=== PATIENT | male | born 1935 | race Caucasian/White ===

== ENCOUNTER 2016-08-26 05:18 | Inpatient (IN) | payer MEDICARE, BC ==
[~2016-08-26] VITALS: Ht 167.6 cm; Wt 91.0 kg
[2016-08-26 05:24] VITALS: BP 160/97; PULSE 140; RESP 16; TEMP 97.5; O2SAT 93
[2016-08-26] MEDS ORDERED: NORC5TAB PO (05:55)
[2016-08-26] MEDS ORDERED: SIME80CH CHEW (05:55)
[2016-08-26] MEDS ORDERED: INSUINJ5 SQ (05:55)
[2016-08-26] MEDS ORDERED: HUMALOG SQ (05:55)
[2016-08-26] MEDS ORDERED: MIRTA15 PO (05:55)
[2016-08-26] MEDS ORDERED: TYLE325T PO (05:55)
[2016-08-26] MEDS ORDERED: METO50TA PO (05:55)
[2016-08-26] MEDS ORDERED: FAMO40TA PO (05:55)
[2016-08-26] MEDS ORDERED: ENOX100P SQ (05:55)
[2016-08-26] MEDS ORDERED: TRAZ100T4 PO (05:55)
[2016-08-26] MEDS ORDERED: LOPE2TAB3 PO (05:55)
[2016-08-26] MEDS ORDERED: ESCI10TA PO (05:55)
[2016-08-26] MEDS ORDERED: PERC5TAB12 PO (05:55)
[2016-08-26] MEDS ORDERED: DILT60TA PO (05:55)
[2016-08-26] MEDS ORDERED: MILKSUS PO (05:55)
[2016-08-26] MEDS ORDERED: N7030SS SQ (05:55)
[2016-08-26] MEDS ORDERED: FURO1TAB60 PO (05:55)
[2016-08-26] MEDS ORDERED: DULC10SU3 RECTAL (05:55)
[2016-08-26] MEDS ORDERED: DILTIAZEM HCL 25 MG/5 ML VIAL IV PUSH ONE (06:15)
--- NOTE | 2016-08-26 06:30 | PD ---
HPI Chief Complaint: Cardiac Complaint Time Seen by Provider: 05:50 Travel History International Travel<30 days: No Contact w/Intl Traveler<30days: No Traveled to known affect area: No History of Present Illness HPI 81-year-old male was sent from local detention for tachycardia and irregular pulse. Patient resides at local detention. [facility] personnel check on patient this morning was found patient has tachycardia and irregular heartbeat. Patient denies any headache. Patient denies any chest pain or shortness of breath. Patient denies abdominal pain. Patient denies any focal weakness or numbness of extremity. Patient denies any history of cardiac arrhythmia. Patient has history hypertension, diabetes, depression, anemia, encephalopathy. Patient was admitted to [facility] in [place] in June 2016 and status post cholecystectomy and transferred to [facility] in [facility]. Patient was found to have large gallstone which was removed and patient also had repair of a fistula tract. Patient then had procedure duodenotomy with complication of segmental lobar infarct. 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 Patient also had supraventricular tachycardia subsequently was put on Cardizem and then Lopressor. Patient has a surgical drain in the gallbladder fossa.. Patient was discharged to detention recently. PFSH Past Medical History Anemia: Yes Depression: Yes Diabetes: Yes Patient Takes Glucophage: No Diminished Hearing: No Hypertension: Yes Medical other: Yes (GALLSTONES) Immunizations Current: No Influenza Vaccination: No Past Surgical History Surgical History: Unable to Obtain Social History Alcohol Use: No Tobacco Use: No Substance Use: No Allergies-Medications (Allergen,Severity, Reaction): Coded Allergies: No Known Allergies (Unverified , 08/26/16) Reported Meds & Prescriptions Reported Meds & Active Scripts Active Reported Loperamide (Loperamide HCl) 2 Mg Tab 2 Mg PO DIRECTED PRN One tablet after each loose stool. Not to exceed 8 tablets per day. Escitalopram (Escitalopram Oxalate) 10 Mg Tab 10 Mg PO DAILY Trazodone (Trazodone HCl) 100 Mg Tab 100 Mg PO HS Percocet (Oxycodone-Acetaminophen) 5-325 mg Tab 1 Tab PO Q6H PRN Novolin 70/30 Inj (Insulin Human Isoph/Insulin Regular) 1,000 Units/10 Ml Inj 10 SQ HS Novolin 70-30 Relion Inj (Insulin NPH Isophane-Reg (Human) 70-30 Inj) 100 Unit/ Ml Inj 15 SQ DAILY [place] (Hydrocodone-Acetaminophen) 5-325 mg Tab 1 Tab PO Q4H PRN Mirtazapine 15 Mg Tab 15 Mg PO HS Diltiazem (Diltiazem HCl) 60 Mg Tab 60 Mg PO TID Tylenol (Acetaminophen) 325 Mg Tab 650 Mg PO Q6H PRN Humalog Inj (Insulin Human Lispro) 1,000 Unit/10 Ml Vial 1-9 Units SQ ACHS Max dose at bedtime:( )units; sugars< 70,(0)units; sugars 150-199,(1)unit; sugars 200-249,(3)units; sugars 250-299,(5)units; sugars 300-349,(7)units; sugars more than 349,(9)units. Metoprolol Tartrate 50 Mg Tab 50 Mg PO BID Lovenox Inj (Enoxaparin Sodium) 100 Mg/Ml Syr 100 Mg SQ BID Simethicone 80 Mg Chw 80 Mg CHEW QID PRN Lasix (Furosemide) 40 Mg Tab 40 Mg PO DAILY Famotidine 40 Mg Tab 40 Mg PO HS Dulcolax Supp (Bisacodyl) 10 Mg Supp 10 Mg RECTAL DAILY PRN Milk of Magnesia Liq (Magnesium Hydroxide) 400 Mg/5 Ml Susp 30 Ml PO DAILY PRN Review of Systems General / Constitutional: No: Fever Eyes: No: Visual changes HENT: No: Headaches Cardiovascular: No: Chest Pain or Discomfort Respiratory: No: Shortness of Breath Gastrointestinal: No: Abdominal Pain Genitourinary: No: Dysuria Musculoskeletal: No: Pain Skin: No Rash Neurologic: No: Weakness Psychiatric: No: Depression Endocrine: No: Polydipsia Hematologic/Lymphatic: No: Easy Bruising Physical Exam Narrative GENERAL: Well-nourished, well-developed patient. SKIN: Focused skin assessment warm/dry. HEAD: Normocephalic. EYES: No scleral icterus. No injection or drainage. NECK: Supple, trachea midline. No JVD or lymphadenopathy. CARDIOVASCULAR: Irregular irregular rate and rhythm without murmurs, gallops, or rubs. RESPIRATORY: Breath sounds equal bilaterally. No accessory muscle use. GASTROINTESTINAL: Abdomen soft, non-tender, nondistended. MUSCULOSKELETAL: No cyanosis, or edema. BACK: Nontender without obvious deformity. No CVA tenderness. Neurologic exam: Patient awake oriented to name. Patient moves all extremities well. No obvious focal neurological deficit. Data Data Last Documented VS Vital Signs Date Time Temp Pulse Resp B/P Pulse Ox O2 Delivery O2 Flow Rate FiO2 08/26/16 05:24 97.5 140 16 160/97 93 Orders Complete Blood Count With Diff (08/26/16 06:13) Comprehensive Metabolic Panel (08/26/16 06:13) Creatine Kinase (Cpk) (08/26/16 06:13) Troponin I (08/26/16 06:13) B-Type Natriuretic Peptide (08/26/16 06:13) Prothrombin Time / Inr (Pt) (08/26/16 06:13) Act Partial Throm Time (Ptt) (08/26/16 06:13) Urinalysis - C+S If Indicated (08/26/16 06:13) Magnesium (Mg) (08/26/16 06:13) Thyroid Stimulating Hormone (08/26/16 06:13) Chest, Single Ap (08/26/16 06:13) Iv Access Insert/Monitor (08/26/16 06:13) Ecg Monitoring (08/26/16 06:13) Oximetry (08/26/16 06:13) Sodium Chlor 0.9% 1000 Ml Inj (Ns 1000 M (08/26/16 06:15) Diltiazem Inj (Cardizem Inj) (08/26/16 06:15) Diltiazem Inj (Cardizem Inj) (08/26/16 06:15) Labs Laboratory Tests Test 08/26/16 06:20 White Blood Count 10.1 TH/MM3 Red Blood Count 3.65 MIL/MM3 Hemoglobin 11.5 GM/DL Hematocrit 34.5 % Mean Corpuscular Volume 94.5 FL Mean Corpuscular Hemoglobin 31.6 PG Mean Corpuscular Hemoglobin 33.4 % Concent Red Cell Distribution Width 18.9 % Platelet Count 321 TH/MM3 Mean Platelet Volume 8.8 FL Neutrophils (%) (Auto) 77.8 % Lymphocytes (%) (Auto) 12.9 % Monocytes (%) (Auto) 7.9 % Eosinophils (%) (Auto) 0.8 % Basophils (%) (Auto) 0.6 % Neutrophils # (Auto) 7.8 TH/MM3 Lymphocytes # (Auto) 1.3 TH/MM3 Monocytes # (Auto) 0.8 TH/MM3 Eosinophils # (Auto) 0.1 TH/MM3 Basophils # (Auto) 0.1 TH/MM3 CBC Comment DIFF FINAL Differential Comment Prothrombin Time 11.9 SEC Prothromb Time International 1.1 RATIO Ratio Activated Partial 27.8 SEC Thromboplast Time Sodium Level 139 MEQ/L Potassium Level 3.6 MEQ/L Chloride Level 101 MEQ/L Carbon Dioxide Level 32.2 MEQ/L Anion Gap 6 MEQ/L Blood Urea Nitrogen 21 MG/DL Creatinine 1.09 MG/DL Estimat Glomerular Filtration 65 ML/MIN Rate Random Glucose 105 MG/DL Calcium Level 8.4 MG/DL Magnesium Level 2.0 MG/DL Aspartate Amino Transf 8 U/L (AST/SGOT) Albumin 2.3 GM/DL MDM Medical Decision Making Medical Screen Exam Complete: Yes Emergency Medical Condition: Yes Interpretation(s) 6:25 AM. EKG shows atrial flutter with rapid ventricular response. Differential Diagnosis Differential diagnosis including new-onset atrial fibrillation with RVR. Narrative Course 81-year-old male was brought to the ED from local detention with new onset atrial fibrillation and RVR. Normal saline solution 70 cc an hour. Cardizem bolus and drip given. Bear Aguirre MD Aug 26, 2016 06:30
[2016-08-26] MEDS: SODIUM CHLOR 0.9% 1000 ML INJ 1,000 ML IV SCH ×2 (06:37→20:33)
[2016-08-26 06:47] LABS: APTT (PATIENT) 27.8 SEC (24.3-30.1); INTERNATIONAL NORMALIZED RATIO 1.1 RATIO; PROTHROMBIN TIME - PATIENT 11.9 SEC (9.8-11.6)
--- NOTE | 2016-08-26 06:52 | RADRPT ---
EXAM DATE/TIME: 08/26/2016 06:34 [place] COMPARISON: No previous studies available for comparison. INDICATIONS : Tachycardia. MEDICAL HISTORY : None. SURGICAL HISTORY : None. ENCOUNTER: Initial ACUITY: 1 day PAIN SCORE: 0/10 LOCATION: Bilateral chest FINDINGS: A single portable frontal view of the chest shows elevation of the right hemidiaphragm. Linear atelec tasis within the right lung base. No infiltrates. Heart is mildly enlarged. Drainage catheter overlie s the right or quadrant. CONCLUSION: Right basilar atelectasis. Mild cardiomegaly. Moshe Goyal Jr., MD on August 26, 2016 at 6:50 Board Certified Radiologist. This report was verified electronically.
[2016-08-26 06:53] LABS: AUTOMATED NEUTROPHIL # 7.8 TH/MM3 (1.8-7.7); BASOPHIL # 0.1 TH/MM3 (0-0.2); BASOPHIL % 0.6 % (0.0-2.0); EOSINOPHIL # 0.1 TH/MM3 (0-0.4); EOSINOPHIL % 0.8 % (0.0-4.0); HEMATOCRIT 34.5 % (39.0-51.0); HEMO FLAGS DIFF FINAL; LYMPH % 12.9 % (9.0-44.0); LYMPHOCYTE # 1.3 TH/MM3 (1.0-4.8); MEAN CELL VOLUME 94.5 FL (80.0-100.0); MEAN CORPUSCULAR HEMOGLOBIN 31.6 PG (27.0-34.0); MEAN CORPUSCULAR HGB CONC 33.4 % (32.0-36.0); MONO % 7.9 % (0.0-8.0); NEUT % 77.8 % (16.0-70.0); PLATELET COUNT 321 TH/MM3 (150-450); RED BLOOD COUNT 3.65 MIL/MM3 (4.50-5.90); RED CELL DISTRIBUTION WIDTH 18.9 % (11.6-17.2); WHITE BLOOD COUNT 10.1 TH/MM3 (4.0-11.0)
[2016-08-26 07:03] LABS: ANION GAP 6 MEQ/L (5-15); AST (GOT) 8 U/L (15-37); BICARBONATE 32.2 MEQ/L (21.0-32.0); BLOOD UREA NITROGEN 21 MG/DL (7-18); CHLORIDE 101 MEQ/L (98-107); GLOMERULAR FILTRATION RATE 65 ML/MIN (>89); POTASSIUM 3.6 MEQ/L (3.5-5.1); SODIUM (NA) 139 MEQ/L (136-145)
[2016-08-26 07:13] LABS: ALKALINE PHOSPHATASE 77 U/L (45-117); ALT (GPT) 16 U/L (12-78); TOTAL BILIRUBIN ADULT 0.4 MG/DL (0.2-1.0)
[2016-08-26 07:15] LABS: CREATINE KINASE 17 U/L (39-308)
[2016-08-26 07:24] LABS: BACTERIA, URINE MOD /hpf; BLOOD, URINE SMALL (NEG); COMMENT (UR) CULTURE INDICATED; CULTURE IF INDICATED CULTURE INDICATED; GLUCOSE,URINE NEG (NEG); KETONE, URINE NEG (NEG); NITRITE,URINE NEG (NEG); URINE COLOR YELLOW (YELLW/STRAW)
[2016-08-26] MEDS ORDERED: PIPERACIL-TAZO 4.5 GM PREMIX 100 ML IV STA (07:39)
[2016-08-26] MEDS: DILTIAZEM INJ 125 MG in SODIUM CHLORIDE 0.9% INJ 100 ML IV SCH (08:04)
[2016-08-26] MEDS: cefTRIAXone INJ 1,000 MG in SODIUM CHLORIDE 0.9% INJ 100 ML IV SCH (09:00)
[2016-08-26] MEDS ORDERED: DEXTROSE 50% IN WATER 50 ML VIAL(D50) IV PUSH PRN (09:00)
[2016-08-26] MEDS ORDERED: GLUCAGON 1 MG/ML VIAL OTHER PRN (09:00)
--- NOTE | 2016-08-26 09:04 | PD ---
Physical Exam Date Seen by Provider: Aug 26, 2016 Time Seen by Provider: 07:00 Narrative Patient initially was seen by Dr. Clifton, please see his note for further details. Here with A. fib with RVR, new onset, currently on Cardizem which is controlling rate. Await lab work for admission. Laboratory Tests Test 08/26/16 08/26/16 06:20 06:30 Red Blood Count 3.65 MIL/MM3 (4.50-5.90) Hemoglobin 11.5 GM/DL (13.0-17.0) Hematocrit 34.5 % (39.0-51.0) Red Cell Distribution Width 18.9 % (11.6-17.2) Neutrophils (%) (Auto) 77.8 % (16.0-70.0) Neutrophils # (Auto) 7.8 TH/MM3 (1.8-7.7) Prothrombin Time 11.9 SEC (9.8-11.6) Carbon Dioxide Level 32.2 MEQ/L (21.0-32.0) Blood Urea Nitrogen 21 MG/DL (7-18) Estimat Glomerular Filtration 65 ML/MIN (>89) Rate Calcium Level 8.4 MG/DL (8.5-10.1) Aspartate Amino Transf 8 U/L (15-37) (AST/SGOT) Total Creatine Kinase 17 U/L (39-308) B-Type Natriuretic Peptide 308 PG/ML (0-100) Albumin 2.3 GM/DL (3.4-5.0) Thyroid Stimulating Hormone 5.200 uIU/ML 3rd Gen (0.358-3.740) Urine Turbidity CLOUDY (CLEAR) Urine Protein 30 mg/dL (NEG-TRACE) Urine Occult Blood SMALL (NEG) Urine Leukocyte Esterase LARGE (NEG) Urine RBC 37 /hpf (0-3) Urine WBC Clumps MANY (NONE) Urine Bacteria MOD /hpf (NONE) Last 24 hours Impressions Chest X-Ray 08/26/16 0613 Signed Impressions: Service Date/Time: Friday, August 26, 2016 06:34 - CONCLUSION: Right basilar atelectasis. Mild cardiomegaly. Moshe Goyal Jr., MD Lab work shows significant UTI. Cultures were done and IV antibiotics initiated the ER. Family suspect that he is somewhat disoriented and his suspect that the UTI may be causing some of this disorientation. Heart rate is now controlled with Cardizem. At this point, patient will need further treatment for new onset A. fib. Case is discussed with Dr. Arreola for admission. Data Data Last Documented VS Vital Signs Date Time Temp Pulse Resp B/P Pulse Ox O2 Delivery O2 Flow Rate FiO2 08/26/16 05:24 97.5 140 16 160/97 93 Orders Complete Blood Count With Diff (08/26/16 06:13) Comprehensive Metabolic Panel (08/26/16 06:13) Creatine Kinase (Cpk) (08/26/16 06:13) Troponin I (08/26/16 06:13) B-Type Natriuretic Peptide (08/26/16 06:13) Prothrombin Time / Inr (Pt) (08/26/16 06:13) Act Partial Throm Time (Ptt) (08/26/16 06:13) Urinalysis - C+S If Indicated (08/26/16 06:13) Magnesium (Mg) (08/26/16 06:13) Thyroid Stimulating Hormone (08/26/16 06:13) Chest, Single Ap (08/26/16 06:13) Iv Access Insert/Monitor (08/26/16 06:13) Ecg Monitoring (08/26/16 06:13) Oximetry (08/26/16 06:13) Sodium Chlor 0.9% 1000 Ml Inj (Ns 1000 M (08/26/16 06:15) Diltiazem Inj (Cardizem Inj) (08/26/16 06:15) Diltiazem Inj (Cardizem Inj) (08/26/16 06:15) Urine Culture (08/26/16 06:30) Blood Culture (08/26/16 07:39) Lactic Acid Sepsis Protocol (08/26/16 07:39) Piperacil-Tazo 4.5 Gm Premix (Zosyn 4.5 (08/26/16 07:39) Electrocardiogram (08/26/16 05:26) Electrocardiogram (08/26/16 06:44) Admit Order (Ed Use Only) (08/26/16 09:02) Labs Laboratory Tests Test 08/26/16 08/26/16 06:20 06:30 White Blood Count 10.1 TH/MM3 Red Blood Count 3.65 MIL/MM3 Hemoglobin 11.5 GM/DL Hematocrit 34.5 % Mean Corpuscular Volume 94.5 FL Mean Corpuscular Hemoglobin 31.6 PG Mean Corpuscular Hemoglobin 33.4 % Concent Red Cell Distribution Width 18.9 % Platelet Count 321 TH/MM3 Mean Platelet Volume 8.8 FL Neutrophils (%) (Auto) 77.8 % Lymphocytes (%) (Auto) 12.9 % Monocytes (%) (Auto) 7.9 % Eosinophils (%) (Auto) 0.8 % Basophils (%) (Auto) 0.6 % Neutrophils # (Auto) 7.8 TH/MM3 Lymphocytes # (Auto) 1.3 TH/MM3 Monocytes # (Auto) 0.8 TH/MM3 Eosinophils # (Auto) 0.1 TH/MM3 Basophils # (Auto) 0.1 TH/MM3 CBC Comment DIFF FINAL Differential Comment Prothrombin Time 11.9 SEC Prothromb Time International 1.1 RATIO Ratio Activated Partial 27.8 SEC Thromboplast Time Sodium Level 139 MEQ/L Potassium Level 3.6 MEQ/L Chloride Level 101 MEQ/L Carbon Dioxide Level 32.2 MEQ/L Anion Gap 6 MEQ/L Blood Urea Nitrogen 21 MG/DL Creatinine 1.09 MG/DL Estimat Glomerular Filtration 65 ML/MIN Rate Random Glucose 105 MG/DL Calcium Level 8.4 MG/DL Magnesium Level 2.0 MG/DL Total Bilirubin 0.4 MG/DL Aspartate Amino Transf 8 U/L (AST/SGOT) Alanine Aminotransferase 16 U/L (ALT/SGPT) Alkaline Phosphatase 77 U/L Total Creatine Kinase 17 U/L Troponin I 0.02 NG/ML B-Type Natriuretic Peptide 308 PG/ML Total Protein 6.6 GM/DL Albumin 2.3 GM/DL Thyroid Stimulating Hormone 5.200 uIU/ML 3rd Gen Urine Color YELLOW Urine Turbidity CLOUDY Urine pH 8.0 Urine Specific [place] 1.016 Urine Protein 30 mg/dL Urine Glucose (UA) NEG mg/dL Urine Ketones NEG mg/dL Urine Occult Blood SMALL Urine Nitrite NEG Urine Bilirubin NEG Urine Urobilinogen 2.0 MG/DL Urine Leukocyte Esterase LARGE Urine RBC 37 /hpf Urine WBC /hpf Urine WBC Clumps MANY Urine Amorphous Sediment MOD Urine Bacteria MOD /hpf Microscopic Urinalysis Comment CULTURE INDICATED MDM Medical Record Reviewed: Yes Supervised Visit with RYAN: Yes Diagnosis Primary Impression: Rapid atrial fibrillation Additional Impressions: UTI (urinary tract infection) Sepsis Admitting Information Admitting Physician Requests: Admit Soontharothai,Rewadee MD Aug 26, 2016 09:04
[2016-08-26 09:55] VITALS: BP 115/81; PULSE 83; RESP 18; O2SAT 96
[2016-08-26] MEDS: INSULIN ASPART SUPPLEMENTAL SCALE SQ SCH ×3 (11:00→21:00)
[2016-08-26 12:00] VITALS: BP 130/86; PULSE 112; RESP 18; TEMP 97.9; O2SAT 92
--- NOTE | 2016-08-26 12:34 | HHI.HP ---
HPI Service [facility] Primary Care Physician Non-Staff Admission Diagnosis Debra miller with RVR/UTI/sepsis Diagnoses: (1) Rapid atrial fibrillation Diagnosis: Principal (2) UTI (urinary tract infection) Diagnosis: Principal Chief Complaint: irregular heart beat Travel History International Travel<30 Days: No Contact w/Intl Traveler <30 Da: No Traveled to Known Affected Are: No History of Present Illness patient is a 81 y/o male who was sent to ER from long term because of irregular heart beat. the patient was admitted to [facility] about three months ago. 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 at the time he had supraventricular tachycardia for which he was placed on cardizem. he had a drain placed in [facility] at the time. he was then transferred to [facility] and later to [facility]. this morning he was found to have rapid and irregular hear rate for which he was transferred to [facility]. he denies any chest pain or sob but has some pain to the lower abdomen. of note he had to have a suarez cath placed about three months ago. Review of Systems Constitutional: DENIES: Fever, Weight loss, Chills, Night Sweats Eyes: DENIES: Blurred vision, Diplopia, Vision loss, Double Vision Ears, nose, mouth, throat: DENIES: Tinnitus, Vertigo, Throat pain, Epistaxis Respiratory: DENIES: Apneas, Cough, Snoring, Wheezing, Hemoptysis, Sputum production, Shortness of breath Cardiovascular: DENIES: Chest pain, Palpitations, Syncope, Dyspnea on Exertion , PND, Lower Extremity Edema, Orthopnea, Claudication Gastrointestinal: COMPLAINS OF: Abdominal pain, DENIES: Black stools, Bloody stools, Constipation, Diarrhea, Nausea, Vomiting, Difficulty Swallowing, Anorexia Genitourinary: DENIES: Urinary frequency, Urgency, Hematuria, Dysuria Musculoskeletal: DENIES: Joint pain, Muscle aches, Stiffness, Joint Swelling Integumentary: DENIES: Rash Neurologic: DENIES: Abnormal gait, Headache, Localized weakness, Paresthesias, Seizures, Speech Problems, Tremor, Poor Balance Psychiatric: DENIES: Anxiety, Confusion, Mood changes, Depression, Hallucinations, Agitation, Suicidal Ideation, Homicidal Ideation, Delusions Past Family Social History 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 Not to exceed 8 tablets per day. Escitalopram (Escitalopram Oxalate) 10 Mg Tab 10 Mg PO DAILY Trazodone (Trazodone HCl) 100 Mg Tab 100 Mg PO HS Percocet (Oxycodone-Acetaminophen) 5-325 mg Tab 1 Tab PO Q6H PRN Novolin 70/30 Inj (Insulin Human Isoph/Insulin Regular) 1,000 Units/10 Ml Inj 10 SQ HS Novolin 70-30 Relion Inj (Insulin NPH Isophane-Reg (Human) 70-30 Inj) 100 Unit/ Ml Inj 15 SQ DAILY [place] (Hydrocodone-Acetaminophen) 5-325 mg Tab 1 Tab PO Q4H PRN Mirtazapine 15 Mg Tab 15 Mg PO HS Diltiazem (Diltiazem HCl) 60 Mg Tab 60 Mg PO TID Tylenol (Acetaminophen) 325 Mg Tab 650 Mg PO Q6H PRN Humalog Inj (Insulin Human Lispro) 1,000 Unit/10 Ml Vial 1-9 Units SQ ACHS Max dose at bedtime:( )units; sugars< 70,(0)units; sugars 150-199,(1)unit; sugars 200-249,(3)units; sugars 250-299,(5)units; sugars 300-349,(7)units; sugars more than 349,(9)units. Metoprolol Tartrate 50 Mg Tab 50 Mg PO BID Lovenox Inj (Enoxaparin Sodium) 100 Mg/Ml Syr 100 Mg SQ BID Simethicone 80 Mg Chw 80 Mg CHEW QID PRN Lasix (Furosemide) 40 Mg Tab 40 Mg PO DAILY Famotidine 40 Mg Tab 40 Mg PO HS Dulcolax Supp (Bisacodyl) 10 Mg Supp 10 Mg RECTAL DAILY PRN Milk of Magnesia Liq (Magnesium Hydroxide) 400 Mg/5 Ml Susp 30 Ml PO DAILY PRN Allergies: Coded Allergies: No Known Allergies (Unverified , 08/26/16) Active Ordered Medications Current Medications Sodium Chloride 1,000 ml @ 70 mls/hr [id number] IV Last administered on 06:37; Start 08/26/16 at 06:15 Diltiazem HCl/ Sodium Chloride (Cardizem Inj/NS Inj) 125 ml @ 0 mls/hr TITRATE IV Last administered on 08/26/16 08:04; Start 08/26/16 at 06:15 Diltiazem HCl 20 mg 20 mg BOLUS ONCE IV PUSH Last administered on 08/26/16 06 :37; Start 08/26/16 at 06:15; Stop 08/26/16 at 06:16; Status DC Piperacillin Sod/ Tazobactam Sod (Zosyn 4.5 Gm Premix) 100 ml @ 200 mls/hr ONCE STAT IV Last administered on 08/26/16 07:39; Start 08/26/16 at 07:39; Stop 08/26/16 at 08:08; Status DC Dextrose (D50w (Vial) Inj) 25 ml UNSCH PRN IV PUSH HYPOGLYCEMIA-SEE COMMENTS; Start 08/26/16 at 09:00 Glucagon (Glucagon Inj) 1 mg UNSCH PRN OTHER HYPOGLYCEMIA-SEE COMMENTS; Start 08/26/16 at 09:00 Insulin Aspart 1 1 ACHS SLIDING SCALE SQ ; Start 08/26/16 at 11:00 Ceftriaxone Sodium/Sodium Chloride (Rocephin Inj/NS Inj) 100 ml @ 200 mls/hr Q24H IV Last administered on 08/26/16 09:00; Start 08/26/16 at 09:00 Social History long term resident. no smoking or drinking. Physical Exam Vital Signs Vital Signs Date Time Temp Pulse Resp B/P Pulse Ox O2 Delivery O2 Flow Rate FiO2 08/26/16 09:55 83 18 115/81 96 Room Air 08/26/16 05:24 97.5 140 16 160/97 93 Physical Exam GENERAL: elderly male in no apparent distress. SKIN: No rashes, ecchymoses or lesions. Cool and dry. HEAD: Atraumatic. Normocephalic. No temporal or scalp tenderness. EYES: Pupils equal round and reactive. Extraocular motions intact. No scleral icterus. No injection or drainage. ENT: Nose without bleeding, purulent drainage or septal hematoma. Throat without erythema, tonsillar hypertrophy or exudate. Uvula midline. Airway patent. NECK: Trachea midline. No JVD or lymphadenopathy. Supple, nontender, no meningeal signs. CARDIOVASCULAR: irregular rhythm without murmurs, gallops, or rubs. RESPIRATORY: Clear to auscultation. Breath sounds equal bilaterally. No wheezes , rales, or rhonchi. GASTROINTESTINAL: Abdomen soft, non-tender, nondistended. No hepato-splenomegaly , or palpable masses. No guarding.drain in place in RUQ. MUSCULOSKELETAL: Extremities without clubbing, cyanosis, or edema. No joint tenderness, effusion, or edema noted. No calf tenderness. Negative Homans sign bilaterally. NEUROLOGICAL: Awake and alert. Cranial nerves II through XII intact. Motor and sensory grossly within normal limits. Five out of 5 muscle strength in all muscle groups. Normal speech. Laboratory Laboratory Tests Test 08/26/16 08/26/16 08/26/16 06:20 06:30 08:25 White Blood Count 10.1 Red Blood Count 3.65 Hemoglobin 11.5 Hematocrit 34.5 Mean Corpuscular Volume 94.5 Mean Corpuscular Hemoglobin 31.6 Mean Corpuscular Hemoglobin 33.4 Concent Red Cell Distribution Width 18.9 Platelet Count 321 Mean Platelet Volume 8.8 Neutrophils (%) (Auto) 77.8 Lymphocytes (%) (Auto) 12.9 Monocytes (%) (Auto) 7.9 Eosinophils (%) (Auto) 0.8 Basophils (%) (Auto) 0.6 Neutrophils # (Auto) 7.8 Lymphocytes # (Auto) 1.3 Monocytes # (Auto) 0.8 Eosinophils # (Auto) 0.1 Basophils # (Auto) 0.1 CBC Comment DIFF FINAL Differential Comment Prothrombin Time 11.9 Prothromb Time International 1.1 Ratio Activated Partial 27.8 Thromboplast Time Sodium Level 139 Potassium Level 3.6 Chloride Level 101 Carbon Dioxide Level 32.2 Anion Gap 6 Blood Urea Nitrogen 21 Creatinine 1.09 Estimat Glomerular Filtration 65 Rate Random Glucose 105 Calcium Level 8.4 Magnesium Level 2.0 Total Bilirubin 0.4 Aspartate Amino Transf 8 (AST/SGOT) Alanine Aminotransferase 16 (ALT/SGPT) Alkaline Phosphatase 77 Total Creatine Kinase 17 Troponin I 0.02 B-Type Natriuretic Peptide 308 Total Protein 6.6 Albumin 2.3 Free Thyroxine 1.27 Thyroid Stimulating Hormone 5.200 3rd Gen Urine Color YELLOW Urine Turbidity CLOUDY Urine pH 8.0 Urine Specific [place] 1.016 Urine Protein 30 Urine Glucose (UA) NEG Urine Ketones NEG Urine Occult Blood SMALL Urine Nitrite NEG Urine Bilirubin NEG Urine Urobilinogen 2.0 Urine Leukocyte Esterase LARGE Urine RBC 37 Urine WBC Urine WBC Clumps MANY Urine Amorphous Sediment MOD Urine Bacteria MOD Microscopic Urinalysis Comment CULTURE INDICATED Lactic Acid Level 1.0 Date/Time Procedure Status Source Growth 08/26/16 08:30 Aerobic Blood Culture Received Blood Peripheral Pending 08/26/16 08:30 Anaerobic Blood Culture Received Blood Peripheral Pending 08/26/16 06:30 Urine Culture Received Urine Clean Catch Pending Result Diagram: 08/26/1661908/26/1620 Imaging Last Impressions Chest X-Ray 08/26/1613 Signed Impressions: Service Date/Time: Friday, August 26, 2016 06:34 - CONCLUSION: Right basilar atelectasis. Mild cardiomegaly. Moshe Goyal Jr., MD Assessment and Plan Assessment and Plan A/P - atrial fibrillation with rapid ventricular rate resume po cardizem- continue with cardizem drip- check echo and consult cardiology -UTI- dc suarez cath- continue with IV Rocephin and follow the UC -perihepatic abscess- s/p drain in RUQ will consult general surgery 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 -DVT prophylaxis with SCD's Discussed Condition With ER physician, the patient and his family and RN at the bedside. Physician Certification 2 Midnight Certification Type: Admission for Inpatient Services Order for Inpatient Services The services are ordered in accordance with Medicare regulations or non- Medicare payer requirements, as applicable. In the case of services not specified as inpatient-only, they are appropriately provided as inpatient services in accordance with the 2-midnight benchmark. Estimated LOS (days): 2 days is the estimated time the patient will need to remain in the hospital, assuming treatment plan goals are met and no additional complications. Post-Hospital Plan: Not yet determined Problem Qualifiers (1) UTI (urinary tract infection): Piotr Medina MD Aug 26, 2016 12:34
[2016-08-26] MEDS: DILTIAZEM HCL 60 MG TAB PO SCH ×2 (13:00→17:59)
[2016-08-26 14:46] VITALS: PULSE 96
--- NOTE | 2016-08-26 14:50 | EKG ---
Date Performed: 08/26/2016 Time Performed: 05:26:55 PTAGE: 81 years EKG: ATRIAL FLUTTER/TACHYCARDIA WITH RAPID VENTRICULAR RESPONSE PATTERN CONSISTENT WITH PULMONAR Y DISEASE POSSIBLE RIGHT VENTRICULAR HYPERTROPHY POSSIBLE INFERIOR MYOCARDIAL INFARCTION ABNORMAL ECG NO PREVIOUS TRACING DOCTOR: Norberto Telles Interpretating Date/Time 08/26/2016 14:47:20
--- NOTE | 2016-08-26 15:29 | EKG ---
Date Performed: 08/26/2016 Time Performed: 06:44:57 PTAGE: 81 years EKG: ATRIAL FLUTTER/TACHYCARDIA INDETERMINATE AXIS PATTERN CONSISTENT WITH PULMONARY DISEASE Alec tricular rate is better controlled from the prior tracing ABNORMAL ECG NO PREVIOUS TRACING DOCTOR: Norberto Telles Interpretating Date/Time 08/28/2016 13:17:41
[2016-08-26 16:00] VITALS: BP 127/78; PULSE 94; RESP 18; TEMP 98.6; O2SAT 90
--- NOTE | 2016-08-26 16:03 | MB ---
cc: JEANETTE MATHIS DATE OF CONSULTATION 08/26/2016 REASON FOR CONSULTATION Mr. Pena is an 81-year-old white male with a history of supraventricular arrhythmias for the last several months. He was seen at [facility] for gallstone in the small intestine and underwent a laparoscopic surgery. He was noted to have supraventricular tachycardia and was started on Diltiazem. This morning he was noted to have irregular and rapid heart beat and he was brought to the hospital. He denies any chest pain, shortness of breath, paroxysmal nocturnal dyspnea, orthopnea, or peripheral edema. He has mild lower abdominal discomfort. PAST MEDICAL HISTORY Positive for: 1. Supraventricular tachycardia. 2. Small bowel obstruction. 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 MEDICATIONS Include: 1. Milk of Magnesia. 2. Dulcolax. 3. Famotidine. 4. Lasix. 5. Simethicone. 6. Lovenox. 7. Metoprolol 50 milligrams twice a day. 8. Insulin. 9. Tylenol. 10. Diltiazem 60 milligrams three times a day. 11. Mirtazapine. 12. [place]. 13. Novolin. 14. Percocet. 15. Trazodone. 16. Citalopram. 17. Loperamide. ALLERGIES NONE. SOCIAL HISTORY The patient does not smoke. He does not drink alcohol. He lives in [facility]. FAMILY HISTORY Positive for heart disease. REVIEW OF SYSTEMS Otherwise negative. PHYSICAL EXAMINATION VITAL SIGNS: Blood pressure 115/81, pulse 83. HEENT: Negative. 2+ carotid upstroke. No bruits. LUNGS: Clear. HEART: Irregular with no murmur, gallop or rub. ABDOMEN: Soft. No bruits. EXTREMITIES: Without edema. 2+ distal pulses. NEUROLOGICAL: Grossly nonfocal. LABORATORY DATA Initial EKG showed atrial fibrillation / flutter with rapid ventricular response. Followup EKG showed atrial fibrillation with controlled ventricular response. Telemetry now shows sinus rhythm with PACs in a bigeminal pattern and first-degree A-V block. Labs, hypertension 11.5. Potassium 3.6. Creatinine 1.1. Troponin 0.02. BNP 308. TSH 5.2. DIAGNOSES 1. Atrial fibrillation / flutter with rapid ventricular response. 2. History of supraventricular tachycardia. 3. Urinary tract infection. 4. Perihepatic abscess, status post drainage. 5. History of surgery for biliary stone ileus and cholecystoduodenal fistula. DISPOSITION Mr. Pena has now converted back to sinus rhythm with PACs. I recommend to continue therapy with metoprolol and diltiazem. He can benefit from full anticoagulation. I recommend therapy with Eliquis 5 milligrams twice a day. He will be monitored on telemetry. I will obtain an echocardiogram to evaluate his left ventricular function. I will follow him for cardiology during his hospitalization. Jeanette Mathis MD OQ/KK /2:48 PM /3:36 PM MTDD
[2016-08-26 20:00] VITALS: BP 121/63; PULSE 73; PULSE 91; RESP 18; TEMP 98.4; O2SAT 93
[2016-08-26] MEDS: traZODone HCL 100 MG TAB PO SCH (21:49)
[2016-08-26] MEDS: FAMOTIDINE 20 MG TAB PO SCH (21:49)
[2016-08-26] MEDS: MIRTAZAPINE 15 MG TAB PO SCH (21:49)
[2016-08-27] VITALS (7 sets, daily range): BP systolic 107–142; BP diastolic 58–82; PULSE 71–128; RESP 18–20; TEMP 97.2–98.2; O2SAT 92–95
[2016-08-27] MEDS: INSULIN ASPART SUPPLEMENTAL SCALE SQ SCH ×4 (05:50→21:19)
[2016-08-27] MEDS: DILTIAZEM HCL 60 MG TAB PO SCH ×3 (09:47→16:45)
[2016-08-27] MEDS: FUROSEMIDE 40 MG TAB PO SCH (09:47)
[2016-08-27] MEDS: ESCITALOPRAM OXALATE 10 MG TAB PO SCH (09:47)
[2016-08-27] MEDS: cefTRIAXone INJ 1,000 MG in SODIUM CHLORIDE 0.9% INJ 100 ML IV SCH (09:47)
[2016-08-27] MEDS: SODIUM CHLOR 0.9% 1000 ML INJ 1,000 ML IV SCH (09:48)
--- NOTE | 2016-08-27 12:17 | HHI.PR ---
Subjective Remarks in no acute distress. complaining of lower abdominal pain. no fever. still tachycardic and on cardizem drip. d/w the RN. Objective Vitals Vital Signs Date Time Temp Pulse Resp B/P Pulse Ox O2 Delivery O2 Flow Rate FiO2 08/27/16 08:00 Room Air 08/27/16 08:00 110 08/27/16 08:00 98.2 116 18 127/78 94 08/27/16 04:00 118 08/27/16 04:00 97.3 78 18 142/82 95 08/27/16 00:00 97.4 76 18 113/72 92 08/26/16 21:45 Room Air 08/26/16 20:00 73 08/26/16 20:00 98.4 91 18 121/63 93 08/26/16 16:00 98.6 94 18 127/78 90 08/26/16 14:46 96 I/O 08/26/16 08/26/16 08/26/16 08/27/16 08/27/16 08/27/16 07:00 15:00 23:00 07:00 15:00 23:00 Intake Total 240 ml 240 ml 100 ml Output Total 700 ml 525 ml 150 ml Balance -460 ml -285 ml -50 ml Intake Oral 240 ml 240 ml 100 ml Output Urine Total 700 ml 525 ml 150 ml # Bowel Movements 1 0 Result Diagram: 08/26/16 0620 08/26/16 0620 Imaging Last Impressions Chest X-Ray 08/26/16 0613 Signed Impressions: Service Date/Time: Friday, August 26, 2016 06:34 - CONCLUSION: Right basilar atelectasis. Mild cardiomegaly. Moshe Goyal Jr., MD Objective Remarks GENERAL: This is a well-nourished, well-developed patient, in no apparent distress. CARDIOVASCULAR:tachycardic with irregular rhythm without murmurs, gallops, or rubs. RESPIRATORY: Clear to auscultation. Breath sounds equal bilaterally. No wheezes , rales, or rhonchi. GASTROINTESTINAL: Abdomen soft, mild lower abdominal tenderness, nondistended. Normal, active bowel sounds MUSCULOSKELETAL: Extremities without clubbing, cyanosis, or edema. NEURO: Alert & Oriented x4 to person, place, time, situation. Moves all ext x4 Procedures none Medications and IVs Current Medications Sodium Chloride 1,000 ml @ 70 mls/hr [id number] IV Last administered on 20:33; Start 08/26/16 at 06:15 Diltiazem HCl/ Sodium Chloride (Cardizem Inj/NS Inj) 125 ml @ 0 mls/hr TITRATE IV Last administered on 08/26/16 08:04; Start 08/26/16 at 06:15 Diltiazem HCl 20 mg 20 mg BOLUS ONCE IV PUSH Last administered on 08/26/16 06 :37; Start 08/26/16 at 06:15; Stop 08/26/16 at 06:16; Status DC Piperacillin Sod/ Tazobactam Sod (Zosyn 4.5 Gm Premix) 100 ml @ 200 mls/hr ONCE STAT IV Last administered on 08/26/16 07:39; Start 08/26/16 at 07:39; Stop 08/26/16 at 08:08; Status DC Dextrose (D50w (Vial) Inj) 25 ml UNSCH PRN IV PUSH HYPOGLYCEMIA-SEE COMMENTS; Start 08/26/16 at 09:00 Glucagon (Glucagon Inj) 1 mg UNSCH PRN OTHER HYPOGLYCEMIA-SEE COMMENTS; Start 08/26/16 at 09:00 Insulin Aspart 1 1 ACHS SLIDING SCALE SQ ; Start 08/26/16 at 11:00 Ceftriaxone Sodium/Sodium Chloride (Rocephin Inj/NS Inj) 100 ml @ 200 mls/hr Q24H IV Last administered on 08/27/16 09:47; Start 08/26/16 at 09:00 Diltiazem HCl (Cardizem) 60 mg TID PO Last administered on 08/27/16 09:47; Start 08/26/16 at 13:00 Escitalopram Oxalate (Lexapro) 10 mg DAILY PO Last administered on 08/27/16 09 :47; Start 08/27/16 at 09:00 Furosemide (Lasix) 40 mg DAILY PO Last administered on 08/27/16 09:47; Start 08/27/16 at 09:00 Mirtazapine (Remeron) 15 mg HS PO Last administered on 08/26/16 21:49; Start 08/26/16 at 21:00 Trazodone HCl (Desyrel) 100 mg HS PO Last administered on 08/26/16 21:49; Start 08/26/16 at 21:00 Famotidine (Pepcid) 40 mg HS PO Last administered on 08/26/16 21:49; Start at 21:00 A/P Assessment and Plan A/P - atrial fibrillation with rapid ventricular rate- still tachycardic despite being on Cardizem drip. continue po Cardizem- start po Metoprolol- continue with cardizem drip; will try to taper it off. will start Eliquis after surgery evaluation- echo pending-cardiology consult appreciated. -UTI- dc'ed suarez cath- continue with IV Rocephin and follow the UC -perihepatic abscess- s/p drain in RUQ consulted general surgery 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 -DVT prophylaxis with SCD's Piotr Medina MD Aug 27, 2016 12:17
[2016-08-27] MEDS: ACETAMINOPHEN/HYDROcodone 325 MG/5 MG TAB PO PRN ×3 (12:49→21:18)
[2016-08-27] MEDS: METOPROLOL TARTRATE 50 MG TAB PO SCH ×2 (12:49→21:17)
[2016-08-27] MEDS ORDERED: METOPROLOL TARTRATE 50 MG TAB PO SCH (13:00)
--- NOTE | 2016-08-27 16:04 | PD.CONS ---
cc: Gaston Nguyen MD [facility] Service General Surgery Consult Requested By Dr. Medina Reason for Consult Evaluation of RUQ drain placed at OSH Primary Care Physician Non-Staff History of Present Illness This is a 81 year old male who is a very poor hospital on evaluation. Per H&P, he was admitted to [facility] about 3 months ago. Per the records he was found to have a large gallstone in the small intestines and was repaired laparoscopically. Postoperatively he was found to have a cholecystoduodenal fistula and not was also repaired during hospitalization. The patient had a postoperative complication with a segmental liver infarct and perihepatic abscess formation. A right upper quadrant drain was placed. The patient was then transferred to [facility] [address] for rehabilitation. At the [facility] he is found to have a rapid and irregular heart beat and was transferred to [place] ED. A General Surgery consultation has been requested for evaluation of the outside hospital placed a drain in the right upper quadrant. Review of Systems Constitutional: DENIES: Chills Endocrine: DENIES: Polydipsia, Polyphagia Eyes: DENIES: Diplopia, Eye inflammation Ears, nose, mouth, throat: DENIES: Tinnitus, Hearing loss Respiratory: DENIES: Apneas Cardiovascular: DENIES: Chest pain Gastrointestinal: DENIES: Abdominal pain Genitourinary: DENIES: Urinary frequency Musculoskeletal: DENIES: Joint pain Integumentary: DENIES: Abnormal pigmentation Hematologic/lymphatic: DENIES: Bruising Immunologic/allergic: DENIES: Eczema Neurologic: DENIES: Abnormal gait, Headache Psychiatric: DENIES: Confusion, Mood changes, Depression Past Family Social History Past Medical History supraventricular tachycardia jejunal adenocarcinoma liver infarct Past Surgical History s/p small bowel obstruction Laparoscopically removal of large gallstone s/p cholecystoduodenal fistula repair Reported Medications See chart Allergies: Coded Allergies: No Known Allergies (Unverified , 08/26/16) Active Ordered Medications Current Medications Medications (Trade) Dose Ordered Sig/Cash Route Start Time Stop Time Status Last Admin Sodium Chloride 1,000 ml @ 70 mls/hr [id number] IV 08/26/16 06:15 08/26/16 20:33 (Cardizem Inj/NS Inj) 125 ml @ 0 mls/hr TITRATE IV 08/26/16 06:15 08/26/16 08:04 (D50w (Vial) Inj) 25 ml UNSCH PRN IV PUSH 08/26/16 09:00 Glucagon 1 mg 1 mg UNSCH PRN OTHER 08/26/16 09:00 (Rocephin Inj/NS Inj) 100 ml @ 200 mls/hr Q24H IV 08/26/16 09:00 08/27/16 09:47 (Cardizem) 60 mg TID PO 08/26/16 13:00 08/27/16 12:49 (Lexapro) 10 mg DAILY PO 08/27/16 09:00 08/27/16 09:47 (Lasix) 40 mg DAILY PO 08/27/16 09:00 08/27/16 09:47 (Remeron) 15 mg HS PO 08/26/16 21:00 08/26/16 21:49 (Desyrel) 100 mg HS PO 08/26/16 21:00 08/26/16 21:49 (Pepcid) 40 mg HS PO 08/26/16 21:00 08/26/16 21:49 ([place] 5-325 Mg) 1 tab Q4H PRN PO 08/27/16 12:15 08/27/16 12:49 (Lopressor) 50 mg BID PO 08/27/16 13:00 08/27/16 12:49 Family History Unobtainable at this time Social History Was recently admitted to [facility] Per chart is a nonsmoker and nondrinker Physical Exam Vital Signs Vital Signs Date Time Temp Pulse Resp B/P Pulse Ox O2 Delivery O2 Flow Rate FiO2 08/27/16 12:00 97.9 128 20 129/59 93 08/27/16 08:00 Room Air 08/27/16 08:00 110 08/27/16 08:00 98.2 116 18 127/78 94 08/27/16 04:00 118 08/27/16 04:00 97.3 78 18 142/82 95 08/27/16 00:00 97.4 76 18 113/72 92 08/26/16 21:45 Room Air 08/26/16 20:00 73 08/26/16 20:00 98.4 91 18 121/63 93 08/26/16 16:00 98.6 94 18 127/78 90 Physical Exam GENERAL: Elderly male resting in bed in no acute distress SKIN: Warm and dry. HEAD: Atraumatic. Normocephalic. EYES: Pupils equal and round. No scleral icterus. No injection or drainage. ENT: No nasal bleeding or discharge. Mucous membranes pink and moist. NECK: Trachea midline. CARDIOVASCULAR: Regular rate and rhythm. RESPIRATORY: No accessory muscle use. Clear to auscultation. Breath sounds equal bilaterally. GASTROINTESTINAL: Abdomen soft, non-tender, nondistended. Right upper quadrant drain in place--thin brown fluid and drainage collection bag MUSCULOSKELETAL: Extremities without clubbing, cyanosis, or edema. No obvious deformities. NEUROLOGICAL: Awake and alert. No obvious cranial nerve deficits. Motor grossly within normal limits. Five out of 5 muscle strength in the arms and legs. Normal speech. PSYCHIATRIC: Appropriate mood and affect Laboratory Date/Time Procedure Status Source Growth 08/26/16 08:30 Aerobic Blood Culture - Preliminary Resulted Blood Peripheral NO GROWTH IN 1 DAY 08/26/16 08:30 Anaerobic Blood Culture - Preliminary Resulted Blood Peripheral NO GROWTH IN 1 DAY 08/26/16 06:30 Urine Culture - Preliminary Resulted Urine Clean Catch Gram Negative Yusuf Result Diagram: 08/26/1661908/26/16619 Assessment and Plan Assessment and Plan 81-year-old male status post laparoscopic repair of gallstone ileus; repair of cholecystoduodenal fistula; postoperative complication with a segmental liver infarct and perihepatic abscess formation at [facility] -Obtain records from [facility] on operative interventions -Regular diet -Pain control -Bowel regimen -Continue drain tube drainage collection bag at this time Attending Statement The exam, history, and the medical decision-making described in the above note were completed with the assistance of the mid-level provider. I reviewed and agree with the findings presented. I attest that I had a ftax-co-ewki encounter with the patient on the same day, and personally performed and documented my assessment and findings in the medical record. abdominal exam benign, no pain or GI symptoms, s/p IR drain for liver abscess, no signs of recurrent infection or sepsis, recommend leaving his drain in place to drainage for now if patient develops symptoms or signs of infection would repeat CT scan abdomen to evaluate drain, possible IR consult will follow Carla Sosa Aug 27, 2016 16:04 Gaston Nguyen MD Aug 30, 2016 20:30
[2016-08-27] MEDS: DILTIAZEM INJ 125 MG in SODIUM CHLORIDE 0.9% INJ 100 ML IV SCH (16:45)
--- NOTE | 2016-08-27 17:16 | PD.CARD.PN ---
Subjective Subjective Remarks Denies CP or SOB, still w intermittent AF w RVR Objective Medications Current Medications Medications (Trade) Dose Ordered Sig/Cash Route Start Time Stop Time Status Last Admin Sodium Chloride 1,000 ml @ 70 mls/hr [id number] IV 08/26/16 06:15 08/26/16 20:33 (Cardizem Inj/NS Inj) 125 ml @ 0 mls/hr TITRATE IV 08/26/16 06:15 08/27/16 16:45 (D50w (Vial) Inj) 25 ml UNSCH PRN IV PUSH 08/26/16 09:00 Glucagon 1 mg 1 mg UNSCH PRN OTHER 08/26/16 09:00 (Rocephin Inj/NS Inj) 100 ml @ 200 mls/hr Q24H IV 08/26/16 09:00 08/27/16 09:47 (Cardizem) 60 mg TID PO 08/26/16 13:00 08/27/16 16:45 (Lexapro) 10 mg DAILY PO 08/27/16 09:00 08/27/16 09:47 (Lasix) 40 mg DAILY PO 08/27/16 09:00 08/27/16 09:47 (Remeron) 15 mg HS PO 08/26/16 21:00 08/26/16 21:49 (Desyrel) 100 mg HS PO 08/26/16 21:00 08/26/16 21:49 (Pepcid) 40 mg HS PO 08/26/16 21:00 08/26/16 21:49 ([place] 5-325 Mg) 1 tab Q4H PRN PO 08/27/16 12:15 08/27/16 16:45 (Lopressor) 50 mg BID PO 08/27/16 13:00 08/27/16 12:49 Vital Signs / I&O Vital Signs Date Time Temp Pulse Resp B/P Pulse Ox O2 Delivery O2 Flow Rate FiO2 08/27/16 12:00 97.9 128 20 129/59 93 08/27/16 08:00 Room Air 08/27/16 08:00 110 08/27/16 08:00 98.2 116 18 127/78 94 08/27/16 04:00 118 08/27/16 04:00 97.3 78 18 142/82 95 08/27/16 00:00 97.4 76 18 113/72 92 08/26/16 21:45 Room Air 08/26/16 20:00 73 08/26/16 20:00 98.4 91 18 121/63 93 I/O 08/26/16 08/26/16 08/26/16 08/27/16 08/27/16 08/27/16 07:00 15:00 23:00 07:00 15:00 23:00 Intake Total 240 ml 240 ml 100 ml 699 ml Output Total 700 ml 525 ml 150 ml Balance -460 ml -285 ml -50 ml 699 ml Intake Oral 240 ml 240 ml 100 ml IV Total 699 ml Output Urine Total 700 ml 525 ml 150 ml # Bowel Movements 1 0 Physical Exam GENERAL: In NAD SKIN: Warm and dry. HEAD: Normocephalic. EYES: No scleral icterus. No injection or drainage. NECK: Supple, trachea midline. No JVD or lymphadenopathy. CARDIOVASCULAR: irregular rate and rhythm without murmurs, gallops, or rubs. RESPIRATORY: Breath sounds equal bilaterally. No accessory muscle use. GASTROINTESTINAL: Abdomen soft, non-tender, nondistended. MUSCULOSKELETAL: No cyanosis, or edema. Laboratory Laboratory Tests Test 08/26/16 08/26/16 08/26/16 06:20 06:30 08:25 Prothrombin Time 11.9 SEC Prothromb Time International 1.1 RATIO Ratio Activated Partial 27.8 SEC Thromboplast Time Sodium Level 139 MEQ/L Potassium Level 3.6 MEQ/L Chloride Level 101 MEQ/L Carbon Dioxide Level 32.2 MEQ/L Anion Gap 6 MEQ/L Blood Urea Nitrogen 21 MG/DL Creatinine 1.09 MG/DL Estimat Glomerular Filtration 65 ML/MIN Rate Random Glucose 105 MG/DL Calcium Level 8.4 MG/DL Magnesium Level 2.0 MG/DL Total Bilirubin 0.4 MG/DL Aspartate Amino Transf 8 U/L (AST/SGOT) Alanine Aminotransferase 16 U/L (ALT/SGPT) Alkaline Phosphatase 77 U/L Total Creatine Kinase 17 U/L Troponin I 0.02 NG/ML B-Type Natriuretic Peptide 308 PG/ML Total Protein 6.6 GM/DL Albumin 2.3 GM/DL Free Thyroxine 1.27 NG/DL Thyroid Stimulating Hormone 5.200 uIU/ML 3rd Gen White Blood Count 10.1 TH/MM3 Red Blood Count 3.65 MIL/MM3 Hemoglobin 11.5 GM/DL Hematocrit 34.5 % Mean Corpuscular Volume 94.5 FL Mean Corpuscular Hemoglobin 31.6 PG Mean Corpuscular Hemoglobin 33.4 % Concent Red Cell Distribution Width 18.9 % Platelet Count 321 TH/MM3 Mean Platelet Volume 8.8 FL Neutrophils (%) (Auto) 77.8 % Lymphocytes (%) (Auto) 12.9 % Monocytes (%) (Auto) 7.9 % Eosinophils (%) (Auto) 0.8 % Basophils (%) (Auto) 0.6 % Neutrophils # (Auto) 7.8 TH/MM3 Lymphocytes # (Auto) 1.3 TH/MM3 Monocytes # (Auto) 0.8 TH/MM3 Eosinophils # (Auto) 0.1 TH/MM3 Basophils # (Auto) 0.1 TH/MM3 CBC Comment DIFF FINAL Differential Comment Urine Color YELLOW Urine Turbidity CLOUDY Urine pH 8.0 Urine Specific [place] 1.016 Urine Protein 30 mg/dL Urine Glucose (UA) NEG mg/dL Urine Ketones NEG mg/dL Urine Occult Blood SMALL Urine Nitrite NEG Urine Bilirubin NEG Urine Urobilinogen 2.0 MG/DL Urine Leukocyte Esterase LARGE Urine RBC 37 /hpf Urine WBC /hpf Urine WBC Clumps MANY Urine Amorphous Sediment MOD Urine Bacteria MOD /hpf Microscopic Urinalysis Comment CULTURE INDICATED Lactic Acid Level 1.0 mmol/L Imaging Last Impressions Chest X-Ray 08/26/16 0613 Signed Impressions: Service Date/Time: Friday, August 26, 2016 06:34 - CONCLUSION: Right basilar atelectasis. Mild cardiomegaly. Moshe Goyal Jr., MD Assessment and Plan Problem List: (1) Atrial fibrillation and flutter (2) H/O supraventricular tachycardia (3) UTI (urinary tract infection) (4) Sepsis Assessment and Plan Rate still increased. Continue diltiazem and metoprolol, titrate for rate control. Start anticoagulation with Eliquis once surgical eval completed. Continue monitoring. Check echo. Increase activity. Problem Qualifiers (1) UTI (urinary tract infection): Jeanette Mathis MD Aug 27, 2016 17:16
--- NOTE | 2016-08-27 17:54 | EC ---
Study Study Date:08/27/2016 STUDY CONCLUSIONS SUMMARY - Left ventricle: The cavity size was normal. Systolic function was moderately reduced. The estimated ejection fraction was in the range of 40% to 45%. Diffuse hypokinesis. - Left atrium: The atrium was moderately dilated. - Right ventricle: The cavity size was mildly dilated. If LV function is below 40, please consider prescribing an ACEI or ARB or document rationale for non-use. PROCEDURE DATA STUDY STATUS: Elective. Procedure: Transthoracic echocardiography. Image quality was good. Scanning was performed from the parasternal, apical, and subcostal acoustic windows. Study completion: The patient tolerated the procedure well. Transthoracic echocardiography. M-mode, complete 2D, complete spectral Doppler, and color Doppler. Patient status: Inpatient. CARDIAC ANATOMY LEFT VENTRICLE: The cavity size was normal. Systolic function was moderately reduced. The estimated ejection fraction was in the range of 40% to 45%. Diffuse hypokinesis. AORTIC VALVE: The valve appears to be grossly normal. Doppler: There was no stenosis. No significant regurgitation. MITRAL VALVE: The valve appears to be grossly normal. Doppler: There was no evidence for stenosis. Trace regurgitation. Peak gradient: 3mm Hg (D). LEFT ATRIUM: The atrium was moderately dilated. RIGHT VENTRICLE: The cavity size was mildly dilated. PULMONIC VALVE: Not well visualized. Doppler: There was no evidence for stenosis. Trace to mild regurgitation. TRICUSPID VALVE: The valve appears to be grossly normal. Doppler: There was no evidence for stenosis. Trace regurgitation. PERICARDIUM: There was no pericardial effusion. BASIC MEASUREMENTS ADULT NORMAL Left ventricle LV internal dimension, ED, chordal level, 44.1 mm 43-52 PLAX LV posterior wall thickness, ED 6.78 mm IVS/LVPW ratio, ED 1.22 <1.3 Ventricular septum Septal thickness, ED 8.28 mm Aortic valve Leaflet separation 22 mm 15-26 Left atrium Anterior-posterior dimension 42 mm Right ventricle RV internal dimension, ED, PLAX 29.2 mm 19-38 BASIC MEASUREMENTS ADULT NORMAL Aortic valve Leaflet separation 22 mm 15-26 Aorta Root diameter, ED *38 mm 20-37 DOPPLER MEASUREMENTS ADULT NORMAL Mitral valve Peak E-wave velocity 86.9 cm/s Peak A-wave velocity 35.5 cm/s Peak gradient, D 3 mm Hg Peak E/A ratio 2.4 Tricuspid valve Regurgitant peak velocity 300 cm/s Peak RV-RA gradient, S 36 mm Hg Maximal regurgitant velocity 300 cm/s LEGEND: Mean values are shown as u=mean value. Asterisk (*) izquierdo values outside specified normal range. Prepared and signed by Herb Lorenzo [id number]
[2016-08-27] MEDS: MIRTAZAPINE 15 MG TAB PO SCH (21:17)
[2016-08-27] MEDS: traZODone HCL 100 MG TAB PO SCH (21:18)
[2016-08-27] MEDS: FAMOTIDINE 20 MG TAB PO SCH (21:18)
[2016-08-28] VITALS (10 sets, daily range): BP systolic 104–128; BP diastolic 65–76; PULSE 70–111; RESP 18–20; TEMP 96.7–99; O2SAT 85–97
[2016-08-28] MEDS: SODIUM CHLOR 0.9% 1000 ML INJ 1,000 ML IV SCH ×2 (01:09→12:23)
[2016-08-28] MEDS: INSULIN ASPART SUPPLEMENTAL SCALE SQ SCH ×4 (06:51→21:20)
[2016-08-28] MEDS: DILTIAZEM HCL 60 MG TAB PO SCH ×3 (08:24→17:17)
[2016-08-28] MEDS: cefTRIAXone INJ 1,000 MG in SODIUM CHLORIDE 0.9% INJ 100 ML IV SCH (08:24)
[2016-08-28] MEDS: FUROSEMIDE 40 MG TAB PO SCH (08:25)
[2016-08-28] MEDS: ESCITALOPRAM OXALATE 10 MG TAB PO SCH (08:25)
[2016-08-28] MEDS: METOPROLOL TARTRATE 50 MG TAB PO SCH ×2 (08:25→21:19)
--- NOTE | 2016-08-28 11:48 | HHI.PR ---
Subjective Remarks resting comfortably with no distress. no new complaints. HR fairly stable. Objective Vitals Vital Signs Date Time Temp Pulse Resp B/P Pulse Ox O2 Delivery O2 Flow Rate FiO2 08/28/16 09:57 Room Air 08/28/16 08:00 98.1 100 20 128/75 94 08/28/16 04:22 98.7 98 20 114/69 93 08/28/16 04:00 111 08/28/16 00:15 98.2 70 20 124/71 93 08/28/16 00:00 75 08/27/16 20:35 97.7 71 19 107/58 94 08/27/16 20:15 71 08/27/16 19:45 Room Air 08/27/16 16:00 97.2 71 18 120/61 95 08/27/16 12:00 97.9 128 20 129/59 93 I/O 08/27/16 08/27/16 08/27/16 08/28/16 08/28/16 08/28/16 07:00 15:00 23:00 07:00 15:00 23:00 Intake Total 100 ml 939 ml Output Total 150 ml Balance -50 ml 939 ml Intake Oral 100 ml 240 ml IV Total 699 ml Output Urine Total 150 ml # Voids 3 0 1 # Bowel Movements 0 3 1 Result Diagram: 08/26/1661908/26/16619 Imaging Last Impressions Chest X-Ray 08/26/16 06 Signed Impressions: Service Date/Time: Friday, August 26, 2016 06:34 - CONCLUSION: Right basilar atelectasis. Mild cardiomegaly. Moshe Goyal Jr., MD Objective Remarks GENERAL: This is a well-nourished, well-developed patient, in no apparent distress. CARDIOVASCULAR:tachycardic with irregular rhythm without murmurs, gallops, or rubs. RESPIRATORY: Clear to auscultation. Breath sounds equal bilaterally. No wheezes , rales, or rhonchi. GASTROINTESTINAL: Abdomen soft, mild lower abdominal tenderness, nondistended. Normal, active bowel sounds MUSCULOSKELETAL: Extremities without clubbing, cyanosis, or edema. NEURO: Alert & Oriented x4 to person, place, time, situation. Moves all ext x4 Procedures none Medications and IVs Current Medications Sodium Chloride 1,000 ml @ 70 mls/hr [id number] IV Last administered on 01:09; Start 08/26/16 at 06:15 Diltiazem HCl/ Sodium Chloride (Cardizem Inj/NS Inj) 125 ml @ 0 mls/hr TITRATE IV Last administered on 08/27/16 16:45; Start 08/26/16 at 06:15 Diltiazem HCl 20 mg 20 mg BOLUS ONCE IV PUSH Last administered on 08/26/16 06 :37; Start 08/26/16 at 06:15; Stop 08/26/16 at 06:16; Status DC Piperacillin Sod/ Tazobactam Sod (Zosyn 4.5 Gm Premix) 100 ml @ 200 mls/hr ONCE STAT IV Last administered on 08/26/16 07:39; Start 08/26/16 at 07:39; Stop 08/26/16 at 08:08; Status DC Dextrose (D50w (Vial) Inj) 25 ml UNSCH PRN IV PUSH HYPOGLYCEMIA-SEE COMMENTS; Start 08/26/16 at 09:00 Glucagon (Glucagon Inj) 1 mg UNSCH PRN OTHER HYPOGLYCEMIA-SEE COMMENTS; Start 08/26/16 at 09:00 Insulin Aspart 1 1 ACHS SLIDING SCALE SQ Last administered on 08/27/16 21:19 ; Start 08/26/16 at 11:00 Ceftriaxone Sodium/Sodium Chloride (Rocephin Inj/NS Inj) 100 ml @ 200 mls/hr Q24H IV Last administered on 08/28/16 08:24; Start 08/26/16 at 09:00 Diltiazem HCl (Cardizem) 60 mg TID PO Last administered on 08/28/16 08:24; Start 08/26/16 at 13:00 Escitalopram Oxalate (Lexapro) 10 mg DAILY PO Last administered on 08/28/16 08 :25; Start 08/27/16 at 09:00 Furosemide (Lasix) 40 mg DAILY PO Last administered on 08/28/16 08:25; Start 08/27/16 at 09:00 Mirtazapine (Remeron) 15 mg HS PO Last administered on 08/27/16 21:17; Start 08/26/16 at 21:00 Trazodone HCl (Desyrel) 100 mg HS PO Last administered on 08/27/16 21:18; Start 08/26/16 at 21:00 Famotidine (Pepcid) 40 mg HS PO Last administered on 08/27/16 21:18; Start at 21:00 Acetaminophen/ Hydrocodone Bitart ([place] 5-325 Mg) 1 tab Q4H PRN PO PAIN 3-10 Last administered on 08/27/16 21:18; Start 08/27/16 at 12:15 Metoprolol Tartrate (Lopressor) 50 mg BID PO ; Start 08/27/16 at 13:00; Stop at 13:00; Status DC Metoprolol Tartrate (Lopressor) 50 mg BID PO Last administered on 08/28/16 08: 25; Start 08/27/16 at 13:00 A/P Assessment and Plan A/P - atrial fibrillation with rapid ventricular rate- HR better today. continue po Cardizem and Metoprolol- will try to taper off the cardizem drip . will start Eliquis after surgery follow-up- echo with EF 45%-cardiology following. -UTI- dc'ed suarez cath- continue with IV Rocephin . UC with enterobacter. 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
--- NOTE | 2016-08-28 12:50 | EKG ---
Date Performed: 08/26/2016 Time Performed: 08:36:38 PTAGE: 81 years EKG: ATRIAL FLUTTER/TACHYCARDIA WITH RAPID VENTRICULAR RESPONSE INDETERMINATE AXIS PATTERN CONSI STENT WITH PULMONARY DISEASE PROBABLE INFERIOR MYOCARDIAL INFARCTION ABNORMAL ECG PREVIOUS TRACING : 08/26/2016 06.44 Compared to prior tracing no significant change DOCTOR: Roland Fuller Interpretating Date/Time 08/28/2016 12:49:48
--- NOTE | 2016-08-28 15:19 | PD.CARD.PN ---
Subjective Subjective Remarks No CP or SOB, feels better Objective Medications Current Medications Medications (Trade) Dose Ordered Sig/Cash Route Start Time Stop Time Status Last Admin Sodium Chloride 1,000 ml @ 70 mls/hr [id number] IV 08/26/16 06:15 08/28/16 12:23 (Cardizem Inj/NS Inj) 125 ml @ 0 mls/hr TITRATE IV 08/26/16 06:15 08/27/16 16:45 (D50w (Vial) Inj) 25 ml UNSCH PRN IV PUSH 08/26/16 09:00 Glucagon 1 mg 1 mg UNSCH PRN OTHER 08/26/16 09:00 (Rocephin Inj/NS Inj) 100 ml @ 200 mls/hr Q24H IV 08/26/16 09:00 08/28/16 08:24 (Cardizem) 60 mg TID PO 08/26/16 13:00 08/28/16 12:23 (Lexapro) 10 mg DAILY PO 08/27/16 09:00 08/28/16 08:25 (Lasix) 40 mg DAILY PO 08/27/16 09:00 08/28/16 08:25 (Remeron) 15 mg HS PO 08/26/16 21:00 08/27/16 21:17 (Desyrel) 100 mg HS PO 08/26/16 21:00 08/27/16 21:18 (Pepcid) 40 mg HS PO 08/26/16 21:00 08/27/16 21:18 ([place] 5-325 Mg) 1 tab Q4H PRN PO 08/27/16 12:15 08/27/16 21:18 (Lopressor) 50 mg BID PO 08/27/16 13:00 08/28/16 08:25 Vital Signs / I&O Vital Signs Date Time Temp Pulse Resp B/P Pulse Ox O2 Delivery O2 Flow Rate FiO2 08/28/16 12:00 97.4 74 20 125/68 96 08/28/16 09:57 Room Air 08/28/16 08:00 98.1 100 20 128/75 94 08/28/16 04:22 98.7 98 20 114/69 93 08/28/16 04:00 111 08/28/16 00:15 98.2 70 20 124/71 93 08/28/16 00:00 75 08/27/16 20:35 97.7 71 19 107/58 94 08/27/16 20:15 71 08/27/16 19:45 Room Air 08/27/16 16:00 97.2 71 18 120/61 95 I/O 08/27/16 08/27/16 08/27/16 08/28/16 08/28/16 08/28/16 07:00 15:00 23:00 07:00 15:00 23:00 Intake Total 100 ml 939 ml Output Total 150 ml Balance -50 ml 939 ml Intake Oral 100 ml 240 ml IV Total 699 ml Output Urine Total 150 ml # Voids 3 0 1 # Bowel Movements 0 3 1 Physical Exam GENERAL: In NAD SKIN: Warm and dry. HEAD: Normocephalic. EYES: No scleral icterus. No injection or drainage. NECK: Supple, trachea midline. No JVD or lymphadenopathy. CARDIOVASCULAR: irregular rate and rhythm without murmurs, gallops, or rubs. RESPIRATORY: Breath sounds equal bilaterally. No accessory muscle use. GASTROINTESTINAL: Abdomen soft, non-tender, nondistended. MUSCULOSKELETAL: No cyanosis, or edema. Laboratory Laboratory Tests Test 08/26/16 08/26/16 08/26/16 06:20 06:30 08:25 Prothrombin Time 11.9 SEC Prothromb Time International 1.1 RATIO Ratio Activated Partial 27.8 SEC Thromboplast Time Sodium Level 139 MEQ/L Potassium Level 3.6 MEQ/L Chloride Level 101 MEQ/L Carbon Dioxide Level 32.2 MEQ/L Anion Gap 6 MEQ/L Blood Urea Nitrogen 21 MG/DL Creatinine 1.09 MG/DL Estimat Glomerular Filtration 65 ML/MIN Rate Random Glucose 105 MG/DL Calcium Level 8.4 MG/DL Magnesium Level 2.0 MG/DL Total Bilirubin 0.4 MG/DL Aspartate Amino Transf 8 U/L (AST/SGOT) Alanine Aminotransferase 16 U/L (ALT/SGPT) Alkaline Phosphatase 77 U/L Total Creatine Kinase 17 U/L Troponin I 0.02 NG/ML B-Type Natriuretic Peptide 308 PG/ML Total Protein 6.6 GM/DL Albumin 2.3 GM/DL Free Thyroxine 1.27 NG/DL Thyroid Stimulating Hormone 5.200 uIU/ML 3rd Gen White Blood Count 10.1 TH/MM3 Red Blood Count 3.65 MIL/MM3 Hemoglobin 11.5 GM/DL Hematocrit 34.5 % Mean Corpuscular Volume 94.5 FL Mean Corpuscular Hemoglobin 31.6 PG Mean Corpuscular Hemoglobin 33.4 % Concent Red Cell Distribution Width 18.9 % Platelet Count 321 TH/MM3 Mean Platelet Volume 8.8 FL Neutrophils (%) (Auto) 77.8 % Lymphocytes (%) (Auto) 12.9 % Monocytes (%) (Auto) 7.9 % Eosinophils (%) (Auto) 0.8 % Basophils (%) (Auto) 0.6 % Neutrophils # (Auto) 7.8 TH/MM3 Lymphocytes # (Auto) 1.3 TH/MM3 Monocytes # (Auto) 0.8 TH/MM3 Eosinophils # (Auto) 0.1 TH/MM3 Basophils # (Auto) 0.1 TH/MM3 CBC Comment DIFF FINAL Differential Comment Urine Color YELLOW Urine Turbidity CLOUDY Urine pH 8.0 Urine Specific [place] 1.016 Urine Protein 30 mg/dL Urine Glucose (UA) NEG mg/dL Urine Ketones NEG mg/dL Urine Occult Blood SMALL Urine Nitrite NEG Urine Bilirubin NEG Urine Urobilinogen 2.0 MG/DL Urine Leukocyte Esterase LARGE Urine RBC 37 /hpf Urine WBC /hpf Urine WBC Clumps MANY Urine Amorphous Sediment MOD Urine Bacteria MOD /hpf Microscopic Urinalysis Comment CULTURE INDICATED Lactic Acid Level 1.0 mmol/L Imaging Last Impressions Chest X-Ray 08/26/16 0613 Signed Impressions: Service Date/Time: Friday, August 26, 2016 06:34 - CONCLUSION: Right basilar atelectasis. Mild cardiomegaly. Moshe Goyal Jr., MD Assessment and Plan Problem List: (1) Atrial fibrillation and flutter (2) H/O supraventricular tachycardia (3) UTI (urinary tract infection) (4) Sepsis Assessment and Plan Rate better controlled. Continue diltiazem and metoprolol, titrate for rate control. Start anticoagulation with Eliquis once surgical evaluation completed. Continue monitoring. Check echo. Increase activity. Problem Qualifiers (1) UTI (urinary tract infection): Jeanette Mathis MD Aug 28, 2016 15:19
[2016-08-28] MEDS: traZODone HCL 100 MG TAB PO SCH (21:19)
[2016-08-28] MEDS: FAMOTIDINE 20 MG TAB PO SCH (21:19)
[2016-08-28] MEDS: ACETAMINOPHEN/HYDROcodone 325 MG/5 MG TAB PO PRN (21:19)
[2016-08-28] MEDS: MIRTAZAPINE 15 MG TAB PO SCH (21:19)
[2016-08-29] VITALS (9 sets, daily range): BP systolic 115–140; BP diastolic 67–80; PULSE 73–146; RESP 14–20; TEMP 98–98.4; O2SAT 91–96
[2016-08-29] MEDS: SODIUM CHLOR 0.9% 1000 ML INJ 1,000 ML IV SCH ×2 (05:22→21:15)
[2016-08-29] MEDS: INSULIN ASPART SUPPLEMENTAL SCALE SQ SCH ×4 (06:22→21:16)
[2016-08-29] MEDS: ESCITALOPRAM OXALATE 10 MG TAB PO SCH (08:33)
[2016-08-29] MEDS: cefTRIAXone INJ 1,000 MG in SODIUM CHLORIDE 0.9% INJ 100 ML IV SCH (08:33)
[2016-08-29] MEDS: DILTIAZEM HCL 60 MG TAB PO SCH ×3 (08:33→17:11)
[2016-08-29] MEDS: METOPROLOL TARTRATE 50 MG TAB PO SCH ×2 (08:33→21:11)
[2016-08-29] MEDS: FUROSEMIDE 40 MG TAB PO SCH (08:33)
--- NOTE | 2016-08-29 11:44 | HHI.PR ---
Subjective Remarks resting comfortably with no distress. no fever. tachycardic earlier but currently HR is fairly controlled. d/w the RN. Objective Vitals Vital Signs Date Time Temp Pulse Resp B/P Pulse Ox O2 Delivery O2 Flow Rate FiO2 08/29/16 11:30 98.2 81 16 119/67 94 08/29/16 10:12 Room Air 08/29/16 08:47 98.2 102 14 115/79 92 08/29/16 08:00 98.0 146 20 133/78 94 08/29/16 03:12 98.4 108 18 128/75 94 08/28/16 23:05 98.3 110 18 104/65 85 08/28/16 21:12 98.7 95 18 124/72 92 08/28/16 20:07 98 08/28/16 19:45 Room Air 08/28/16 16:00 99.0 77 18 123/72 93 08/28/16 12:00 97.4 74 20 125/68 96 I/O 08/28/16 08/28/16 08/28/16 08/29/16 08/29/16 08/29/16 07:00 15:00 23:00 07:00 15:00 23:00 Intake Total 360 ml 1600 ml 560 ml Balance 360 ml 1600 ml 560 ml Intake Oral 360 ml 480 ml 0 ml IV Total 1120 ml 560 ml # Voids 1 3 3 3 # Bowel Movements 1 3 2 1 Result Diagram: 08/26/16 0620 08/26/16 0620 Imaging Last Impressions Chest X-Ray 08/26/16 0613 Signed Impressions: Service Date/Time: Friday, August 26, 2016 06:34 - CONCLUSION: Right basilar atelectasis. Mild cardiomegaly. Moshe Goyal Jr., MD Objective Remarks GENERAL: This is a well-nourished, well-developed patient, in no apparent distress. CARDIOVASCULAR: irregular rhythm without murmurs, gallops, or rubs. RESPIRATORY: Clear to auscultation. Breath sounds equal bilaterally. No wheezes , rales, or rhonchi. GASTROINTESTINAL: Abdomen soft, mild lower abdominal tenderness, nondistended. drain in place. Normal, active bowel sounds MUSCULOSKELETAL: Extremities without clubbing, cyanosis, or edema. NEURO: Alert & Oriented x4 to person, place, time, situation. Moves all ext x4 Procedures none Medications and IVs Current Medications Sodium Chloride 1,000 ml @ 70 mls/hr [id number] IV Last administered on 05:22; Start 08/26/16 at 06:15 Diltiazem HCl/ Sodium Chloride (Cardizem Inj/NS Inj) 125 ml @ 0 mls/hr TITRATE IV Last administered on 08/27/16 16:45; Start 08/26/16 at 06:15 Diltiazem HCl 20 mg 20 mg BOLUS ONCE IV PUSH Last administered on 08/26/16 06 :37; Start 08/26/16 at 06:15; Stop 08/26/16 at 06:16; Status DC Piperacillin Sod/ Tazobactam Sod (Zosyn 4.5 Gm Premix) 100 ml @ 200 mls/hr ONCE STAT IV Last administered on 08/26/16 07:39; Start 08/26/16 at 07:39; Stop 08/26/16 at 08:08; Status DC Dextrose (D50w (Vial) Inj) 25 ml UNSCH PRN IV PUSH HYPOGLYCEMIA-SEE COMMENTS; Start 08/26/16 at 09:00 Glucagon (Glucagon Inj) 1 mg UNSCH PRN OTHER HYPOGLYCEMIA-SEE COMMENTS; Start 08/26/16 at 09:00 Insulin Aspart 1 1 ACHS SLIDING SCALE SQ Last administered on 08/28/16 21:20 ; Start 08/26/16 at 11:00 Ceftriaxone Sodium/Sodium Chloride (Rocephin Inj/NS Inj) 100 ml @ 200 mls/hr Q24H IV Last administered on 08/29/16 08:33; Start 08/26/16 at 09:00 Diltiazem HCl (Cardizem) 60 mg TID PO Last administered on 08/29/16 08:33; Start 08/26/16 at 13:00 Escitalopram Oxalate (Lexapro) 10 mg DAILY PO Last administered on 08/29/16 08 :33; Start 08/27/16 at 09:00 Furosemide (Lasix) 40 mg DAILY PO Last administered on 08/29/16 08:33; Start 08/27/16 at 09:00 Mirtazapine (Remeron) 15 mg HS PO Last administered on 08/28/16 21:19; Start 08/26/16 at 21:00 Trazodone HCl (Desyrel) 100 mg HS PO Last administered on 08/28/16 21:19; Start 08/26/16 at 21:00 Famotidine (Pepcid) 40 mg HS PO Last administered on 08/28/16 21:19; Start at 21:00 Acetaminophen/ Hydrocodone Bitart ([place] 5-325 Mg) 1 tab Q4H PRN PO PAIN 3-10 Last administered on 08/28/16 21:19; Start 08/27/16 at 12:15 Metoprolol Tartrate (Lopressor) 50 mg BID PO ; Start 08/27/16 at 13:00; Stop at 13:00; Status DC Metoprolol Tartrate (Lopressor) 50 mg BID PO Last administered on 08/29/16 08: 33; Start 08/27/16 at 13:00 A/P Assessment and Plan A/P - atrial fibrillation with rapid ventricular rate- HR overall better. continue po Cardizem and Metoprolol- will start Eliquis after surgery follow-up and recommendations- echo with EF 45%-cardiology following. -UTI- switch to IV Zosyn UC with enterobacter. 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
[2016-08-29] MEDS: PIPERACIL-TAZO 3.375 GM PREMIX 50 ML IV SCH ×2 (13:13→21:12)
--- NOTE | 2016-08-29 13:16 | PD.CARD.PN ---
Subjective Subjective Remarks No CP or SOB, no new c/o Objective Medications Current Medications Medications (Trade) Dose Ordered Sig/Cash Route Start Time Stop Time Status Last Admin Sodium Chloride 1,000 ml @ 70 mls/hr [id number] IV 08/26/16 06:15 08/29/16 05:22 (Cardizem Inj/NS Inj) 125 ml @ 0 mls/hr TITRATE IV 08/26/16 06:15 08/27/16 16:45 (D50w (Vial) Inj) 25 ml UNSCH PRN IV PUSH 08/26/16 09:00 (Glucagon Inj) 1 mg UNSCH PRN OTHER 08/26/16 09:00 (Cardizem) 60 mg TID PO 08/26/16 13:00 08/29/16 12:02 (Lexapro) 10 mg DAILY PO 08/27/16 09:00 08/29/16 08:33 (Lasix) 40 mg DAILY PO 08/27/16 09:00 08/29/16 08:33 (Remeron) 15 mg HS PO 08/26/16 21:00 08/28/16 21:19 (Desyrel) 100 mg HS PO 08/26/16 21:00 08/28/16 21:19 (Pepcid) 40 mg HS PO 08/26/16 21:00 08/28/16 21:19 ([place] 5-325 Mg) 1 tab Q4H PRN PO 08/27/16 12:15 08/28/16 21:19 Metoprolol Tartrate 50 mg 50 mg BID PO 08/27/16 13:00 08/29/16 08:33 (Zosyn 3.375 Gm Premix) 50 ml @ 100 mls/hr Q6H IV 08/29/16 14:00 Vital Signs / I&O Vital Signs Date Time Temp Pulse Resp B/P Pulse Ox O2 Delivery O2 Flow Rate FiO2 08/29/16 12:00 98.1 73 20 130/76 95 08/29/16 11:30 98.2 81 16 119/67 94 08/29/16 10:12 Room Air 08/29/16 08:47 98.2 102 14 115/79 92 08/29/16 08:00 98.0 146 20 133/78 94 08/29/16 03:12 98.4 108 18 128/75 94 3/28/17 23:05 98.3 110 18 104/65 85 08/28/16 21:12 98.7 95 18 124/72 92 08/28/16 20:07 98 08/28/16 19:45 Room Air 08/28/16 16:00 99.0 77 18 123/72 93 I/O 08/28/16 08/28/16 08/28/16 08/29/16 08/29/16 08/29/16 07:00 15:00 23:00 07:00 15:00 23:00 Intake Total 360 ml 1600 ml 560 ml Balance 360 ml 1600 ml 560 ml Intake Oral 360 ml 480 ml 0 ml IV Total 1120 ml 560 ml # Voids 1 3 3 3 # Bowel Movements 1 3 2 1 Physical Exam GENERAL: In NAD SKIN: Warm and dry. HEAD: Normocephalic. EYES: No scleral icterus. No injection or drainage. NECK: Supple, trachea midline. No JVD or lymphadenopathy. CARDIOVASCULAR: irregular rate and rhythm without murmurs, gallops, or rubs. RESPIRATORY: Breath sounds equal bilaterally. No accessory muscle use. GASTROINTESTINAL: Abdomen soft, non-tender, nondistended. MUSCULOSKELETAL: No cyanosis, or edema. Laboratory Laboratory Tests Test 08/26/16 08/26/16 08/26/16 06:20 06:30 08:25 Prothrombin Time 11.9 SEC Prothromb Time International 1.1 RATIO Ratio Activated Partial 27.8 SEC Thromboplast Time Sodium Level 139 MEQ/L Potassium Level 3.6 MEQ/L Chloride Level 101 MEQ/L Carbon Dioxide Level 32.2 MEQ/L Anion Gap 6 MEQ/L Blood Urea Nitrogen 21 MG/DL Creatinine 1.09 MG/DL Estimat Glomerular Filtration 65 ML/MIN Rate Random Glucose 105 MG/DL Calcium Level 8.4 MG/DL Magnesium Level 2.0 MG/DL Total Bilirubin 0.4 MG/DL Aspartate Amino Transf 8 U/L (AST/SGOT) Alanine Aminotransferase 16 U/L (ALT/SGPT) Alkaline Phosphatase 77 U/L Total Creatine Kinase 17 U/L Troponin I 0.02 NG/ML B-Type Natriuretic Peptide 308 PG/ML Total Protein 6.6 GM/DL Albumin 2.3 GM/DL Free Thyroxine 1.27 NG/DL Thyroid Stimulating Hormone 5.200 uIU/ML 3rd Gen White Blood Count 10.1 TH/MM3 Red Blood Count 3.65 MIL/MM3 Hemoglobin 11.5 GM/DL Hematocrit 34.5 % Mean Corpuscular Volume 94.5 FL Mean Corpuscular Hemoglobin 31.6 PG Mean Corpuscular Hemoglobin 33.4 % Concent Red Cell Distribution Width 18.9 % Platelet Count 321 TH/MM3 Mean Platelet Volume 8.8 FL Neutrophils (%) (Auto) 77.8 % Lymphocytes (%) (Auto) 12.9 % Monocytes (%) (Auto) 7.9 % Eosinophils (%) (Auto) 0.8 % Basophils (%) (Auto) 0.6 % Neutrophils # (Auto) 7.8 TH/MM3 Lymphocytes # (Auto) 1.3 TH/MM3 Monocytes # (Auto) 0.8 TH/MM3 Eosinophils # (Auto) 0.1 TH/MM3 Basophils # (Auto) 0.1 TH/MM3 CBC Comment DIFF FINAL Differential Comment Urine Color YELLOW Urine Turbidity CLOUDY Urine pH 8.0 Urine Specific [place] 1.016 Urine Protein 30 mg/dL Urine Glucose (UA) NEG mg/dL Urine Ketones NEG mg/dL Urine Occult Blood SMALL Urine Nitrite NEG Urine Bilirubin NEG Urine Urobilinogen 2.0 MG/DL Urine Leukocyte Esterase LARGE Urine RBC 37 /hpf Urine WBC /hpf Urine WBC Clumps MANY Urine Amorphous Sediment MOD Urine Bacteria MOD /hpf Microscopic Urinalysis Comment CULTURE INDICATED Lactic Acid Level 1.0 mmol/L Imaging Last Impressions Chest X-Ray 08/26/16 0613 Signed Impressions: Service Date/Time: Friday, August 26, 2016 06:34 - CONCLUSION: Right basilar atelectasis. Mild cardiomegaly. Moshe Goyal Jr., MD Assessment and Plan Problem List: (1) Atrial fibrillation and flutter (2) H/O supraventricular tachycardia (3) UTI (urinary tract infection) (4) Sepsis (5) Cardiomyopathy Assessment and Plan Rate better controlled, still occ over 100. Continue diltiazem and metoprolol, titrate for rate control. Start anticoagulation with Eliquis once surgical evaluation is completed to decrease the risk of CVA. Continue monitoring. Echo w EF 40-45%. Increase activity. Problem Qualifiers (1) UTI (urinary tract infection): Jeanette Mathis MD Aug 29, 2016 13:16
[2016-08-29] MEDS: traZODone HCL 100 MG TAB PO SCH (21:11)
[2016-08-29] MEDS: FAMOTIDINE 20 MG TAB PO SCH (21:12)
[2016-08-29] MEDS: MIRTAZAPINE 15 MG TAB PO SCH (21:12)
[2016-08-30] MEDS: PIPERACIL-TAZO 3.375 GM PREMIX 50 ML IV SCH ×4 (03:19→21:36)
[2016-08-30 03:55] VITALS: BP 109/61; PULSE 76; RESP 18; TEMP 98.6; O2SAT 96
[2016-08-30] MEDS ORDERED: METOPROLOL TARTRATE 25 MG TAB PO ONE (04:00)
[2016-08-30] MEDS: INSULIN ASPART SUPPLEMENTAL SCALE SQ SCH ×4 (06:29→21:00)
[2016-08-30 08:00] VITALS: BP 115/71; PULSE 126; PULSE 130; RESP 18; TEMP 98; O2SAT 94
[2016-08-30] MEDS: FUROSEMIDE 40 MG TAB PO SCH (08:54)
[2016-08-30] MEDS: ESCITALOPRAM OXALATE 10 MG TAB PO SCH (08:54)
[2016-08-30] MEDS: DILTIAZEM HCL 60 MG TAB PO SCH ×3 (08:54→21:36)
[2016-08-30] MEDS: METOPROLOL TARTRATE 50 MG TAB PO SCH ×2 (08:54→21:36)
--- NOTE | 2016-08-30 11:00 | PD.CARD.PN ---
Subjective Subjective Remarks No CP or SOB, poor appetite Objective Medications Current Medications Medications (Trade) Dose Ordered Sig/Cash Route Start Time Stop Time Status Last Admin Sodium Chloride 1,000 ml @ 70 mls/hr [id number] IV 08/26/16 06:15 08/29/16 21:15 (Cardizem Inj/NS Inj) 125 ml @ 0 mls/hr TITRATE IV 08/26/16 06:15 08/27/16 16:45 (D50w (Vial) Inj) 25 ml UNSCH PRN IV PUSH 08/26/16 09:00 (Glucagon Inj) 1 mg UNSCH PRN OTHER 08/26/16 09:00 (Cardizem) 60 mg TID PO 08/26/16 13:00 08/30/16 08:54 (Lexapro) 10 mg DAILY PO 08/27/16 09:00 08/30/16 08:54 (Lasix) 40 mg DAILY PO 08/27/16 09:00 08/30/16 08:54 (Remeron) 15 mg HS PO 08/26/16 21:00 08/29/16 21:12 (Desyrel) 100 mg HS PO 08/26/16 21:00 08/29/16 21:11 (Pepcid) 40 mg HS PO 08/26/16 21:00 08/29/16 21:12 ([place] 5-325 Mg) 1 tab Q4H PRN PO 08/27/16 12:15 08/28/16 21:19 Metoprolol Tartrate 50 mg 50 mg BID PO 08/27/16 13:00 08/30/16 08:54 (Zosyn 3.375 Gm Premix) 50 ml @ 100 mls/hr Q6H IV 08/29/16 14:00 08/30/16 08:53 Vital Signs / I&O Vital Signs Date Time Temp Pulse Resp B/P Pulse Ox O2 Delivery O2 Flow Rate FiO2 08/30/16 08:00 98.0 126 18 115/71 94 08/30/16 08:00 Nasal Cannula 2.00 08/30/16 08:00 130 08/30/16 03:55 98.6 76 18 109/61 96 08/29/16 23:10 98.3 73 18 127/69 91 08/29/16 20:10 98.0 79 17 128/71 96 3/29/17 20:08 100 08/29/16 19:45 Room Air 08/29/16 16:00 98.3 93 20 140/80 95 08/29/16 12:00 98.1 73 20 130/76 95 08/29/16 11:30 98.2 81 16 119/67 94 I/O 08/29/16 08/29/16 08/29/16 08/30/16 08/30/16 08/30/16 07:00 15:00 23:00 07:00 15:00 23:00 Intake Total 560 ml 360 ml 120 ml 0 ml Output Total 600 ml 125 ml Balance 560 ml -240 ml -5 ml 0 ml Intake Oral 0 ml 360 ml 120 ml 0 ml IV Total 560 ml Output Urine Total 600 ml 125 ml # Voids 3 4 # Bowel Movements 1 2 1 4 Physical Exam GENERAL: In NAD SKIN: Warm and dry. HEAD: Normocephalic. EYES: No scleral icterus. No injection or drainage. NECK: Supple, trachea midline. No JVD or lymphadenopathy. CARDIOVASCULAR: irregular rate and rhythm without murmurs, gallops, or rubs. RESPIRATORY: Breath sounds equal bilaterally. No accessory muscle use. GASTROINTESTINAL: Abdomen soft, non-tender, nondistended. MUSCULOSKELETAL: No cyanosis, or edema. Laboratory Laboratory Tests Test 08/26/16 08/26/16 08/26/16 06:20 06:30 08:25 Prothrombin Time 11.9 SEC Prothromb Time International 1.1 RATIO Ratio Activated Partial 27.8 SEC Thromboplast Time Sodium Level 139 MEQ/L Potassium Level 3.6 MEQ/L Chloride Level 101 MEQ/L Carbon Dioxide Level 32.2 MEQ/L Anion Gap 6 MEQ/L Blood Urea Nitrogen 21 MG/DL Creatinine 1.09 MG/DL Estimat Glomerular Filtration 65 ML/MIN Rate Random Glucose 105 MG/DL Calcium Level 8.4 MG/DL Magnesium Level 2.0 MG/DL Total Bilirubin 0.4 MG/DL Aspartate Amino Transf 8 U/L (AST/SGOT) Alanine Aminotransferase 16 U/L (ALT/SGPT) Alkaline Phosphatase 77 U/L Total Creatine Kinase 17 U/L Troponin I 0.02 NG/ML B-Type Natriuretic Peptide 308 PG/ML Total Protein 6.6 GM/DL Albumin 2.3 GM/DL Free Thyroxine 1.27 NG/DL Thyroid Stimulating Hormone 5.200 uIU/ML 3rd Gen White Blood Count 10.1 TH/MM3 Red Blood Count 3.65 MIL/MM3 Hemoglobin 11.5 GM/DL Hematocrit 34.5 % Mean Corpuscular Volume 94.5 FL Mean Corpuscular Hemoglobin 31.6 PG Mean Corpuscular Hemoglobin 33.4 % Concent Red Cell Distribution Width 18.9 % Platelet Count 321 TH/MM3 Mean Platelet Volume 8.8 FL Neutrophils (%) (Auto) 77.8 % Lymphocytes (%) (Auto) 12.9 % Monocytes (%) (Auto) 7.9 % Eosinophils (%) (Auto) 0.8 % Basophils (%) (Auto) 0.6 % Neutrophils # (Auto) 7.8 TH/MM3 Lymphocytes # (Auto) 1.3 TH/MM3 Monocytes # (Auto) 0.8 TH/MM3 Eosinophils # (Auto) 0.1 TH/MM3 Basophils # (Auto) 0.1 TH/MM3 CBC Comment DIFF FINAL Differential Comment Urine Color YELLOW Urine Turbidity CLOUDY Urine pH 8.0 Urine Specific [place] 1.016 Urine Protein 30 mg/dL Urine Glucose (UA) NEG mg/dL Urine Ketones NEG mg/dL Urine Occult Blood SMALL Urine Nitrite NEG Urine Bilirubin NEG Urine Urobilinogen 2.0 MG/DL Urine Leukocyte Esterase LARGE Urine RBC 37 /hpf Urine WBC /hpf Urine WBC Clumps MANY Urine Amorphous Sediment MOD Urine Bacteria MOD /hpf Microscopic Urinalysis Comment CULTURE INDICATED Lactic Acid Level 1.0 mmol/L Imaging Last Impressions Chest X-Ray 08/26/16 0613 Signed Impressions: Service Date/Time: Friday, August 26, 2016 06:34 - CONCLUSION: Right basilar atelectasis. Mild cardiomegaly. Moshe Goyal Jr., MD Assessment and Plan Problem List: (1) Atrial fibrillation and flutter (2) H/O supraventricular tachycardia (3) UTI (urinary tract infection) (4) Sepsis (5) Cardiomyopathy Assessment and Plan Rate still elevated. Continue diltiazem and metoprolol, titrate for rate control. Start anticoagulation with Eliquis once surgical evaluation is completed to decrease the risk of CVA. Continue monitoring. Echo w EF 40-45%. Increase activity. Problem Qualifiers (1) UTI (urinary tract infection): Jeanette Mathis MD Aug 30, 2016 11:00
--- NOTE | 2016-08-30 11:29 | HHI.PR ---
Subjective Remarks resting comfortably with no distress. abdominal pain is better. no fever. HR overall controlled although tachycardic at times. no new complaints. Objective Vitals Vital Signs Date Time Temp Pulse Resp B/P Pulse Ox O2 Delivery O2 Flow Rate FiO2 08/30/16 08:00 98.0 126 18 115/71 94 08/30/16 08:00 Nasal Cannula 2.00 08/30/16 08:00 130 08/30/16 03:55 98.6 76 18 109/61 96 08/29/16 23:10 98.3 73 18 127/69 91 08/29/16 20:10 98.0 79 17 128/71 96 08/29/16 20:08 100 08/29/16 19:45 Room Air 08/29/16 16:00 98.3 93 20 140/80 95 08/29/16 12:00 98.1 73 20 130/76 95 08/29/16 11:30 98.2 81 16 119/67 94 I/O 08/29/16 08/29/16 08/29/16 08/30/16 08/30/16 08/30/16 07:00 15:00 23:00 07:00 15:00 23:00 Intake Total 560 ml 360 ml 120 ml 0 ml Output Total 600 ml 125 ml Balance 560 ml -240 ml -5 ml 0 ml Intake Oral 0 ml 360 ml 120 ml 0 ml IV Total 560 ml Output Urine Total 600 ml 125 ml # Voids 3 4 # Bowel Movements 1 2 1 4 Result Diagram: 08/26/1620 08/26/16 0620 Imaging Last Impressions Chest X-Ray 08/26/16 06 Signed Impressions: Service Date/Time: Friday, August 26, 2016 06:34 - CONCLUSION: Right basilar atelectasis. Mild cardiomegaly. Moshe Goyal Jr., MD Objective Remarks GENERAL: This is a well-nourished, well-developed patient, in no apparent distress. CARDIOVASCULAR: irregular rhythm without murmurs, gallops, or rubs. RESPIRATORY: Clear to auscultation. Breath sounds equal bilaterally. No wheezes , rales, or rhonchi. GASTROINTESTINAL: Abdomen soft, mild lower abdominal tenderness, nondistended. drain in place. Normal, active bowel sounds MUSCULOSKELETAL: Extremities without clubbing, cyanosis, or edema. NEURO: Alert & Oriented x4 to person, place, time, situation. Moves all ext x4 Procedures none Medications and IVs Current Medications Sodium Chloride 1,000 ml @ 70 mls/hr [id number] IV Last administered on 21:15; Start 08/26/16 at 06:15 Diltiazem HCl/ Sodium Chloride (Cardizem Inj/NS Inj) 125 ml @ 0 mls/hr TITRATE IV Last administered on 08/27/16 16:45; Start 08/26/16 at 06:15 Diltiazem HCl 20 mg 20 mg BOLUS ONCE IV PUSH Last administered on 08/26/16 06 :37; Start 08/26/16 at 06:15; Stop 08/26/16 at 06:16; Status DC Piperacillin Sod/ Tazobactam Sod (Zosyn 4.5 Gm Premix) 100 ml @ 200 mls/hr ONCE STAT IV Last administered on 08/26/16 07:39; Start 08/26/16 at 07:39; Stop 08/26/16 at 08:08; Status DC Dextrose (D50w (Vial) Inj) 25 ml UNSCH PRN IV PUSH HYPOGLYCEMIA-SEE COMMENTS; Start 08/26/16 at 09:00 Glucagon (Glucagon Inj) 1 mg UNSCH PRN OTHER HYPOGLYCEMIA-SEE COMMENTS; Start 08/26/16 at 09:00 Insulin Aspart 1 1 ACHS SLIDING SCALE SQ Last administered on 08/29/16 21:16 ; Start 08/26/16 at 11:00 Ceftriaxone Sodium/Sodium Chloride (Rocephin Inj/NS Inj) 100 ml @ 200 mls/hr Q24H IV Last administered on 08/29/16 08:33; Start 08/26/16 at 09:00; Stop at 11:46; Status DC Diltiazem HCl (Cardizem) 60 mg TID PO Last administered on 08/30/16 08:54; Start 08/26/16 at 13:00; Stop 08/30/16 at 11:02; Status DC Escitalopram Oxalate (Lexapro) 10 mg DAILY PO Last administered on 08/30/16 08 :54; Start 08/27/16 at 09:00 Furosemide (Lasix) 40 mg DAILY PO Last administered on 08/30/16 08:54; Start 08/27/16 at 09:00 Mirtazapine (Remeron) 15 mg HS PO Last administered on 08/29/16 21:12; Start 08/26/16 at 21:00 Trazodone HCl (Desyrel) 100 mg HS PO Last administered on 08/29/16 21:11; Start 08/26/16 at 21:00 Famotidine (Pepcid) 40 mg HS PO Last administered on 08/29/16 21:12; Start at 21:00 Acetaminophen/ Hydrocodone Bitart ([place] 5-325 Mg) 1 tab Q4H PRN PO PAIN 3-10 Last administered on 08/28/16 21:19; Start 08/27/16 at 12:15 Metoprolol Tartrate (Lopressor) 50 mg BID PO ; Start 08/27/16 at 13:00; Stop at 13:00; Status DC Metoprolol Tartrate 50 mg 50 mg BID PO Last administered on 08/30/16 08:54; Start 08/27/16 at 13:00 Piperacillin Sod/ Tazobactam Sod (Zosyn 3.375 Gm Premix) 50 ml @ 100 mls/hr Q6H IV Last administered on 08/30/16 08:53; Start 08/29/16 at 14:00 Metoprolol Tartrate (Lopressor) 25 mg ONCE ONCE PO Last administered on 04:56; Start 08/30/16 at 04:00; Stop 08/30/16 at 04:01; Status DC Diltiazem HCl (Cardizem) 60 mg Q6HR PO ; Start 08/30/16 at 12:00; Status UNV A/P Assessment and Plan A/P - atrial fibrillation with rapid ventricular rate- HR overall better. continue po Cardizem and Metoprolol- will start Eliquis after surgery follow-up and recommendations- echo with EF 45%-cardiology following. -UTI- switched to IV Zosyn UC with enterobacter. will repeat UA today. -perihepatic abscess- s/p drain in [facility] general surgery following. 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
[2016-08-30] MEDS: SODIUM CHLOR 0.9% 1000 ML INJ 1,000 ML IV SCH ×2 (11:56→21:38)
[2016-08-30 12:00] VITALS: BP 98/55; PULSE 62; RESP 20; TEMP 98.3; O2SAT 94
[2016-08-30 14:33] VITALS: BP 116/68; PULSE 79
[2016-08-30 16:00] VITALS: BP 110/67; PULSE 100; RESP 18; TEMP 97.9; O2SAT 92
[2016-08-30 16:37] LABS: BLOOD, URINE NEG (NEG); COMMENT (UR) CULTURE INDICATED; CULTURE IF INDICATED CULTURE INDICATED; GLUCOSE,URINE NEG (NEG); HYALINE CAST, URINE 1 /lpf (RARE); KETONE, URINE NEG (NEG); MUCUS URINE FEW /lpf (OCC); NITRITE,URINE NEG (NEG); PH, URINE 5.5 (5.0-8.5); SQUAMOUS EPITHELIAL CELL URINE <1 /hpf (0-5); URINE COLOR LIGHT-YELLOW (YELLW/STRAW)
[2016-08-30 20:00] VITALS: BP 98/53; PULSE 100; PULSE 93; RESP 20; TEMP 98.6; O2SAT 96
[2016-08-30] MEDS: MIRTAZAPINE 15 MG TAB PO SCH (21:36)
[2016-08-30] MEDS: FAMOTIDINE 20 MG TAB PO SCH (21:36)
[2016-08-30] MEDS: traZODone HCL 100 MG TAB PO SCH (21:36)
[2016-08-31] VITALS (9 sets, daily range): BP systolic 94–151; BP diastolic 58–75; PULSE 74–111; RESP 18–24; TEMP 97.2–98.2; O2SAT 92–96
[2016-08-31] MEDS: PIPERACIL-TAZO 3.375 GM PREMIX 50 ML IV SCH ×4 (01:45→20:00)
[2016-08-31] MEDS: DILTIAZEM HCL 60 MG TAB PO SCH ×4 (03:40→22:05)
[2016-08-31] MEDS: INSULIN ASPART SUPPLEMENTAL SCALE SQ SCH ×4 (05:59→21:00)
[2016-08-31] MEDS: SODIUM CHLOR 0.9% 1000 ML INJ 1,000 ML IV SCH (05:59)
--- NOTE | 2016-08-31 07:44 | PD.CARD.PN ---
Subjective Subjective Remarks No CP or SOB, no c/o Objective Medications Current Medications Medications (Trade) Dose Ordered Sig/Cash Route Start Time Stop Time Status Last Admin Sodium Chloride 1,000 ml @ 70 mls/hr [id number] IV 08/26/16 06:15 08/31/16 05:59 (Cardizem Inj/NS Inj) 125 ml @ 0 mls/hr TITRATE IV 08/26/16 06:15 08/27/16 16:45 (D50w (Vial) Inj) 25 ml UNSCH PRN IV PUSH 08/26/16 09:00 (Glucagon Inj) 1 mg UNSCH PRN OTHER 08/26/16 09:00 (Lexapro) 10 mg DAILY PO 08/27/16 09:00 08/30/16 08:54 (Lasix) 40 mg DAILY PO 08/27/16 09:00 08/30/16 08:54 (Remeron) 15 mg HS PO 08/26/16 21:00 08/30/16 21:36 (Desyrel) 100 mg HS PO 08/26/16 21:00 08/30/16 21:36 (Pepcid) 40 mg HS PO 08/26/16 21:00 08/30/16 21:36 ([place] 5-325 Mg) 1 tab Q4H PRN PO 08/27/16 12:15 08/28/16 21:19 Metoprolol Tartrate 50 mg 50 mg BID PO 08/27/16 13:00 08/30/16 21:36 (Zosyn 3.375 Gm Premix) 50 ml @ 100 mls/hr Q6H IV 08/29/16 14:00 08/31/16 01:45 (Cardizem) 60 mg Q6H PO 08/30/16 15:00 08/31/16 03:40 Vital Signs / I&O Vital Signs Date Time Temp Pulse Resp B/P Pulse Ox O2 Delivery O2 Flow Rate FiO2 08/31/16 04:45 99 20 08/31/16 04:28 98.2 111 22 116/62 95 08/31/16 00:28 98.2 74 21 104/61 95 08/30/16 20:00 100 08/30/16 20:00 98.6 93 20 98/53 96 08/30/16 20:00 Nasal Cannula 2.00 08/30/16 16:00 97.9 100 18 110/67 92 08/30/16 14:33 79 116/68 08/30/16 12:00 98.3 62 20 98/55 94 08/30/16 08:00 98.0 126 18 115/71 94 08/30/16 08:00 Nasal Cannula 2.00 08/30/16 08:00 130 I/O 08/30/16 08/30/16 08/30/16 08/31/16 08/31/16 08/31/16 07:00 15:00 23:00 07:00 15:00 23:00 Intake Total 0 ml 905 ml 480 ml 1072 ml Balance 0 ml 905 ml 480 ml 1072 ml Intake Oral 0 ml 240 ml 480 ml IV Total 665 ml 1072 ml # Voids 4 3 4 # Bowel Movements 4 3 4 Physical Exam GENERAL: In NAD SKIN: Warm and dry. HEAD: Normocephalic. EYES: No scleral icterus. No injection or drainage. NECK: Supple, trachea midline. No JVD or lymphadenopathy. CARDIOVASCULAR: irregular rate and rhythm without murmurs, gallops, or rubs. RESPIRATORY: Breath sounds equal bilaterally. No accessory muscle use. GASTROINTESTINAL: Abdomen soft, non-tender, nondistended. MUSCULOSKELETAL: No cyanosis, or edema. Laboratory Laboratory Tests Test 08/30/16 15:15 Urine Color LIGHT-YELLOW Urine Turbidity CLEAR Urine pH 5.5 Urine Specific [place] 1.010 Urine Protein NEG mg/dL Urine Glucose (UA) NEG mg/dL Urine Ketones NEG mg/dL Urine Occult Blood NEG Urine Nitrite NEG Urine Bilirubin NEG Urine Urobilinogen LESS THAN 2.0 MG/DL Urine Leukocyte Esterase MOD Urine RBC 1 /hpf Urine WBC 15 /hpf Urine WBC Clumps RARE Urine Squamous Epithelial <1 /hpf Cells Urine Hyaline Casts 1 /lpf Urine Mucus FEW /lpf Microscopic Urinalysis Comment CULTURE INDICATED Imaging Last Impressions Chest X-Ray 08/26/16 0613 Signed Impressions: Service Date/Time: Friday, August 26, 2016 06:34 - CONCLUSION: Right basilar atelectasis. Mild cardiomegaly. Moshe Goyal Jr., MD Assessment and Plan Problem List: (1) Atrial fibrillation and flutter (2) H/O supraventricular tachycardia (3) UTI (urinary tract infection) (4) Sepsis (5) Cardiomyopathy Assessment and Plan A fib w increased V response. Continue diltiazem and metoprolol, titrate for rate control. Start anticoagulation with Eliquis once surgical evaluation is completed to decrease the risk of CVA. Continue monitoring. Echo w EF 40-45%. Increase activity. Problem Qualifiers (1) UTI (urinary tract infection): Jeanette Mathis MD Aug 31, 2016 07:44
[2016-08-31] MEDS: METOPROLOL TARTRATE 50 MG TAB PO SCH ×2 (08:32→22:04)
[2016-08-31] MEDS: FUROSEMIDE 40 MG TAB PO SCH (08:32)
[2016-08-31] MEDS: ESCITALOPRAM OXALATE 10 MG TAB PO SCH (08:32)
--- NOTE | 2016-08-31 10:19 | HHI.PR ---
Subjective Remarks in no acute distress. HR still in 120's while resting. pain is controlled. no new complaints. Objective Vitals Vital Signs Date Time Temp Pulse Resp B/P Pulse Ox O2 Delivery O2 Flow Rate FiO2 08/31/16 04:45 99 20 08/31/16 04:28 98.2 111 22 116/62 95 08/31/16 00:28 98.2 74 21 104/61 95 08/30/16 20:00 100 08/30/16 20:00 98.6 93 20 98/53 96 08/30/16 20:00 Nasal Cannula 2.00 08/30/16 16:00 97.9 100 18 110/67 92 08/30/16 14:33 79 116/68 08/30/16 12:00 98.3 62 20 98/55 94 I/O 08/30/16 08/30/16 08/30/16 08/31/16 08/31/16 08/31/16 07:00 15:00 23:00 07:00 15:00 23:00 Intake Total 0 ml 905 ml 480 ml 1072 ml Balance 0 ml 905 ml 480 ml 1072 ml Intake Oral 0 ml 240 ml 480 ml IV Total 665 ml 1072 ml # Voids 4 3 4 # Bowel Movements 4 3 4 Result Diagram: 08/26/16619 Imaging Last Impressions Chest X-Ray 08/26/16612 Signed Impressions: Service Date/Time: Friday, August 26, 2016 06:34 - CONCLUSION: Right basilar atelectasis. Mild cardiomegaly. Moshe Goyal Jr., MD Objective Remarks GENERAL: This is a well-nourished, well-developed patient, in no apparent distress. CARDIOVASCULAR: irregular rhythm without murmurs, gallops, or rubs. RESPIRATORY: Clear to auscultation. Breath sounds equal bilaterally. No wheezes , rales, or rhonchi. GASTROINTESTINAL: Abdomen soft, mild lower abdominal tenderness, nondistended. drain in place. Normal, active bowel sounds MUSCULOSKELETAL: Extremities without clubbing, cyanosis, or edema. NEURO: Alert & Oriented x4 to person, place, time, situation. Moves all ext x4 Procedures none Medications and IVs Current Medications Sodium Chloride 1,000 ml @ 70 mls/hr [id number] IV Last administered on t 05:59; Start 08/26/16 at 06:15 Diltiazem HCl/ Sodium Chloride (Cardizem Inj/NS Inj) 125 ml @ 0 mls/hr TITRATE IV Last administered on 08/27/16 16:45; Start 08/26/16 at 06:15 Diltiazem HCl 20 mg 20 mg BOLUS ONCE IV PUSH Last administered on 08/26/16 06 :37; Start 08/26/16 at 06:15; Stop 08/26/16 at 06:16; Status DC Piperacillin Sod/ Tazobactam Sod (Zosyn 4.5 Gm Premix) 100 ml @ 200 mls/hr ONCE STAT IV Last administered on 08/26/16 07:39; Start 08/26/16 at 07:39; Stop 08/26/16 at 08:08; Status DC Dextrose (D50w (Vial) Inj) 25 ml UNSCH PRN IV PUSH HYPOGLYCEMIA-SEE COMMENTS; Start 08/26/16 at 09:00 Glucagon (Glucagon Inj) 1 mg UNSCH PRN OTHER HYPOGLYCEMIA-SEE COMMENTS; Start 08/26/16 at 09:00 Insulin Aspart 1 1 ACHS SLIDING SCALE SQ Last administered on 08/30/16 21:00 ; Start 08/26/16 at 11:00 Ceftriaxone Sodium/Sodium Chloride (Rocephin Inj/NS Inj) 100 ml @ 200 mls/hr Q24H IV Last administered on 08/29/16 08:33; Start 08/26/16 at 09:00; Stop at 11:46; Status DC Diltiazem HCl (Cardizem) 60 mg TID PO Last administered on 08/30/16 08:54; Start 08/26/16 at 13:00; Stop 08/30/16 at 11:02; Status DC Escitalopram Oxalate (Lexapro) 10 mg DAILY PO Last administered on 08/31/16 08 :32; Start 08/27/16 at 09:00 Furosemide (Lasix) 40 mg DAILY PO Last administered on 08/31/16 08:32; Start 08/27/16 at 09:00 Mirtazapine (Remeron) 15 mg HS PO Last administered on 08/30/16 21:36; Start 08/26/16 at 21:00 Trazodone HCl (Desyrel) 100 mg HS PO Last administered on 08/30/16 21:36; Start 08/26/16 at 21:00 Famotidine (Pepcid) 40 mg HS PO Last administered on 08/30/16 21:36; Start at 21:00 Acetaminophen/ Hydrocodone Bitart ([place] 5-325 Mg) 1 tab Q4H PRN PO PAIN 3-10 Last administered on 08/28/16 21:19; Start 08/27/16 at 12:15 Metoprolol Tartrate (Lopressor) 50 mg BID PO ; Start 08/27/16 at 13:00; Stop at 13:00; Status DC Metoprolol Tartrate 50 mg 50 mg BID PO Last administered on 08/31/16 08:32; Start 08/27/16 at 13:00 Piperacillin Sod/ Tazobactam Sod (Zosyn 3.375 Gm Premix) 50 ml @ 100 mls/hr Q6H IV Last administered on 08/31/16 08:32; Start 08/29/16 at 14:00 Metoprolol Tartrate (Lopressor) 25 mg ONCE ONCE PO Last administered on 04:56; Start 08/30/16 at 04:00; Stop 08/30/16 at 04:01; Status DC Diltiazem HCl (Cardizem) 60 mg Q6H PO Last administered on 08/31/16 08:32; Start 08/30/16 at 15:00 A/P Assessment and Plan A/P - atrial fibrillation with rapid ventricular rate- HR not well controlled today. continue po Cardizem and increase Metoprolol-continue to monitor. will start Eliquis echo with EF 45%-cardiology following. -UTI- switched to IV Zosyn UC with enterobacter. repeated UC pending. -perihepatic abscess- s/p drain in [facility] general surgery consulted and recommended out-patient f/u. 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 d/w the patient and his . Piotr Medina MD Aug 31, 2016 10:19
[2016-08-31] MEDS ORDERED: METOPROLOL TARTRATE 25 MG TAB PO ONE (10:30)
[2016-08-31] MEDS ORDERED: PILL SPLITTER OTHER PRN (10:30)
[2016-08-31] MEDS: FAMOTIDINE 20 MG TAB PO SCH (22:04)
[2016-08-31] MEDS: traZODone HCL 100 MG TAB PO SCH (22:05)
[2016-08-31] MEDS: APIXABAN 5 MG TABLET PO SCH (22:05)
[2016-08-31] MEDS: MIRTAZAPINE 15 MG TAB PO SCH (22:05)
[2016-09-01] VITALS (7 sets, daily range): BP systolic 107–126; BP diastolic 62–75; PULSE 73–100; RESP 18–20; TEMP 97.5–98.8; O2SAT 91–95
[2016-09-01] MEDS: PIPERACIL-TAZO 3.375 GM PREMIX 50 ML IV SCH ×2 (01:41→08:00)
[2016-09-01] MEDS: DILTIAZEM HCL 60 MG TAB PO SCH ×4 (04:05→20:47)
[2016-09-01] MEDS: SODIUM CHLOR 0.9% 1000 ML INJ 1,000 ML IV SCH ×2 (05:15→19:33)
[2016-09-01] MEDS: INSULIN ASPART SUPPLEMENTAL SCALE SQ SCH ×4 (05:31→20:45)
--- NOTE | 2016-09-01 09:25 | HHI.PR ---
Subjective Remarks resting comfortably with no distress. denies pain. no fever. had some diarrhea over night. d/w the RN and no other acute issues over night. Objective Vitals Vital Signs Date Time Temp Pulse Resp B/P Pulse Ox O2 Delivery O2 Flow Rate FiO2 09/01/16 08:00 97.6 75 18 122/68 91 09/01/16 04:00 97.9 90 20 124/75 93 09/01/16 00:00 98.8 85 20 107/62 95 08/31/16 20:00 101 08/31/16 20:00 98.1 102 24 113/59 92 08/31/16 20:00 Nasal Cannula 2.00 08/31/16 16:00 97.2 78 20 151/68 95 08/31/16 14:10 90 107/75 08/31/16 11:58 97.5 76 20 94/58 96 I/O 08/31/16 08/31/16 08/31/16 09/01/16 09/01/16 09/01/16 07:00 15:00 23:00 07:00 15:00 23:00 Intake Total 1072 ml 480 ml 360 ml 904 ml Balance 1072 ml 480 ml 360 ml 904 ml Intake Oral 480 ml 360 ml 100 ml IV Total 1072 ml 804 ml # Voids 3 1 3 # Bowel Movements 3 1 4 Imaging Last Impressions Chest X-Ray 08/26/16 0613 Signed Impressions: Service Date/Time: Friday, August 26, 2016 06:34 - CONCLUSION: Right basilar atelectasis. Mild cardiomegaly. Moshe Goyal Jr., MD Objective Remarks GENERAL: This is a well-nourished, well-developed patient, in no apparent distress. CARDIOVASCULAR: irregular rhythm without murmurs, gallops, or rubs. RESPIRATORY: Clear to auscultation. Breath sounds equal bilaterally. No wheezes , rales, or rhonchi. GASTROINTESTINAL: Abdomen soft, mild lower abdominal tenderness, nondistended. drain in place. Normal, active bowel sounds MUSCULOSKELETAL: Extremities without clubbing, cyanosis, or edema. NEURO: Alert & Oriented x4 to person, place, time, situation. Moves all ext x4 Procedures none Medications and IVs Current Medications Sodium Chloride 1,000 ml @ 70 mls/hr [id number] IV Last administered on 05:59; Start 08/26/16 at 06:15 Diltiazem HCl/ Sodium Chloride (Cardizem Inj/NS Inj) 125 ml @ 0 mls/hr TITRATE IV Last administered on 08/27/16 16:45; Start 08/26/16 at 06:15 Diltiazem HCl 20 mg 20 mg BOLUS ONCE IV PUSH Last administered on 08/26/16 06 :37; Start 08/26/16 at 06:15; Stop 08/26/16 at 06:16; Status DC Piperacillin Sod/ Tazobactam Sod (Zosyn 4.5 Gm Premix) 100 ml @ 200 mls/hr ONCE STAT IV Last administered on 08/26/16 07:39; Start 08/26/16 at 07:39; Stop 08/26/16 at 08:08; Status DC Dextrose (D50w (Vial) Inj) 25 ml UNSCH PRN IV PUSH HYPOGLYCEMIA-SEE COMMENTS; Start 08/26/16 at 09:00 Glucagon (Glucagon Inj) 1 mg UNSCH PRN OTHER HYPOGLYCEMIA-SEE COMMENTS; Start 08/26/16 at 09:00 Insulin Aspart 1 1 ACHS SLIDING SCALE SQ Last administered on 08/31/16 21:00 ; Start 08/26/16 at 11:00 Ceftriaxone Sodium/Sodium Chloride (Rocephin Inj/NS Inj) 100 ml @ 200 mls/hr Q24H IV Last administered on 08/29/16 08:33; Start 08/26/16 at 09:00; Stop at 11:46; Status DC Diltiazem HCl (Cardizem) 60 mg TID PO Last administered on 08/30/16 08:54; Start 08/26/16 at 13:00; Stop 08/30/16 at 11:02; Status DC Escitalopram Oxalate (Lexapro) 10 mg DAILY PO Last administered on 08/31/16 08 :32; Start 08/27/16 at 09:00 Furosemide (Lasix) 40 mg DAILY PO Last administered on 08/31/16 08:32; Start 08/27/16 at 09:00 Mirtazapine (Remeron) 15 mg HS PO Last administered on 08/31/16 22:05; Start 08/26/16 at 21:00 Trazodone HCl (Desyrel) 100 mg HS PO Last administered on 08/31/16 22:05; Start 08/26/16 at 21:00 Famotidine (Pepcid) 40 mg HS PO Last administered on 08/31/16 22:04; Start at 21:00 Acetaminophen/ Hydrocodone Bitart ([place] 5-325 Mg) 1 tab Q4H PRN PO PAIN 3-10 Last administered on 08/28/16 21:19; Start 08/27/16 at 12:15 Metoprolol Tartrate (Lopressor) 50 mg BID PO ; Start 08/27/16 at 13:00; Stop at 13:00; Status DC Metoprolol Tartrate 50 mg 50 mg BID PO Last administered on 08/31/16 08:32; Start 08/27/16 at 13:00; Stop 08/31/16 at 10:21; Status DC Piperacillin Sod/ Tazobactam Sod (Zosyn 3.375 Gm Premix) 50 ml @ 100 mls/hr Q6H IV Last administered on 09/01/16 08:00; Start 08/29/16 at 14:00 Metoprolol Tartrate (Lopressor) 25 mg ONCE ONCE PO Last administered on 04:56; Start 08/30/16 at 04:00; Stop 08/30/16 at 04:01; Status DC Diltiazem HCl (Cardizem) 60 mg Q6H PO Last administered on 09/01/16 04:05; Start 08/30/16 at 15:00 Metoprolol Tartrate (Lopressor) 75 mg BID PO Last administered on 08/31/16 22: 04; Start 08/31/16 at 21:00 Metoprolol Tartrate (Lopressor) 25 mg ONCE ONCE PO ; Start 08/31/16 at 10:30; Stop 08/31/16 at 10:31; Status Cancel Apixaban (Eliquis) 5 mg BID PO Last administered on 08/31/16 22:05; Start at 21:00 Miscellaneous (Pill Splitter) 1 ea UNSCH PRN OTHER SEE LABEL COMMENTS; Start at 10:30 A/P Assessment and Plan A/P - atrial fibrillation with rapid ventricular rate- HR better controlled. continue po Cardizem and Metoprolol-continue to monitor. continue Eliquis - echo with EF 45%-cardiology following. might consider adding [facility]-I as outpatient if BP allows. -UTI- treated. repeated UC negative- will dc Abx. -perihepatic abscess- s/p drain in [facility] general surgery consulted and recommended out-patient f/u. 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 see med list. f/u; pcp and cardiology upon discharge. d/w the patient and RN. time spent 32 min. Piotr Medina MD Sep 01, 2016 09:25
[2016-09-01] MEDS: METOPROLOL TARTRATE 50 MG TAB PO SCH ×2 (09:27→20:47)
[2016-09-01] MEDS: FUROSEMIDE 40 MG TAB PO SCH (09:27)
[2016-09-01] MEDS: ESCITALOPRAM OXALATE 10 MG TAB PO SCH (09:27)
[2016-09-01] MEDS: APIXABAN 5 MG TABLET PO SCH ×2 (09:27→20:46)
[2016-09-01] MEDS ORDERED: DILT60TA33 PO (09:28)
[2016-09-01] MEDS ORDERED: APIX5TAB PO (09:28)
[2016-09-01] MEDS ORDERED: PERC5TAB12 PO (09:28)
[2016-09-01] MEDS ORDERED: METO-309 PO (09:28)
--- NOTE | 2016-09-01 09:28 | HHI.DCPOC ---
Discharge Care Plan Diagnosis: (1) Rapid atrial fibrillation Your Health Problems Are: Chest Pain Goals to Promote Your Health * To prevent worsening of your condition and complications * To maintain your health at the optimal level Directions to Meet Your Goals Take your medications as prescribed Follow your dietary instruction Follow activity as directed Keep your appointments as scheduled Take your immunizations and boosters as scheduled If your symptoms worsen call your PCP, if no PCP go to Urgent Care Center or Emergency Room Smoking is Dangerous to Your Health. Avoid second hand smoke Call the 24-hour hour crisis hotline for domestic abuse at Piotr Medina MD Sep 01, 2016 09:28
--- NOTE | 2016-09-01 09:29 | HHI.DS ---
Discharge Summary Admission Date Aug 26, 2016 at 09:03 Discharge Date: Sep 01, 2016 Admitting Diagnosis A. fib with RVR/UTI/sepsis (1) Rapid atrial fibrillation ICD Code: I48.91 Diagnosis: Principal (2) UTI (urinary tract infection) ICD Code: N39.0 Diagnosis: Principal Procedures none Brief History - From Admission patient is a 81 y/o male who was sent to ER from group home because of irregular heart beat. the patient was admitted to [facility] about three months ago. 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 at the time he had supraventricular tachycardia for which he was placed on cardizem. he had a drain placed in [place] at the time. he was then transferred to [facility] and later to [facility]. this morning he was found to have rapid and irregular hear rate for which he was transferred to [facility]. he denies any chest pain or sob but has some pain to the lower abdomen. of note he had to have a suarez cath placed about three months ago. Significant Findings Laboratory Tests Test 08/30/16 15:15 Urine Leukocyte Esterase MOD (NEG) Urine WBC 15 /hpf (0-5) Urine WBC Clumps RARE (NONE) Urine Mucus FEW /lpf (OCC) Imaging Last Impressions Chest X-Ray 08/26/16 0613 Signed Impressions: Service Date/Time: Friday, August 26, 2016 06:34 - CONCLUSION: Right basilar atelectasis. Mild cardiomegaly. Moshe Goyal Jr., MD PE at Discharge GENERAL: This is a well-nourished, well-developed patient, in no apparent distress. CARDIOVASCULAR: irregular rhythm without murmurs, gallops, or rubs. RESPIRATORY: Clear to auscultation. Breath sounds equal bilaterally. No wheezes , rales, or rhonchi. GASTROINTESTINAL: Abdomen soft, mild lower abdominal tenderness, nondistended. drain in place. Normal, active bowel sounds MUSCULOSKELETAL: Extremities without clubbing, cyanosis, or edema. NEURO: Alert & Oriented x4 to person, place, time, situation. Moves all ext x4 Hospital Course - atrial fibrillation with rapid ventricular rate- HR better controlled. continue po Cardizem and Metoprolol-continue to monitor. continue Eliquis - echo with EF 45%-cardiology following. might consider adding PARKER-I as outpatient if BP allows. -UTI- treated. repeated UC negative- will dc Abx. -perihepatic abscess- s/p drain in [facility] general surgery consulted and recommended out-patient f/u. 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 -DVT prophylaxis with SCD's Pt Condition on Discharge: Good Discharge Disposition: Discharge to SNF Discharge Time: > 30 minutes Discharge Instructions DIET: Follow Instructions for: Heart Healthy Diet, Diabetic Diet Activities you can perform: Regular-No Restrictions Follow up Referrals: Cardiology PCP Follow-up Surgical New Medications: Apixaban (Eliquis) 5 Mg Tab 5 MG PO BID a-fib Days 30 Ref 0 TAB Diltiazem (Cardizem) 60 Mg Tab 60 MG PO Q6H a-fib Days 30 Ref 0 TAB Metoprolol Tartrate (Lopressor) 50 Mg Tab 75 MG PO BID a-fib Days 30 Ref 0 TAB Continued Medications: Acetaminophen (Tylenol) 325 Mg Tab 650 MG PO Q6H PRN PAIN SCALE 1 TO 10 Ref 0 TAB Escitalopram (Escitalopram) 10 Mg Tab 10 MG PO DAILY #30 Ref 0 TAB Famotidine (Famotidine) 40 Mg Tab 40 MG PO HS #30 Ref 0 TAB Furosemide (Lasix) 40 Mg Tab 40 MG PO DAILY #30 Ref 0 TAB Insulin Human Isophane-Regular 70-30 Inj (Novolin 70/30 Inj) 1,000 Units/10 Ml Inj 10 SQ HS Insulin Lispro (Human) Inj (Humalog Inj) 1,000 Unit/10 Ml Vial 1-9 UNITS SQ ACHS Max dose at bedtime:( )units; sugars< 70,(0)units; sugars 150 -199,(1)unit; sugars 200-249,(3)units; sugars 250-299,(5)units; sugars 300-349,( 7)units; sugars more than 349,(9)units. Blood Sugar Management #1 Ref 0 VIAL Insulin NPH Isophane-Reg (Human) 70-30 Inj (Novolin 70-30 Relion Inj) 100 Unit/ Ml Inj 15 SQ DAILY Loperamide (Loperamide) 2 Mg Tab 2 MG PO DIRECTED One tablet after each loose stool. Not to exceed 8 tablets per day. PRN DIARRHEA Ref 0 TAB Mirtazapine (Mirtazapine) 15 Mg Tab 15 MG PO HS Depression Control #30 Ref 0 TAB Oxycodone-Acetaminophen (Percocet) 5-325 mg Tab 1 TAB PO Q6H PRN PAIN #15 Ref 0 TAB (This prescription has been renewed) Simethicone (Simethicone) 80 Mg Chw 80 MG CHEW QID PRN GAS RETENTION Ref 0 TAB Trazodone (Trazodone) 100 Mg Tab 100 MG PO HS Control Depression #30 Ref 0 TAB Discontinued Medications: Bisacodyl Supp (Dulcolax Supp) 10 Mg Supp 10 MG RECTAL DAILY PRN CONSTIPATION #12 Ref 0 SUPP Diltiazem (Diltiazem) 60 Mg Tab 60 MG PO TID Angina #120 Ref 0 TAB Enoxaparin Inj (Lovenox Inj) 100 Mg/Ml Syr 100 MG SQ BID Blood Clot Prevention Ref 0 SYRINGE Hydrocodone-Acetaminophen ([place]) 5-325 mg Tab 1 TAB PO Q4H PRN PAIN Ref 0 TAB Magnesium Hydroxide Liq (Milk of Magnesia Liq) 400 Mg/5 Ml Susp 30 ML PO DAILY PRN INDIGESTION OR UPSET STOMACH #1 Ref 0 BOTTLE Metoprolol Tartrate (Metoprolol Tartrate) 50 Mg Tab 50 MG PO BID #60 Ref 0 TAB Piotr Medina MD Sep 01, 2016 09:29
[2016-09-01 16:41] LABS: C. DIFF EPI 027 PRESUMPTIVE POSITIVE (NEGATIVE); C. DIFF TOXIN PCR POSITIVE (NEGATIVE)
[2016-09-01] MEDS: metroNIDAZOLE 500 MG TAB PO SCH ×2 (18:07→20:47)
[2016-09-01] MEDS: MIRTAZAPINE 15 MG TAB PO SCH (20:46)
[2016-09-01] MEDS: traZODone HCL 100 MG TAB PO SCH (20:46)
[2016-09-01] MEDS: FAMOTIDINE 20 MG TAB PO SCH (20:46)
[2016-09-02 01:32] VITALS: BP 126/66; PULSE 74; RESP 15; TEMP 98.7; O2SAT 94
[2016-09-02] MEDS: DILTIAZEM HCL 60 MG TAB PO SCH ×4 (03:33→21:15)
[2016-09-02 05:03] VITALS: BP 121/68; PULSE 74; RESP 15; TEMP 98.8; O2SAT 94
[2016-09-02] MEDS: metroNIDAZOLE 500 MG TAB PO SCH ×3 (05:06→21:16)
[2016-09-02] MEDS: INSULIN ASPART SUPPLEMENTAL SCALE SQ SCH ×4 (06:21→21:00)
[2016-09-02 07:59] LABS: AUTOMATED NEUTROPHIL # 10.5 TH/MM3 (1.8-7.7); BASOPHIL % 0.2 % (0.0-2.0); EOSINOPHIL # 0.2 TH/MM3 (0-0.4); EOSINOPHIL % 1.2 % (0.0-4.0); LYMPH % 6.5 % (9.0-44.0); LYMPHOCYTE # 0.8 TH/MM3 (1.0-4.8); MEAN CELL VOLUME 94.3 FL (80.0-100.0); MEAN CORPUSCULAR HEMOGLOBIN 30.8 PG (27.0-34.0); MEAN CORPUSCULAR HGB CONC 32.6 % (32.0-36.0); NEUT % 85.1 % (16.0-70.0); PLATELET COUNT 239 TH/MM3 (150-450); RED CELL DISTRIBUTION WIDTH 17.9 % (11.6-17.2); WHITE BLOOD COUNT 12.3 TH/MM3 (4.0-11.0)
[2016-09-02 08:00] VITALS: BP 126/72; PULSE 74; PULSE 76; RESP 18; TEMP 97.9; O2SAT 94
[2016-09-02 08:12] LABS: HEMO FLAGS AUTO DIFF
[2016-09-02 08:26] LABS: BICARBONATE 30.2 MEQ/L (21.0-32.0)
[2016-09-02 08:59] LABS: POTASSIUM 2.6 MEQ/L (3.5-5.1)
[2016-09-02 09:23] LABS: BANDS 3 % (0-6); EOSINOPHILS 1 % (0-4); MYELOCYTES 1 % (0-0); NEUTROPHIL # MANUAL DIFF 10.6 TH/MM3 (1.8-7.7); PLASMA CELLS 1 % (0-0); POLYS (SEG NEUTROPHILS) 82 % (16-70); WBC DIFF SAMPLE 100
[2016-09-02 09:24] LABS: PLATELET ESTIMATE SMEAR NORMAL (NORMAL); PLATELET MORPHOLOGY NORMAL (NORMAL); SCAN/DIFF FINAL DIFF MANUAL
--- NOTE | 2016-09-02 09:40 | HHI.PR ---
Subjective Remarks resting comfortably with no distress. denies pain. still with diarrhea. no fever. d/w the RN. Objective Vitals Vital Signs Date Time Temp Pulse Resp B/P Pulse Ox O2 Delivery O2 Flow Rate FiO2 09/02/16 08:00 97.9 74 18 126/72 94 09/02/16 05:03 98.8 74 15 121/68 94 09/02/16 01:32 98.7 74 15 126/66 94 09/01/16 21:51 98.4 74 18 124/73 93 09/01/16 21:00 Nasal Cannula 2.00 09/01/16 20:00 74 09/01/16 16:00 98.0 79 20 124/65 93 09/01/16 12:00 97.5 73 20 126/71 94 I/O 09/01/16 09/01/16 09/01/16 09/02/16 09/02/16 09/02/16 07:00 15:00 23:00 07:00 15:00 23:00 Intake Total 904 ml 480 ml 500 ml Balance 904 ml 480 ml 500 ml Intake Oral 100 ml 480 ml 500 ml IV Total 804 ml # Voids 3 2 3 # Bowel Movements 4 3 1 Result Diagram: 09/02/16 0725 09/02/16 0725 Imaging Last Impressions Chest X-Ray 08/26/16 0613 Signed Impressions: Service Date/Time: Friday, August 26, 2016 06:34 - CONCLUSION: Right basilar atelectasis. Mild cardiomegaly. Moshe Goyal Jr., MD Objective Remarks GENERAL: This is a well-nourished, well-developed patient, in no apparent distress. CARDIOVASCULAR: irregular rhythm without murmurs, gallops, or rubs. RESPIRATORY: Clear to auscultation. Breath sounds equal bilaterally. No wheezes , rales, or rhonchi. GASTROINTESTINAL: Abdomen soft, mild lower abdominal tenderness, nondistended. drain in place. Normal, active bowel sounds MUSCULOSKELETAL: Extremities without clubbing, cyanosis, or edema. NEURO: Alert & Oriented x4 to person, place, time, situation. Moves all ext x4 Procedures none Medications and IVs Current Medications Sodium Chloride 1,000 ml @ 70 mls/hr [id number] IV Last administered on 09/01/16t 19:33; Start 08/26/16 at 06:15 Diltiazem HCl/ Sodium Chloride (Cardizem Inj/NS Inj) 125 ml @ 0 mls/hr TITRATE IV Last administered on 08/27/16 16:45; Start 08/26/16 at 06:15 Diltiazem HCl 20 mg 20 mg BOLUS ONCE IV PUSH Last administered on 08/26/16 06 :37; Start 08/26/16 at 06:15; Stop 08/26/16 at 06:16; Status DC Piperacillin Sod/ Tazobactam Sod (Zosyn 4.5 Gm Premix) 100 ml @ 200 mls/hr ONCE STAT IV Last administered on 08/26/16 07:39; Start 08/26/16 at 07:39; Stop 08/26/16 at 08:08; Status DC Dextrose (D50w (Vial) Inj) 25 ml UNSCH PRN IV PUSH HYPOGLYCEMIA-SEE COMMENTS; Start 08/26/16 at 09:00 Glucagon (Glucagon Inj) 1 mg UNSCH PRN OTHER HYPOGLYCEMIA-SEE COMMENTS; Start 08/26/16 at 09:00 Insulin Aspart 1 1 ACHS SLIDING SCALE SQ Last administered on 08/31/16 21:00 ; Start 08/26/16 at 11:00 Ceftriaxone Sodium/Sodium Chloride (Rocephin Inj/NS Inj) 100 ml @ 200 mls/hr Q24H IV Last administered on 08/29/16 08:33; Start 08/26/16 at 09:00; Stop at 11:46; Status DC Diltiazem HCl (Cardizem) 60 mg TID PO Last administered on 08/30/16 08:54; Start 08/26/16 at 13:00; Stop 08/30/16 at 11:02; Status DC Escitalopram Oxalate (Lexapro) 10 mg DAILY PO Last administered on 09/01/16 09: 27; Start 08/27/16 at 09:00 Furosemide (Lasix) 40 mg DAILY PO Last administered on 09/01/16 09:27; Start at 09:00 Mirtazapine (Remeron) 15 mg HS PO Last administered on 09/01/16 20:46; Start at 21:00 Trazodone HCl (Desyrel) 100 mg HS PO Last administered on 09/01/16 20:46; Start 08/26/16 at 21:00 Famotidine (Pepcid) 40 mg HS PO Last administered on 09/01/16 20:46; Start at 21:00 Acetaminophen/ Hydrocodone Bitart ([place] 5-325 Mg) 1 tab Q4H PRN PO PAIN 3-10 Last administered on 08/28/16 21:19; Start 08/27/16 at 12:15 Metoprolol Tartrate (Lopressor) 50 mg BID PO ; Start 08/27/16 at 13:00; Stop at 13:00; Status DC Metoprolol Tartrate 50 mg 50 mg BID PO Last administered on 08/31/16 08:32; Start 08/27/16 at 13:00; Stop 08/31/16 at 10:21; Status DC Piperacillin Sod/ Tazobactam Sod (Zosyn 3.375 Gm Premix) 50 ml @ 100 mls/hr Q6H IV Last administered on 09/01/16 08:00; Start 08/29/16 at 14:00; Stop at 09:20; Status DC Metoprolol Tartrate (Lopressor) 25 mg ONCE ONCE PO Last administered on 04:56; Start 08/30/16 at 04:00; Stop 08/30/16 at 04:01; Status DC Diltiazem HCl (Cardizem) 60 mg Q6H PO Last administered on 09/02/16 03:33; Start 08/30/16 at 15:00 Metoprolol Tartrate (Lopressor) 75 mg BID PO Last administered on 09/01/16 20: 47; Start 08/31/16 at 21:00 Metoprolol Tartrate (Lopressor) 25 mg ONCE ONCE PO ; Start 08/31/16 at 10:30; Stop 08/31/16 at 10:31; Status Cancel Apixaban (Eliquis) 5 mg BID PO Last administered on 09/01/16 20:46; Start 08/31 at 21:00 Miscellaneous (Pill Splitter) 1 ea UNSCH PRN OTHER SEE LABEL COMMENTS; Start at 10:30 Metronidazole (Flagyl) 500 mg Q8HR PO Last administered on 09/02/16t 05:06; Start 09/01/16 at 17:45 A/P Assessment and Plan A/P - atrial fibrillation with rapid ventricular rate- HR now controlled. continue po Cardizem and Metoprolol-continue to monitor. continue Eliquis - echo with EF 45%-cardiology following. might consider adding PARKER-I as outpatient if BP allows. -UTI- treated. repeated UC negative- dc'ed Abx -C- diff colitis- started on Flagyl- will monitor -hypokalemia; will replace and monitor -perihepatic abscess- s/p drain in [facility] general surgery consulted and recommended out-patient f/u. 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 see med list. f/u; pcp and cardiology upon discharge. d/w the patient and RN. time spent 32 min. Piotr Medina MD Sep 02, 2016 09:40
[2016-09-02] MEDS ORDERED: METR-1 PO (09:43)
[2016-09-02] MEDS ORDERED: POTASSIUM CHLORIDE 20 MEQ CONTROLLED RELEASE TAB PO ONE ×3 (10:00→18:00)
[2016-09-02] MEDS: APIXABAN 5 MG TABLET PO SCH ×2 (10:25→21:15)
[2016-09-02] MEDS: ESCITALOPRAM OXALATE 10 MG TAB PO SCH (10:25)
[2016-09-02] MEDS: METOPROLOL TARTRATE 50 MG TAB PO SCH ×2 (10:26→21:16)
[2016-09-02] MEDS: FUROSEMIDE 40 MG TAB PO SCH (10:26)
[2016-09-02 12:00] VITALS: BP 115/69; PULSE 78; RESP 18; TEMP 98.1; O2SAT 96
[2016-09-02 16:00] VITALS: BP 121/71; PULSE 71; RESP 18; TEMP 98; O2SAT 96
[2016-09-02 20:00] VITALS: BP 120/70; PULSE 83; RESP 17; TEMP 98.6; O2SAT 94
[2016-09-02] MEDS: FAMOTIDINE 20 MG TAB PO SCH (21:15)
[2016-09-02] MEDS: traZODone HCL 100 MG TAB PO SCH (21:15)
[2016-09-02] MEDS: MIRTAZAPINE 15 MG TAB PO SCH (21:15)
[2016-09-03] VITALS (9 sets, daily range): BP systolic 123–150; BP diastolic 67–84; PULSE 68–105; RESP 16–20; TEMP 97.2–98.2; O2SAT 91–94
[2016-09-03] MEDS: SODIUM CHLOR 0.9% 1000 ML INJ 1,000 ML IV SCH ×2 (00:09→14:03)
[2016-09-03] MEDS: DILTIAZEM HCL 60 MG TAB PO SCH ×4 (04:12→20:40)
[2016-09-03] MEDS: metroNIDAZOLE 500 MG TAB PO SCH ×3 (05:52→20:40)
[2016-09-03] MEDS: INSULIN ASPART SUPPLEMENTAL SCALE SQ SCH ×4 (06:36→20:40)
[2016-09-03 07:29] LABS: AUTOMATED NEUTROPHIL # 9.4 TH/MM3 (1.8-7.7); BASOPHIL # 0.1 TH/MM3 (0-0.2); BASOPHIL % 0.9 % (0.0-2.0); EOSINOPHIL # 0.1 TH/MM3 (0-0.4); EOSINOPHIL % 0.7 % (0.0-4.0); HEMATOCRIT 34.9 % (39.0-51.0); LYMPH % 7.9 % (9.0-44.0); LYMPHOCYTE # 0.9 TH/MM3 (1.0-4.8); MEAN CORPUSCULAR HEMOGLOBIN 31.3 PG (27.0-34.0); MEAN CORPUSCULAR HGB CONC 32.9 % (32.0-36.0); MONO % 7.1 % (0.0-8.0); NEUT % 83.4 % (16.0-70.0); PLATELET COUNT 266 TH/MM3 (150-450); RED BLOOD COUNT 3.68 MIL/MM3 (4.50-5.90); RED CELL DISTRIBUTION WIDTH 18.1 % (11.6-17.2); WHITE BLOOD COUNT 11.3 TH/MM3 (4.0-11.0)
[2016-09-03 07:33] LABS: HEMO FLAGS AUTO DIFF
[2016-09-03] MEDS: APIXABAN 5 MG TABLET PO SCH ×2 (08:12→20:40)
[2016-09-03] MEDS: FUROSEMIDE 40 MG TAB PO SCH (08:12)
[2016-09-03] MEDS: ESCITALOPRAM OXALATE 10 MG TAB PO SCH (08:12)
[2016-09-03] MEDS: METOPROLOL TARTRATE 50 MG TAB PO SCH ×2 (08:12→20:39)
--- NOTE | 2016-09-03 08:50 | HHI.PR ---
Subjective Remarks resting comfortably with no distress. no fever. still with diarrhea but he says that it's getting better. no abdominal pain, nausea or vomiting. d/w the RN and no acute issues over night. Objective Vitals Vital Signs Date Time Temp Pulse Resp B/P Pulse Ox O2 Delivery O2 Flow Rate FiO2 09/03/16 04:00 98.2 77 17 127/71 92 09/03/16 00:00 98.0 72 16 123/71 94 09/02/16 20:00 Nasal Cannula 2.00 09/02/16 20:00 83 09/02/16 20:00 98.6 83 17 120/70 94 09/02/16 16:00 98.0 71 18 121/71 96 09/02/16 12:00 98.1 78 18 115/69 96 I/O 09/02/16 09/02/16 09/02/16 09/03/16 09/03/16 09/03/16 07:00 15:00 23:00 07:00 15:00 23:00 Intake Total 500 ml 480 ml 120 ml 120 ml Balance 500 ml 480 ml 120 ml 120 ml Intake Oral 500 ml 480 ml 120 ml 120 ml # Voids 3 2 1 2 # Bowel Movements 1 5 1 1 Result Diagram: 09/03/16 0654 09/03/16 0654 Imaging Last Impressions Chest X-Ray 08/26/16 0613 Signed Impressions: Service Date/Time: Friday, August 26, 2016 06:34 - CONCLUSION: Right basilar atelectasis. Mild cardiomegaly. Moshe Goyal Jr., MD Objective Remarks GENERAL: This is a well-nourished, well-developed patient, in no apparent distress. CARDIOVASCULAR: irregular rhythm without murmurs, gallops, or rubs. RESPIRATORY: Clear to auscultation. Breath sounds equal bilaterally. No wheezes , rales, or rhonchi. GASTROINTESTINAL: Abdomen soft, mild lower abdominal tenderness, nondistended. drain in place. Normal, active bowel sounds MUSCULOSKELETAL: Extremities without clubbing, cyanosis, or edema. NEURO: Alert & Oriented x4 to person, place, time, situation. Moves all ext x4 Procedures none Medications and IVs Current Medications Sodium Chloride 1,000 ml @ 70 mls/hr [id number] IV Last administered on 09/01/16t 19:33; Start 08/26/16 at 06:15 Diltiazem HCl/ Sodium Chloride (Cardizem Inj/NS Inj) 125 ml @ 0 mls/hr TITRATE IV Last administered on 08/27/16 16:45; Start 08/26/16 at 06:15 Diltiazem HCl 20 mg 20 mg BOLUS ONCE IV PUSH Last administered on 08/26/16 06 :37; Start 08/26/16 at 06:15; Stop 08/26/16 at 06:16; Status DC Piperacillin Sod/ Tazobactam Sod (Zosyn 4.5 Gm Premix) 100 ml @ 200 mls/hr ONCE STAT IV Last administered on 08/26/16 07:39; Start 08/26/16 at 07:39; Stop 08/26/16 at 08:08; Status DC Dextrose (D50w (Vial) Inj) 25 ml UNSCH PRN IV PUSH HYPOGLYCEMIA-SEE COMMENTS; Start 08/26/16 at 09:00 Glucagon (Glucagon Inj) 1 mg UNSCH PRN OTHER HYPOGLYCEMIA-SEE COMMENTS; Start 08/26/16 at 09:00 Insulin Aspart 1 1 ACHS SLIDING SCALE SQ Last administered on 09/02/16 21:00; Start 08/26/16 at 11:00 Ceftriaxone Sodium/Sodium Chloride (Rocephin Inj/NS Inj) 100 ml @ 200 mls/hr Q24H IV Last administered on 08/29/16 08:33; Start 08/26/16 at 09:00; Stop at 11:46; Status DC Diltiazem HCl (Cardizem) 60 mg TID PO Last administered on 08/30/16 08:54; Start 08/26/16 at 13:00; Stop 08/30/16 at 11:02; Status DC Escitalopram Oxalate (Lexapro) 10 mg DAILY PO Last administered on 09/03/16 08: 12; Start 08/27/16 at 09:00 Furosemide (Lasix) 40 mg DAILY PO Last administered on 09/03/16 08:12; Start at 09:00 Mirtazapine (Remeron) 15 mg HS PO Last administered on 09/02/16 21:15; Start at 21:00 Trazodone HCl (Desyrel) 100 mg HS PO Last administered on 09/02/16 21:15; Start 08/26/16 at 21:00 Famotidine (Pepcid) 40 mg HS PO Last administered on 09/02/16 21:15; Start at 21:00 Acetaminophen/ Hydrocodone Bitart ([place] 5-325 Mg) 1 tab Q4H PRN PO PAIN 3-10 Last administered on 08/28/16 21:19; Start 08/27/16 at 12:15 Metoprolol Tartrate (Lopressor) 50 mg BID PO ; Start 08/27/16 at 13:00; Stop at 13:00; Status DC Metoprolol Tartrate 50 mg 50 mg BID PO Last administered on 08/31/16 08:32; Start 08/27/16 at 13:00; Stop 08/31/16 at 10:21; Status DC Piperacillin Sod/ Tazobactam Sod (Zosyn 3.375 Gm Premix) 50 ml @ 100 mls/hr Q6H IV Last administered on 09/01/16 08:00; Start 08/29/16 at 14:00; Stop at 09:20; Status DC Metoprolol Tartrate (Lopressor) 25 mg ONCE ONCE PO Last administered on 04:56; Start 08/30/16 at 04:00; Stop 08/30/16 at 04:01; Status DC Diltiazem HCl (Cardizem) 60 mg Q6H PO Last administered on 09/03/16 08:12; Start 08/30/16 at 15:00 Metoprolol Tartrate (Lopressor) 75 mg BID PO Last administered on 09/03/16 08: 12; Start 08/31/16 at 21:00 Metoprolol Tartrate (Lopressor) 25 mg ONCE ONCE PO ; Start 08/31/16 at 10:30; Stop 08/31/16 at 10:31; Status Cancel Apixaban (Eliquis) 5 mg BID PO Last administered on 09/03/16 08:12; Start 08/31 at 21:00 Miscellaneous (Pill Splitter) 1 ea UNSCH PRN OTHER SEE LABEL COMMENTS; Start at 10:30 Metronidazole (Flagyl) 500 mg Q8HR PO Last administered on 09/03/16 05:52; Start 09/01/16 at 17:45 Potassium Chloride (KCl) 40 meq ONCE ONCE PO Last administered on 09/02/16 10: 00; Start 09/02/16 at 10:00; Stop 09/02/16 at 10:01; Status DC Potassium Chloride (KCl) 40 meq ONCE ONCE PO Last administered on 09/02/16 14: 10; Start 09/02/16 at 14:00; Stop 09/02/16 at 14:01; Status DC Potassium Chloride (KCl) 40 meq ONCE ONCE PO Last administered on 09/02/16 18: 00; Start 09/02/16 at 18:00; Stop 09/02/16 at 18:01; Status DC A/P Assessment and Plan A/P - atrial fibrillation with rapid ventricular rate- HR now controlled. continue po Cardizem and Metoprolol-continue to monitor. continue Eliquis - echo with EF 45%-cardiology following. might consider adding PARKER-I as outpatient if BP allows. -UTI- treated. -C- diff colitis- continue Flagyl- -hypokalemia;replaced. -perihepatic abscess- s/p drain in [facility] general surgery consulted and recommended out-patient f/u. 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 Piotr Medina MD Sep 03, 2016 08:50 time spent 32 min. Piotr Medina MD Sep 03, 2016 08:50
[2016-09-03 09:23] LABS: BANDS 12 % (0-6); METAMYELOCYTES 1 % (0-1); NEUTROPHIL # MANUAL DIFF 9.4 TH/MM3 (1.8-7.7); POLYS (SEG NEUTROPHILS) 70 % (16-70); WBC DIFF SAMPLE 100
[2016-09-03 09:24] LABS: PLATELET ESTIMATE SMEAR NORMAL (NORMAL); PLATELET MORPHOLOGY NORMAL (NORMAL); SCAN/DIFF FINAL DIFF MANUAL
--- NOTE | 2016-09-03 16:57 | HHI.PR ---
Subjective Subjective Notes Resting in bed Nurse at bedside Objective Vitals/I&O Vital Signs Date Time Temp Pulse Resp B/P Pulse Ox O2 Delivery O2 Flow Rate FiO2 09/03/16 13:57 88 20 129/84 09/03/16 12:00 97.6 91 09/03/16 11:15 Nasal Cannula 2.00 Labs Laboratory Tests Test 09/03/16 06:54 White Blood Count 11.3 Red Blood Count 3.68 Hemoglobin 11.5 Hematocrit 34.9 Mean Corpuscular Volume 95.0 Mean Corpuscular Hemoglobin 31.3 Mean Corpuscular Hemoglobin 32.9 Concent Red Cell Distribution Width 18.1 Platelet Count 266 Mean Platelet Volume 8.1 Neutrophils (%) (Auto) 83.4 Lymphocytes (%) (Auto) 7.9 Monocytes (%) (Auto) 7.1 Eosinophils (%) (Auto) 0.7 Basophils (%) (Auto) 0.9 Neutrophils # (Auto) 9.4 Lymphocytes # (Auto) 0.9 Monocytes # (Auto) 0.8 Eosinophils # (Auto) 0.1 Basophils # (Auto) 0.1 CBC Comment AUTO DIFF Differential Total Cells 100 Counted Neutrophils % (Manual) 70 Band Neutrophils % 12 Lymphocytes % 10 Monocytes % 7 Neutrophils # (Manual) 9.4 Metamyelocytes 1 Differential Comment FINAL DIFF MANUAL Platelet Estimate NORMAL Platelet Morphology Comment NORMAL Potassium Level 3.5 Date/Time Procedure Status Source Growth 08/30/16 15:15 Urine Culture - Final Complete Urine Clean Catch <10,000 CFU/ML GRAM POSITIVE ACE Cardiovascular: Regular Lungs: Clear Abdomen: Other (drain in place in RUQ; minimal purulent drainage in collection bag; no tenderness; soft ) Extremities: No edema A/P Assessment and Plan 81 year old male with drain in place from perihepatic abscess; placed at OSH -Follow up CT a/p with IV and PO contrast -Will discuss with Dr. Perez -Regular diet Attending Statement The exam, history, and the medical decision-making described in the above note were completed with the assistance of the mid-level provider. I reviewed and agree with the findings presented. I attest that I had a [id number] encounter with the patient on the same day, and personally performed and documented my assessment and findings in the medical record. abdominal exam stable, no pain currently, will need follow up scans and drain management, will follow Carla Sosa Sep 03, 2016 16:57 Gaston Nguyen MD Sep 14, 2016 08:21
[2016-09-03] MEDS ORDERED: DIATRIZOATE MEGLUM/DIATRIZOATE SOD 9 ML CUP PO ONE (17:00)
[2016-09-03] MEDS: traZODone HCL 100 MG TAB PO SCH (20:39)
[2016-09-03] MEDS: MIRTAZAPINE 15 MG TAB PO SCH (20:40)
[2016-09-03] MEDS: FAMOTIDINE 20 MG TAB PO SCH (20:40)
[2016-09-03] MEDS ORDERED: IOHEXOL 350 MG/ML 10 ML VIAL (for RAD DIAG) IV ONE (22:19)
--- NOTE | 2016-09-03 23:01 | RADRPT ---
EXAM DATE/TIME: 09/03/2016 22:09 [place] COMPARISON: No previous studies available for comparison. INDICATIONS : Follow-up perihepatic abscess. IV CONTRAST: 100 cc Omnipaque 350 (iohexol) IV ORAL CONTRAST: Prescribed oral contrast ingested. RADIATION DOSE: 9.96 CTDIvol (mGy) MEDICAL HISTORY : Congestive heart failure. Hypertension. Diabetes mellitus type 2.Hepatic tumor. SURGICAL HISTORY : None. ENCOUNTER: Subsequent ACUITY: 3 days PAIN SCALE: 5/10 LOCATION: Bilateral lower quadrant TECHNIQUE: Volumetric scanning of the abdomen and pelvis was performed. Using automated exposure control and ad justment of the mA and/or kV according to patient size, radiation dose was kept as low as reasonably achievable to obtain optimal diagnostic quality images. FINDINGS: LOWER LUNGS: A small right and tiny left pleural effusion are noted with associated passive atelectasis. LIVER: There is a drainage catheter involve in the right perihepatic space. No residual fluid is seen surrou nding the drain. The liver is heterogeneous directly adjacent to the drain involving segment 6. No du ctal dilatation. There is a small focus of air and fluid within the gallbladder fossa. This measures just under 2 cm in diameter. The portal vein is patent. SPLEEN: A 6.7 cm low-density lesion is seen involving the spleen. Hounsfield units are 18. It has a lobulated contour. PANCREAS: Within normal limits. KIDNEYS: Normal in size and shape. There is no mass or hydronephrosis. An 8mm nonobstructing stone is seen i nvolving the right kidney. ADRENAL GLANDS: Within normal limits. VASCULAR: There is no aortic aneurysm. BOWEL/MESENTERY: There is circumferential wall thickening involving the rectosigmoid colon. There are numerous diverti cula associated with this area. There is mild stranding of the pericolonic fat particularly at the ju nction of the descending colon and sigmoid colon. No free air. No free fluid. Small bowel and stomach are unremarkable. ABDOMINAL WALL: Within normal limits. RETROPERITONEUM: There is no lymphadenopathy. BLADDER: No wall thickening or mass. A tiny focus of air is seen within the lumen. REPRODUCTIVE: Within normal limits. INGUINAL: There is no lymphadenopathy or hernia. MUSCULOSKELETAL: Within normal limits for patient age. A degenerative spine noted. CONCLUSION: 1. Perihepatic drain without residual fluid around the drain. 2. Masslike area of low density involving segment 6 of the liver adjacent to the drain. I have no keren ors to compare. Differential diagnostic considerations would include a mass of both benign and malign ant potential as well as an infectious process. No discrete intrahepatic abscess currently seen. 3. Circumferential wall thickening and stranding in the adjacent fat involving the rectosigmoid colon as detailed above. The appearance is more typical of an inflammatory or infectious process. 4. Approximate 2 cm pocket of fluid and air within the gallbladder fossa. Although this could relate to more focal ascitic fluid I cannot exclude a developing abscess. It is currently too small for perc utaneous access. 5. Bilateral pleural effusions and associated atelectasis. 6. 6.7 cm nonspecific low density mass involving the spleen. 7. Tiny focus of air within the lumen of the urinary bladder. Although this could relate to recent in strumentation an infection with gas producing organisms can have a similar appearance. 8. Nonobstructing right renal stone. Moshe Goyal Jr., MD on September 03, 2016 at 22:50 Board Certified Radiologist. This report was verified electronically.
[2016-09-04] VITALS (9 sets, daily range): BP systolic 107–155; BP diastolic 59–88; PULSE 72–107; RESP 18–20; TEMP 97.5–97.9; O2SAT 89–93
[2016-09-04] MEDS: metroNIDAZOLE 500 MG TAB PO SCH ×3 (04:22→22:53)
[2016-09-04] MEDS: DILTIAZEM HCL 60 MG TAB PO SCH ×4 (04:22→22:52)
[2016-09-04] MEDS: SODIUM CHLOR 0.9% 1000 ML INJ 1,000 ML IV SCH ×2 (04:22→22:54)
[2016-09-04] MEDS: INSULIN ASPART SUPPLEMENTAL SCALE SQ SCH ×4 (05:52→22:55)
[2016-09-04 07:47] LABS: BICARBONATE 29.6 MEQ/L (21.0-32.0)
[2016-09-04 07:56] LABS: POTASSIUM 2.9 MEQ/L (3.5-5.1)
[2016-09-04] MEDS: METOPROLOL TARTRATE 50 MG TAB PO SCH ×2 (07:59→22:52)
[2016-09-04] MEDS: APIXABAN 5 MG TABLET PO SCH ×2 (08:00→22:51)
[2016-09-04] MEDS: ESCITALOPRAM OXALATE 10 MG TAB PO SCH (08:00)
[2016-09-04] MEDS: FUROSEMIDE 40 MG TAB PO SCH (08:00)
[2016-09-04] MEDS ORDERED: POTASSIUM CHLORIDE 20 MEQ CONTROLLED RELEASE TAB PO ONE (08:30)
--- NOTE | 2016-09-04 09:35 | HHI.PR ---
Subjective Remarks patient states he is having diarrhea - x 5 episodes today denies cp/sob low K at 2.9 afebrile denies abdominal pain or nausea Objective Vitals Vital Signs Date Time Temp Pulse Resp B/P Pulse Ox O2 Delivery O2 Flow Rate FiO2 09/04/16 08:00 97.9 103 18 152/88 89 09/04/16 07:56 Nasal Cannula 2.00 09/04/16 07:56 107 09/04/16 05:47 97.8 105 18 147/80 92 09/04/16 00:13 97.8 87 20 155/81 92 09/03/16 20:00 Nasal Cannula 2.00 09/03/16 20:00 98.0 105 18 150/67 93 09/03/16 16:00 97.2 68 16 144/78 91 09/03/16 13:57 88 20 129/84 09/03/16 12:00 97.6 73 20 130/72 91 09/03/16 11:15 92 Nasal Cannula 2.00 09/03/16 09:57 Nasal Cannula 2.00 I/O 09/03/16 09/03/16 09/03/16 09/04/16 09/04/16 09/04/16 07:00 15:00 23:00 07:00 15:00 23:00 Intake Total 120 ml 480 ml Balance 120 ml 480 ml Intake Oral 120 ml 480 ml # Voids 2 5 # Bowel Movements 1 2 8 Result Diagram: 09/03/16 0654 09/04/16 0621 Imaging Last Impressions Abdomen/Pelvis CT 09/03/16 0000 Signed Impressions: Service Date/Time: Saturday, September 03, 2016 22:09 - CONCLUSION: 1. Perihepatic drain without residual fluid around the drain. 2. Masslike area of low density involving segment 6 of the liver adjacent to the drain. I have no priors to compare. Differential diagnostic considerations would include a mass of both benign and malignant potential as well as an infectious process. No discrete intrahepatic abscess currently seen. 3. Circumferential wall thickening and stranding in the adjacent fat involving the rectosigmoid colon as detailed above. The appearance is more typical of an inflammatory or infectious process. 4. Approximate 2 cm pocket of fluid and air within the gallbladder fossa. Although this could relate to more focal ascitic fluid I cannot exclude a developing abscess. It is currently too small for percutaneous access. 5. Bilateral pleural effusions and associated atelectasis. 6. 6.7 cm nonspecific low density mass involving the spleen. 7. Tiny focus of air within the lumen of the urinary bladder. Although this could relate to recent instrumentation an infection with gas producing organisms can have a similar appearance. 8. Nonobstructing right renal stone. Moshe Goyal Jr., MD Chest X-Ray 08/26/16 0613 Signed Impressions: Service Date/Time: Friday, August 26, 2016 06:34 - CONCLUSION: Right basilar atelectasis. Mild cardiomegaly. Moshe Goyal Jr., MD Objective Remarks GENERAL: This is a well-nourished, well-developed patient, in no apparent distress. CARDIOVASCULAR: irregular rhythm without murmurs, gallops, or rubs. RESPIRATORY: Clear to auscultation. Breath sounds equal bilaterally. No wheezes , rales, or rhonchi. GASTROINTESTINAL: Abdomen soft,mild diffuse lower abdomen tenderness, nondistended. drain in place. Normal, active bowel sounds MUSCULOSKELETAL: Extremities without clubbing, cyanosis, or edema. NEURO: Alert & Oriented x4 to person, place, time, situation. Moves all ext x4 Procedures none Medications and IVs Current Medications Medications (Trade) Dose Ordered Sig/Cash Route Start Time Stop Time Status Last Admin Sodium Chloride 1,000 ml @ 70 mls/hr [id number] IV 08/26/16 06:15 09/04/16 04:22 (Cardizem Inj/NS Inj) 125 ml @ 0 mls/hr TITRATE IV 08/26/16 06:15 08/27/16 16:45 (D50w (Vial) Inj) 25 ml UNSCH PRN IV PUSH 08/26/16 09:00 (Glucagon Inj) 1 mg UNSCH PRN OTHER 08/26/16 09:00 (Lexapro) 10 mg DAILY PO 08/27/16 09:00 09/04/16 08:00 (Lasix) 40 mg DAILY PO 08/27/16 09:00 09/04/16 08:00 (Remeron) 15 mg HS PO 08/26/16 21:00 09/03/16 20:40 (Desyrel) 100 mg HS PO 08/26/16 21:00 09/03/16 20:39 (Pepcid) 40 mg HS PO 08/26/16 21:00 09/03/16 20:40 ([place] 5-325 Mg) 1 tab Q4H PRN PO 08/27/16 12:15 08/28/16 21:19 (Cardizem) 60 mg Q6H PO 08/30/16 15:00 09/04/16 08:00 (Lopressor) 75 mg BID PO 08/31/16 21:00 09/04/16 07:59 (Eliquis) 5 mg BID PO 08/31/16 21:00 09/04/16 08:00 (Pill Splitter) 1 ea UNSCH PRN OTHER 08/31/16 10:30 (Flagyl) 500 mg Q8HR PO 09/01/16 17:45 09/04/16 04:22 Urinary Catheter: No Vascular Central Line Catheter: No A/P Problem List: (1) C. difficile colitis ICD Code: A04.7 Status: Acute Plan: Diarrhea still present and persistent. Continue oral Flagyl Consult infectious disease (2) Perihepatic abscess ICD Code: K65.0 Status: Acute Plan: Status post drainage with drain present in right upper quadrant. CT abdomen and pelvis as described above shows perihepatic drain without residual fluid around the drain. Masslike area of low density involving segment 6 of the liver adjacent to the drain. No discrete intrahepatic abscess currently seen. Approximately 2 cm pocket of fluid and air within the gallbladder fossa. Bilateral pleural effusions and associated atelectasis. 6.7 cm nonspecific low density mass involving the spleen. Tiny focus of air within the lumen of the urinary bladder. Gen. surgery consulted and following. I will order an MRI of the abdomen to better assess the above-described masslike areas in the liver and spleen. (3) Rapid atrial fibrillation ICD Code: I48.91 Status: Acute Plan: Patient is now rate controlled. TSH elevated at 5.2 however free T4 normal at 1.27 likely euthyroid sick syndrome. Continue apixaban Continue metoprolol and Cardizem. Cardiology consulted and following. (4) UTI (urinary tract infection) ICD Code: N39.0 Status: Acute Plan: Status post treatment with IV antibiotics. Patient had been on IV Zosyn and IV Rocephin. (5) Cardiomyopathy ICD Code: I42.9 Status: Acute Plan: Cardiology consulted and following. Echocardiogram showed a moderately reduced systolic function. Estimated EF was in the range of 40-45% with diffuse hypokinesis. Left atrium was moderately dilated and right ventricle mildly dilated. Continue furosemide, beta shawn, I will add an PARKER inhibitor. (6) Hypokalemia ICD Code: E87.6 Status: Acute Plan: Likely due to GI loss secondary to diarrhea. I will replace orally and continue to monitor. (7) Chronic systolic heart failure ICD Code: I50.22 Status: Acute Plan: Echocardiogram with EF of 40-45%. Bilateral pleural effusions found in CT scan. Continue furosemide, beta shawn, I will add PARKER inhibitor. (8) Diabetes mellitus, type 2 ICD Code: E11.9 Status: Acute Plan: Insulin-dependent diabetes type 2. Blood sugar stable on SSI with insulin NovoLog. Assessment and Plan GI prophylaxis: On Pepcid. DVT prophylaxis: Continue SCDs and patient is on Apixaban. Discharge Planning Continue to monitor on the medical floor. Patient still with persistent diarrhea. ID consult pending. MRI of the abdomen ordered. Problem Qualifiers (1) UTI (urinary tract infection): (2) Cardiomyopathy: Qualified Code: I42.9 - Cardiomyopathy, unspecified type (3) Diabetes mellitus, type 2: Qualified Code: E11.8 - Type 2 diabetes mellitus with complication, with long- term current use of insulin Amanuel Newman MD Sep 04, 2016 09:35
[2016-09-04] MEDS: LISINOPRIL 10 MG TAB PO SCH (12:01)
[2016-09-04 12:46] LABS: BICARBONATE 31.7 MEQ/L (21.0-32.0); POTASSIUM 3.2 MEQ/L (3.5-5.1)
[2016-09-04] MEDS: ACETAMINOPHEN/HYDROcodone 325 MG/5 MG TAB PO PRN ×2 (18:27→22:54)
--- NOTE | 2016-09-04 19:29 | PD.ID.CON ---
History of Present Illness Service ID Consult Requested By Dr Zhao Reason for Consult perihepatic abscess, C.diff 027 Primary Care Physician Non-Staff Diagnoses: History of Present Illness 81 yo pt with mult med problems quite poor historian admiteed with few days of severe (10+ BMs/ d) diarrhea with recent preceding h/o abx exposure The ER records show that the pt was sent from local correction for tachycardia and irregular pulse Apparently pt was diagnosed with hepatic abscess 1-2 mos ago sp drainage placement . He thinks he was on abx but unable to recall when they were stoppped or the name of abx He teste + for C.diff 027 strain He was started on po flagyl He also co abdominal paimn, cramps discomfort No fever His abd /pel CT showed Perihepatic drain without residual fluid around the drain, masslike area of low density involving segment 6 of the liver adjacent to the drain. (differential diagnostic considerations would include a mass of both benign and malignant potential as well as an infectious process. Circumferential wall thickening and stranding in the adjacent fat involving the rectosigmoid colon as detailed above. The appearance is more typical of an inflammatory or infectious process and approximate 2 cm pocket of fluid and air within the gallbladder fossa. 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 Social History No Tobacco. No ETOH. No Illicit Drugs. resides in nursing eric Physical Exam Vital Signs Vital Signs Date Time Temp Pulse Resp B/P Pulse Ox O2 Delivery O2 Flow Rate FiO2 09/04/16 18:12 Nasal Cannula 2.00 09/04/16 16:00 97.9 75 18 110/59 92 09/04/16 12:00 97.5 72 18 131/73 91 09/04/16 10:18 92 Nasal Cannula 2.00 09/04/16 08:00 97.9 103 18 152/88 89 09/04/16 07:56 Nasal Cannula 2.00 09/04/16 07:56 107 09/04/16 05:47 97.8 105 18 147/80 92 09/04/16 00:13 97.8 87 20 155/81 92 09/03/16 20:00 Nasal Cannula 2.00 09/03/16 20:00 98.0 105 18 150/67 93 Physical Exam CONSTITUTIONAL/GENERAL: This is an obese elderlyshed patient, in no apparent distress. TUBES/LINES/DRAINS: SKIN: No jaundice, rashes, or lesions. Skin temperature appropriate. Not diaphoretic. HEAD: Atraumatic. Normocephalic. EYES: Pupils equal and round and reactive. Extraocular motions intact. No scleral icterus. No injection or drainage. Fundi not examined. ENT: Hearing grossly normal. Nose without bleeding or purulent drainage. Dry mucosas. Edentulous NECK: Trachea midline. Supple, nontender. CARDIOVASCULAR: Irregular rate and rhythm without murmurs, gallops, or rubs. No JVD. Peripheral pulses symmetric. RESPIRATORY/CHEST: Symmetric, unlabored respirations. Clear to auscultation. Breath sounds equal bilaterally. No wheezes, rales, or rhonchi. GASTROINTESTINAL: Abdomen soft,very mildly tender to palpation RLQ/LLQ, minimally distended. No hepato-splenomegaly, or palpable masses. No guarding. Bowel sounds present. GENITOURINARY: Without palpable bladder distension. Tillman catheter in place. MUSCULOSKELETAL: Extremities without clubbing, cyanosis, or edema. No joint tenderness or effusion noted. No calf tenderness. No mottling or clubbing. LYMPHATICS: No palpable cervical or supraclavicular adenopathy. NEUROLOGICAL: Awake and alert. Motor and sensory grossly within normal limits. Follows commands. Normal speech Moves all extremities. PSYCHIATRIC: No obvious anxiety/depression. no apparent hallucinations or other psychotic thought process. Laboratory Laboratory Tests Test 09/04/16 09/04/16 06:21 11:37 Sodium Level 141 139 Potassium Level 2.9 3.2 Chloride Level 102 100 Carbon Dioxide Level 29.6 31.7 Anion Gap 9 7 Blood Urea Nitrogen 7 10 Creatinine 0.63 0.76 Estimat Glomerular Filtration 122 98 Rate Random Glucose 121 174 Calcium Level 7.9 7.7 Result Diagram: 09/03/16 0654 09/04/16 1137 Imaging Last Impressions Abdomen/Pelvis CT 09/03/16 0000 Signed Impressions: Service Date/Time: Saturday, September 03, 2016 22:09 - CONCLUSION: 1. Perihepatic drain without residual fluid around the drain. 2. Masslike area of low density involving segment 6 of the liver adjacent to the drain. I have no priors to compare. Differential diagnostic considerations would include a mass of both benign and malignant potential as well as an infectious process. No discrete intrahepatic abscess currently seen. 3. Circumferential wall thickening and stranding in the adjacent fat involving the rectosigmoid colon as detailed above. The appearance is more typical of an inflammatory or infectious process. 4. Approximate 2 cm pocket of fluid and air within the gallbladder fossa. Although this could relate to more focal ascitic fluid I cannot exclude a developing abscess. It is currently too small for percutaneous access. 5. Bilateral pleural effusions and associated atelectasis. 6. 6.7 cm nonspecific low density mass involving the spleen. 7. Tiny focus of air within the lumen of the urinary bladder. Although this could relate to recent instrumentation an infection with gas producing organisms can have a similar appearance. 8. Nonobstructing right renal stone. Moshe Goyal Jr., MD Chest X-Ray 08/26/16 0613 Signed Impressions: Service Date/Time: Friday, August 26, 2016 06:34 - CONCLUSION: Right basilar atelectasis. Mild cardiomegaly. Moshe Goyal Jr., MD Assessment and Plan Assessment and Plan C.diff , hypervirulent strain - up to 10 BMs/d on flagyk Mild lyeucytois Perihepatic abscess - dc flagyl - po vancomycin - will dc surgical team Madelaine Peña MD Sep 04, 2016 19:29
[2016-09-04] MEDS: MIRTAZAPINE 15 MG TAB PO SCH (22:51)
[2016-09-04] MEDS: traZODone HCL 100 MG TAB PO SCH (22:51)
[2016-09-04] MEDS: FAMOTIDINE 20 MG TAB PO SCH (22:52)
[2016-09-04] MEDS: VANCOMYCIN 500 MG VIAL (FOR ORAL USE ONLY) PO SCH (22:53)
[2016-09-05] VITALS (8 sets, daily range): BP systolic 115–137; BP diastolic 62–85; PULSE 82–115; RESP 20–22; TEMP 97.8–98.9; O2SAT 90–94
[2016-09-05] MEDS: VANCOMYCIN 500 MG VIAL (FOR ORAL USE ONLY) PO SCH ×5 (01:46→23:38)
[2016-09-05] MEDS: DILTIAZEM HCL 60 MG TAB PO SCH ×4 (03:46→23:37)
[2016-09-05] MEDS: INSULIN ASPART SUPPLEMENTAL SCALE SQ SCH ×3 (06:22→21:00)
[2016-09-05 07:44] LABS: AUTOMATED NEUTROPHIL # 10.1 TH/MM3 (1.8-7.7); BASOPHIL # 0.1 TH/MM3 (0-0.2); BASOPHIL % 0.9 % (0.0-2.0); EOSINOPHIL # 0.1 TH/MM3 (0-0.4); EOSINOPHIL % 0.8 % (0.0-4.0); HEMATOCRIT 35.8 % (39.0-51.0); LYMPH % 8.2 % (9.0-44.0); MEAN CELL VOLUME 94.1 FL (80.0-100.0); MEAN CORPUSCULAR HEMOGLOBIN 30.6 PG (27.0-34.0); MEAN CORPUSCULAR HGB CONC 32.5 % (32.0-36.0); MONO % 7.8 % (0.0-8.0); NEUT % 82.3 % (16.0-70.0); PLATELET COUNT 279 TH/MM3 (150-450); RED CELL DISTRIBUTION WIDTH 18.4 % (11.6-17.2); WHITE BLOOD COUNT 12.2 TH/MM3 (4.0-11.0)
[2016-09-05 07:48] LABS: HEMO FLAGS AUTO DIFF
[2016-09-05 08:22] LABS: ALKALINE PHOSPHATASE 57 U/L (45-117); ALT (GPT) 9 U/L (12-78); ANION GAP 7 MEQ/L (5-15); AST (GOT) 13 U/L (15-37); BICARBONATE 31.6 MEQ/L (21.0-32.0); BLOOD UREA NITROGEN 9 MG/DL (7-18); CHLORIDE 102 MEQ/L (98-107); GLOMERULAR FILTRATION RATE 106 ML/MIN (>89); MAGNESIUM 1.6 MG/DL (1.5-2.5); POTASSIUM 3.2 MEQ/L (3.5-5.1); SODIUM (NA) 141 MEQ/L (136-145); TOTAL BILIRUBIN ADULT 0.2 MG/DL (0.2-1.0)
[2016-09-05 08:41] LABS: BANDS 4 % (0-6); BASOPHILS 1 % (0-2); EOSINOPHILS 1 % (0-4); NEUTROPHIL # MANUAL DIFF 10.2 TH/MM3 (1.8-7.7); PLATELET ESTIMATE SMEAR NORMAL (NORMAL); PLATELET MORPHOLOGY NORMAL (NORMAL); POLYS (SEG NEUTROPHILS) 80 % (16-70); SCAN/DIFF FINAL DIFF MANUAL; WBC DIFF SAMPLE 100
[2016-09-05] MEDS: SODIUM CHLOR 0.9% 1000 ML INJ 1,000 ML IV SCH ×2 (09:21→23:38)
[2016-09-05] MEDS ORDERED: GADODIAMIDE PF 287 MG/ML 20 ML VIAL (for RAD MRI) IV ONE (09:39)
--- NOTE | 2016-09-05 10:03 | RADRPT ---
EXAM DATE/TIME: 09/05/2016 08:47 [facility] COMPARISON: CT ABDOMEN & PELVIS W CONTRAST, September 03, 2016, 22:09. INDICATIONS : Mass. CONTRAST: 17 cc Omniscan (gadodiamide) IV MEDICAL HISTORY : Carcinoma, colon. Diabetes mellitus type 2. Hypertension. SURGICAL HISTORY : Colon resection. Right ankle. ENCOUNTER: Subsequent ACUITY: 3 day PAIN SCORE: 0/10 LOCATION: abdomen TECHNIQUE: Multiplanar, multisequence magnetic resonance imaging of the abdomen was performed without and with i ntravenous contrast. FINDINGS: Problem specific findings: The examination demonstrates a drainage catheter in place within a fluid collection along the posteri or aspect of the right lobe of the liver. The post contrast images demonstrate subtle heterogeneous e nhancement throughout most of the posterior aspect of the right lobe of liver as compared to the left . No significant, discrete enhancing mass is seen on the arterial phase imaging. As such, this is fel t to likely be inflammatory in etiology. Note is made of some heterogeneous ill-defined enhancement i n the gallbladder fossa on the portal venous phase imaging as well. There was concern for possible de veloping abscess in the region of the gallbladder fossa. The overall appearance of the area of enhanc ement would suggest that this is likely inflammatory in etiology as well. No discrete, defined mass i s identified. No intrahepatic biliary ductal dilation is evident. The portal vein is patent. The hepa tic artery is patent. MRI source data: The examination demonstrates a 6.4 x 5.6 cm cystic abnormality within the central aspect of the splee n. There is no significant contrast enhancement within this. As such I believe this is most compatibl e with simple cyst. There are small pleural effusions bilaterally larger on the right than the left. There is atelectatic change in both lung bases again more significant on the right than the left. The abdominal aorta is normal in caliber. There is no retroperitoneal adenopathy. CONCLUSION: 1. No defined mass is seen within the liver. There is some subtle heterogeneous enhancement on the de layed imaging involving the posterior aspect of the right lobe of the liver and the gallbladder fossa . This is felt to be inflammatory in etiology. No definite drainable abscess collection is seen. Note is made of a drainage catheter in place adjacent to the right lobe of the liver. 2. 6.4 x 5.6 cm cystic abnormality within the spleen. This appears to be purely cystic by MR. 3. Bilateral pleural effusions small on the left and moderate in size on the right. There is consider able atelectasis of the right lung as well. Chris Dejesus MD on September 05, 2016 at 9:37 Board Certified Radiologist. This report was verified electronically.
[2016-09-05] MEDS: APIXABAN 5 MG TABLET PO SCH ×2 (11:32→23:37)
[2016-09-05] MEDS: METOPROLOL TARTRATE 50 MG TAB PO SCH ×2 (11:33→23:37)
[2016-09-05] MEDS: FUROSEMIDE 40 MG TAB PO SCH (11:33)
[2016-09-05] MEDS: ESCITALOPRAM OXALATE 10 MG TAB PO SCH (11:33)
[2016-09-05] MEDS: LISINOPRIL 10 MG TAB PO SCH (11:34)
[2016-09-05] MEDS ORDERED: POTASSIUM CHLORIDE 10 MEQ CONTROLLED RELEASE TAB PO ONE (13:45)
--- NOTE | 2016-09-05 14:31 | HHI.PR ---
Subjective Remarks patient still has diarrhea denies abdominal pain patient is not eating as per overhauler helper patient states he has good appetite but does not like the food denies cp/sob denies nausea and vomiting Objective Vitals Vital Signs Date Time Temp Pulse Resp B/P Pulse Ox O2 Delivery O2 Flow Rate FiO2 09/05/16 04:00 98.0 96 22 128/83 92 09/05/16 00:00 97.8 109 20 136/76 92 09/04/16 21:00 Nasal Cannula 2.50 09/04/16 20:54 96 09/04/16 20:00 97.5 97 20 107/69 93 09/04/16 18:12 Nasal Cannula 2.00 09/04/16 16:00 97.9 75 18 110/59 92 I/O 09/04/16 09/04/16 09/04/16 09/05/16 09/05/16 09/05/16 07:00 15:00 23:00 07:00 15:00 23:00 Intake Total 480 ml 2450 ml 877 ml Balance 480 ml 2450 ml 877 ml Intake Oral 480 ml 220 ml IV Total 2230 ml 877 ml # Voids 5 3 2 # Bowel Movements 8 3 Result Diagram: 09/05/16 0658 09/05/16 0658 Imaging Last Impressions Abdomen MRI 09/05/16 0000 Signed Impressions: Service Date/Time: Monday, September 05, 2016 08:47 - CONCLUSION: 1. No defined mass is seen within the liver. There is some subtle heterogeneous enhancement on the delayed imaging involving the posterior aspect of the right lobe of the liver and the gallbladder fossa. This is felt to be inflammatory in etiology. No definite drainable abscess collection is seen. Note is made of a drainage catheter in place adjacent to the right lobe of the liver. 2. 6.4 x 5.6 cm cystic abnormality within the spleen. This appears to be purely cystic by MR. 3. Bilateral pleural effusions small on the left and moderate in size on the right. There is considerable atelectasis of the right lung as well. Chris Dejesus MD Abdomen/Pelvis CT 09/03/16 0000 Signed Impressions: Service Date/Time: Saturday, September 03, 2016 22:09 - CONCLUSION: 1. Perihepatic drain without residual fluid around the drain. 2. Masslike area of low density involving segment 6 of the liver adjacent to the drain. I have no priors to compare. Differential diagnostic considerations would include a mass of both benign and malignant potential as well as an infectious process. No discrete intrahepatic abscess currently seen. 3. Circumferential wall thickening and stranding in the adjacent fat involving the rectosigmoid colon as detailed above. The appearance is more typical of an inflammatory or infectious process. 4. Approximate 2 cm pocket of fluid and air within the gallbladder fossa. Although this could relate to more focal ascitic fluid I cannot exclude a developing abscess. It is currently too small for percutaneous access. 5. Bilateral pleural effusions and associated atelectasis. 6. 6.7 cm nonspecific low density mass involving the spleen. 7. Tiny focus of air within the lumen of the urinary bladder. Although this could relate to recent instrumentation an infection with gas producing organisms can have a similar appearance. 8. Nonobstructing right renal stone. Moshe Goyal Jr., MD Chest X-Ray 08/26/1613 Signed Impressions: Service Date/Time: Friday, August 26, 2016 06:34 - CONCLUSION: Right basilar atelectasis. Mild cardiomegaly. Moshe Goyal Jr., MD Objective Remarks GENERAL: This is a well-nourished, well-developed patient, in no apparent distress. CARDIOVASCULAR: irregular rhythm without murmurs, gallops, or rubs. RESPIRATORY: Clear to auscultation. Breath sounds equal bilaterally. No wheezes , rales, or rhonchi. GASTROINTESTINAL: Abdomen soft,mild diffuse lower abdomen tenderness, nondistended. drain in place. Normal, active bowel sounds MUSCULOSKELETAL: Extremities without clubbing, cyanosis, or edema. NEURO: Alert & Oriented x4 to person, place, time, situation. Moves all ext x4 Procedures none Medications and IVs Current Medications Medications (Trade) Dose Ordered Sig/Cash Route Start Time Stop Time Status Last Admin Sodium Chloride 1,000 ml @ 70 mls/hr [id number] IV 08/26/16 06:15 09/05/16 09:21 (Cardizem Inj/NS Inj) 125 ml @ 0 mls/hr TITRATE IV 08/26/16 06:15 08/27/16 16:45 (D50w (Vial) Inj) 25 ml UNSCH PRN IV PUSH 08/26/16 09:00 (Glucagon Inj) 1 mg UNSCH PRN OTHER 08/26/16 09:00 (Lexapro) 10 mg DAILY PO 08/27/16 09:00 09/05/16 11:33 (Lasix) 40 mg DAILY PO 08/27/16 09:00 09/05/16 11:33 (Remeron) 15 mg HS PO 08/26/16 21:00 09/04/16 22:51 (Desyrel) 100 mg HS PO 08/26/16 21:00 09/04/16 22:51 (Pepcid) 40 mg HS PO 08/26/16 21:00 09/04/16 22:52 ([place] 5-325 Mg) 1 tab Q4H PRN PO 08/27/16 12:15 09/04/16 22:54 (Cardizem) 60 mg Q6H PO 08/30/16 15:00 09/05/16 11:32 (Lopressor) 75 mg BID PO 08/31/16 21:00 09/05/16 11:33 (Eliquis) 5 mg BID PO 08/31/16 21:00 09/05/16 11:32 (Pill Splitter) 1 ea UNSCH PRN OTHER 08/31/16 10:30 (Prinivil) 10 mg DAILY PO 09/04/16 11:15 09/05/16 11:34 (VANCOMYCIN for oral use only) 125 mg Q6HR PO 09/04/16 19:30 09/05/16 11:34 Urinary Catheter: No Vascular Central Line Catheter: No A/P Problem List: (1) C. difficile colitis ICD Code: A04.7 Status: Acute (2) Perihepatic abscess ICD Code: K65.0 Status: Acute (3) Rapid atrial fibrillation ICD Code: I48.91 Status: Acute (4) UTI (urinary tract infection) ICD Code: N39.0 Status: Acute (5) Cardiomyopathy ICD Code: I42.9 Status: Acute (6) Hypokalemia ICD Code: E87.6 Status: Acute (7) Chronic systolic heart failure ICD Code: I50.22 Status: Acute (8) Diabetes mellitus, type 2 ICD Code: E11.9 Status: Acute Assessment and Plan (1) C. difficile colitis Plan: Diarrhea still present and persistent. Positive for 027 strain Appreciate ID recommendations. Antibiotics as per infectious disease. Flagyl was discontinued on 09/04/16 and the patient was started on oral vancomycin 125 mg 4 times a day. Continue to monitor stool output. Continue rectal tube. (2) Perihepatic abscess Plan: Status post drainage with drain present in right upper quadrant. CT abdomen and pelvis as described above shows perihepatic drain without residual fluid around the drain. Masslike area of low density involving segment 6 of the liver adjacent to the drain. No discrete intrahepatic abscess currently seen. Approximately 2 cm pocket of fluid and air within the gallbladder fossa. Bilateral pleural effusions and associated atelectasis. 6.7 cm nonspecific low density mass involving the spleen. Tiny focus of air within the lumen of the urinary bladder. Gen. surgery consulted and following. 09/05 MRI of the abdomen ordered and described above. No discrete mass seen. Also no drainable collection seen. (3) Rapid atrial fibrillation Plan: Patient is now rate controlled. TSH elevated at 5.2 however free T4 normal at 1.27 likely euthyroid sick syndrome. Continue apixaban Continue metoprolol and Cardizem. Cardiology consulted and following. (4) UTI (urinary tract infection) Plan: Status post treatment with IV antibiotics. Patient had been on IV Zosyn and IV Rocephin. (5) Cardiomyopathy Plan: Cardiology consulted and following. Echocardiogram showed a moderately reduced systolic function. Estimated EF was in the range of 40-45% with diffuse hypokinesis. Left atrium was moderately dilated and right ventricle mildly dilated. Continue furosemide, beta shawn, I will add an PARKER inhibitor. (6) Hypokalemia Plan: Likely due to GI loss secondary to diarrhea. I will replace orally and continue to monitor. (7) Chronic systolic heart failure Plan: Echocardiogram with EF of 40-45%. Bilateral pleural effusions found in CT scan. Continue furosemide, beta shawn, I will add PARKER inhibitor. (8) Diabetes mellitus, type 2 Plan: Insulin-dependent diabetes type 2. Blood sugar stable on SSI with insulin NovoLog. GI prophylaxis: On Pepcid. DVT prophylaxis: Continue SCDs and patient is on Apixaban. Discharge Planning Pending clinical improvement Problem Qualifiers (1) UTI (urinary tract infection): (2) Cardiomyopathy: Qualified Code: I42.9 - Cardiomyopathy, unspecified type (3) Diabetes mellitus, type 2: Qualified Code: E11.8 - Type 2 diabetes mellitus with complication, with long- term current use of insulin Amanuel Newman MD Sep 05, 2016 14:30
[2016-09-05 16:50] LABS: HEMOGLOBIN A1a 0.8 %; HEMOGLOBIN Ao 82.6 %; HEMOGLOBIN F 1.2 %; HEMOGLOBIN LA1C 2.2 %; HEMOGLOBIN P3 6.3 %
[2016-09-05] MEDS: MIRTAZAPINE 15 MG TAB PO SCH (23:37)
[2016-09-05] MEDS: traZODone HCL 100 MG TAB PO SCH (23:37)
[2016-09-05] MEDS: FAMOTIDINE 20 MG TAB PO SCH (23:37)
[2016-09-06] VITALS (10 sets, daily range): BP systolic 99–148; BP diastolic 58–84; PULSE 73–114; RESP 17–22; TEMP 97.5–98.3; O2SAT 89–100
[2016-09-06] MEDS: DILTIAZEM HCL 60 MG TAB PO SCH ×4 (03:00→22:11)
[2016-09-06] MEDS: ACETAMINOPHEN/HYDROcodone 325 MG/5 MG TAB PO PRN (05:43)
[2016-09-06] MEDS: INSULIN ASPART SUPPLEMENTAL SCALE SQ SCH ×4 (05:46→21:00)
[2016-09-06] MEDS: VANCOMYCIN 500 MG VIAL (FOR ORAL USE ONLY) PO SCH ×4 (05:47→23:34)
[2016-09-06] MEDS: METOPROLOL TARTRATE 50 MG TAB PO SCH ×2 (10:42→22:11)
[2016-09-06] MEDS: ESCITALOPRAM OXALATE 10 MG TAB PO SCH (10:43)
[2016-09-06] MEDS: APIXABAN 5 MG TABLET PO SCH ×2 (10:43→22:10)
[2016-09-06] MEDS: FUROSEMIDE 40 MG TAB PO SCH (10:43)
[2016-09-06] MEDS: LISINOPRIL 10 MG TAB PO SCH (10:44)
--- NOTE | 2016-09-06 16:58 | HHI.PR ---
Subjective Subjective Notes Resting in bed Objective Vitals/I&O Vital Signs Date Time Temp Pulse Resp B/P Pulse Ox O2 Delivery O2 Flow Rate FiO2 09/06/16 16:01 114 09/06/16 12:00 97.9 22 127/81 89 09/06/16 08:53 Nasal Cannula 3.00 09/06/16 08:15 21 Cardiovascular: Regular Lungs: Clear Abdomen: Other (perihepatic drain removed; 4x4 dy dressing in place ) Extremities: No edema A/P Assessment and Plan 81 year old male with drain in place from perihepatic abscess; placed at OSH -Removed musa-hepatic drain -Regular diet -Dry 4x4 dressing over drain site; change daily and PRN Attending Statement The exam, history, and the medical decision-making described in the above note were completed with the assistance of the mid-level provider. I reviewed and agree with the findings presented. I attest that I had a [id number] encounter with the patient on the same day, and personally performed and documented my assessment and findings in the medical record. abdominal exam stable, CT shows resolution of infection, ok to remove drain Carla Sosa Sep 06, 2016 16:58 Gaston Nguyen MD Sep 14, 2016 08:58
--- NOTE | 2016-09-06 17:00 | HHI.PR ---
Subjective Remarks Patient still has diarrhea but seems to be improving denies cp/sob denies fevers/chills denies abdominal pain c/o poor appetite lower oxygen saturations on nasal canula - low 90's Objective Vitals Vital Signs Date Time Temp Pulse Resp B/P Pulse Ox O2 Delivery O2 Flow Rate FiO2 09/06/16 16:01 114 09/06/16 12:00 97.9 99 22 127/81 89 09/06/16 08:53 92 Nasal Cannula 3.00 09/06/16 08:15 96 21 09/06/16 08:00 98.2 101 22 103/58 89 09/06/16 07:00 92 Nasal Cannula 2.50 09/06/16 04:46 97.5 109 22 128/81 96 09/06/16 00:36 98.3 106 20 144/84 95 09/05/16 21:22 97.8 109 20 132/72 94 09/05/16 20:55 94 Nasal Cannula 2.00 09/05/16 20:00 115 09/05/16 20:00 Nasal Cannula 2.50 I/O 09/05/16 09/05/16 09/05/16 09/06/16 09/06/16 09/06/16 07:00 15:00 23:00 07:00 15:00 23:00 Intake Total 877 ml 600 ml 819 ml 350 ml Balance 877 ml 600 ml 819 ml 350 ml Intake Oral 600 ml 450 ml IV Total 877 ml 0 ml 369 ml 350 ml # Voids 3 2 # Bowel Movements 2 2 Result Diagram: 09/05/16 0658 09/05/16 0658 Imaging Last Impressions Abdomen MRI 09/05/16 0000 Signed Impressions: Service Date/Time: Monday, September 05, 2016 08:47 - CONCLUSION: 1. No defined mass is seen within the liver. There is some subtle heterogeneous enhancement on the delayed imaging involving the posterior aspect of the right lobe of the liver and the gallbladder fossa. This is felt to be inflammatory in etiology. No definite drainable abscess collection is seen. Note is made of a drainage catheter in place adjacent to the right lobe of the liver. 2. 6.4 x 5.6 cm cystic abnormality within the spleen. This appears to be purely cystic by MR. 3. Bilateral pleural effusions small on the left and moderate in size on the right. There is considerable atelectasis of the right lung as well. Chris Dejesus MD Abdomen/Pelvis CT 09/03/16 0000 Signed Impressions: Service Date/Time: Saturday, September 03, 2016 22:09 - CONCLUSION: 1. Perihepatic drain without residual fluid around the drain. 2. Masslike area of low density involving segment 6 of the liver adjacent to the drain. I have no priors to compare. Differential diagnostic considerations would include a mass of both benign and malignant potential as well as an infectious process. No discrete intrahepatic abscess currently seen. 3. Circumferential wall thickening and stranding in the adjacent fat involving the rectosigmoid colon as detailed above. The appearance is more typical of an inflammatory or infectious process. 4. Approximate 2 cm pocket of fluid and air within the gallbladder fossa. Although this could relate to more focal ascitic fluid I cannot exclude a developing abscess. It is currently too small for percutaneous access. 5. Bilateral pleural effusions and associated atelectasis. 6. 6.7 cm nonspecific low density mass involving the spleen. 7. Tiny focus of air within the lumen of the urinary bladder. Although this could relate to recent instrumentation an infection with gas producing organisms can have a similar appearance. 8. Nonobstructing right renal stone. Moshe Goyal Jr., MD Chest X-Ray 08/26/16 0613 Signed Impressions: Service Date/Time: Friday, August 26, 2016 06:34 - CONCLUSION: Right basilar atelectasis. Mild cardiomegaly. Moshe Goyal Jr., MD Objective Remarks GENERAL: This is a well-nourished, well-developed patient, in no apparent distress. CARDIOVASCULAR: irregular rhythm without murmurs, gallops, or rubs. RESPIRATORY: Clear to auscultation. Breath sounds equal bilaterally. No wheezes , rales, or rhonchi. GASTROINTESTINAL: Abdomen soft,mild diffuse lower abdomen tenderness, nondistended. drain in place. Normal, active bowel sounds MUSCULOSKELETAL: Extremities without clubbing, cyanosis, or edema. NEURO: Alert & Oriented x4 to person, place, time, situation. Moves all ext x4 Procedures none Medications and IVs Current Medications Medications (Trade) Dose Ordered Sig/Cash Route Start Time Stop Time Status Last Admin Sodium Chloride 1,000 ml @ 70 mls/hr [id number] IV 08/26/16 06:15 09/06/16 17:30 (Cardizem Inj/NS Inj) 125 ml @ 0 mls/hr TITRATE IV 08/26/16 06:15 08/27/16 16:45 (D50w (Vial) Inj) 25 ml UNSCH PRN IV PUSH 08/26/16 09:00 (Glucagon Inj) 1 mg UNSCH PRN OTHER 08/26/16 09:00 (Lexapro) 10 mg DAILY PO 08/27/16 09:00 09/06/16 10:43 (Lasix) 40 mg DAILY PO 08/27/16 09:00 09/06/16 10:43 (Remeron) 15 mg HS PO 08/26/16 21:00 09/05/16 23:37 (Desyrel) 100 mg HS PO 08/26/16 21:00 09/05/16 23:37 (Pepcid) 40 mg HS PO 08/26/16 21:00 09/05/16 23:37 ([place] 5-325 Mg) 1 tab Q4H PRN PO 08/27/16 12:15 09/06/16 05:43 (Cardizem) 60 mg Q6H PO 08/30/16 15:00 09/06/16 17:31 (Lopressor) 75 mg BID PO 08/31/16 21:00 09/06/16 10:42 (Eliquis) 5 mg BID PO 08/31/16 21:00 09/06/16 10:43 (Pill Splitter) 1 ea UNSCH PRN OTHER 08/31/16 10:30 (Prinivil) 10 mg DAILY PO 09/04/16 11:15 09/06/16 10:44 (VANCOMYCIN for oral use only) 125 mg Q6HR PO 09/04/16 19:30 09/06/16 18:20 Urinary Catheter: No Vascular Central Line Catheter: No A/P Problem List: (1) C. difficile colitis ICD Code: A04.7 Status: Acute (2) Perihepatic abscess ICD Code: K65.0 Status: Acute (3) Rapid atrial fibrillation ICD Code: I48.91 Status: Acute (4) UTI (urinary tract infection) ICD Code: N39.0 Status: Acute (5) Cardiomyopathy ICD Code: I42.9 Status: Acute (6) Hypokalemia ICD Code: E87.6 Status: Acute (7) Chronic systolic heart failure ICD Code: I50.22 Status: Acute (8) Diabetes mellitus, type 2 ICD Code: E11.9 Status: Acute (9) Poor appetite ICD Code: R63.0 Status: Acute Plan: Diet consulted. Recommended Megace, Will RX. Dietitian also recommended a 2000 calorie ADA diet and Glucerna shakes TID. Assessment and Plan (1) C. difficile colitis Plan: Diarrhea still present and persistent. Positive for 027 strain Appreciate ID recommendations. Antibiotics as per infectious disease. Flagyl was discontinued on 09/04/16 and the patient was started on oral vancomycin 125 mg 4 times a day. Continue to monitor stool output. Continue rectal tube. (2) Perihepatic abscess Plan: Status post drainage with drain present in right upper quadrant. CT abdomen and pelvis as described above shows perihepatic drain without residual fluid around the drain. Masslike area of low density involving segment 6 of the liver adjacent to the drain. No discrete intrahepatic abscess currently seen. Approximately 2 cm pocket of fluid and air within the gallbladder fossa. Bilateral pleural effusions and associated atelectasis. 6.7 cm nonspecific low density mass involving the spleen. Tiny focus of air within the lumen of the urinary bladder. Gen. surgery consulted and following. 09/05 MRI of the abdomen ordered and described above. No discrete mass seen. Also no drainable collection seen. / perihepatic drain removed by GS. Patient on regular diet. (3) Rapid atrial fibrillation Plan: Heart rate is rate controlled. TSH elevated at 5.2 however free T4 normal at 1.27 likely euthyroid sick syndrome. Continue apixaban Continue metoprolol and Cardizem. Cardiology consulted and following. (4) UTI (urinary tract infection) Plan: Status post treatment with IV antibiotics. Patient had been on IV Zosyn and IV Rocephin. (5) Cardiomyopathy Plan: Cardiology consulted and following. Echocardiogram showed a moderately reduced systolic function. Estimated EF was in the range of 40-45% with diffuse hypokinesis. Left atrium was moderately dilated and right ventricle mildly dilated. Continue furosemide, beta shawn, I will add an PARKER inhibitor. (6) Hypokalemia Plan: Likely due to GI loss secondary to diarrhea. I will replace orally and continue to monitor. (7) Chronic systolic heart failure Plan: Echocardiogram with EF of 40-45%. Bilateral pleural effusions found in CT scan. Continue furosemide, beta shawn, I will add PARKER inhibitor. (8) Diabetes mellitus, type 2 Plan: Insulin-dependent diabetes type 2. Blood sugar stable on SSI with insulin NovoLog. GI prophylaxis: On Pepcid. DVT prophylaxis: Continue SCDs and patient is on Apixaban. Discharge Planning Pending clinical improvement Problem Qualifiers (1) UTI (urinary tract infection): (2) Cardiomyopathy: Qualified Code: I42.9 - Cardiomyopathy, unspecified type (3) Diabetes mellitus, type 2: Qualified Code: E11.8 - Type 2 diabetes mellitus with complication, with long- term current use of insulin Amanuel Newman MD Sep 06, 2016 17:00
[2016-09-06 17:19] LABS: BASOPHIL # 0.1 TH/MM3 (0-0.2); BASOPHIL % 0.7 % (0.0-2.0); EOSINOPHIL # 0.1 TH/MM3 (0-0.4); EOSINOPHIL % 0.6 % (0.0-4.0); HEMATOCRIT 34.2 % (39.0-51.0); HEMO FLAGS DIFF FINAL; LYMPH % 7.3 % (9.0-44.0); LYMPHOCYTE # 0.9 TH/MM3 (1.0-4.8); MEAN CELL VOLUME 93.5 FL (80.0-100.0); MEAN CORPUSCULAR HEMOGLOBIN 30.2 PG (27.0-34.0); MEAN CORPUSCULAR HGB CONC 32.3 % (32.0-36.0); MONO % 6.9 % (0.0-8.0); NEUT % 84.5 % (16.0-70.0); PLATELET COUNT 324 TH/MM3 (150-450); RED BLOOD COUNT 3.65 MIL/MM3 (4.50-5.90); RED CELL DISTRIBUTION WIDTH 18.5 % (11.6-17.2); WHITE BLOOD COUNT 11.9 TH/MM3 (4.0-11.0)
[2016-09-06] MEDS: SODIUM CHLOR 0.9% 1000 ML INJ 1,000 ML IV SCH (17:30)
[2016-09-06 17:35] LABS: BICARBONATE 34.3 MEQ/L (21.0-32.0); POTASSIUM 3.2 MEQ/L (3.5-5.1)
[2016-09-06] MEDS: FAMOTIDINE 20 MG TAB PO SCH (22:10)
[2016-09-06] MEDS: MIRTAZAPINE 15 MG TAB PO SCH (22:11)
[2016-09-06] MEDS: traZODone HCL 100 MG TAB PO SCH (22:11)
[2016-09-07] VITALS (8 sets, daily range): BP systolic 115–135; BP diastolic 56–75; PULSE 71–114; RESP 17–20; TEMP 97.7–98.8; O2SAT 89–95
[2016-09-07] MEDS: VANCOMYCIN 500 MG VIAL (FOR ORAL USE ONLY) PO SCH ×4 (06:26→23:46)
[2016-09-07] MEDS: INSULIN ASPART SUPPLEMENTAL SCALE SQ SCH ×4 (06:28→21:00)
[2016-09-07 07:08] LABS: AUTOMATED NEUTROPHIL # 9.4 TH/MM3 (1.8-7.7); BASOPHIL # 0.1 TH/MM3 (0-0.2); BASOPHIL % 0.5 % (0.0-2.0); EOSINOPHIL # 0.1 TH/MM3 (0-0.4); EOSINOPHIL % 0.9 % (0.0-4.0); HEMATOCRIT 34.6 % (39.0-51.0); HEMO FLAGS DIFF FINAL; LYMPH % 9.9 % (9.0-44.0); LYMPHOCYTE # 1.1 TH/MM3 (1.0-4.8); MEAN CELL VOLUME 93.4 FL (80.0-100.0); MEAN CORPUSCULAR HEMOGLOBIN 30.7 PG (27.0-34.0); MEAN CORPUSCULAR HGB CONC 32.9 % (32.0-36.0); MONO % 7.3 % (0.0-8.0); NEUT % 81.4 % (16.0-70.0); PLATELET COUNT 319 TH/MM3 (150-450); RED BLOOD COUNT 3.71 MIL/MM3 (4.50-5.90); RED CELL DISTRIBUTION WIDTH 18.5 % (11.6-17.2); WHITE BLOOD COUNT 11.5 TH/MM3 (4.0-11.0)
[2016-09-07 07:33] LABS: ALKALINE PHOSPHATASE 59 U/L (45-117); ALT (GPT) 12 U/L (12-78); ANION GAP 7 MEQ/L (5-15); AST (GOT) 13 U/L (15-37); BICARBONATE 32.6 MEQ/L (21.0-32.0); BLOOD UREA NITROGEN 12 MG/DL (7-18); CHLORIDE 100 MEQ/L (98-107); GLOMERULAR FILTRATION RATE 97 ML/MIN (>89); MAGNESIUM 1.8 MG/DL (1.5-2.5); POTASSIUM 3.1 MEQ/L (3.5-5.1); SODIUM (NA) 140 MEQ/L (136-145); TOTAL BILIRUBIN ADULT 0.2 MG/DL (0.2-1.0)
[2016-09-07] MEDS: APIXABAN 5 MG TABLET PO SCH ×2 (09:00→21:24)
[2016-09-07] MEDS: DILTIAZEM HCL 60 MG TAB PO SCH ×3 (09:00→21:24)
[2016-09-07] MEDS: LISINOPRIL 10 MG TAB PO SCH (09:00)
[2016-09-07] MEDS: METOPROLOL TARTRATE 50 MG TAB PO SCH ×2 (09:00→21:25)
[2016-09-07] MEDS: FUROSEMIDE 40 MG TAB PO SCH (09:00)
[2016-09-07] MEDS: ESCITALOPRAM OXALATE 10 MG TAB PO SCH (09:00)
--- NOTE | 2016-09-07 09:38 | HHI.PR ---
Subjective Subjective Notes Resting in bed Happy to have drain removed Objective Vitals/I&O Vital Signs Date Time Temp Pulse Resp B/P Pulse Ox O2 Delivery O2 Flow Rate FiO2 09/07/16 08:00 96 09/07/16 08:00 98.1 18 118/75 93 09/07/16 08:00 Nasal Cannula 2.00 09/06/16 08:15 21 Labs Laboratory Tests Test 09/06/16 09/07/16 16:36 06:42 White Blood Count 11.9 11.5 Red Blood Count 3.65 3.71 Hemoglobin 11.0 11.4 Hematocrit 34.2 34.6 Mean Corpuscular Volume 93.5 93.4 Mean Corpuscular Hemoglobin 30.2 30.7 Mean Corpuscular Hemoglobin 32.3 32.9 Concent Red Cell Distribution Width 18.5 18.5 Platelet Count 324 319 Mean Platelet Volume 8.2 7.8 Neutrophils (%) (Auto) 84.5 81.4 Lymphocytes (%) (Auto) 7.3 9.9 Monocytes (%) (Auto) 6.9 7.3 Eosinophils (%) (Auto) 0.6 0.9 Basophils (%) (Auto) 0.7 0.5 Neutrophils # (Auto) 10.0 9.4 Lymphocytes # (Auto) 0.9 1.1 Monocytes # (Auto) 0.8 0.8 Eosinophils # (Auto) 0.1 0.1 Basophils # (Auto) 0.1 0.1 CBC Comment DIFF FINAL DIFF FINAL Differential Comment Sodium Level 140 140 Potassium Level 3.2 3.1 Chloride Level 99 100 Carbon Dioxide Level 34.3 32.6 Anion Gap 7 7 Blood Urea Nitrogen 10 12 Creatinine 0.83 0.77 Estimat Glomerular Filtration 89 97 Rate Random Glucose 147 104 Calcium Level 8.0 8.2 Phosphorus Level 3.4 Magnesium Level 1.8 Total Bilirubin 0.2 Aspartate Amino Transf 13 (AST/SGOT) Alanine Aminotransferase 12 (ALT/SGPT) Alkaline Phosphatase 59 Total Protein 5.8 Albumin 2.1 Cardiovascular: Regular Lungs: Clear Abdomen: Non-distended, Non-tender, Other (prior drain site with dressing; no drainage ) Extremities: No edema Narrative Exam Flexiseal in place A/P Assessment and Plan 81 year old male with drain in place from perihepatic abscess; placed at OSH -s/p removal of musa-hepatic drain -Regular diet -Dry 4x4 dressing over drain site; change daily and PRN -Follow up with Dr. Perez - will sign off Attending Statement The exam, history, and the medical decision-making described in the above note were completed with the assistance of the mid-level provider. I reviewed and agree with the findings presented. I attest that I had a [id number] encounter with the patient on the same day, and personally performed and documented my assessment and findings in the medical record. no abdominal pain, will sign off Carla Sosa Sep 07, 2016 09:37 Gaston Nguyen MD Sep 14, 2016 08:59
--- NOTE | 2016-09-07 10:49 | HHI.PR ---
Subjective Remarks Total 5 BM's yesterday still has diarrhea with large output wbc trending down denies abdominal pain, nausea or vomiting Objective Vitals Vital Signs Date Time Temp Pulse Resp B/P Pulse Ox O2 Delivery O2 Flow Rate FiO2 09/07/16 08:00 96 09/07/16 08:00 98.1 97 18 118/75 93 09/07/16 08:00 Nasal Cannula 2.00 09/07/16 04:00 98.8 83 17 135/73 09/07/16 00:00 97.8 71 18 120/66 94 09/06/16 21:30 73 09/06/16 20:00 Nasal Cannula 2.00 09/06/16 20:00 97.9 82 17 108/58 94 09/06/16 19:55 Nasal Cannula 3.00 09/06/16 16:01 114 09/06/16 16:00 97.5 89 20 148/76 91 09/06/16 12:00 97.9 99 22 127/81 89 I/O 09/06/16 09/06/16 09/06/16 09/07/16 09/07/16 09/07/16 07:00 15:00 23:00 07:00 15:00 23:00 Intake Total 819 ml 480 ml 550 ml 0 ml Balance 819 ml 480 ml 550 ml 0 ml Intake Oral 450 ml 480 ml 200 ml 0 ml IV Total 369 ml 350 ml # Voids 2 3 4 2 # Bowel Movements 2 3 Result Diagram: 09/07/16 0642 09/07/16 0642 Imaging Last Impressions Abdomen MRI 09/05/16 0000 Signed Impressions: Service Date/Time: Monday, September 05, 2016 08:47 - CONCLUSION: 1. No defined mass is seen within the liver. There is some subtle heterogeneous enhancement on the delayed imaging involving the posterior aspect of the right lobe of the liver and the gallbladder fossa. This is felt to be inflammatory in etiology. No definite drainable abscess collection is seen. Note is made of a drainage catheter in place adjacent to the right lobe of the liver. 2. 6.4 x 5.6 cm cystic abnormality within the spleen. This appears to be purely cystic by MR. 3. Bilateral pleural effusions small on the left and moderate in size on the right. There is considerable atelectasis of the right lung as well. Chris Dejesus MD Abdomen/Pelvis CT 09/03/16 0000 Signed Impressions: Service Date/Time: Saturday, September 03, 2016 22:09 - CONCLUSION: 1. Perihepatic drain without residual fluid around the drain. 2. Masslike area of low density involving segment 6 of the liver adjacent to the drain. I have no priors to compare. Differential diagnostic considerations would include a mass of both benign and malignant potential as well as an infectious process. No discrete intrahepatic abscess currently seen. 3. Circumferential wall thickening and stranding in the adjacent fat involving the rectosigmoid colon as detailed above. The appearance is more typical of an inflammatory or infectious process. 4. Approximate 2 cm pocket of fluid and air within the gallbladder fossa. Although this could relate to more focal ascitic fluid I cannot exclude a developing abscess. It is currently too small for percutaneous access. 5. Bilateral pleural effusions and associated atelectasis. 6. 6.7 cm nonspecific low density mass involving the spleen. 7. Tiny focus of air within the lumen of the urinary bladder. Although this could relate to recent instrumentation an infection with gas producing organisms can have a similar appearance. 8. Nonobstructing right renal stone. Moshe Goyal Jr., MD Chest X-Ray 08/26/16 0613 Signed Impressions: Service Date/Time: Friday, August 26, 2016 06:34 - CONCLUSION: Right basilar atelectasis. Mild cardiomegaly. Moshe Goyal Jr., MD Objective Remarks GENERAL: This is a well-nourished, well-developed patient, in no apparent distress. CARDIOVASCULAR: irregular rhythm without murmurs, gallops, or rubs. RESPIRATORY: Clear to auscultation. Breath sounds equal bilaterally. No wheezes , rales, or rhonchi. GASTROINTESTINAL: Abdomen soft,mild diffuse lower abdomen tenderness, nondistended. drain removed. Normal, active bowel sounds MUSCULOSKELETAL: Extremities without clubbing, cyanosis, or edema. NEURO: Alert & Oriented x4 to person, place, time, situation. Moves all ext x4 Procedures none Medications and IVs Current Medications Medications (Trade) Dose Ordered Sig/Cash Route Start Time Stop Time Status Last Admin (Cardizem Inj/NS Inj) 125 ml @ 0 mls/hr TITRATE IV 08/26/16 06:15 08/27/16 16:45 (D50w (Vial) Inj) 25 ml UNSCH PRN IV PUSH 08/26/16 09:00 (Glucagon Inj) 1 mg UNSCH PRN OTHER 08/26/16 09:00 (Lexapro) 10 mg DAILY PO 08/27/16 09:00 09/06/16 10:43 (Lasix) 40 mg DAILY PO 08/27/16 09:00 09/06/16 10:43 (Remeron) 15 mg HS PO 08/26/16 21:00 09/06/16 22:11 (Desyrel) 100 mg HS PO 08/26/16 21:00 09/06/16 22:11 (Pepcid) 40 mg HS PO 08/26/16 21:00 09/06/16 22:10 ([place] 5-325 Mg) 1 tab Q4H PRN PO 08/27/16 12:15 09/06/16 05:43 (Cardizem) 60 mg Q6H PO 08/30/16 15:00 09/06/16 22:11 (Lopressor) 75 mg BID PO 08/31/16 21:00 09/06/16 22:11 (Eliquis) 5 mg BID PO 08/31/16 21:00 09/06/16 22:10 (Pill Splitter) 1 ea UNSCH PRN OTHER 08/31/16 10:30 (Prinivil) 10 mg DAILY PO 09/04/16 11:15 09/06/16 10:44 (VANCOMYCIN for oral use only) 125 mg Q6HR PO 09/04/16 19:30 09/07/16 06:26 Urinary Catheter: No Vascular Central Line Catheter: No A/P Problem List: (1) C. difficile colitis ICD Code: A04.7 Status: Acute (2) Perihepatic abscess ICD Code: K65.0 Status: Acute (3) Rapid atrial fibrillation ICD Code: I48.91 Status: Acute (4) UTI (urinary tract infection) ICD Code: N39.0 Status: Acute (5) Cardiomyopathy ICD Code: I42.9 Status: Acute (6) Hypokalemia ICD Code: E87.6 Status: Acute (7) Chronic systolic heart failure ICD Code: I50.22 Status: Acute (8) Diabetes mellitus, type 2 ICD Code: E11.9 Status: Acute (9) Poor appetite ICD Code: R63.0 Status: Acute Assessment and Plan (1) C. difficile colitis Plan: Diarrhea still present and persistent. Positive for 027 strain Appreciate ID recommendations. Antibiotics as per infectious disease. Flagyl was discontinued on 09/04/16 and the patient was started on oral vancomycin 125 mg 4 times a day. Continue to monitor stool output. Continue rectal tube. 09/07 Patient still with large bowel output. continue po vancomycin. I will add Iv flagyl. Continue rectal tube. Fu ID recommendations. (2) Perihepatic abscess Plan: Status post drainage with drain present in right upper quadrant. CT abdomen and pelvis as described above shows perihepatic drain without residual fluid around the drain. Masslike area of low density involving segment 6 of the liver adjacent to the drain. No discrete intrahepatic abscess currently seen. Approximately 2 cm pocket of fluid and air within the gallbladder fossa. Bilateral pleural effusions and associated atelectasis. 6.7 cm nonspecific low density mass involving the spleen. Tiny focus of air within the lumen of the urinary bladder. Gen. surgery consulted and following. 09/05 MRI of the abdomen ordered and described above. No discrete mass seen. Also no drainable collection seen. 09/06 perihepatic drain removed by GS. Patient on regular diet. 09/07 GS signed off. (3) Rapid atrial fibrillation Plan: Heart rate is rate controlled. TSH elevated at 5.2 however free T4 normal at 1.27 likely euthyroid sick syndrome. Continue apixaban Continue metoprolol and Cardizem. Cardiology consulted and following. (4) UTI (urinary tract infection) Plan: Status post treatment with IV antibiotics. Patient had been on IV Zosyn and IV Rocephin. (5) Cardiomyopathy Plan: Cardiology consulted and following. Echocardiogram showed a moderately reduced systolic function. Estimated EF was in the range of 40-45% with diffuse hypokinesis. Left atrium was moderately dilated and right ventricle mildly dilated. Continue furosemide, beta shawn, I will add an PARKER inhibitor. (6) Hypokalemia Plan: Likely due to GI loss secondary to diarrhea. I will replace orally and continue to monitor. (7) Chronic systolic heart failure Plan: Echocardiogram with EF of 40-45%. Bilateral pleural effusions found in CT scan. Continue furosemide, beta shawn, I will add PARKER inhibitor. (8) Diabetes mellitus, type 2 Plan: Insulin-dependent diabetes type 2. Blood sugar stable on SSI with insulin NovoLog. (9) Poor appetite Plan: Diet consulted. Recommended Megace, Will RX. Dietitian also recommended a 2000 calorie ADA diet and Glucerna shakes TID. GI prophylaxis: On Pepcid. DVT prophylaxis: Continue SCDs and patient is on Apixaban. Discharge Planning Continue to monitor in the medical floor. Patient still has large diarrhea. Problem Qualifiers (1) UTI (urinary tract infection): (2) Cardiomyopathy: Qualified Code: I42.9 - Cardiomyopathy, unspecified type (3) Diabetes mellitus, type 2: Qualified Code: E11.8 - Type 2 diabetes mellitus with complication, with long- term current use of insulin Amanuel Newman MD Sep 07, 2016 10:49
[2016-09-07] MEDS ORDERED: POTASSIUM CHLORIDE 10 MEQ CONTROLLED RELEASE TAB PO ONE ×2 (11:00→12:00)
[2016-09-07] MEDS: metroNIDAZOLE 500 MG INJ 100 ML IV SCH ×2 (12:01→21:25)
[2016-09-07] MEDS: MEGESTROL ACETATE SUSP 400 MG/10 ML CUP PO SCH (12:01)
--- NOTE | 2016-09-07 16:26 | PQ ---
Physician Query Response Document PATIENT: VCIKY [place] : 1935 ADMIT DATE: 08/26/2016 9:03 AM DISCH DATE: RESPONDING PROVIDER #: [email or web address] QUERY TEXT: Sepsis Query Based on your medical judgement, can you further clarify the folowiin. Sepsis (SIRS due to an infection) 2. Sepsis with Organ Dysfunction 3. A localized Infection only 4. Another condition - please specify 5. Unable to determine - please explain. Depending on your selection above, please indicate one of the below if applicable: - Sepsis was present on Admission - Sepsis developed after admission The patient's Clinical Indicators include: Cardiology consulted on admission Aug 27, 2016 17:16 (1) Atrial fibrillation and flutter (2) H/O supraventricular tachycardia (3) UTI (urinary tract infection) 08/26 enterobacter cloacae (4) Sepsis Surgery conusulted also noted perihepatic abscess formation at [facility] s/p IR drain for liver abscess, no signs of recurrent infection or SEPSIS 08/26 ADMISSION 97.5 HR 140 RR 16 BP 160/97 WBC 101 HGB 11.5 HCT 34.5 lactic ADID 1.0 09/03 BAND 12 HR 103 09/01 C DIFF + Query created by: Keyla Ramos on 09/05/2016 12:45 PM RESPONSE TEXT: Sepsis due to c diff colitis - not present on admission Electronically signed by: Amanuel Coe MD 09/07/2016 4:23 PM
[2016-09-07] MEDS: MIRTAZAPINE 15 MG TAB PO SCH (21:00)
[2016-09-07] MEDS: traZODone HCL 100 MG TAB PO SCH (21:24)
[2016-09-07] MEDS: FAMOTIDINE 20 MG TAB PO SCH (21:24)
--- NOTE | 2016-09-07 22:52 | HHI.IDPN ---
Subjective Subjective Remarks Delayed entry pt was seen earlier today afebrile cont to have diarhea 3-4 BMs/day Antibiotics vanco po flagyl iv Allergies: Coded Allergies: *MDRO Multi-Drug Resistant Organism (Verified Adverse Reaction, Unknown, ) MDR-Enterobacter Cloacae (urine)-08/26/16 Objective . Vital Signs Date Time Temp Pulse Resp B/P Pulse Ox O2 Delivery O2 Flow Rate FiO2 09/07/16 20:00 98.1 83 20 117/56 95 09/07/16 16:00 97.7 99 18 135/71 94 09/07/16 13:10 89 3.00 09/07/16 12:42 98.7 91 19 115/73 91 09/07/16 08:00 96 09/07/16 08:00 98.1 97 18 118/75 93 09/07/16 08:00 Nasal Cannula 2.00 09/07/16 04:00 98.8 83 17 135/73 09/07/16 00:00 97.8 71 18 120/66 94 09/06/16 09/06/16 09/07/16 15:00 23:00 07:00 Intake Total 480 ml 550 ml 0 ml Balance 480 ml 550 ml 0 ml Intake Oral 480 ml 200 ml 0 ml IV Total 350 ml # Voids 3 4 2 # Bowel Movements 3 . Laboratory Tests Test 09/06/16 09/07/16 16:36 06:42 White Blood Count 11.9 TH/MM3 11.5 TH/MM3 Red Blood Count 3.65 MIL/MM3 3.71 MIL/MM3 Hemoglobin 11.0 GM/DL 11.4 GM/DL Hematocrit 34.2 % 34.6 % Mean Corpuscular Volume 93.5 FL 93.4 FL Mean Corpuscular Hemoglobin 30.2 PG 30.7 PG Mean Corpuscular Hemoglobin 32.3 % 32.9 % Concent Red Cell Distribution Width 18.5 % 18.5 % Platelet Count 324 TH/MM3 319 TH/MM3 Mean Platelet Volume 8.2 FL 7.8 FL Neutrophils (%) (Auto) 84.5 % 81.4 % Lymphocytes (%) (Auto) 7.3 % 9.9 % Monocytes (%) (Auto) 6.9 % 7.3 % Eosinophils (%) (Auto) 0.6 % 0.9 % Basophils (%) (Auto) 0.7 % 0.5 % Neutrophils # (Auto) 10.0 TH/MM3 9.4 TH/MM3 Lymphocytes # (Auto) 0.9 TH/MM3 1.1 TH/MM3 Monocytes # (Auto) 0.8 TH/MM3 0.8 TH/MM3 Eosinophils # (Auto) 0.1 TH/MM3 0.1 TH/MM3 Basophils # (Auto) 0.1 TH/MM3 0.1 TH/MM3 CBC Comment DIFF FINAL DIFF FINAL Differential Comment Laboratory Tests Test 09/06/16 09/07/16 16:36 06:42 Sodium Level 140 MEQ/L 140 MEQ/L Potassium Level 3.2 MEQ/L 3.1 MEQ/L Chloride Level 99 MEQ/L 100 MEQ/L Carbon Dioxide Level 34.3 MEQ/L 32.6 MEQ/L Anion Gap 7 MEQ/L 7 MEQ/L Blood Urea Nitrogen 10 MG/DL 12 MG/DL Creatinine 0.83 MG/DL 0.77 MG/DL Estimat Glomerular Filtration 89 ML/MIN 97 ML/MIN Rate Random Glucose 147 MG/DL 104 MG/DL Calcium Level 8.0 MG/DL 8.2 MG/DL Phosphorus Level 3.4 MG/DL Magnesium Level 1.8 MG/DL Total Bilirubin 0.2 MG/DL Aspartate Amino Transf 13 U/L (AST/SGOT) Alanine Aminotransferase 12 U/L (ALT/SGPT) Alkaline Phosphatase 59 U/L Total Protein 5.8 GM/DL Albumin 2.1 GM/DL Imaging Last Impressions Abdomen MRI 09/05/16 0000 Signed Impressions: Service Date/Time: Monday, September 05, 2016 08:47 - CONCLUSION: 1. No defined mass is seen within the liver. There is some subtle heterogeneous enhancement on the delayed imaging involving the posterior aspect of the right lobe of the liver and the gallbladder fossa. This is felt to be inflammatory in etiology. No definite drainable abscess collection is seen. Note is made of a drainage catheter in place adjacent to the right lobe of the liver. 2. 6.4 x 5.6 cm cystic abnormality within the spleen. This appears to be purely cystic by MR. 3. Bilateral pleural effusions small on the left and moderate in size on the right. There is considerable atelectasis of the right lung as well. Chris Dejesus MD Abdomen/Pelvis CT 09/03/16 0000 Signed Impressions: Service Date/Time: Saturday, September 03, 2016 22:09 - CONCLUSION: 1. Perihepatic drain without residual fluid around the drain. 2. Masslike area of low density involving segment 6 of the liver adjacent to the drain. I have no priors to compare. Differential diagnostic considerations would include a mass of both benign and malignant potential as well as an infectious process. No discrete intrahepatic abscess currently seen. 3. Circumferential wall thickening and stranding in the adjacent fat involving the rectosigmoid colon as detailed above. The appearance is more typical of an inflammatory or infectious process. 4. Approximate 2 cm pocket of fluid and air within the gallbladder fossa. Although this could relate to more focal ascitic fluid I cannot exclude a developing abscess. It is currently too small for percutaneous access. 5. Bilateral pleural effusions and associated atelectasis. 6. 6.7 cm nonspecific low density mass involving the spleen. 7. Tiny focus of air within the lumen of the urinary bladder. Although this could relate to recent instrumentation an infection with gas producing organisms can have a similar appearance. 8. Nonobstructing right renal stone. Moshe Goyal Jr., MD Chest X-Ray 08/26/16 0613 Signed Impressions: Service Date/Time: Friday, August 26, 2016 06:34 - CONCLUSION: Right basilar atelectasis. Mild cardiomegaly. Moshe Goyal Jr., MD Physical Exam CONSTITUTIONAL/GENERAL: This is an obese elderlyshed patient, in no apparent distress. TUBES/LINES/DRAINS: SKIN: No jaundice, rashes, or lesions. Skin temperature appropriate. Not diaphoretic. EYES: Pupils equal and round and reactive. Extraocular motions intact. No scleral icterus. No injection or drainage. Fundi not examined. CARDIOVASCULAR: Irregular rate and rhythm without murmurs, gallops, or rubs. No JVD. Peripheral pulses symmetric. RESPIRATORY/CHEST: Symmetric, unlabored respirations. Clear to auscultation. Breath sounds equal bilaterally. No wheezes, rales, or rhonchi. GASTROINTESTINAL: Abdomen soft,very mildly tender to palpation RLQ/LLQ, minimally distended. No hepato-splenomegaly, or palpable masses. No guarding. Bowel sounds present. Biliary drain in place with dark bile GENITOURINARY: Without palpable bladder distension. Tillman catheter in place. MUSCULOSKELETAL: Extremities without clubbing, cyanosis, or edema. No joint tenderness or effusion noted. No calf tenderness. No mottling or clubbing. LYMPHATICS: No palpable cervical or supraclavicular adenopathy. NEUROLOGICAL: Awake and alert. Non focal Assessment & Plan Remarks C.diff , hypervirulent strain -improved Mild lyeucytois Perihepatic abscess sp biliary drain - dc flagyl iv - cont po vancomycin Madelaine Peña MD Sep 07, 2016 22:52
[2016-09-08] VITALS (9 sets, daily range): BP systolic 104–118; BP diastolic 55–70; PULSE 66–87; RESP 18–20; TEMP 97.7–98.6; O2SAT 91–97
[2016-09-08] MEDS: metroNIDAZOLE 500 MG INJ 100 ML IV SCH ×3 (02:55→21:40)
[2016-09-08] MEDS: DILTIAZEM HCL 60 MG TAB PO SCH ×4 (02:55→21:42)
[2016-09-08] MEDS: INSULIN ASPART SUPPLEMENTAL SCALE SQ SCH ×4 (07:00→21:41)
[2016-09-08] MEDS: VANCOMYCIN 500 MG VIAL (FOR ORAL USE ONLY) PO SCH ×3 (08:20→17:40)
[2016-09-08] MEDS: FUROSEMIDE 40 MG TAB PO SCH (08:21)
[2016-09-08] MEDS: MEGESTROL ACETATE SUSP 400 MG/10 ML CUP PO SCH (08:21)
[2016-09-08] MEDS: LISINOPRIL 10 MG TAB PO SCH (08:21)
[2016-09-08] MEDS: METOPROLOL TARTRATE 50 MG TAB PO SCH ×2 (08:21→21:42)
[2016-09-08] MEDS: APIXABAN 5 MG TABLET PO SCH ×2 (08:21→21:41)
[2016-09-08] MEDS: ESCITALOPRAM OXALATE 10 MG TAB PO SCH (08:22)
[2016-09-08] MEDS ORDERED: POTASSIUM CHLORIDE 10 MEQ CONTROLLED RELEASE TAB PO ONE (10:00)
[2016-09-08] MEDS: POTASSIUM CHLOR 20 MEQ PREMIX 100 ML IV SCH ×2 (10:40→13:16)
--- NOTE | 2016-09-08 17:13 | HHI.PR ---
Subjective Remarks still large output reported patient denies abdominal pain/nausea and diarrhea wbc trending down slowly afebrile Objective Vitals Vital Signs Date Time Temp Pulse Resp B/P Pulse Ox O2 Delivery O2 Flow Rate FiO2 09/08/16 12:00 98.2 77 20 117/59 92 09/08/16 08:15 Nasal Cannula 2.00 09/08/16 08:00 81 09/08/16 08:00 98.2 81 20 118/70 91 09/08/16 07:57 92 Nasal Cannula 3.00 09/08/16 04:00 97.7 75 18 109/59 97 09/08/16 00:00 98.6 87 20 104/61 97 09/07/16 21:29 114 09/07/16 20:00 98.1 83 20 117/56 95 09/07/16 20:00 Nasal Cannula 2.00 I/O 09/07/16 09/07/16 09/07/16 09/08/16 09/08/16 09/08/16 07:00 15:00 23:00 07:00 15:00 23:00 Intake Total 0 ml 200 ml 240 ml 340 ml 211 ml Balance 0 ml 200 ml 240 ml 340 ml 211 ml Intake Oral 0 ml 200 ml 240 ml 240 ml IV Total 100 ml 211 ml # Voids 2 4 1 2 Result Diagram: 09/07/16 0642 09/07/16 0642 Imaging Last Impressions Abdomen MRI 09/05/16 0000 Signed Impressions: Service Date/Time: Monday, September 05, 2016 08:47 - CONCLUSION: 1. No defined mass is seen within the liver. There is some subtle heterogeneous enhancement on the delayed imaging involving the posterior aspect of the right lobe of the liver and the gallbladder fossa. This is felt to be inflammatory in etiology. No definite drainable abscess collection is seen. Note is made of a drainage catheter in place adjacent to the right lobe of the liver. 2. 6.4 x 5.6 cm cystic abnormality within the spleen. This appears to be purely cystic by MR. 3. Bilateral pleural effusions small on the left and moderate in size on the right. There is considerable atelectasis of the right lung as well. Chris Dejesus MD Abdomen/Pelvis CT 09/03/16 0000 Signed Impressions: Service Date/Time: Saturday, September 03, 2016 22:09 - CONCLUSION: 1. Perihepatic drain without residual fluid around the drain. 2. Masslike area of low density involving segment 6 of the liver adjacent to the drain. I have no priors to compare. Differential diagnostic considerations would include a mass of both benign and malignant potential as well as an infectious process. No discrete intrahepatic abscess currently seen. 3. Circumferential wall thickening and stranding in the adjacent fat involving the rectosigmoid colon as detailed above. The appearance is more typical of an inflammatory or infectious process. 4. Approximate 2 cm pocket of fluid and air within the gallbladder fossa. Although this could relate to more focal ascitic fluid I cannot exclude a developing abscess. It is currently too small for percutaneous access. 5. Bilateral pleural effusions and associated atelectasis. 6. 6.7 cm nonspecific low density mass involving the spleen. 7. Tiny focus of air within the lumen of the urinary bladder. Although this could relate to recent instrumentation an infection with gas producing organisms can have a similar appearance. 8. Nonobstructing right renal stone. Msohe Goyal Jr., MD Chest X-Ray 08/26/16612 Signed Impressions: Service Date/Time: Friday, August 26, 2016 06:34 - CONCLUSION: Right basilar atelectasis. Mild cardiomegaly. Moshe Goyal Jr., MD Objective Remarks GENERAL: This is a well-nourished, well-developed patient, in no apparent distress. CARDIOVASCULAR: irregular rhythm without murmurs, gallops, or rubs. RESPIRATORY: Clear to auscultation. Breath sounds equal bilaterally. No wheezes , rales, or rhonchi. GASTROINTESTINAL: Abdomen soft,mild diffuse lower abdomen tenderness, nondistended. drain removed. Normal, active bowel sounds MUSCULOSKELETAL: Extremities without clubbing, cyanosis, or edema. NEURO: Alert & Oriented x4 to person, place, time, situation. Moves all ext x4 Procedures none Medications and IVs Current Medications Medications (Trade) Dose Ordered Sig/Cash Route Start Time Stop Time Status Last Admin (Cardizem Inj/NS Inj) 125 ml @ 0 mls/hr TITRATE IV 08/26/16 06:15 08/27/16 16:45 (D50w (Vial) Inj) 25 ml UNSCH PRN IV PUSH 08/26/16 09:00 (Glucagon Inj) 1 mg UNSCH PRN OTHER 08/26/16 09:00 (Lexapro) 10 mg DAILY PO 08/27/16 09:00 09/08/16 08:22 (Lasix) 40 mg DAILY PO 08/27/16 09:00 09/08/16 08:21 (Remeron) 15 mg HS PO 08/26/16 21:00 09/06/16 22:11 (Desyrel) 100 mg HS PO 08/26/16 21:00 09/07/16 21:24 (Pepcid) 40 mg HS PO 08/26/16 21:00 09/07/16 21:24 ([place] 5-325 Mg) 1 tab Q4H PRN PO 08/27/16 12:15 09/06/16 05:43 (Cardizem) 60 mg Q6H PO 08/30/16 15:00 09/08/16 16:37 (Lopressor) 75 mg BID PO 08/31/16 21:00 09/08/16 08:21 (Eliquis) 5 mg BID PO 08/31/16 21:00 09/08/16 08:21 (Pill Splitter) 1 ea UNSCH PRN OTHER 08/31/16 10:30 (Prinivil) 10 mg DAILY PO 09/04/16 11:15 09/08/16 08:21 Vancomycin HCl 125 mg 125 mg Q6HR PO 09/04/16 19:30 09/08/16 11:55 (Flagyl 500 Mg Inj) 100 ml @ 100 mls/hr Q8H IV 09/07/16 12:00 09/08/16 11:54 (Megace Liq) 400 mg DAILY PO 09/07/16 11:15 09/08/16 08:21 Urinary Catheter: No Vascular Central Line Catheter: No A/P Problem List: (1) C. difficile colitis ICD Code: A04.7 Status: Acute (2) Perihepatic abscess ICD Code: K65.0 Status: Acute (3) Rapid atrial fibrillation ICD Code: I48.91 Status: Acute (4) UTI (urinary tract infection) ICD Code: N39.0 Status: Acute (5) Cardiomyopathy ICD Code: I42.9 Status: Acute (6) Hypokalemia ICD Code: E87.6 Status: Acute (7) Chronic systolic heart failure ICD Code: I50.22 Status: Acute (8) Diabetes mellitus, type 2 ICD Code: E11.9 Status: Acute (9) Poor appetite ICD Code: R63.0 Status: Acute Assessment and Plan (1) C. difficile colitis Plan: Diarrhea still present and persistent. Positive for 027 strain Appreciate ID recommendations. Antibiotics as per infectious disease. Flagyl was discontinued on 09/04/16 and the patient was started on oral vancomycin 125 mg 4 times a day. Continue to monitor stool output. Continue rectal tube. 09/07 Patient still with large bowel output. continue po vancomycin. I will add Iv flagyl. Continue rectal tube. Fu ID recommendations. 09/08 Antibiotics as per ID - Flagyl discontinued - continue po vancomycin. (2) Perihepatic abscess Plan: Status post drainage with drain present in right upper quadrant. CT abdomen and pelvis as described above shows perihepatic drain without residual fluid around the drain. Masslike area of low density involving segment 6 of the liver adjacent to the drain. No discrete intrahepatic abscess currently seen. Approximately 2 cm pocket of fluid and air within the gallbladder fossa. Bilateral pleural effusions and associated atelectasis. 6.7 cm nonspecific low density mass involving the spleen. Tiny focus of air within the lumen of the urinary bladder. Gen. surgery consulted and following. 09/05 MRI of the abdomen ordered and described above. No discrete mass seen. Also no drainable collection seen. 09/06 perihepatic drain removed by GS. Patient on regular diet. 09/07 GS signed off. (3) Rapid atrial fibrillation Plan: Heart rate is rate controlled. TSH elevated at 5.2 however free T4 normal at 1.27 likely euthyroid sick syndrome. Continue apixaban Continue metoprolol and Cardizem. Cardiology consulted and following. (4) UTI (urinary tract infection) Plan: Status post treatment with IV antibiotics. Patient had been on IV Zosyn and IV Rocephin. (5) Cardiomyopathy Plan: Cardiology consulted and following. Echocardiogram showed a moderately reduced systolic function. Estimated EF was in the range of 40-45% with diffuse hypokinesis. Left atrium was moderately dilated and right ventricle mildly dilated. Continue furosemide, beta shawn, I will add an PARKER inhibitor. (6) Hypokalemia Plan: Likely due to GI loss secondary to diarrhea. I will replace orally and continue to monitor. (7) Chronic systolic heart failure Plan: Echocardiogram with EF of 40-45%. Bilateral pleural effusions found in CT scan. Continue furosemide, beta shawn, I will add PARKER inhibitor. (8) Diabetes mellitus, type 2 Plan: Insulin-dependent diabetes type 2. Blood sugar stable on SSI with insulin NovoLog. (9) Poor appetite Plan: Diet consulted. Continue megace - better Dietitian also recommended a 2000 calorie ADA diet and Glucerna shakes TID. GI prophylaxis: On Pepcid. DVT prophylaxis: Continue SCDs and patient is on Apixaban. Discharge Planning Continue to monitor in the medical floor. Patient still has large diarrhea. Problem Qualifiers (1) UTI (urinary tract infection): (2) Cardiomyopathy: Qualified Code: I42.9 - Cardiomyopathy, unspecified type (3) Diabetes mellitus, type 2: Qualified Code: E11.8 - Type 2 diabetes mellitus with complication, with long- term current use of insulin Amanuel Newman MD Sep 08, 2016 17:13
[2016-09-08 19:34] LABS: AUTOMATED NEUTROPHIL # 9.8 TH/MM3 (1.8-7.7); BASOPHIL # 0.1 TH/MM3 (0-0.2); BASOPHIL % 0.5 % (0.0-2.0); EOSINOPHIL # 0.1 TH/MM3 (0-0.4); EOSINOPHIL % 0.7 % (0.0-4.0); HEMATOCRIT 33.7 % (39.0-51.0); HEMO FLAGS DIFF FINAL; LYMPH % 7.7 % (9.0-44.0); LYMPHOCYTE # 0.9 TH/MM3 (1.0-4.8); MEAN CELL VOLUME 95.2 FL (80.0-100.0); MEAN CORPUSCULAR HEMOGLOBIN 30.4 PG (27.0-34.0); MEAN CORPUSCULAR HGB CONC 31.9 % (32.0-36.0); MONO % 6.3 % (0.0-8.0); NEUT % 84.8 % (16.0-70.0); PLATELET COUNT 296 TH/MM3 (150-450); RED BLOOD COUNT 3.54 MIL/MM3 (4.50-5.90); RED CELL DISTRIBUTION WIDTH 18.7 % (11.6-17.2); WHITE BLOOD COUNT 11.6 TH/MM3 (4.0-11.0)
[2016-09-08 19:41] LABS: POTASSIUM 4.3 MEQ/L (3.5-5.1)
[2016-09-08] MEDS: FAMOTIDINE 20 MG TAB PO SCH (21:41)
[2016-09-08] MEDS: MIRTAZAPINE 15 MG TAB PO SCH (21:41)
[2016-09-08] MEDS: traZODone HCL 100 MG TAB PO SCH (21:41)
[2016-09-09] VITALS (10 sets, daily range): BP systolic 111–127; BP diastolic 57–85; PULSE 63–91; RESP 18–20; TEMP 97.9–98.6; O2SAT 90–94
[2016-09-09] MEDS: VANCOMYCIN 500 MG VIAL (FOR ORAL USE ONLY) PO SCH ×5 (00:12→23:16)
[2016-09-09] MEDS: metroNIDAZOLE 500 MG INJ 100 ML IV SCH (03:11)
[2016-09-09] MEDS: DILTIAZEM HCL 60 MG TAB PO SCH ×4 (03:11→21:37)
[2016-09-09] MEDS: INSULIN ASPART SUPPLEMENTAL SCALE SQ SCH ×4 (06:06→21:38)
[2016-09-09 07:33] LABS: AUTOMATED NEUTROPHIL # 10.9 TH/MM3 (1.8-7.7); BASOPHIL # 0.1 TH/MM3 (0-0.2); BASOPHIL % 0.5 % (0.0-2.0); EOSINOPHIL # 0.1 TH/MM3 (0-0.4); EOSINOPHIL % 0.9 % (0.0-4.0); HEMATOCRIT 34.7 % (39.0-51.0); HEMO FLAGS DIFF FINAL; LYMPH % 7.7 % (9.0-44.0); MEAN CELL VOLUME 93.9 FL (80.0-100.0); MEAN CORPUSCULAR HEMOGLOBIN 30.7 PG (27.0-34.0); MEAN CORPUSCULAR HGB CONC 32.7 % (32.0-36.0); MONO % 5.8 % (0.0-8.0); NEUT % 85.1 % (16.0-70.0); PLATELET COUNT 316 TH/MM3 (150-450); RED BLOOD COUNT 3.69 MIL/MM3 (4.50-5.90); RED CELL DISTRIBUTION WIDTH 18.7 % (11.6-17.2); WHITE BLOOD COUNT 12.9 TH/MM3 (4.0-11.0)
[2016-09-09 07:58] LABS: ALKALINE PHOSPHATASE 59 U/L (45-117); ALT (GPT) 12 U/L (12-78); ANION GAP 7 MEQ/L (5-15); AST (GOT) 27 U/L (15-37); BICARBONATE 32.8 MEQ/L (21.0-32.0); BLOOD UREA NITROGEN 15 MG/DL (7-18); CHLORIDE 99 MEQ/L (98-107); GLOMERULAR FILTRATION RATE 82 ML/MIN (>89); POTASSIUM 4.4 MEQ/L (3.5-5.1); SODIUM (NA) 139 MEQ/L (136-145); TOTAL BILIRUBIN ADULT 0.3 MG/DL (0.2-1.0)
[2016-09-09] MEDS: METOPROLOL TARTRATE 50 MG TAB PO SCH ×2 (08:58→21:36)
[2016-09-09] MEDS: MEGESTROL ACETATE SUSP 400 MG/10 ML CUP PO SCH (08:58)
[2016-09-09] MEDS: APIXABAN 5 MG TABLET PO SCH ×2 (08:58→21:37)
[2016-09-09] MEDS: ESCITALOPRAM OXALATE 10 MG TAB PO SCH (08:58)
[2016-09-09] MEDS: LISINOPRIL 10 MG TAB PO SCH (08:58)
[2016-09-09] MEDS: FUROSEMIDE 40 MG TAB PO SCH (08:58)
[2016-09-09] MEDS: ACETAMINOPHEN/HYDROcodone 325 MG/5 MG TAB PO PRN (11:44)
--- NOTE | 2016-09-09 12:02 | HHI.PR ---
Subjective Remarks As per RN stool output better patient denies nausea or vomiting denies fevers/chills denies cp/sob Objective Vitals Vital Signs Date Time Temp Pulse Resp B/P Pulse Ox O2 Delivery O2 Flow Rate FiO2 09/09/16 09:07 94 Nasal Cannula 2.00 09/09/16 08:00 98.4 91 20 124/85 90 09/09/16 07:15 Nasal Cannula 2.00 09/09/16 04:00 98.3 72 18 122/70 93 09/09/16 00:00 98.6 71 20 111/70 91 09/08/16 21:55 93 Nasal Cannula 2.00 09/08/16 21:42 93 Nasal Cannula 2.00 09/08/16 20:08 69 09/08/16 20:00 97.8 74 20 117/55 94 09/08/16 16:00 97.9 66 20 104/61 95 I/O 09/08/16 09/08/16 09/08/16 09/09/16 09/09/16 09/09/16 07:00 15:00 23:00 07:00 15:00 23:00 Intake Total 340 ml 331 ml 580 ml 340 ml Output Total 800 ml Balance 340 ml 331 ml -220 ml 340 ml Intake Oral 240 ml 120 ml 480 ml 240 ml IV Total 100 ml 211 ml 100 ml 100 ml Stool Total 800 ml # Voids 2 1 2 2 # Bowel Movements 0 0 Result Diagram: 09/09/16 0619 09/09/16 0619 Imaging Last Impressions Abdomen MRI 09/05/16 0000 Signed Impressions: Service Date/Time: Monday, September 05, 2016 08:47 - CONCLUSION: 1. No defined mass is seen within the liver. There is some subtle heterogeneous enhancement on the delayed imaging involving the posterior aspect of the right lobe of the liver and the gallbladder fossa. This is felt to be inflammatory in etiology. No definite drainable abscess collection is seen. Note is made of a drainage catheter in place adjacent to the right lobe of the liver. 2. 6.4 x 5.6 cm cystic abnormality within the spleen. This appears to be purely cystic by MR. 3. Bilateral pleural effusions small on the left and moderate in size on the right. There is considerable atelectasis of the right lung as well. Chris Dejesus MD Abdomen/Pelvis CT 09/03/16 0000 Signed Impressions: Service Date/Time: Saturday, September 03, 2016 22:09 - CONCLUSION: 1. Perihepatic drain without residual fluid around the drain. 2. Masslike area of low density involving segment 6 of the liver adjacent to the drain. I have no priors to compare. Differential diagnostic considerations would include a mass of both benign and malignant potential as well as an infectious process. No discrete intrahepatic abscess currently seen. 3. Circumferential wall thickening and stranding in the adjacent fat involving the rectosigmoid colon as detailed above. The appearance is more typical of an inflammatory or infectious process. 4. Approximate 2 cm pocket of fluid and air within the gallbladder fossa. Although this could relate to more focal ascitic fluid I cannot exclude a developing abscess. It is currently too small for percutaneous access. 5. Bilateral pleural effusions and associated atelectasis. 6. 6.7 cm nonspecific low density mass involving the spleen. 7. Tiny focus of air within the lumen of the urinary bladder. Although this could relate to recent instrumentation an infection with gas producing organisms can have a similar appearance. 8. Nonobstructing right renal stone. Moshe Goyal Jr., MD Chest X-Ray 08/26/16 0613 Signed Impressions: Service Date/Time: Friday, August 26, 2016 06:34 - CONCLUSION: Right basilar atelectasis. Mild cardiomegaly. Moshe Goyal Jr., MD Objective Remarks GENERAL: This is a well-nourished, well-developed patient, in no apparent distress. CARDIOVASCULAR: irregular rhythm without murmurs, gallops, or rubs. RESPIRATORY: Clear to auscultation. Breath sounds equal bilaterally. No wheezes , rales, or rhonchi. GASTROINTESTINAL: Abdomen soft,mild diffuse lower abdomen tenderness, nondistended. drain removed. Normal, active bowel sounds MUSCULOSKELETAL: Extremities without clubbing, cyanosis, or edema. NEURO: Alert & Oriented x4 to person, place, time, situation. Moves all ext x4 Procedures none Medications and IVs Current Medications Medications (Trade) Dose Ordered Sig/Cash Route Start Time Stop Time Status Last Admin (Cardizem Inj/NS Inj) 125 ml @ 0 mls/hr TITRATE IV 08/26/16 06:15 08/27/16 16:45 (D50w (Vial) Inj) 25 ml UNSCH PRN IV PUSH 08/26/16 09:00 (Glucagon Inj) 1 mg UNSCH PRN OTHER 08/26/16 09:00 (Lexapro) 10 mg DAILY PO 08/27/16 09:00 09/09/16 08:58 (Lasix) 40 mg DAILY PO 08/27/16 09:00 09/09/16 08:58 (Remeron) 15 mg HS PO 08/26/16 21:00 09/08/16 21:41 (Desyrel) 100 mg HS PO 08/26/16 21:00 09/08/16 21:41 (Pepcid) 40 mg HS PO 08/26/16 21:00 09/08/16 21:41 ([place] 5-325 Mg) 1 tab Q4H PRN PO 08/27/16 12:15 09/09/16 11:44 (Cardizem) 60 mg Q6H PO 08/30/16 15:00 09/09/16 16:02 (Lopressor) 75 mg BID PO 08/31/16 21:00 09/09/16 08:58 (Eliquis) 5 mg BID PO 08/31/16 21:00 09/09/16 08:58 (Pill Splitter) 1 ea UNSCH PRN OTHER 08/31/16 10:30 (Prinivil) 10 mg DAILY PO 09/04/16 11:15 09/09/16 08:58 (Megace Liq) 400 mg DAILY PO 09/07/16 11:15 09/09/16 08:58 (VANCOMYCIN for oral use only) 250 mg Q6HR PO 09/09/16 18:00 Urinary Catheter: No Vascular Central Line Catheter: No A/P Problem List: (1) C. difficile colitis ICD Code: A04.7 Status: Acute (2) Perihepatic abscess ICD Code: K65.0 Status: Acute (3) Rapid atrial fibrillation ICD Code: I48.91 Status: Acute (4) UTI (urinary tract infection) ICD Code: N39.0 Status: Acute (5) Cardiomyopathy ICD Code: I42.9 Status: Acute (6) Hypokalemia ICD Code: E87.6 Status: Acute (7) Chronic systolic heart failure ICD Code: I50.22 Status: Acute (8) Diabetes mellitus, type 2 ICD Code: E11.9 Status: Acute (9) Poor appetite ICD Code: R63.0 Status: Acute Assessment and Plan (1) C. difficile colitis Plan: Diarrhea still present and persistent. Positive for 027 strain Appreciate ID recommendations. Antibiotics as per infectious disease. Flagyl was discontinued on 09/04/16 and the patient was started on oral vancomycin 125 mg 4 times a day. Continue to monitor stool output. Continue rectal tube. 09/07 Patient still with large bowel output. continue po vancomycin. I will add Iv flagyl. Continue rectal tube. Fu ID recommendations. 09/08 Antibiotics as per ID - Flagyl discontinued - continue po vancomycin. 09/09 diarrhea improving with less output. continue PO Vancomycin and DC rectal tube. (2) Perihepatic abscess Plan: Status post drainage with drain present in right upper quadrant. CT abdomen and pelvis as described above shows perihepatic drain without residual fluid around the drain. Masslike area of low density involving segment 6 of the liver adjacent to the drain. No discrete intrahepatic abscess currently seen. Approximately 2 cm pocket of fluid and air within the gallbladder fossa. Bilateral pleural effusions and associated atelectasis. 6.7 cm nonspecific low density mass involving the spleen. Tiny focus of air within the lumen of the urinary bladder. Gen. surgery consulted and following. 09/05 MRI of the abdomen ordered and described above. No discrete mass seen. Also no drainable collection seen. 09/06 perihepatic drain removed by GS. Patient on regular diet. 09/07 GS signed off. (3) Rapid atrial fibrillation Plan: Heart rate is rate controlled. TSH elevated at 5.2 however free T4 normal at 1.27 likely euthyroid sick syndrome. Continue apixaban Continue metoprolol and Cardizem. Cardiology consulted and following. (4) UTI (urinary tract infection) Plan: Status post treatment with IV antibiotics. Patient had been on IV Zosyn and IV Rocephin. (5) Cardiomyopathy Plan: Cardiology consulted and following. Echocardiogram showed a moderately reduced systolic function. Estimated EF was in the range of 40-45% with diffuse hypokinesis. Left atrium was moderately dilated and right ventricle mildly dilated. Continue furosemide, beta shawn, I will add an PARKER inhibitor. (6) Hypokalemia Plan: Likely due to GI loss secondary to diarrhea. 09/09 Resolved. Continue to monitor bmp and replace as needed. (7) Chronic systolic heart failure Plan: Echocardiogram with EF of 40-45%. Bilateral pleural effusions found in CT scan. Continue furosemide, beta shawn, I will add PARKER inhibitor. (8) Diabetes mellitus, type 2 Plan: Insulin-dependent diabetes type 2. Blood sugar stable on SSI with insulin NovoLog. (9) Poor appetite Plan: Diet consulted. Continue megace - better Dietitian also recommended a 2000 calorie ADA diet and Glucerna shakes TID. GI prophylaxis: On Pepcid. DVT prophylaxis: Continue SCDs and patient is on Apixaban. Discharge Planning Continue to monitor in the medical floor. Pending clinical improvement. Problem Qualifiers (1) UTI (urinary tract infection): (2) Cardiomyopathy: Qualified Code: I42.9 - Cardiomyopathy, unspecified type (3) Diabetes mellitus, type 2: Qualified Code: E11.8 - Type 2 diabetes mellitus with complication, with long- term current use of insulin Amanuel Newman MD Sep 09, 2016 12:02
[2016-09-09] MEDS: traZODone HCL 100 MG TAB PO SCH (21:37)
[2016-09-09] MEDS: FAMOTIDINE 20 MG TAB PO SCH (21:38)
[2016-09-09] MEDS: MIRTAZAPINE 15 MG TAB PO SCH (21:38)
[2016-09-10] VITALS (9 sets, daily range): BP systolic 102–122; BP diastolic 59–89; PULSE 64–95; RESP 18–20; TEMP 97–98.7; O2SAT 90–97
[2016-09-10] MEDS: DILTIAZEM HCL 60 MG TAB PO SCH ×4 (03:50→20:51)
[2016-09-10] MEDS: VANCOMYCIN 500 MG VIAL (FOR ORAL USE ONLY) PO SCH ×4 (05:48→20:51)
[2016-09-10] MEDS: INSULIN ASPART SUPPLEMENTAL SCALE SQ SCH ×4 (05:49→20:52)
[2016-09-10 07:25] LABS: AUTOMATED NEUTROPHIL # 14.3 TH/MM3 (1.8-7.7); BASOPHIL # 0.1 TH/MM3 (0-0.2); BASOPHIL % 0.3 % (0.0-2.0); EOSINOPHIL # 0.1 TH/MM3 (0-0.4); EOSINOPHIL % 0.7 % (0.0-4.0); HEMATOCRIT 35.3 % (39.0-51.0); HEMO FLAGS DIFF FINAL; MEAN CELL VOLUME 94.2 FL (80.0-100.0); MEAN CORPUSCULAR HEMOGLOBIN 30.3 PG (27.0-34.0); MEAN CORPUSCULAR HGB CONC 32.2 % (32.0-36.0); MONO % 4.8 % (0.0-8.0); NEUT % 88.2 % (16.0-70.0); PLATELET COUNT 294 TH/MM3 (150-450); RED BLOOD COUNT 3.74 MIL/MM3 (4.50-5.90); RED CELL DISTRIBUTION WIDTH 18.6 % (11.6-17.2); WHITE BLOOD COUNT 16.2 TH/MM3 (4.0-11.0)
[2016-09-10 07:51] LABS: BICARBONATE 34.2 MEQ/L (21.0-32.0); POTASSIUM 3.8 MEQ/L (3.5-5.1)
[2016-09-10] MEDS: FUROSEMIDE 40 MG TAB PO SCH (09:01)
[2016-09-10] MEDS: ESCITALOPRAM OXALATE 10 MG TAB PO SCH (09:01)
[2016-09-10] MEDS: LISINOPRIL 10 MG TAB PO SCH (09:01)
[2016-09-10] MEDS: APIXABAN 5 MG TABLET PO SCH ×2 (09:01→23:00)
[2016-09-10] MEDS: MEGESTROL ACETATE SUSP 400 MG/10 ML CUP PO SCH (09:01)
[2016-09-10] MEDS: METOPROLOL TARTRATE 50 MG TAB PO SCH ×2 (09:02→20:51)
--- NOTE | 2016-09-10 09:25 | RADRPT ---
EXAM DATE/TIME: 09/10/2016 09:11 [facility] COMPARISON: CHEST SINGLE AP, August 26, 2016, 6:34. INDICATIONS : Shortness of breath. Leukocytosis. MEDICAL HISTORY : Congestive heart failure. Hypertension. Diabetes mellitus type 2.Hepatic tumor SURGICAL HISTORY : None. ENCOUNTER: Initial ACUITY: 1 day PAIN SCORE: 0/10 LOCATION: Bilateral chest FINDINGS: There is patchy airspace disease at the bases and a small right-sided pleural effusion noted. There i s cardiomegaly. Aortic calcification. Osseous structures are intact. CONCLUSION: Small right effusion increased airspace disease in the left lower lobe identified. Mauricio Stanton MD on September 10, 2016 at 9:22 Board Certified Radiologist. This report was verified electronically.
--- NOTE | 2016-09-10 10:45 | HHI.PR ---
Subjective Remarks Patient still has large stool output denies abdominal pain, nausea or vomiting WBC trending up afebrile Objective Vitals Vital Signs Date Time Temp Pulse Resp B/P Pulse Ox O2 Delivery O2 Flow Rate FiO2 09/10/16 09:00 Nasal Cannula 2.00 09/10/16 08:00 98.3 82 18 107/70 92 09/10/16 04:00 97.8 95 20 120/89 91 09/10/16 00:00 97.6 86 20 122/64 90 09/09/16 21:37 Nasal Cannula 2.00 09/09/16 20:41 92 Nasal Cannula 2.00 09/09/16 20:08 63 09/09/16 20:00 97.9 86 18 118/57 91 09/09/16 16:45 83 09/09/16 16:00 98.1 86 20 127/60 90 09/09/16 12:00 98.1 87 20 111/73 91 I/O 09/09/16 09/09/16 09/09/16 09/10/16 09/10/16 09/10/16 06:59 14:59 22:59 06:59 14:59 22:59 Intake Total 340 ml 360 ml 480 ml 120 ml Output Total 100 ml Balance 340 ml 260 ml 480 ml 120 ml Intake Oral 240 ml 360 ml 480 ml 120 ml IV Total 100 ml Stool Total 100 ml # Voids 2 2 0 1 # Bowel Movements 0 0 Result Diagram: 09/10/16 0653 09/10/16 0653 Imaging Last Impressions Chest X-Ray 09/10/16 0000 Signed Impressions: Service Date/Time: Saturday, September 10, 2016 09:11 - CONCLUSION: Small right effusion increased airspace disease in the left lower lobe identified. Muaricio Stanton MD Abdomen MRI 09/05/16 0000 Signed Impressions: Service Date/Time: Monday, September 05, 2016 08:47 - CONCLUSION: 1. No defined mass is seen within the liver. There is some subtle heterogeneous enhancement on the delayed imaging involving the posterior aspect of the right lobe of the liver and the gallbladder fossa. This is felt to be inflammatory in etiology. No definite drainable abscess collection is seen. Note is made of a drainage catheter in place adjacent to the right lobe of the liver. 2. 6.4 x 5.6 cm cystic abnormality within the spleen. This appears to be purely cystic by MR. 3. Bilateral pleural effusions small on the left and moderate in size on the right. There is considerable atelectasis of the right lung as well. Chris Dejesus MD Abdomen/Pelvis CT 09/03/16 0000 Signed Impressions: Service Date/Time: Saturday, September 03, 2016 22:09 - CONCLUSION: 1. Perihepatic drain without residual fluid around the drain. 2. Masslike area of low density involving segment 6 of the liver adjacent to the drain. I have no priors to compare. Differential diagnostic considerations would include a mass of both benign and malignant potential as well as an infectious process. No discrete intrahepatic abscess currently seen. 3. Circumferential wall thickening and stranding in the adjacent fat involving the rectosigmoid colon as detailed above. The appearance is more typical of an inflammatory or infectious process. 4. Approximate 2 cm pocket of fluid and air within the gallbladder fossa. Although this could relate to more focal ascitic fluid I cannot exclude a developing abscess. It is currently too small for percutaneous access. 5. Bilateral pleural effusions and associated atelectasis. 6. 6.7 cm nonspecific low density mass involving the spleen. 7. Tiny focus of air within the lumen of the urinary bladder. Although this could relate to recent instrumentation an infection with gas producing organisms can have a similar appearance. 8. Nonobstructing right renal stone. Moshe Goyal Jr., MD Objective Remarks GENERAL: This is a well-nourished, well-developed patient, in no apparent distress. CARDIOVASCULAR: irregular rhythm without murmurs, gallops, or rubs. RESPIRATORY: Clear to auscultation. Breath sounds equal bilaterally. No wheezes , rales, or rhonchi. GASTROINTESTINAL: Abdomen soft,mild diffuse lower abdomen tenderness, nondistended. drain removed. Normal, active bowel sounds MUSCULOSKELETAL: Extremities without clubbing, cyanosis, or edema. NEURO: Alert & Oriented x4 to person, place, time, situation. Moves all ext x4 Procedures none Medications and IVs Current Medications Medications (Trade) Dose Ordered Sig/Cash Route Start Time Stop Time Status Last Admin (Cardizem Inj/NS Inj) 125 ml @ 0 mls/hr TITRATE IV 08/26/16 06:15 08/27/16 16:45 (D50w (Vial) Inj) 25 ml UNSCH PRN IV PUSH 08/26/16 09:00 (Glucagon Inj) 1 mg UNSCH PRN OTHER 08/26/16 09:00 (Lexapro) 10 mg DAILY PO 08/27/16 09:00 09/10/16 09:01 (Lasix) 40 mg DAILY PO 08/27/16 09:00 09/10/16 09:01 (Remeron) 15 mg HS PO 08/26/16 21:00 09/09/16 21:38 (Desyrel) 100 mg HS PO 08/26/16 21:00 09/09/16 21:37 (Pepcid) 40 mg HS PO 08/26/16 21:00 09/09/16 21:38 (Doswell 5-325 Mg) 1 tab Q4H PRN PO 08/27/16 12:15 09/09/16 11:44 (Cardizem) 60 mg Q6H PO 08/30/16 15:00 09/10/16 09:01 (Lopressor) 75 mg BID PO 08/31/16 21:00 09/10/16 09:02 (Eliquis) 5 mg BID PO 08/31/16 21:00 09/10/16 09:01 (Pill Splitter) 1 ea UNSCH PRN OTHER 08/31/16 10:30 (Prinivil) 10 mg DAILY PO 09/04/16 11:15 09/10/16 09:01 (Megace Liq) 400 mg DAILY PO 09/07/16 11:15 09/10/16 09:01 (VANCOMYCIN for oral use only) 500 mg QID PO 09/10/16 13:00 09/10/16 12:05 Urinary Catheter: No Vascular Central Line Catheter: No A/P Problem List: (1) C. difficile colitis ICD Code: A04.7 Status: Acute (2) Perihepatic abscess ICD Code: K65.0 Status: Acute (3) Rapid atrial fibrillation ICD Code: I48.91 Status: Acute (4) UTI (urinary tract infection) ICD Code: N39.0 Status: Acute (5) Cardiomyopathy ICD Code: I42.9 Status: Acute (6) Hypokalemia ICD Code: E87.6 Status: Acute (7) Chronic systolic heart failure ICD Code: I50.22 Status: Acute (8) Diabetes mellitus, type 2 ICD Code: E11.9 Status: Acute (9) Poor appetite ICD Code: R63.0 Status: Acute (10) Leukocytosis ICD Code: D72.829 Status: Acute Plan: Patient has worsening leukocytosis. Chest x-ray showed a small right pleural effusion and increased airspace disease in the left lower lobe. Urinalysis pending. Continue to monitor WBC. Assessment and Plan (1) C. difficile colitis Plan: Diarrhea still present and persistent. Positive for 027 strain Appreciate ID recommendations. Antibiotics as per infectious disease. Flagyl was discontinued on 09/04/16 and the patient was started on oral vancomycin 125 mg 4 times a day. Continue to monitor stool output. Continue rectal tube. 09/10 Patient still with large stool output. Discussed the case with Dr. Peña from infectious disease, as per her recommendations I will increase the dose of oral vancomycin to 500 mg by mouth every 6 hours. If there is no improvement after output and leukocytosis then the patient will likely need vancomycin enemas and a CT scan of the abdomen and pelvis. (2) Perihepatic abscess Plan: Status post drainage with drain present in right upper quadrant. CT abdomen and pelvis as described above shows perihepatic drain without residual fluid around the drain. Masslike area of low density involving segment 6 of the liver adjacent to the drain. No discrete intrahepatic abscess currently seen. Approximately 2 cm pocket of fluid and air within the gallbladder fossa. Bilateral pleural effusions and associated atelectasis. 6.7 cm nonspecific low density mass involving the spleen. Tiny focus of air within the lumen of the urinary bladder. Gen. surgery consulted and following. 09/05 MRI of the abdomen ordered and described above. No discrete mass seen. Also no drainable collection seen. 09/06 perihepatic drain removed by GS. Patient on regular diet. 09/07 GS signed off. (3) Rapid atrial fibrillation Plan: Heart rate is rate controlled. TSH elevated at 5.2 however free T4 normal at 1.27 likely euthyroid sick syndrome. Continue apixaban Continue metoprolol and Cardizem. Cardiology consulted and following. (4) UTI (urinary tract infection) Plan: Status post treatment with IV antibiotics. Patient had been on IV Zosyn and IV Rocephin. (5) Cardiomyopathy Plan: Cardiology consulted and following. Echocardiogram showed a moderately reduced systolic function. Estimated EF was in the range of 40-45% with diffuse hypokinesis. Left atrium was moderately dilated and right ventricle mildly dilated. Continue furosemide, beta shawn, I will add an PARKER inhibitor. (6) Hypokalemia Plan: Likely due to GI loss secondary to diarrhea. / Resolved. Continue to monitor bmp and replace as needed. (7) Chronic systolic heart failure Plan: Echocardiogram with EF of 40-45%. Bilateral pleural effusions found in CT scan. Continue furosemide, beta shawn, I will add PARKER inhibitor. (8) Diabetes mellitus, type 2 Plan: Insulin-dependent diabetes type 2. Blood sugar stable on SSI with insulin NovoLog. (9) Poor appetite Plan: Diet consulted. Continue megace - better Dietitian also recommended a 2000 calorie ADA diet and Glucerna shakes TID. GI prophylaxis: On Pepcid. DVT prophylaxis: Continue SCDs and patient is on Apixaban. Discharge Planning Continue to monitor in the medical floor. Pending clinical improvement. Problem Qualifiers (1) UTI (urinary tract infection): (2) Cardiomyopathy: Qualified Code: I42.9 - Cardiomyopathy, unspecified type (3) Diabetes mellitus, type 2: Qualified Code: E11.8 - Type 2 diabetes mellitus with complication, with long- term current use of insulin (4) Leukocytosis: Qualified Code: D72.829 - Leukocytosis, unspecified type Amanuel Newman MD Sep 10, 2016 10:45
[2016-09-10 13:51] LABS: BLOOD, URINE SMALL (NEG); COMMENT (UR) CULT NOT INDICATED; CULTURE IF INDICATED CULT NOT INDICATED; GLUCOSE,URINE NEG (NEG); KETONE, URINE NEG (NEG); MUCUS URINE FEW /lpf (OCC); NITRITE,URINE NEG (NEG); PH, URINE 5.5 (5.0-8.5); URINE COLOR YELLOW (YELLW/STRAW)
[2016-09-10] MEDS: MIRTAZAPINE 15 MG TAB PO SCH (20:50)
[2016-09-10] MEDS: FAMOTIDINE 20 MG TAB PO SCH (20:51)
--- NOTE | 2016-09-10 22:20 | HHI.IDPN ---
Subjective Subjective Remarks Delayed entry - pt was seen earlier today around 1600 afebrile cont to have diarhea 3-4 BMs/day Biliary draine was removed WBC going up Antibiotics vanco po Allergies: Coded Allergies: *MDRO Multi-Drug Resistant Organism (Verified Adverse Reaction, Unknown, ) MDR-Enterobacter Cloacae (urine)-08/26/16 Objective . Vital Signs Date Time Temp Pulse Resp B/P Pulse Ox O2 Delivery O2 Flow Rate FiO2 09/10/16 21:31 92 Nasal Cannula 2.00 09/10/16 19:55 98.2 78 18 102/66 93 09/10/16 16:00 97.0 85 18 117/74 94 09/10/16 12:00 97.2 66 18 103/59 97 09/10/16 10:45 2.00 09/10/16 09:00 Nasal Cannula 2.00 09/10/16 08:00 98.3 82 18 107/70 92 09/10/16 08:00 91 09/10/16 04:00 97.8 95 20 120/89 91 09/10/16 00:00 97.6 86 20 122/64 90 09/09/16 09/09/16 09/10/16 15:00 23:00 07:00 Intake Total 360 ml 480 ml 120 ml Output Total 100 ml Balance 260 ml 480 ml 120 ml Intake Oral 360 ml 480 ml 120 ml Stool Total 100 ml # Voids 2 0 1 # Bowel Movements 0 . Laboratory Tests Test 09/09/16 09/10/16 06:19 06:53 White Blood Count 12.9 TH/MM3 16.2 TH/MM3 Red Blood Count 3.69 MIL/MM3 3.74 MIL/MM3 Hemoglobin 11.3 GM/DL 11.3 GM/DL Hematocrit 34.7 % 35.3 % Mean Corpuscular Volume 93.9 FL 94.2 FL Mean Corpuscular Hemoglobin 30.7 PG 30.3 PG Mean Corpuscular Hemoglobin 32.7 % 32.2 % Concent Red Cell Distribution Width 18.7 % 18.6 % Platelet Count 316 TH/MM3 294 TH/MM3 Mean Platelet Volume 8.8 FL 8.2 FL Neutrophils (%) (Auto) 85.1 % 88.2 % Lymphocytes (%) (Auto) 7.7 % 6.0 % Monocytes (%) (Auto) 5.8 % 4.8 % Eosinophils (%) (Auto) 0.9 % 0.7 % Basophils (%) (Auto) 0.5 % 0.3 % Neutrophils # (Auto) 10.9 TH/MM3 14.3 TH/MM3 Lymphocytes # (Auto) 1.0 TH/MM3 1.0 TH/MM3 Monocytes # (Auto) 0.7 TH/MM3 0.8 TH/MM3 Eosinophils # (Auto) 0.1 TH/MM3 0.1 TH/MM3 Basophils # (Auto) 0.1 TH/MM3 0.1 TH/MM3 CBC Comment DIFF FINAL DIFF FINAL Differential Comment Laboratory Tests Test 09/09/16 09/10/16 06:19 06:53 Sodium Level 139 MEQ/L 142 MEQ/L Potassium Level 4.4 MEQ/L 3.8 MEQ/L Chloride Level 99 MEQ/L 101 MEQ/L Carbon Dioxide Level 32.8 MEQ/L 34.2 MEQ/L Anion Gap 7 MEQ/L 7 MEQ/L Blood Urea Nitrogen 15 MG/DL 14 MG/DL Creatinine 0.89 MG/DL 0.85 MG/DL Estimat Glomerular Filtration 82 ML/MIN 86 ML/MIN Rate Random Glucose 107 MG/DL 124 MG/DL Calcium Level 8.5 MG/DL 8.7 MG/DL Phosphorus Level 3.0 MG/DL Magnesium Level 2.0 MG/DL Total Bilirubin 0.3 MG/DL Aspartate Amino Transf 27 U/L (AST/SGOT) Alanine Aminotransferase 12 U/L (ALT/SGPT) Alkaline Phosphatase 59 U/L Total Protein 6.3 GM/DL Albumin 2.1 GM/DL Imaging Last Impressions Chest X-Ray 09/10/16 0000 Signed Impressions: Service Date/Time: Saturday, September 10, 2016 09:11 - CONCLUSION: Small right effusion increased airspace disease in the left lower lobe identified. Mauricio Stanton MD Abdomen MRI 09/05/16 0000 Signed Impressions: Service Date/Time: Monday, September 05, 2016 08:47 - CONCLUSION: 1. No defined mass is seen within the liver. There is some subtle heterogeneous enhancement on the delayed imaging involving the posterior aspect of the right lobe of the liver and the gallbladder fossa. This is felt to be inflammatory in etiology. No definite drainable abscess collection is seen. Note is made of a drainage catheter in place adjacent to the right lobe of the liver. 2. 6.4 x 5.6 cm cystic abnormality within the spleen. This appears to be purely cystic by MR. 3. Bilateral pleural effusions small on the left and moderate in size on the right. There is considerable atelectasis of the right lung as well. Chris Dejesus MD Abdomen/Pelvis CT 09/03/16 0000 Signed Impressions: Service Date/Time: Saturday, September 03, 2016 22:09 - CONCLUSION: 1. Perihepatic drain without residual fluid around the drain. 2. Masslike area of low density involving segment 6 of the liver adjacent to the drain. I have no priors to compare. Differential diagnostic considerations would include a mass of both benign and malignant potential as well as an infectious process. No discrete intrahepatic abscess currently seen. 3. Circumferential wall thickening and stranding in the adjacent fat involving the rectosigmoid colon as detailed above. The appearance is more typical of an inflammatory or infectious process. 4. Approximate 2 cm pocket of fluid and air within the gallbladder fossa. Although this could relate to more focal ascitic fluid I cannot exclude a developing abscess. It is currently too small for percutaneous access. 5. Bilateral pleural effusions and associated atelectasis. 6. 6.7 cm nonspecific low density mass involving the spleen. 7. Tiny focus of air within the lumen of the urinary bladder. Although this could relate to recent instrumentation an infection with gas producing organisms can have a similar appearance. 8. Nonobstructing right renal stone. Moshe Goyal Jr., MD Physical Exam CONSTITUTIONAL/GENERAL: This is an obese elderlyshed patient, in no apparent distress. TUBES/LINES/DRAINS: SKIN: No jaundice, rashes, or lesions. Skin temperature appropriate. Not diaphoretic. EYES: Pupils equal and round and reactive. Extraocular motions intact. No scleral icterus. No injection or drainage. Fundi not examined. CARDIOVASCULAR: Irregular rate and rhythm without murmurs, gallops, or rubs. No JVD. Peripheral pulses symmetric. RESPIRATORY/CHEST: Symmetric, unlabored respirations. Clear to auscultation. Breath sounds equal bilaterally. No wheezes, rales, or rhonchi. GASTROINTESTINAL: Abdomen soft,very mildly tender to palpation RLQ/LLQ, minimally distended. No hepato-splenomegaly, or palpable masses. No guarding. Bowel sounds present. GENITOURINARY: Without palpable bladder distension. Tillman catheter in place. MUSCULOSKELETAL: Extremities without clubbing, cyanosis, or edema. No joint tenderness or effusion noted. No calf tenderness. No mottling or clubbing. LYMPHATICS: No palpable cervical or supraclavicular adenopathy. NEUROLOGICAL: Awake and alert. Non focal Assessment & Plan Remarks C.diff , hypervirulent strain -worsening Mild lyeucytois Perihepatic abscess sp biliary drain (removed) Worsening leukocytosis -resume flagyl iv - cont po vancomycin will repeat CT A/P if worse/ failure to improve Madelaine Peña MD Sep 10, 2016 22:20
[2016-09-10] MEDS: traZODone HCL 100 MG TAB PO SCH (23:00)
[2016-09-11] VITALS (7 sets, daily range): BP systolic 93–192; BP diastolic 50–82; PULSE 71–95; RESP 16–20; TEMP 97–99.6; O2SAT 92–97
[2016-09-11] MEDS: DILTIAZEM HCL 60 MG TAB PO SCH ×4 (03:51→21:34)
[2016-09-11] MEDS: INSULIN ASPART SUPPLEMENTAL SCALE SQ SCH ×4 (05:19→21:35)
[2016-09-11] MEDS: ESCITALOPRAM OXALATE 10 MG TAB PO SCH (08:26)
[2016-09-11] MEDS: METOPROLOL TARTRATE 50 MG TAB PO SCH ×2 (08:26→21:34)
[2016-09-11] MEDS: VANCOMYCIN 500 MG VIAL (FOR ORAL USE ONLY) PO SCH ×4 (08:26→21:33)
[2016-09-11] MEDS: APIXABAN 5 MG TABLET PO SCH ×2 (08:26→21:34)
[2016-09-11] MEDS: LISINOPRIL 10 MG TAB PO SCH (08:27)
[2016-09-11] MEDS: MEGESTROL ACETATE SUSP 400 MG/10 ML CUP PO SCH (08:27)
[2016-09-11] MEDS: FUROSEMIDE 40 MG TAB PO SCH (08:27)
[2016-09-11 13:38] LABS: AUTOMATED NEUTROPHIL # 17.1 TH/MM3 (1.8-7.7); BASOPHIL # 0.2 TH/MM3 (0-0.2); BASOPHIL % 1.3 % (0.0-2.0); EOSINOPHIL # 0.1 TH/MM3 (0-0.4); EOSINOPHIL % 0.3 % (0.0-4.0); HEMATOCRIT 35.3 % (39.0-51.0); HEMO FLAGS DIFF FINAL; LYMPH % 4.1 % (9.0-44.0); LYMPHOCYTE # 0.8 TH/MM3 (1.0-4.8); MEAN CELL VOLUME 94.5 FL (80.0-100.0); MEAN CORPUSCULAR HEMOGLOBIN 29.7 PG (27.0-34.0); MEAN CORPUSCULAR HGB CONC 31.4 % (32.0-36.0); MONO % 5.2 % (0.0-8.0); NEUT % 89.1 % (16.0-70.0); PLATELET COUNT 316 TH/MM3 (150-450); RED BLOOD COUNT 3.73 MIL/MM3 (4.50-5.90); RED CELL DISTRIBUTION WIDTH 18.8 % (11.6-17.2); WHITE BLOOD COUNT 19.2 TH/MM3 (4.0-11.0)
[2016-09-11 14:08] LABS: ANION GAP 4 MEQ/L (5-15); AST (GOT) 11 U/L (15-37); BICARBONATE 37.9 MEQ/L (21.0-32.0); BLOOD UREA NITROGEN 15 MG/DL (7-18); CHLORIDE 97 MEQ/L (98-107); GLOMERULAR FILTRATION RATE 76 ML/MIN (>89); POTASSIUM 3.5 MEQ/L (3.5-5.1); SODIUM (NA) 139 MEQ/L (136-145)
[2016-09-11 14:11] LABS: ALKALINE PHOSPHATASE 61 U/L (45-117); ALT (GPT) 13 U/L (12-78); TOTAL BILIRUBIN ADULT 0.2 MG/DL (0.2-1.0)
[2016-09-11] MEDS ORDERED: SODIUM CHLOR 0.9% 250 ML INJ 250 ML IV ONE (16:00)
--- NOTE | 2016-09-11 16:06 | HHI.PR ---
Subjective Remarks Patient still has large stool output denies cp/sob wbc trending up denies nausea, abdominal pain Objective Vitals Vital Signs Date Time Temp Pulse Resp B/P Pulse Ox O2 Delivery O2 Flow Rate FiO2 09/11/16 13:13 94 Nasal Cannula 2.00 09/11/16 12:00 97.4 75 18 93/50 94 09/11/16 08:30 Nasal Cannula 2.00 09/11/16 08:00 97.2 88 18 135/72 97 09/11/16 03:27 98.7 95 18 123/68 92 09/10/16 23:10 98.7 64 18 121/61 92 09/10/16 21:31 92 Nasal Cannula 2.00 09/10/16 21:00 Nasal Cannula 2.00 09/10/16 20:00 84 09/10/16 19:55 98.2 78 18 102/66 93 09/10/16 16:00 97.0 85 18 117/74 94 I/O 09/10/16 09/10/16 09/10/16 09/11/16 09/11/16 09/11/16 07:00 15:00 23:00 07:00 15:00 23:00 Intake Total 120 ml 360 ml 240 ml 0 ml Output Total 800 ml 100 ml 770 ml Balance 120 ml -440 ml 140 ml -770 ml Intake Oral 120 ml 360 ml 240 ml 0 ml Output Urine Total 800 ml 100 ml 150 ml Stool Total 0 ml 620 ml # Voids 1 # Bowel Movements 1 0 Result Diagram: 09/11/16 1315 09/11/16 1315 Imaging Last Impressions Chest X-Ray 09/10/16 0000 Signed Impressions: Service Date/Time: Saturday, September 10, 2016 09:11 - CONCLUSION: Small right effusion increased airspace disease in the left lower lobe identified. Mauricio Stanton MD Abdomen MRI 09/05/16 0000 Signed Impressions: Service Date/Time: Monday, September 05, 2016 08:47 - CONCLUSION: 1. No defined mass is seen within the liver. There is some subtle heterogeneous enhancement on the delayed imaging involving the posterior aspect of the right lobe of the liver and the gallbladder fossa. This is felt to be inflammatory in etiology. No definite drainable abscess collection is seen. Note is made of a drainage catheter in place adjacent to the right lobe of the liver. 2. 6.4 x 5.6 cm cystic abnormality within the spleen. This appears to be purely cystic by MR. 3. Bilateral pleural effusions small on the left and moderate in size on the right. There is considerable atelectasis of the right lung as well. Chris Dejesus MD Abdomen/Pelvis CT 09/03/16 0000 Signed Impressions: Service Date/Time: Saturday, September 03, 2016 22:09 - CONCLUSION: 1. Perihepatic drain without residual fluid around the drain. 2. Masslike area of low density involving segment 6 of the liver adjacent to the drain. I have no priors to compare. Differential diagnostic considerations would include a mass of both benign and malignant potential as well as an infectious process. No discrete intrahepatic abscess currently seen. 3. Circumferential wall thickening and stranding in the adjacent fat involving the rectosigmoid colon as detailed above. The appearance is more typical of an inflammatory or infectious process. 4. Approximate 2 cm pocket of fluid and air within the gallbladder fossa. Although this could relate to more focal ascitic fluid I cannot exclude a developing abscess. It is currently too small for percutaneous access. 5. Bilateral pleural effusions and associated atelectasis. 6. 6.7 cm nonspecific low density mass involving the spleen. 7. Tiny focus of air within the lumen of the urinary bladder. Although this could relate to recent instrumentation an infection with gas producing organisms can have a similar appearance. 8. Nonobstructing right renal stone. Moshe Goyal Jr., MD Objective Remarks GENERAL: This is a well-nourished, well-developed patient, in no apparent distress, lying in bed. CARDIOVASCULAR: irregular rhythm without murmurs, gallops, or rubs. RESPIRATORY: Clear to auscultation. Breath sounds equal bilaterally. No wheezes , rales, or rhonchi. GASTROINTESTINAL: Abdomen soft,mild diffuse lower abdomen tenderness, nondistended. drain removed. Normal, active bowel sounds MUSCULOSKELETAL: Extremities without clubbing, cyanosis, or edema. NEURO: Alert & Oriented x4 to person, place, time, situation. Muscle strength 3/5 in all extremities. Procedures none Medications and IVs Current Medications Medications (Trade) Dose Ordered Sig/Cash Route Start Time Stop Time Status Last Admin (Cardizem Inj/NS Inj) 125 ml @ 0 mls/hr TITRATE IV 08/26/16 06:15 08/27/16 16:45 (D50w (Vial) Inj) 25 ml UNSCH PRN IV PUSH 08/26/16 09:00 (Glucagon Inj) 1 mg UNSCH PRN OTHER 08/26/16 09:00 (Lexapro) 10 mg DAILY PO 08/27/16 09:00 09/11/16 08:26 (Lasix) 40 mg DAILY PO 08/27/16 09:00 09/11/16 08:27 (Remeron) 15 mg HS PO 08/26/16 21:00 09/10/16 20:50 (Desyrel) 100 mg HS PO 08/26/16 21:00 09/10/16 23:00 (Pepcid) 40 mg HS PO 08/26/16 21:00 09/10/16 20:51 ([place] 5-325 Mg) 1 tab Q4H PRN PO 08/27/16 12:15 09/09/16 11:44 (Cardizem) 60 mg Q6H PO 08/30/16 15:00 09/11/16 08:27 (Lopressor) 75 mg BID PO 08/31/16 21:00 09/11/16 08:26 (Eliquis) 5 mg BID PO 08/31/16 21:00 09/11/16 08:26 (Pill Splitter) 1 ea UNSCH PRN OTHER 08/31/16 10:30 (Prinivil) 10 mg DAILY PO 09/04/16 11:15 09/11/16 08:27 (Megace Liq) 400 mg DAILY PO 09/07/16 11:15 09/11/16 08:27 (VANCOMYCIN for oral use only) 500 mg QID PO 09/10/16 13:00 09/11/16 12:08 A/P Problem List: (1) C. difficile colitis ICD Code: A04.7 Status: Acute (2) Perihepatic abscess ICD Code: K65.0 Status: Acute (3) Rapid atrial fibrillation ICD Code: I48.91 Status: Acute (4) UTI (urinary tract infection) ICD Code: N39.0 Status: Acute (5) Cardiomyopathy ICD Code: I42.9 Status: Acute (6) Hypokalemia ICD Code: E87.6 Status: Acute (7) Chronic systolic heart failure ICD Code: I50.22 Status: Acute (8) Diabetes mellitus, type 2 ICD Code: E11.9 Status: Acute (9) Poor appetite ICD Code: R63.0 Status: Acute (10) Leukocytosis ICD Code: D72.829 Status: Acute Plan: Patient has worsening leukocytosis and trending up 11.6 - 12.9 - 16.2 - 19.2. Chest x-ray showed a small right pleural effusion and increased airspace disease in the left lower lobe. UA negative. Will follow up ID recommendations. Assessment and Plan (1) C. difficile colitis Plan: Diarrhea still present and persistent. Positive for 027 strain Appreciate ID recommendations. Antibiotics as per infectious disease. Flagyl was discontinued on 09/04/16 and the patient was started on oral vancomycin 125 mg 4 times a day. Continue to monitor stool output. Continue rectal tube. 09/11 patient case was discussed with Dr. Peña. Patient's oral dose of vancomycin increased to 500 mg by mouth every 6 hours and IV Flagyl resumed as per ID. Leukocytosis worsening. Follow-up ID recommendations. (2) Perihepatic abscess Plan: Status post drainage with drain present in right upper quadrant. CT abdomen and pelvis as described above shows perihepatic drain without residual fluid around the drain. Masslike area of low density involving segment 6 of the liver adjacent to the drain. No discrete intrahepatic abscess currently seen. Approximately 2 cm pocket of fluid and air within the gallbladder fossa. Bilateral pleural effusions and associated atelectasis. 6.7 cm nonspecific low density mass involving the spleen. Tiny focus of air within the lumen of the urinary bladder. Gen. surgery consulted and following. 09/05 MRI of the abdomen ordered and described above. No discrete mass seen. Also no drainable collection seen. 09/06 perihepatic drain removed by GS. Patient on regular diet. 09/07 GS signed off. (3) Rapid atrial fibrillation Plan: Heart rate is rate controlled. TSH elevated at 5.2 however free T4 normal at 1.27 likely euthyroid sick syndrome. Continue apixaban Continue metoprolol and Cardizem. Cardiology consulted and following. (4) UTI (urinary tract infection) Plan: Status post treatment with IV antibiotics. Patient had been on IV Zosyn and IV Rocephin. 09/11 repeat urinalysis obtained on 09/10/16 negative. (5) Cardiomyopathy Plan: Cardiology consulted and following. Echocardiogram showed a moderately reduced systolic function. Estimated EF was in the range of 40-45% with diffuse hypokinesis. Left atrium was moderately dilated and right ventricle mildly dilated. Continue furosemide, beta shawn, I will add an PARKER inhibitor. (6) Hypokalemia Plan: Likely due to GI loss secondary to diarrhea. 09/09 Resolved. Continue to monitor bmp and replace as needed. (7) Chronic systolic heart failure Plan: Echocardiogram with EF of 40-45%. Bilateral pleural effusions found in CT scan. Continue furosemide, beta shawn, I will add PARKER inhibitor. (8) Diabetes mellitus, type 2 Plan: Insulin-dependent diabetes type 2. Patient has labile blood sugars with blood sugars in the 200's and then in the 120's. Continue SSI. (9) Poor appetite Plan: Diet consulted. Continue megace - better Dietitian also recommended a 2000 calorie ADA diet and Glucerna shakes TID. GI prophylaxis: On Pepcid. DVT prophylaxis: Continue SCDs and patient is on Apixaban. Discharge Planning Continue to monitor in the medical floor. Pending clinical improvement. Problem Qualifiers (1) UTI (urinary tract infection): (2) Cardiomyopathy: Qualified Code: I42.9 - Cardiomyopathy, unspecified type (3) Diabetes mellitus, type 2: Qualified Code: E11.8 - Type 2 diabetes mellitus with complication, with long- term current use of insulin (4) Leukocytosis: Qualified Code: D72.829 - Leukocytosis, unspecified type Amanuel Newman MD Sep 11, 2016 16:06
[2016-09-11] MEDS: metroNIDAZOLE 500 MG INJ 100 ML IV SCH (16:39)
[2016-09-11] MEDS: traZODone HCL 100 MG TAB PO SCH (21:34)
[2016-09-11] MEDS: FAMOTIDINE 20 MG TAB PO SCH (21:34)
[2016-09-11] MEDS: MIRTAZAPINE 15 MG TAB PO SCH (21:34)
[2016-09-12] VITALS (8 sets, daily range): BP systolic 96–131; BP diastolic 57–65; PULSE 20–100; RESP 16–23; TEMP 98.1–98.6; O2SAT 90–95
[2016-09-12] MEDS: metroNIDAZOLE 500 MG INJ 100 ML IV SCH ×3 (01:37→17:14)
[2016-09-12] MEDS: DILTIAZEM HCL 60 MG TAB PO SCH ×4 (03:13→21:09)
[2016-09-12] MEDS: INSULIN ASPART SUPPLEMENTAL SCALE SQ SCH ×4 (05:39→21:10)
[2016-09-12] MEDS: VANCOMYCIN 500 MG VIAL (FOR ORAL USE ONLY) PO SCH ×4 (09:28→21:09)
[2016-09-12] MEDS: ESCITALOPRAM OXALATE 10 MG TAB PO SCH (09:29)
[2016-09-12] MEDS: MEGESTROL ACETATE SUSP 400 MG/10 ML CUP PO SCH (09:29)
[2016-09-12] MEDS: APIXABAN 5 MG TABLET PO SCH ×2 (09:29→21:08)
[2016-09-12] MEDS: FUROSEMIDE 40 MG TAB PO SCH (09:29)
[2016-09-12] MEDS: METOPROLOL TARTRATE 50 MG TAB PO SCH ×2 (09:29→21:09)
[2016-09-12 10:06] LABS: AUTOMATED NEUTROPHIL # 15.7 TH/MM3 (1.8-7.7); BASOPHIL # 0.1 TH/MM3 (0-0.2); BASOPHIL % 0.5 % (0.0-2.0); EOSINOPHIL # 0.1 TH/MM3 (0-0.4); EOSINOPHIL % 0.4 % (0.0-4.0); HEMATOCRIT 32.8 % (39.0-51.0); HEMO FLAGS DIFF FINAL; LYMPH % 4.6 % (9.0-44.0); LYMPHOCYTE # 0.8 TH/MM3 (1.0-4.8); MEAN CELL VOLUME 94.3 FL (80.0-100.0); MEAN CORPUSCULAR HEMOGLOBIN 30.8 PG (27.0-34.0); MEAN CORPUSCULAR HGB CONC 32.6 % (32.0-36.0); MONO % 5.7 % (0.0-8.0); NEUT % 88.8 % (16.0-70.0); PLATELET COUNT 298 TH/MM3 (150-450); RED BLOOD COUNT 3.48 MIL/MM3 (4.50-5.90); RED CELL DISTRIBUTION WIDTH 18.4 % (11.6-17.2); WHITE BLOOD COUNT 17.7 TH/MM3 (4.0-11.0)
[2016-09-12 10:38] LABS: ALKALINE PHOSPHATASE 84 U/L (45-117); ALT (GPT) 11 U/L (12-78); ANION GAP 5 MEQ/L (5-15); AST (GOT) 13 U/L (15-37); BICARBONATE 37.6 MEQ/L (21.0-32.0); BLOOD UREA NITROGEN 12 MG/DL (7-18); CHLORIDE 97 MEQ/L (98-107); GLOMERULAR FILTRATION RATE 78 ML/MIN (>89); MAGNESIUM 2.1 MG/DL (1.5-2.5); POTASSIUM 3.6 MEQ/L (3.5-5.1); SODIUM (NA) 140 MEQ/L (136-145); TOTAL BILIRUBIN ADULT 0.3 MG/DL (0.2-1.0)
--- NOTE | 2016-09-12 15:18 | HHI.PR ---
Subjective Remarks f/u for C Diff. patient stated diarrhea improving. Denied any abdominal pain. He was sleeping but able to tell me name and location. otherwise no other complaints. Objective Vitals Vital Signs Date Time Temp Pulse Resp B/P Pulse Ox O2 Delivery O2 Flow Rate FiO2 09/12/16 12:00 98.1 92 18 103/60 94 09/12/16 10:34 93 Nasal Cannula 2.00 09/12/16 09:00 Nasal Cannula 2.00 09/12/16 08:29 100 09/12/16 08:00 98.6 92 18 107/65 93 09/12/16 04:00 98.1 78 23 131/65 95 09/11/16 23:54 99.6 83 20 111/57 94 09/11/16 20:15 Nasal Cannula 2.00 09/11/16 20:00 87 09/11/16 20:00 97.9 89 16 122/73 97 09/11/16 16:00 98.0 71 18 120/77 97 I/O 09/11/16 09/11/16 09/11/16 09/12/16 09/12/16 09/12/16 07:00 15:00 23:00 07:00 15:00 23:00 Intake Total 0 ml 480 ml 480 ml 340 ml Output Total 770 ml Balance -770 ml 480 ml 480 ml 340 ml Intake Oral 0 ml 480 ml 240 ml 240 ml Oral Supplement 240 ml IV Total 100 ml Output Urine Total 150 ml Stool Total 620 ml # Voids 0 0 1 # Bowel Movements 0 0 Result Diagram: 09/12/16 0904 09/12/16 0904 Objective Remarks GENERAL: in NAD CARDIOVASCULAR: Regular rate and rhythm without murmurs, gallops, or rubs. RESPIRATORY: Breath sounds equal bilaterally. No accessory muscle use. GASTROINTESTINAL: Abdomen soft, non-tender, nondistended. Procedures none Medications and IVs Current Medications Sodium Chloride 1,000 ml @ 70 mls/hr [id number] IV Last administered on 09/06/16 17:30; Start 08/26/16 at 06:15; Stop 09/06/16 at 19:00; Status DC Diltiazem HCl/ Sodium Chloride (Cardizem Inj/NS Inj) 125 ml @ 0 mls/hr TITRATE IV Last administered on 08/27/16 16:45; Start 08/26/16 at 06:15; Stop at 16:00; Status DC Diltiazem HCl 20 mg 20 mg BOLUS ONCE IV PUSH Last administered on 08/26/16 06 :37; Start 08/26/16 at 06:15; Stop 08/26/16 at 06:16; Status DC Piperacillin Sod/ Tazobactam Sod (Zosyn 4.5 Gm Premix) 100 ml @ 200 mls/hr ONCE STAT IV Last administered on 08/26/16 07:39; Start 08/26/16 at 07:39; Stop 08/26/16 at 08:08; Status DC Dextrose (D50w (Vial) Inj) 25 ml UNSCH PRN IV PUSH HYPOGLYCEMIA-SEE COMMENTS; Start 08/26/16 at 09:00 Glucagon (Glucagon Inj) 1 mg UNSCH PRN OTHER HYPOGLYCEMIA-SEE COMMENTS; Start 08/26/16 at 09:00 Insulin Aspart 1 1 ACHS SLIDING SCALE SQ Last administered on 09/12/16 13:15 ; Start 08/26/16 at 11:00 Ceftriaxone Sodium/Sodium Chloride (Rocephin Inj/NS Inj) 100 ml @ 200 mls/hr Q24H IV Last administered on 08/29/16 08:33; Start 08/26/16 at 09:00; Stop at 11:46; Status DC Diltiazem HCl (Cardizem) 60 mg TID PO Last administered on 08/30/16 08:54; Start 08/26/16 at 13:00; Stop 08/30/16 at 11:02; Status DC Escitalopram Oxalate (Lexapro) 10 mg DAILY PO Last administered on 09/12/16 09 :29; Start 08/27/16 at 09:00 Furosemide (Lasix) 40 mg DAILY PO Last administered on 09/12/16 09:29; Start 08/27/16 at 09:00 Mirtazapine (Remeron) 15 mg HS PO Last administered on 09/11/16 21:34; Start 08/26/16 at 21:00 Trazodone HCl (Desyrel) 100 mg HS PO Last administered on 09/11/16 21:34; Start 08/26/16 at 21:00 Famotidine (Pepcid) 40 mg HS PO Last administered on 09/11/16 21:34; Start at 21:00 Acetaminophen/ Hydrocodone Bitart ([place] 5-325 Mg) 1 tab Q4H PRN PO PAIN 3-10 Last administered on 09/09/16 11:44; Start 08/27/16 at 12:15 Metoprolol Tartrate (Lopressor) 50 mg BID PO ; Start 08/27/16 at 13:00; Stop at 13:00; Status DC Metoprolol Tartrate 50 mg 50 mg BID PO Last administered on 08/31/16 08:32; Start 08/27/16 at 13:00; Stop 08/31/16 at 10:21; Status DC Piperacillin Sod/ Tazobactam Sod (Zosyn 3.375 Gm Premix) 50 ml @ 100 mls/hr Q6H IV Last administered on 09/01/16 08:00; Start 08/29/16 at 14:00; Stop at 09:20; Status DC Metoprolol Tartrate (Lopressor) 25 mg ONCE ONCE PO Last administered on 04:56; Start 08/30/16 at 04:00; Stop 08/30/16 at 04:01; Status DC Diltiazem HCl (Cardizem) 60 mg Q6H PO Last administered on 09/12/16 09:29; Start 08/30/16 at 15:00 Metoprolol Tartrate (Lopressor) 75 mg BID PO Last administered on 09/12/16 09: 29; Start 08/31/16 at 21:00 Metoprolol Tartrate (Lopressor) 25 mg ONCE ONCE PO ; Start 08/31/16 at 10:30; Stop 08/31/16 at 10:31; Status Cancel Apixaban (Eliquis) 5 mg BID PO Last administered on 09/12/16 09:29; Start at 21:00 Miscellaneous (Pill Splitter) 1 ea UNSCH PRN OTHER SEE LABEL COMMENTS; Start at 10:30 Metronidazole (Flagyl) 500 mg Q8HR PO Last administered on 09/04/16 22:53; Start 09/01/16 at 17:45; Stop 09/05/16 at 00:04; Status DC Potassium Chloride (KCl) 40 meq ONCE ONCE PO Last administered on 09/02/16 10: 00; Start 09/02/16 at 10:00; Stop 09/02/16 at 10:01; Status DC Potassium Chloride (KCl) 40 meq ONCE ONCE PO Last administered on 09/02/16 14: 10; Start 09/02/16 at 14:00; Stop 09/02/16 at 14:01; Status DC Potassium Chloride (KCl) 40 meq ONCE ONCE PO Last administered on 09/02/16 18: 00; Start 09/02/16 at 18:00; Stop 09/02/16 at 18:01; Status DC Diatrizoate Meglum/ Diatrizoate Sod ( Gastroview Liq) 18 ml ONCE ONCE PO Last administered on 09/03/16 17:39; Start 09/03/16 at 17:00; Stop 09/03/16 at 17: 01; Status DC Iohexol (Omnipaque 350 Inj) 100 ml STK-MED ONCE IV Last administered on 22:19; Start 09/03/16 at 22:19; Stop 09/03/16 at 22:20; Status DC Potassium Chloride (KCl) 60 meq NOW ONCE PO Last administered on 09/04/16 08: 58; Start 09/04/16 at 08:30; Stop 09/04/16 at 08:31; Status DC Lisinopril (Prinivil) 10 mg DAILY PO Last administered on 09/11/16 08:27; Start 09/04/16 at 11:15; Status Hold Vancomycin HCl (VANCOMYCIN for oral use only) 125 mg Q6HR PO Last administered on 09/09/16 11:44; Start 09/04/16 at 19:30; Stop 09/09/16 at 12:02; Status DC Gadodiamide (Omniscan Pf Inj) 17 ml STK-MED ONCE IV Last administered on 09:39; Start 09/05/16 at 09:39; Stop 09/05/16 at 09:40; Status DC Potassium Chloride (KCl) 60 meq ONCE ONCE PO Last administered on 09/05/16 13: 45; Start 09/05/16 at 13:45; Stop 09/05/16 at 13:46; Status DC Potassium Chloride (KCl) 40 meq ONCE ONCE PO ; Start 09/07/16 at 11:00; Stop 09/07/16 at 11:00; Status DC Potassium Chloride 60 meq 60 meq ONCE ONCE PO Last administered on 09/07/16 12 :00; Start 09/07/16 at 12:00; Stop 09/07/16 at 12:01; Status DC Metronidazole (Flagyl 500 Mg Inj) 100 ml @ 100 mls/hr Q8H IV Last administered on 09/09/16 03:11; Start 09/07/16 at 12:00; Stop 09/09/16 at 08:29; Status DC Megestrol Acetate 400 mg 400 mg DAILY PO Last administered on 09/12/16 09:29; Start 09/07/16 at 11:15 Potassium Chloride (KCl 20 Meq Premix Inj) 100 ml @ 50 mls/hr Q2H IV Last administered on 09/08/16 13:16; Start 09/08/16 at 10:00; Stop 09/08/16 at 13:59; Status DC Potassium Chloride (KCl) 30 meq ONCE ONCE PO Last administered on 09/08/16 10: 41; Start 09/08/16 at 10:00; Stop 09/08/16 at 10:01; Status DC Vancomycin HCl (VANCOMYCIN for oral use only) 250 mg Q6HR PO Last administered on 09/10/16 05:48; Start 09/09/16 at 18:00; Stop 09/10/16 at 11:06; Status DC Vancomycin HCl 500 mg 500 mg QID PO Last administered on 09/12/16 13:15; Start 09/10/16 at 13:00 Metronidazole 100 ml @ 100 mls/hr Q8H IV Last administered on 09/12/16 09:28 ; Start 09/11/16 at 16:00 Sodium Chloride (NS 250 ml Inj) 250 ml @ 250 mls/hr BOLUS ONCE IV Last administered on 09/11/16 16:38; Start 09/11/16 at 16:00; Stop 09/11/16 at 16:59 ; Status DC A/P Problem List: (1) C. difficile colitis ICD Code: A04.7 Status: Acute (2) Perihepatic abscess ICD Code: K65.0 Status: Acute (3) Rapid atrial fibrillation ICD Code: I48.91 Status: Acute (4) UTI (urinary tract infection) ICD Code: N39.0 Status: Acute (5) Cardiomyopathy ICD Code: I42.9 Status: Acute (6) Hypokalemia ICD Code: E87.6 Status: Acute (7) Chronic systolic heart failure ICD Code: I50.22 Status: Acute (8) Diabetes mellitus, type 2 ICD Code: E11.9 Status: Acute (9) Poor appetite ICD Code: R63.0 Status: Acute (10) Leukocytosis ICD Code: D72.829 Status: Acute Assessment and Plan C. difficile colitis,Positive for 027 strain -Appreciate ID recommendations. -Flagyl was discontinued on 09/04/16 and the patient was started on oral vancomycin 125 mg 4 times a day. -Since patient diarrhea was not improving patient's oral dose of vancomycin increased to 500 mg by mouth every 6 hours and IV Flagyl resumed as per ID. -now diarrhea and leukocytosis is improving. -per ID is symptoms worsens consider repeat CT scan. Perihepatic abscess -s/p drainage with drain present in right upper quadrant. -CT abdomen and pelvis as described above shows perihepatic drain without residual fluid around the drain. Masslike area of low density involving segment 6 of the liver adjacent to the drain. No discrete intrahepatic abscess currently seen. -Approximately 2 cm pocket of fluid and air within the gallbladder fossa. Bilateral pleural effusions and associated atelectasis. 6.7 cm nonspecific low density mass involving the spleen. Tiny focus of air within the lumen of the urinary bladder. -Gen. surgery consulted and following. -09/05 MRI of the abdomen ordered and described above. No discrete mass seen. Also no drainable collection seen. -09/06 perihepatic drain removed by GS. Patient on regular diet. -09/07 GS signed off. Rapid atrial fibrillation -rate controlled. -Continue apixaban, metoprolol and Cardizem. -Cardiology consulted and following. UTI (urinary tract infection) resolved -s/p treatment on IV Zosyn and IV Rocephin. -09/11 repeat urinalysis obtained on 09/10/16 negative. Cardiomyopathy/Chronic systolic heart failure -Echocardiogram showed a moderately reduced systolic function. EF was in the range of 40-45% with diffuse hypokinesis. Left atrium was moderately dilated and right ventricle mildly dilated. -B/L PE on CT scan. -Continue furosemide, beta shawn, and PARKER inhibitor. Hypokalemia -Likely due to GI loss secondary to diarrhea. -4/9 Resolved. Continue to monitor bmp and replace as needed. Diabetes mellitus, type 2 Insulin-dependent -Improved on insulin. -Continue SSI. Anorexia -Diet consulted. Continue megace - better -Dietitian also recommended a 2000 calorie ADA diet and Glucerna shakes TID. GI prophylaxis: On Pepcid. DVT prophylaxis: Continue SCDs and patient is on Apixaban. Discharge Planning Continue to monitor in the medical floor. Pending clinical improvement. Discharge Planning Once on oral medication and cleared by ID can be d/c to SNF. Problem Qualifiers (1) UTI (urinary tract infection): (2) Cardiomyopathy: Qualified Code: I42.9 - Cardiomyopathy, unspecified type (3) Diabetes mellitus, type 2: Qualified Code: E11.8 - Type 2 diabetes mellitus with complication, with long- term current use of insulin (4) Leukocytosis: Qualified Code: D72.829 - Leukocytosis, unspecified type Layne Coleman MD Sep 12, 2016 15:18
--- NOTE | 2016-09-12 18:47 | HHI.IDPN ---
Subjective Subjective Remarks cont to have liquid diarrhea afebrile Yday > 600 cc of stool Biliary draine was removed WBC slighlty improved Antibiotics vanco po flagyl IV Allergies: Coded Allergies: *MDRO Multi-Drug Resistant Organism (Verified Adverse Reaction, Unknown, ) MDR-Enterobacter Cloacae (urine)-08/26/16 Objective . Vital Signs Date Time Temp Pulse Resp B/P Pulse Ox O2 Delivery O2 Flow Rate FiO2 09/12/16 16:00 98.3 80 16 96/57 90 09/12/16 12:00 98.1 92 18 103/60 94 09/12/16 10:34 93 Nasal Cannula 2.00 09/12/16 09:00 Nasal Cannula 2.00 09/12/16 08:29 100 09/12/16 08:00 98.6 92 18 107/65 93 09/12/16 04:00 98.1 78 23 131/65 95 09/11/16 23:54 99.6 83 20 111/57 94 09/11/16 20:15 Nasal Cannula 2.00 09/11/16 20:00 87 09/11/16 20:00 97.9 89 16 122/73 97 09/11/16 09/11/16 09/12/16 15:00 23:00 07:00 Intake Total 480 ml 480 ml 340 ml Balance 480 ml 480 ml 340 ml Intake Oral 480 ml 240 ml 240 ml Oral Supplement 240 ml IV Total 100 ml # Voids 0 0 1 # Bowel Movements 0 0 . Laboratory Tests Test 09/11/16 09/12/16 13:15 09:04 White Blood Count 19.2 TH/MM3 17.7 TH/MM3 Red Blood Count 3.73 MIL/MM3 3.48 MIL/MM3 Hemoglobin 11.1 GM/DL 10.7 GM/DL Hematocrit 35.3 % 32.8 % Mean Corpuscular Volume 94.5 FL 94.3 FL Mean Corpuscular Hemoglobin 29.7 PG 30.8 PG Mean Corpuscular Hemoglobin 31.4 % 32.6 % Concent Red Cell Distribution Width 18.8 % 18.4 % Platelet Count 316 TH/MM3 298 TH/MM3 Mean Platelet Volume 8.3 FL 8.4 FL Neutrophils (%) (Auto) 89.1 % 88.8 % Lymphocytes (%) (Auto) 4.1 % 4.6 % Monocytes (%) (Auto) 5.2 % 5.7 % Eosinophils (%) (Auto) 0.3 % 0.4 % Basophils (%) (Auto) 1.3 % 0.5 % Neutrophils # (Auto) 17.1 TH/MM3 15.7 TH/MM3 Lymphocytes # (Auto) 0.8 TH/MM3 0.8 TH/MM3 Monocytes # (Auto) 1.0 TH/MM3 1.0 TH/MM3 Eosinophils # (Auto) 0.1 TH/MM3 0.1 TH/MM3 Basophils # (Auto) 0.2 TH/MM3 0.1 TH/MM3 CBC Comment DIFF FINAL DIFF FINAL Differential Comment Laboratory Tests Test 09/11/16 09/12/16 13:15 09:04 Sodium Level 139 MEQ/L 140 MEQ/L Potassium Level 3.5 MEQ/L 3.6 MEQ/L Chloride Level 97 MEQ/L 97 MEQ/L Carbon Dioxide Level 37.9 MEQ/L 37.6 MEQ/L Anion Gap 4 MEQ/L 5 MEQ/L Blood Urea Nitrogen 15 MG/DL 12 MG/DL Creatinine 0.95 MG/DL 0.93 MG/DL Estimat Glomerular Filtration 76 ML/MIN 78 ML/MIN Rate Random Glucose 157 MG/DL 134 MG/DL Calcium Level 8.4 MG/DL 8.5 MG/DL Total Bilirubin 0.2 MG/DL 0.3 MG/DL Aspartate Amino Transf 11 U/L 13 U/L (AST/SGOT) Alanine Aminotransferase 13 U/L 11 U/L (ALT/SGPT) Alkaline Phosphatase 61 U/L 84 U/L Total Protein 6.2 GM/DL 6.0 GM/DL Albumin 2.1 GM/DL 2.0 GM/DL Phosphorus Level 3.3 MG/DL Magnesium Level 2.1 MG/DL Imaging Last Impressions Chest X-Ray 09/10/16 0000 Signed Impressions: Service Date/Time: Saturday, September 10, 2016 09:11 - CONCLUSION: Small right effusion increased airspace disease in the left lower lobe identified. Mauricio Stanton MD Abdomen MRI 09/05/16 0000 Signed Impressions: Service Date/Time: Monday, September 05, 2016 08:47 - CONCLUSION: 1. No defined mass is seen within the liver. There is some subtle heterogeneous enhancement on the delayed imaging involving the posterior aspect of the right lobe of the liver and the gallbladder fossa. This is felt to be inflammatory in etiology. No definite drainable abscess collection is seen. Note is made of a drainage catheter in place adjacent to the right lobe of the liver. 2. 6.4 x 5.6 cm cystic abnormality within the spleen. This appears to be purely cystic by MR. 3. Bilateral pleural effusions small on the left and moderate in size on the right. There is considerable atelectasis of the right lung as well. Chris Dejesus MD Abdomen/Pelvis CT 09/03/16 0000 Signed Impressions: Service Date/Time: Saturday, September 03, 2016 22:09 - CONCLUSION: 1. Perihepatic drain without residual fluid around the drain. 2. Masslike area of low density involving segment 6 of the liver adjacent to the drain. I have no priors to compare. Differential diagnostic considerations would include a mass of both benign and malignant potential as well as an infectious process. No discrete intrahepatic abscess currently seen. 3. Circumferential wall thickening and stranding in the adjacent fat involving the rectosigmoid colon as detailed above. The appearance is more typical of an inflammatory or infectious process. 4. Approximate 2 cm pocket of fluid and air within the gallbladder fossa. Although this could relate to more focal ascitic fluid I cannot exclude a developing abscess. It is currently too small for percutaneous access. 5. Bilateral pleural effusions and associated atelectasis. 6. 6.7 cm nonspecific low density mass involving the spleen. 7. Tiny focus of air within the lumen of the urinary bladder. Although this could relate to recent instrumentation an infection with gas producing organisms can have a similar appearance. 8. Nonobstructing right renal stone. Moshe Goyal Jr., MD Physical Exam CONSTITUTIONAL/GENERAL: This is an obese elderlyshed patient, in no apparent distress. TUBES/LINES/DRAINS: SKIN: No jaundice, rashes, or lesions. Skin temperature appropriate. Not diaphoretic. EYES: Pupils equal and round and reactive. Extraocular motions intact. No scleral icterus. No injection or drainage. Fundi not examined. CARDIOVASCULAR: Irregular rate and rhythm without murmurs, gallops, or rubs. No JVD. Peripheral pulses symmetric. RESPIRATORY/CHEST: Symmetric, unlabored respirations. Clear to auscultation. Breath sounds equal bilaterally. No wheezes, rales, or rhonchi. GASTROINTESTINAL: Abdomen soft, minimally tender to palpation RLQ/LLQ, minimally distended. No hepato-splenomegaly, or palpable masses. No guarding. Bowel sounds present. GENITOURINARY: Without palpable bladder distension. Tillman catheter in place with clear yellow urine MUSCULOSKELETAL: Extremities without clubbing, cyanosis, or edema. NEUROLOGICAL: Awake and alert. Non focal Assessment & Plan Remarks C.diff , hypervirulent strain -worsening Persistent leukocytosis Perihepatic abscess sp biliary drain (removed) - cont flagyl iv - cont po vancomycin consider repeat CT A/P if persistent leukocytosis in the next few days - rechk stool for C.diff - If improves with resolving diarrhea and leukocytosis then OK to stop IV flagyl and d/c on oral vancomycin x 2 weeks Madelaine Peña MD Sep 12, 2016 18:47
[2016-09-12] MEDS: FAMOTIDINE 20 MG TAB PO SCH (21:08)
[2016-09-12] MEDS: traZODone HCL 100 MG TAB PO SCH (21:09)
[2016-09-12] MEDS: MIRTAZAPINE 15 MG TAB PO SCH (21:09)
[2016-09-13] VITALS: BP 110/55; PULSE 64; RESP 18; TEMP 98; O2SAT 93
[2016-09-13] MEDS: metroNIDAZOLE 500 MG INJ 100 ML IV SCH ×4 (00:17→23:36)
[2016-09-13] MEDS: DILTIAZEM HCL 60 MG TAB PO SCH ×4 (03:32→20:31)
[2016-09-13 04:00] VITALS: BP 124/60; PULSE 92; RESP 18; TEMP 98.5; O2SAT 92
[2016-09-13] MEDS: INSULIN ASPART SUPPLEMENTAL SCALE SQ SCH ×4 (06:01→20:39)
[2016-09-13 07:31] LABS: MEAN CELL VOLUME 93.8 FL (80.0-100.0); MEAN CORPUSCULAR HEMOGLOBIN 30.6 PG (27.0-34.0); MEAN CORPUSCULAR HGB CONC 32.6 % (32.0-36.0); PLATELET COUNT 284 TH/MM3 (150-450); RED BLOOD COUNT 3.41 MIL/MM3 (4.50-5.90); RED CELL DISTRIBUTION WIDTH 18.4 % (11.6-17.2); REVIEW FLAG FINAL
[2016-09-13 07:41] LABS: BICARBONATE 35.4 MEQ/L (21.0-32.0); POTASSIUM 3.6 MEQ/L (3.5-5.1)
[2016-09-13 08:00] VITALS: BP 116/56; PULSE 73; RESP 18; TEMP 97.9; O2SAT 97
[2016-09-13] MEDS: ESCITALOPRAM OXALATE 10 MG TAB PO SCH (08:02)
[2016-09-13] MEDS: VANCOMYCIN 500 MG VIAL (FOR ORAL USE ONLY) PO SCH ×4 (08:02→20:36)
[2016-09-13] MEDS: FUROSEMIDE 40 MG TAB PO SCH (08:02)
[2016-09-13] MEDS: APIXABAN 5 MG TABLET PO SCH ×2 (08:02→20:31)
[2016-09-13] MEDS: MEGESTROL ACETATE SUSP 400 MG/10 ML CUP PO SCH (08:02)
[2016-09-13] MEDS: METOPROLOL TARTRATE 50 MG TAB PO SCH ×2 (08:06→20:31)
[2016-09-13 12:00] VITALS: BP 108/57; PULSE 78; RESP 18; TEMP 98.1; O2SAT 94
[2016-09-13 16:00] VITALS: BP 114/58; PULSE 63; RESP 20; TEMP 98.2; O2SAT 95
--- NOTE | 2016-09-13 18:36 | HHI.PR ---
Subjective Remarks still has large stool output denies abdominal pain, nausea or vomiting denies fevers/chills As per RN the patient has been sleeping for much of the day. Iron states patient's urine output is low Objective Vitals Vital Signs Date Time Temp Pulse Resp B/P Pulse Ox O2 Delivery O2 Flow Rate FiO2 09/13/16 16:00 98.2 63 20 114/58 95 09/13/16 12:00 98.1 78 18 108/57 94 09/13/16 08:00 Nasal Cannula 2.00 09/13/16 08:00 97.9 73 18 116/56 97 09/13/16 04:00 98.5 92 18 124/60 92 09/13/16 00:00 98.0 64 18 110/55 93 09/12/16 21:47 Nasal Cannula 2.00 09/12/16 20:30 68 09/12/16 20:30 Nasal Cannula 2.00 09/12/16 20:00 98.1 20 18 112/63 91 I/O 09/12/16 09/12/16 09/12/16 09/13/16 09/13/16 09/13/16 07:00 15:00 23:00 07:00 15:00 23:00 Intake Total 340 ml 600 ml 480 ml 120 ml 340 ml Output Total 200 ml 200 ml 0 ml Balance 340 ml 400 ml 280 ml 120 ml 340 ml Intake Oral 240 ml 600 ml 480 ml 120 ml 240 ml IV Total 100 ml 100 ml Output Urine Total 200 ml Stool Total 200 ml 0 ml # Voids 1 2 2 0 # Bowel Movements 0 0 Result Diagram: 09/13/16 0547 09/13/16 0547 Imaging Last Impressions Chest X-Ray 09/10/16 0000 Signed Impressions: Service Date/Time: Saturday, September 10, 2016 09:11 - CONCLUSION: Small right effusion increased airspace disease in the left lower lobe identified. Mauricio Stanton MD Abdomen MRI 09/05/16 0000 Signed Impressions: Service Date/Time: Monday, September 05, 2016 08:47 - CONCLUSION: 1. No defined mass is seen within the liver. There is some subtle heterogeneous enhancement on the delayed imaging involving the posterior aspect of the right lobe of the liver and the gallbladder fossa. This is felt to be inflammatory in etiology. No definite drainable abscess collection is seen. Note is made of a drainage catheter in place adjacent to the right lobe of the liver. 2. 6.4 x 5.6 cm cystic abnormality within the spleen. This appears to be purely cystic by MR. 3. Bilateral pleural effusions small on the left and moderate in size on the right. There is considerable atelectasis of the right lung as well. Chris Dejesus MD Abdomen/Pelvis CT 09/03/16 0000 Signed Impressions: Service Date/Time: Saturday, September 03, 2016 22:09 - CONCLUSION: 1. Perihepatic drain without residual fluid around the drain. 2. Masslike area of low density involving segment 6 of the liver adjacent to the drain. I have no priors to compare. Differential diagnostic considerations would include a mass of both benign and malignant potential as well as an infectious process. No discrete intrahepatic abscess currently seen. 3. Circumferential wall thickening and stranding in the adjacent fat involving the rectosigmoid colon as detailed above. The appearance is more typical of an inflammatory or infectious process. 4. Approximate 2 cm pocket of fluid and air within the gallbladder fossa. Although this could relate to more focal ascitic fluid I cannot exclude a developing abscess. It is currently too small for percutaneous access. 5. Bilateral pleural effusions and associated atelectasis. 6. 6.7 cm nonspecific low density mass involving the spleen. 7. Tiny focus of air within the lumen of the urinary bladder. Although this could relate to recent instrumentation an infection with gas producing organisms can have a similar appearance. 8. Nonobstructing right renal stone. Moshe Goyal Jr., MD Objective Remarks GENERAL: This is a well-nourished, well-developed patient, in no apparent distress, lying in bed. CARDIOVASCULAR: irregular rhythm without murmurs, gallops, or rubs. RESPIRATORY: Clear to auscultation. Breath sounds equal bilaterally. No wheezes , rales, or rhonchi. GASTROINTESTINAL: Abdomen soft,mild diffuse lower abdomen tenderness, nondistended. drain removed. Normal, active bowel sounds MUSCULOSKELETAL: Extremities without clubbing, cyanosis, or edema. NEURO: Alert & Oriented x4 to person, place, time, situation. Muscle strength 3/5 in all extremities. Procedures none Medications and IVs Current Medications Medications (Trade) Dose Ordered Sig/Cash Route Start Time Stop Time Status Last Admin (D50w (Vial) Inj) 25 ml UNSCH PRN IV PUSH 3/26/17 09:00 (Glucagon Inj) 1 mg UNSCH PRN OTHER 08/26/16 09:00 (Lexapro) 10 mg DAILY PO 08/27/16 09:00 09/13/16 08:02 (Lasix) 40 mg DAILY PO 08/27/16 09:00 09/13/16 08:02 (Remeron) 15 mg HS PO 08/26/16 21:00 09/12/16 21:09 (Desyrel) 100 mg HS PO 08/26/16 21:00 09/12/16 21:09 (Pepcid) 40 mg HS PO 08/26/16 21:00 09/12/16 21:08 (Patterson 5-325 Mg) 1 tab Q4H PRN PO 08/27/16 12:15 09/09/16 11:44 (Cardizem) 60 mg Q6H PO 08/30/16 15:00 09/13/16 15:10 (Lopressor) 75 mg BID PO 08/31/16 21:00 09/13/16 08:06 (Eliquis) 5 mg BID PO 08/31/16 21:00 09/13/16 08:02 (Pill Splitter) 1 ea UNSCH PRN OTHER 08/31/16 10:30 (Prinivil) 10 mg DAILY PO 09/04/16 11:15 Hold 09/11/16 08:27 (Megace Liq) 400 mg DAILY PO 09/07/16 11:15 09/13/16 08:02 Vancomycin HCl 500 mg 500 mg QID PO 09/10/16 13:00 09/13/16 17:43 (Flagyl 500 Mg Inj) 100 ml @ 100 mls/hr Q8H IV 09/11/16 16:00 09/13/16 15:10 Urinary Catheter: No Vascular Central Line Catheter: No A/P Problem List: (1) C. difficile colitis ICD Code: A04.7 Status: Acute (2) Perihepatic abscess ICD Code: K65.0 Status: Acute (3) Rapid atrial fibrillation ICD Code: I48.91 Status: Resolved (4) UTI (urinary tract infection) ICD Code: N39.0 Status: Resolved (5) Cardiomyopathy ICD Code: I42.9 Status: Chronic (6) Hypokalemia ICD Code: E87.6 Status: Resolved (7) Chronic systolic heart failure ICD Code: I50.22 Status: Chronic (8) Diabetes mellitus, type 2 ICD Code: E11.9 Status: Chronic (9) Poor appetite ICD Code: R63.0 Status: Acute (10) Leukocytosis ICD Code: D72.829 Status: Acute Plan: Patient's white blood cell count initially trending up from 11.6-19.2. Chest x-ray obtained showed a small right pleural effusion increased airspace disease in the left lower lobe. Urinalysis negative. White blood cell trending slowly down for the past 2 days. Now 16 K. Continue to monitor CBC with differential. (11) Low urine output ICD Code: R34 Status: Acute Plan: I will check a bladder scan to rule out urinary retention. I will also start the patient on normal saline at 84 mL per hour. Continue to monitor strict I's and O's. Assessment and Plan (1) C. difficile colitis Plan: Diarrhea still present and persistent. Positive for 027 strain Appreciate ID recommendations. Antibiotics as per infectious disease. Flagyl was discontinued on 09/04/16 and the patient was started on oral vancomycin 125 mg 4 times a day. Continue to monitor stool output. Continue rectal tube. 09/11 patient case was discussed with Dr. Peña. Patient's oral dose of vancomycin increased to 500 mg by mouth every 6 hours and IV Flagyl resumed as per ID. Leukocytosis worsening. Follow-up ID recommendations. (2) Perihepatic abscess Plan: Status post drainage with drain present in right upper quadrant. CT abdomen and pelvis as described above shows perihepatic drain without residual fluid around the drain. Masslike area of low density involving segment 6 of the liver adjacent to the drain. No discrete intrahepatic abscess currently seen. Approximately 2 cm pocket of fluid and air within the gallbladder fossa. Bilateral pleural effusions and associated atelectasis. 6.7 cm nonspecific low density mass involving the spleen. Tiny focus of air within the lumen of the urinary bladder. Gen. surgery consulted and following. 09/05 MRI of the abdomen ordered and described above. No discrete mass seen. Also no drainable collection seen. 09/06 perihepatic drain removed by GS. Patient on regular diet. 09/07 GS signed off. (3) Rapid atrial fibrillation Plan: Heart rate is rate controlled. TSH elevated at 5.2 however free T4 normal at 1.27 likely euthyroid sick syndrome. Continue apixaban Continue metoprolol and Cardizem. Cardiology consulted and following. (4) UTI (urinary tract infection) Plan: Status post treatment with IV antibiotics. Patient had been on IV Zosyn and IV Rocephin. 09/11 repeat urinalysis obtained on 09/10/16 negative. (5) Cardiomyopathy Plan: Cardiology consulted and following. Echocardiogram showed a moderately reduced systolic function. Estimated EF was in the range of 40-45% with diffuse hypokinesis. Left atrium was moderately dilated and right ventricle mildly dilated. Continue furosemide, beta shawn, I will add an PARKER inhibitor. (6) Hypokalemia Plan: Likely due to GI loss secondary to diarrhea. 09/09 Resolved. Continue to monitor bmp and replace as needed. (7) Chronic systolic heart failure Plan: Echocardiogram with EF of 40-45%. Bilateral pleural effusions found in CT scan. Continue furosemide, beta shawn, I will add PARKER inhibitor. (8) Diabetes mellitus, type 2 Plan: Insulin-dependent diabetes type 2. Patient has labile blood sugars with blood sugars in the 200's and then in the 120's. Continue SSI. (9) Poor appetite Plan: Diet consulted. Continue megace [facility] Dietitian also recommended a 2000 calorie ADA diet and Glucerna shakes TID. GI prophylaxis: On Pepcid. DVT prophylaxis: Continue SCDs and patient is on Apixaban. Discharge Planning Continue to monitor in the medical floor. Pending clinical improvement. Problem Qualifiers (1) UTI (urinary tract infection): (2) Cardiomyopathy: Qualified Code: I42.9 - Cardiomyopathy, unspecified type (3) Diabetes mellitus, type 2: Qualified Code: E11.8 - Type 2 diabetes mellitus with complication, with long- term current use of insulin (4) Leukocytosis: Qualified Code: D72.829 - Leukocytosis, unspecified type Amanuel Newman MD Sep 13, 2016 18:36
[2016-09-13] MEDS: SODIUM CHLOR 0.9% 1000 ML INJ 1,000 ML IV SCH (18:40)
[2016-09-13 20:00] VITALS: BP 123/61; PULSE 68; PULSE 80; RESP 18; TEMP 98.7; O2SAT 93
[2016-09-13] MEDS: MIRTAZAPINE 15 MG TAB PO SCH (20:31)
[2016-09-13] MEDS: FAMOTIDINE 20 MG TAB PO SCH (20:31)
[2016-09-13] MEDS: traZODone HCL 100 MG TAB PO SCH (20:36)
[2016-09-14] VITALS (7 sets, daily range): BP systolic 96–130; BP diastolic 54–74; PULSE 64–98; RESP 16–20; TEMP 97.7–98.3; O2SAT 93–97
[2016-09-14] MEDS: DILTIAZEM HCL 60 MG TAB PO SCH ×4 (03:35→22:06)
[2016-09-14] MEDS: SODIUM CHLOR 0.9% 1000 ML INJ 1,000 ML IV SCH ×2 (05:42→16:17)
[2016-09-14] MEDS: INSULIN ASPART SUPPLEMENTAL SCALE SQ SCH ×4 (05:42→21:00)
[2016-09-14 07:50] LABS: HEMATOCRIT 32.3 % (39.0-51.0); MEAN CELL VOLUME 93.9 FL (80.0-100.0); MEAN CORPUSCULAR HEMOGLOBIN 30.9 PG (27.0-34.0); MEAN CORPUSCULAR HGB CONC 32.9 % (32.0-36.0); PLATELET COUNT 303 TH/MM3 (150-450); RED BLOOD COUNT 3.44 MIL/MM3 (4.50-5.90); RED CELL DISTRIBUTION WIDTH 18.2 % (11.6-17.2); REVIEW FLAG FINAL; WHITE BLOOD COUNT 13.7 TH/MM3 (4.0-11.0)
[2016-09-14 08:14] LABS: BICARBONATE 35.7 MEQ/L (21.0-32.0); POTASSIUM 3.4 MEQ/L (3.5-5.1)
[2016-09-14] MEDS: METOPROLOL TARTRATE 50 MG TAB PO SCH ×2 (08:27→22:06)
[2016-09-14] MEDS: VANCOMYCIN 500 MG VIAL (FOR ORAL USE ONLY) PO SCH ×4 (08:27→22:07)
[2016-09-14] MEDS: ESCITALOPRAM OXALATE 10 MG TAB PO SCH (08:27)
[2016-09-14] MEDS: APIXABAN 5 MG TABLET PO SCH ×2 (08:27→22:07)
[2016-09-14] MEDS: metroNIDAZOLE 500 MG INJ 100 ML IV SCH ×3 (08:27→23:33)
[2016-09-14] MEDS: MEGESTROL ACETATE SUSP 400 MG/10 ML CUP PO SCH (08:28)
[2016-09-14] MEDS ORDERED: POTASSIUM CHLORIDE 10 MEQ CONTROLLED RELEASE TAB PO ONE (13:00)
--- NOTE | 2016-09-14 15:06 | HHI.PR ---
Subjective Remarks Patient still with large output c/o mild pain in epigastric and ruq region no fevers denies nausea or vomiting denies fevers or chills K low Objective Vitals Vital Signs Date Time Temp Pulse Resp B/P Pulse Ox O2 Delivery O2 Flow Rate FiO2 09/14/16 12:00 98.3 64 18 96/54 93 09/14/16 09:38 97 Nasal Cannula 2.00 09/14/16 08:49 Nasal Cannula 2.00 21 09/14/16 08:00 98.1 83 18 119/63 93 09/14/16 08:00 98.2 98 20 130/74 95 09/14/16 04:00 98.2 72 18 112/57 93 09/14/16 00:00 97.7 76 16 101/66 95 09/13/16 20:00 Nasal Cannula 2.00 09/13/16 20:00 98.7 80 18 123/61 93 09/13/16 20:00 68 09/13/16 16:00 98.2 63 20 114/58 95 I/O 09/13/16 09/13/16 09/13/16 09/14/16 09/14/16 09/14/16 07:00 15:00 23:00 07:00 15:00 23:00 Intake Total 120 ml 340 ml 240 ml 1089 ml Output Total 0 ml 400 ml 1000 ml Balance 120 ml 340 ml -160 ml 89 ml Intake Oral 120 ml 240 ml 240 ml 240 ml IV Total 100 ml 849 ml Output Urine Total 500 ml Stool Total 0 ml 400 ml 500 ml Bladder Scan Volume Amount 29 ml # Voids 2 0 1 Result Diagram: 09/14/16 0655 09/14/16 0655 Imaging Last Impressions Chest X-Ray 09/10/16 0000 Signed Impressions: Service Date/Time: Saturday, September 10, 2016 09:11 - CONCLUSION: Small right effusion increased airspace disease in the left lower lobe identified. Mauricio Stanton MD Abdomen MRI 09/05/16 0000 Signed Impressions: Service Date/Time: Monday, September 05, 2016 08:47 - CONCLUSION: 1. No defined mass is seen within the liver. There is some subtle heterogeneous enhancement on the delayed imaging involving the posterior aspect of the right lobe of the liver and the gallbladder fossa. This is felt to be inflammatory in etiology. No definite drainable abscess collection is seen. Note is made of a drainage catheter in place adjacent to the right lobe of the liver. 2. 6.4 x 5.6 cm cystic abnormality within the spleen. This appears to be purely cystic by MR. 3. Bilateral pleural effusions small on the left and moderate in size on the right. There is considerable atelectasis of the right lung as well. hCris Dejesus MD Abdomen/Pelvis CT 09/03/16 0000 Signed Impressions: Service Date/Time: Saturday, September 03, 2016 22:09 - CONCLUSION: 1. Perihepatic drain without residual fluid around the drain. 2. Masslike area of low density involving segment 6 of the liver adjacent to the drain. I have no priors to compare. Differential diagnostic considerations would include a mass of both benign and malignant potential as well as an infectious process. No discrete intrahepatic abscess currently seen. 3. Circumferential wall thickening and stranding in the adjacent fat involving the rectosigmoid colon as detailed above. The appearance is more typical of an inflammatory or infectious process. 4. Approximate 2 cm pocket of fluid and air within the gallbladder fossa. Although this could relate to more focal ascitic fluid I cannot exclude a developing abscess. It is currently too small for percutaneous access. 5. Bilateral pleural effusions and associated atelectasis. 6. 6.7 cm nonspecific low density mass involving the spleen. 7. Tiny focus of air within the lumen of the urinary bladder. Although this could relate to recent instrumentation an infection with gas producing organisms can have a similar appearance. 8. Nonobstructing right renal stone. Moshe Goyal Jr., MD Objective Remarks GENERAL: This is a well-nourished, well-developed patient, in no apparent distress, lying in bed. CARDIOVASCULAR: irregular rhythm without murmurs, gallops, or rubs. RESPIRATORY: Clear to auscultation. Breath sounds equal bilaterally. No wheezes , rales, or rhonchi. GASTROINTESTINAL: Abdomen soft,mild tenderness on epigastriq RUQ region, nondistended. drain removed. Normal, active bowel sounds MUSCULOSKELETAL: Extremities without clubbing, cyanosis, or edema. NEURO: Alert & Oriented x4 to person, place, time, situation. Muscle strength 3/5 in all extremities. Procedures none Medications and IVs Current Medications Medications (Trade) Dose Ordered Sig/Cash Route Start Time Stop Time Status Last Admin (D50w (Vial) Inj) 25 ml UNSCH PRN IV PUSH 08/26/16 09:00 (Glucagon Inj) 1 mg UNSCH PRN OTHER 08/26/16 09:00 (Lexapro) 10 mg DAILY PO 08/27/16 09:00 09/14/16 08:27 (Lasix) 40 mg DAILY PO 08/27/16 09:00 Hold 09/13/16 08:02 (Remeron) 15 mg HS PO 08/26/16 21:00 09/13/16 20:31 (Desyrel) 100 mg HS PO 08/26/16 21:00 09/13/16 20:36 (Pepcid) 40 mg HS PO 08/26/16 21:00 09/13/16 20:31 ([place] 5-325 Mg) 1 tab Q4H PRN PO 08/27/16 12:15 09/09/16 11:44 (Cardizem) 60 mg Q6H PO 08/30/16 15:00 09/14/16 08:27 (Lopressor) 75 mg BID PO 08/31/16 21:00 09/14/16 08:27 (Eliquis) 5 mg BID PO 08/31/16 21:00 09/14/16 08:27 (Pill Splitter) 1 ea UNSCH PRN OTHER 08/31/16 10:30 (Prinivil) 10 mg DAILY PO 09/04/16 11:15 Hold 09/11/16 08:27 (Megace Liq) 400 mg DAILY PO 09/07/16 11:15 09/14/16 08:28 Vancomycin HCl 500 mg 500 mg QID PO 09/10/16 13:00 09/14/16 12:07 Metronidazole 100 ml @ 100 mls/hr Q8H IV 09/11/16 16:00 09/14/16 08:27 (NS 1000 ml Inj) 1,000 ml @ 84 mls/hr [id number] IV 09/13/16 18:45 09/14/16 05:42 Urinary Catheter: No Vascular Central Line Catheter: No A/P Problem List: (1) C. difficile colitis ICD Code: A04.7 Status: Acute (2) Perihepatic abscess ICD Code: K65.0 Status: Acute (3) Rapid atrial fibrillation ICD Code: I48.91 Status: Resolved (4) UTI (urinary tract infection) ICD Code: N39.0 Status: Resolved (5) Cardiomyopathy ICD Code: I42.9 Status: Chronic (6) Hypokalemia ICD Code: E87.6 Status: Resolved (7) Chronic systolic heart failure ICD Code: I50.22 Status: Chronic (8) Diabetes mellitus, type 2 ICD Code: E11.9 Status: Chronic (9) Poor appetite ICD Code: R63.0 Status: Acute (10) Leukocytosis ICD Code: D72.829 Status: Acute (11) Low urine output ICD Code: R34 Status: Acute Assessment and Plan (1) C. difficile colitis Plan: Diarrhea still present and persistent. Positive for 027 strain Appreciate ID recommendations. Antibiotics as per infectious disease. Flagyl was discontinued on 09/04/16 and the patient was started on oral vancomycin 125 mg 4 times a day. Continue to monitor stool output. Continue rectal tube. 09/11 patient case was discussed with Dr. Peña. Patient's oral dose of vancomycin increased to 500 mg by mouth every 6 hours and IV Flagyl resumed as per ID. Leukocytosis worsening. Follow-up ID recommendations. 09/13 Leukocytosis improving. Patient still with large output of diarrhea. Continue PO Vancomycin and IV Flagyl. (2) Perihepatic abscess Plan: Status post drainage with drain present in right upper quadrant. CT abdomen and pelvis as described above shows perihepatic drain without residual fluid around the drain. Masslike area of low density involving segment 6 of the liver adjacent to the drain. No discrete intrahepatic abscess currently seen. Approximately 2 cm pocket of fluid and air within the gallbladder fossa. Bilateral pleural effusions and associated atelectasis. 6.7 cm nonspecific low density mass involving the spleen. Tiny focus of air within the lumen of the urinary bladder. Gen. surgery consulted and following. 09/05 MRI of the abdomen ordered and described above. No discrete mass seen. Also no drainable collection seen. 09/06 perihepatic drain removed by GS. Patient on regular diet. 09/07 GS signed off. (3) Rapid atrial fibrillation Plan: Heart rate is rate controlled. TSH elevated at 5.2 however free T4 normal at 1.27 likely euthyroid sick syndrome. Continue apixaban Continue metoprolol and Cardizem. Cardiology consulted and following. (4) UTI (urinary tract infection) Plan: Status post treatment with IV antibiotics. Patient had been on IV Zosyn and IV Rocephin. 09/11 repeat urinalysis obtained on 09/10/16 negative. (5) Cardiomyopathy Plan: Cardiology consulted and following. Echocardiogram showed a moderately reduced systolic function. Estimated EF was in the range of 40-45% with diffuse hypokinesis. Left atrium was moderately dilated and right ventricle mildly dilated. Continue furosemide, beta shawn, I will add an PARKER inhibitor. (6) Hypokalemia Plan: Likely due to GI loss secondary to diarrhea. 09/09 Resolved. Continue to monitor bmp and replace as needed. 09/13 K 3.4 - replace orally and continue to monitor bmp. (7) Chronic systolic heart failure Plan: Echocardiogram with EF of 40-45%. Bilateral pleural effusions found in CT scan. Continue furosemide, beta shawn, I will add PARKER inhibitor. (8) Diabetes mellitus, type 2 Plan: Insulin-dependent diabetes type 2. Patient has labile blood sugars with blood sugars in the 200's and then in the 120's. Continue SSI. (9) Poor appetite Plan: Diet consulted. Continue megace - [facility] Dietitian also recommended a 2000 calorie ADA diet and Glucerna shakes TID. GI prophylaxis: On Pepcid. DVT prophylaxis: Continue SCDs and patient is on Apixaban. Discharge Planning Continue to monitor in the medical floor. Pending clinical improvement. Problem Qualifiers (1) UTI (urinary tract infection): (2) Cardiomyopathy: Qualified Code: I42.9 - Cardiomyopathy, unspecified type (3) Diabetes mellitus, type 2: Qualified Code: E11.8 - Type 2 diabetes mellitus with complication, with long- term current use of insulin (4) Leukocytosis: Qualified Code: D72.829 - Leukocytosis, unspecified type Amanuel Newman MD Sep 14, 2016 15:06
[2016-09-14] MEDS: MIRTAZAPINE 15 MG TAB PO SCH (22:06)
[2016-09-14] MEDS: FAMOTIDINE 20 MG TAB PO SCH (22:07)
[2016-09-14] MEDS: traZODone HCL 100 MG TAB PO SCH (22:07)
[2016-09-15] VITALS (8 sets, daily range): BP systolic 109–150; BP diastolic 62–90; PULSE 65–117; RESP 18–24; TEMP 97.8–98.9; O2SAT 86–95
[2016-09-15] MEDS: DILTIAZEM HCL 60 MG TAB PO SCH ×4 (03:44→21:25)
[2016-09-15] MEDS: INSULIN ASPART SUPPLEMENTAL SCALE SQ SCH ×4 (06:20→21:26)
[2016-09-15] MEDS: SODIUM CHLOR 0.9% 1000 ML INJ 1,000 ML IV SCH ×2 (06:20→16:32)
[2016-09-15] MEDS: metroNIDAZOLE 500 MG INJ 100 ML IV SCH ×3 (08:14→23:33)
[2016-09-15] MEDS: METOPROLOL TARTRATE 50 MG TAB PO SCH ×2 (08:15→21:25)
[2016-09-15] MEDS: MEGESTROL ACETATE SUSP 400 MG/10 ML CUP PO SCH (08:15)
[2016-09-15] MEDS: ESCITALOPRAM OXALATE 10 MG TAB PO SCH (08:16)
[2016-09-15] MEDS: VANCOMYCIN 500 MG VIAL (FOR ORAL USE ONLY) PO SCH ×4 (08:16→21:25)
[2016-09-15] MEDS: APIXABAN 5 MG TABLET PO SCH ×2 (08:16→21:00)
[2016-09-15 16:11] LABS: AUTOMATED NEUTROPHIL # 11.8 TH/MM3 (1.8-7.7); BASOPHIL % 0.3 % (0.0-2.0); EOSINOPHIL % 0.3 % (0.0-4.0); HEMATOCRIT 33.9 % (39.0-51.0); HEMO FLAGS DIFF FINAL; LYMPH % 4.4 % (9.0-44.0); LYMPHOCYTE # 0.6 TH/MM3 (1.0-4.8); MEAN CELL VOLUME 95.4 FL (80.0-100.0); MEAN CORPUSCULAR HEMOGLOBIN 29.8 PG (27.0-34.0); MEAN CORPUSCULAR HGB CONC 31.2 % (32.0-36.0); MONO % 8.2 % (0.0-8.0); NEUT % 86.8 % (16.0-70.0); PLATELET COUNT 307 TH/MM3 (150-450); RED BLOOD COUNT 3.56 MIL/MM3 (4.50-5.90); RED CELL DISTRIBUTION WIDTH 18.4 % (11.6-17.2); WHITE BLOOD COUNT 13.6 TH/MM3 (4.0-11.0)
[2016-09-15 16:37] LABS: ALT (GPT) 10 U/L (12-78); ANION GAP 6 MEQ/L (5-15); AST (GOT) 6 U/L (15-37); BICARBONATE 31.7 MEQ/L (21.0-32.0); BLOOD UREA NITROGEN 15 MG/DL (7-18); CHLORIDE 104 MEQ/L (98-107); GLOMERULAR FILTRATION RATE 103 ML/MIN (>89); POTASSIUM 4.3 MEQ/L (3.5-5.1); SODIUM (NA) 142 MEQ/L (136-145)
[2016-09-15 16:38] LABS: ALKALINE PHOSPHATASE 63 U/L (45-117); TOTAL BILIRUBIN ADULT 0.2 MG/DL (0.2-1.0)
--- NOTE | 2016-09-15 17:44 | HHI.PR ---
Subjective Remarks Diarrhea seems to be getting better still documented large stool output denies abdominal pain, nausea or vomiting still c/o poor appetite Objective Vitals Vital Signs Date Time Temp Pulse Resp B/P Pulse Ox O2 Delivery O2 Flow Rate FiO2 09/15/16 12:00 98.3 65 24 109/62 86 09/15/16 08:47 Nasal Cannula 2.00 21 09/15/16 08:00 97.8 106 24 132/79 90 09/15/16 04:00 98.3 87 20 123/69 92 09/15/16 00:00 98.9 85 18 110/70 94 09/14/16 20:00 75 09/14/16 20:00 98.2 79 20 112/63 93 09/14/16 20:00 Nasal Cannula 2.00 I/O 09/14/16 09/14/16 09/14/16 09/15/16 09/15/16 09/15/16 07:00 15:00 23:00 07:00 15:00 23:00 Intake Total 1089 ml 480 ml 120 ml 1008 ml Output Total 1000 ml Balance 89 ml 480 ml 120 ml 1008 ml Intake Oral 240 ml 480 ml 120 ml 0 ml IV Total 849 ml 1008 ml Output Urine Total 500 ml Stool Total 500 ml # Voids 2 1 1 # Bowel Movements 1 0 Result Diagram: 09/15/16 1533 09/15/16 1533 Imaging Last Impressions Chest X-Ray 09/10/16 0000 Signed Impressions: Service Date/Time: Saturday, September 10, 2016 09:11 - CONCLUSION: Small right effusion increased airspace disease in the left lower lobe identified. Mauricio Stanton MD Abdomen MRI 09/05/16 0000 Signed Impressions: Service Date/Time: Monday, September 05, 2016 08:47 - CONCLUSION: 1. No defined mass is seen within the liver. There is some subtle heterogeneous enhancement on the delayed imaging involving the posterior aspect of the right lobe of the liver and the gallbladder fossa. This is felt to be inflammatory in etiology. No definite drainable abscess collection is seen. Note is made of a drainage catheter in place adjacent to the right lobe of the liver. 2. 6.4 x 5.6 cm cystic abnormality within the spleen. This appears to be purely cystic by MR. 3. Bilateral pleural effusions small on the left and moderate in size on the right. There is considerable atelectasis of the right lung as well. Chris Dejesus MD Abdomen/Pelvis CT 09/03/16 0000 Signed Impressions: Service Date/Time: Saturday, September 03, 2016 22:09 - CONCLUSION: 1. Perihepatic drain without residual fluid around the drain. 2. Masslike area of low density involving segment 6 of the liver adjacent to the drain. I have no priors to compare. Differential diagnostic considerations would include a mass of both benign and malignant potential as well as an infectious process. No discrete intrahepatic abscess currently seen. 3. Circumferential wall thickening and stranding in the adjacent fat involving the rectosigmoid colon as detailed above. The appearance is more typical of an inflammatory or infectious process. 4. Approximate 2 cm pocket of fluid and air within the gallbladder fossa. Although this could relate to more focal ascitic fluid I cannot exclude a developing abscess. It is currently too small for percutaneous access. 5. Bilateral pleural effusions and associated atelectasis. 6. 6.7 cm nonspecific low density mass involving the spleen. 7. Tiny focus of air within the lumen of the urinary bladder. Although this could relate to recent instrumentation an infection with gas producing organisms can have a similar appearance. 8. Nonobstructing right renal stone. Moshe Goyal Jr., MD Objective Remarks GENERAL: This is a well-nourished, well-developed patient, in no apparent distress, lying in bed. CARDIOVASCULAR: irregular rhythm without murmurs, gallops, or rubs. RESPIRATORY: Clear to auscultation. Breath sounds equal bilaterally. No wheezes , rales, or rhonchi. GASTROINTESTINAL: Abdomen soft,mild tenderness on epigastriq RUQ region, nondistended. drain removed. Normal, active bowel sounds MUSCULOSKELETAL: Extremities without clubbing, cyanosis, or edema. NEURO: Alert & Oriented x4 to person, place, time, situation. Muscle strength 3/5 in all extremities. Procedures none Medications and IVs Current Medications Medications (Trade) Dose Ordered Sig/Cash Route Start Time Stop Time Status Last Admin (D50w (Vial) Inj) 25 ml UNSCH PRN IV PUSH 08/26/16 09:00 (Glucagon Inj) 1 mg UNSCH PRN OTHER 08/26/16 09:00 (Lexapro) 10 mg DAILY PO 08/27/16 09:00 09/15/16 08:16 (Lasix) 40 mg DAILY PO 08/27/16 09:00 Hold 09/13/16 08:02 (Remeron) 15 mg HS PO 08/26/16 21:00 09/14/16 22:06 (Desyrel) 100 mg HS PO 08/26/16 21:00 09/14/16 22:07 (Pepcid) 40 mg HS PO 08/26/16 21:00 09/14/16 22:07 ([place] 5-325 Mg) 1 tab Q4H PRN PO 08/27/16 12:15 09/09/16 11:44 (Cardizem) 60 mg Q6H PO 08/30/16 15:00 09/15/16 16:33 (Lopressor) 75 mg BID PO 08/31/16 21:00 09/15/16 08:15 (Eliquis) 5 mg BID PO 08/31/16 21:00 09/15/16 08:16 (Pill Splitter) 1 ea UNSCH PRN OTHER 08/31/16 10:30 (Prinivil) 10 mg DAILY PO 09/04/16 11:15 Hold 09/11/16 08:27 (Megace Liq) 400 mg DAILY PO 09/07/16 11:15 09/15/16 08:15 Vancomycin HCl 500 mg 500 mg QID PO 09/10/16 13:00 09/15/16 17:31 Metronidazole 100 ml @ 100 mls/hr Q8H IV 09/11/16 16:00 09/15/16 16:34 (NS 1000 ml Inj) 1,000 ml @ 84 mls/hr [id number] IV 09/13/16 18:45 09/15/16 16:32 Urinary Catheter: No Vascular Central Line Catheter: No A/P Problem List: (1) C. difficile colitis ICD Code: A04.7 Status: Acute (2) Perihepatic abscess ICD Code: K65.0 Status: Acute (3) Rapid atrial fibrillation ICD Code: I48.91 Status: Resolved (4) UTI (urinary tract infection) ICD Code: N39.0 Status: Resolved (5) Cardiomyopathy ICD Code: I42.9 Status: Chronic (6) Hypokalemia ICD Code: E87.6 Status: Resolved (7) Chronic systolic heart failure ICD Code: I50.22 Status: Chronic (8) Diabetes mellitus, type 2 ICD Code: E11.9 Status: Chronic (9) Poor appetite ICD Code: R63.0 Status: Acute (10) Leukocytosis ICD Code: D72.829 Status: Acute (11) Low urine output ICD Code: R34 Status: Acute Assessment and Plan (1) C. difficile colitis Plan: Diarrhea still present and persistent. Positive for 027 strain Appreciate ID recommendations. Antibiotics as per infectious disease. Flagyl was discontinued on 09/04/16 and the patient was started on oral vancomycin 125 mg 4 times a day. Continue to monitor stool output. Continue rectal tube. 09/11 patient case was discussed with Dr. Peña. Patient's oral dose of vancomycin increased to 500 mg by mouth every 6 hours and IV Flagyl resumed as per ID. Leukocytosis worsening. Follow-up ID recommendations. 09/13 Leukocytosis improving. Patient still with large output of diarrhea. Continue PO Vancomycin and IV Flagyl. 09/15 Leukocytosis improving. Diarrhea in bag seems to be more formed. (2) Perihepatic abscess Plan: Status post drainage with drain present in right upper quadrant. CT abdomen and pelvis as described above shows perihepatic drain without residual fluid around the drain. Masslike area of low density involving segment 6 of the liver adjacent to the drain. No discrete intrahepatic abscess currently seen. Approximately 2 cm pocket of fluid and air within the gallbladder fossa. Bilateral pleural effusions and associated atelectasis. 6.7 cm nonspecific low density mass involving the spleen. Tiny focus of air within the lumen of the urinary bladder. Gen. surgery consulted and following. 09/05 MRI of the abdomen ordered and described above. No discrete mass seen. Also no drainable collection seen. 09/06 perihepatic drain removed by GS. Patient on regular diet. 09/07 GS signed off. (3) Rapid atrial fibrillation Plan: Heart rate is rate controlled. TSH elevated at 5.2 however free T4 normal at 1.27 likely euthyroid sick syndrome. Continue apixaban Continue metoprolol and Cardizem. Cardiology consulted and following. (4) UTI (urinary tract infection) Plan: Status post treatment with IV antibiotics. Patient had been on IV Zosyn and IV Rocephin. 09/11 repeat urinalysis obtained on 09/10/16 negative. (5) Cardiomyopathy Plan: Cardiology consulted and following. Echocardiogram showed a moderately reduced systolic function. Estimated EF was in the range of 40-45% with diffuse hypokinesis. Left atrium was moderately dilated and right ventricle mildly dilated. Continue furosemide, beta shawn, I will add an PARKER inhibitor. (6) Hypokalemia Plan: Likely due to GI loss secondary to diarrhea. 09/09 Resolved. Continue to monitor bmp and replace as needed. 09/13 K 3.4 - replace orally and continue to monitor bmp. 09/15 hypokalemia resolved. (7) Chronic systolic heart failure Plan: Echocardiogram with EF of 40-45%. Bilateral pleural effusions found in CT scan. Continue furosemide, beta shawn, I will add PARKER inhibitor. (8) Diabetes mellitus, type 2 Plan: Insulin-dependent diabetes type 2. Patient has labile blood sugars with blood sugars in the 200's and then in the 120's. Continue SSI. (9) Poor appetite Plan: Diet consulted. Continue megace - better Dietitian also recommended a 2000 calorie ADA diet and Glucerna shakes TID. GI prophylaxis: On Pepcid. DVT prophylaxis: Continue SCDs and patient is on Apixaban. Discharge Planning Continue to monitor in the medical floor. Pending clinical improvement. Problem Qualifiers (1) UTI (urinary tract infection): (2) Cardiomyopathy: Qualified Code: I42.9 - Cardiomyopathy, unspecified type (3) Diabetes mellitus, type 2: Qualified Code: E11.8 - Type 2 diabetes mellitus with complication, with long- term current use of insulin (4) Leukocytosis: Qualified Code: D72.829 - Leukocytosis, unspecified type Amanuel Newman MD Sep 15, 2016 17:44
[2016-09-15] MEDS: traZODone HCL 100 MG TAB PO SCH (21:24)
[2016-09-15] MEDS: FAMOTIDINE 20 MG TAB PO SCH (21:25)
[2016-09-15] MEDS: MIRTAZAPINE 15 MG TAB PO SCH (21:25)
--- NOTE | 2016-09-15 23:30 | RADRPT ---
EXAM DATE/TIME: 09/15/2016 22:57 [facility] COMPARISON: CHEST SINGLE AP, September 10, 2016, 9:11. INDICATIONS : Shortness of breath. MEDICAL HISTORY : Congestive heart failure. Hypertension. Diabetes mellitus type 2. Hepatic tumor. SURGICAL HISTORY : None. ENCOUNTER: Subsequent ACUITY: 2 weeks PAIN SCORE: 0/10 LOCATION: Bilateral chest FINDINGS: The cardiac silhouette is enlarged in transverse diameter. There are findings of congestive heart geovanni lure with interstitial and alveolar opacity bilaterally. Moderate size bilateral pleural effusions a re present right greater than left. CONCLUSION: 1. Cardiomegaly and findings of congestive heart failure. The findings have worsened when compared wi th the prior examination. Ravin Lucas MD on September 15, 2016 at 23:28 Board Certified Radiologist. This report was verified electronically.
[2016-09-15] MEDS: RESP: ALBUTEROL 2.5 MG/IPRATROPIUM 0.5 MG NEB (PRN) NEB (23:41)
[2016-09-16] VITALS (10 sets, daily range): BP systolic 132–155; BP diastolic 69–87; PULSE 73–94; RESP 18–30; TEMP 97.1–98.2; O2SAT 84–96
[2016-09-16] MEDS: DILTIAZEM HCL 60 MG TAB PO SCH ×4 (02:45→21:25)
[2016-09-16] MEDS: ACETAMINOPHEN/HYDROcodone 325 MG/5 MG TAB PO PRN ×2 (04:05→17:09)
[2016-09-16] MEDS: SODIUM CHLOR 0.9% 1000 ML INJ 1,000 ML IV SCH (05:18)
[2016-09-16] MEDS: RESP: ALBUTEROL 2.5 MG/IPRATROPIUM 0.5 MG NEB (PRN) NEB ×3 (05:20→19:59)
[2016-09-16] MEDS: INSULIN ASPART SUPPLEMENTAL SCALE SQ SCH ×4 (06:14→21:36)
[2016-09-16 07:14] LABS: BASOPHIL # 0.1 TH/MM3 (0-0.2); BASOPHIL % 0.6 % (0.0-2.0); EOSINOPHIL % 0.1 % (0.0-4.0); HEMATOCRIT 33.6 % (39.0-51.0); HEMO FLAGS DIFF FINAL; LYMPH % 4.2 % (9.0-44.0); LYMPHOCYTE # 0.6 TH/MM3 (1.0-4.8); MEAN CELL VOLUME 95.4 FL (80.0-100.0); MEAN CORPUSCULAR HEMOGLOBIN 30.2 PG (27.0-34.0); MEAN CORPUSCULAR HGB CONC 31.7 % (32.0-36.0); MONO % 6.7 % (0.0-8.0); NEUT % 88.4 % (16.0-70.0); PLATELET COUNT 332 TH/MM3 (150-450); RED BLOOD COUNT 3.53 MIL/MM3 (4.50-5.90); RED CELL DISTRIBUTION WIDTH 17.8 % (11.6-17.2); WHITE BLOOD COUNT 14.7 TH/MM3 (4.0-11.0)
[2016-09-16 07:31] LABS: ALKALINE PHOSPHATASE 62 U/L (45-117); ALT (GPT) 9 U/L (12-78); ANION GAP 5 MEQ/L (5-15); AST (GOT) 7 U/L (15-37); BICARBONATE 31.8 MEQ/L (21.0-32.0); BLOOD UREA NITROGEN 14 MG/DL (7-18); CHLORIDE 103 MEQ/L (98-107); GLOMERULAR FILTRATION RATE 118 ML/MIN (>89); SODIUM (NA) 140 MEQ/L (136-145); TOTAL BILIRUBIN ADULT 0.3 MG/DL (0.2-1.0)
[2016-09-16] MEDS: metroNIDAZOLE 500 MG INJ 100 ML IV SCH ×2 (10:50→17:05)
[2016-09-16] MEDS: VANCOMYCIN 500 MG VIAL (FOR ORAL USE ONLY) PO SCH ×3 (10:51→21:25)
[2016-09-16] MEDS: MEGESTROL ACETATE SUSP 400 MG/10 ML CUP PO SCH (10:55)
[2016-09-16] MEDS: APIXABAN 5 MG TABLET PO SCH (10:55)
[2016-09-16] MEDS: FUROSEMIDE 40 MG TAB PO SCH (10:57)
[2016-09-16] MEDS: METOPROLOL TARTRATE 50 MG TAB PO SCH ×2 (10:57→21:00)
[2016-09-16] MEDS: ESCITALOPRAM OXALATE 10 MG TAB PO SCH (10:57)
--- NOTE | 2016-09-16 16:37 | HHI.PR ---
Subjective Remarks Patient still with diarrhea and large stool output. denies cp or abdominal pain overnight events reviewed - patient was sob and 02 sat dropped into the low 90' s earlier as per RN patient did not eat much Objective Vitals Vital Signs Date Time Temp Pulse Resp B/P Pulse Ox O2 Delivery O2 Flow Rate FiO2 09/16/16 12:00 97.1 76 18 132/69 96 09/16/16 08:00 98.2 90 24 138/69 92 09/16/16 05:23 93 Nasal Cannula 5.00 09/16/16 04:00 98.1 73 18 146/87 93 09/16/16 02:08 78 09/16/16 01:44 93 Nasal Cannula 4.00 09/16/16 00:40 95 Venturi Mask 6.00 09/16/16 00:00 98.2 76 20 140/71 93 09/15/16 23:42 92 Venturi Mask 6.00 09/15/16 22:27 90 Venturi Mask 6.00 50 09/15/16 20:00 97.9 117 20 150/90 95 I/O 09/15/16 09/15/16 09/15/16 09/16/16 09/16/16 09/16/16 07:00 15:00 23:00 07:00 15:00 23:00 Intake Total 1008 ml 600 ml 240 ml 120 ml Balance 1008 ml 600 ml 240 ml 120 ml Intake Oral 0 ml 600 ml 240 ml 120 ml IV Total 1008 ml # Voids 1 4 3 4 # Bowel Movements 0 Result Diagram: 09/16/16 0600 09/16/16 0600 Imaging Last 48 hours Impressions Chest X-Ray 09/15/16 0000 Signed Impressions: Service Date/Time: Thursday, September 15, 2016 22:57 - CONCLUSION: 1. Cardiomegaly and findings of congestive heart failure. The findings have worsened when compared with the prior examination. Ravin Lucas MD Reviewed by me Objective Remarks GENERAL: This is a well-nourished, well-developed patient, in no apparent distress, lying in bed. CARDIOVASCULAR: irregular rhythm without murmurs, gallops, or rubs. RESPIRATORY: Diffuse bilateral expiratory wheezing. Breath sounds equal bilaterally. No rhonchi or rales appreciated. GASTROINTESTINAL: Abdomen soft,mild tenderness on epigastriq RUQ region, nondistended. drain removed. Normal, active bowel sounds MUSCULOSKELETAL: Extremities without clubbing, cyanosis, or edema. NEURO: Alert & Oriented x4 to person, place, time, situation. Muscle strength 3/5 in all extremities. Procedures none Medications and IVs Current Medications Medications (Trade) Dose Ordered Sig/Cash Route Start Time Stop Time Status Last Admin (D50w (Vial) Inj) 25 ml UNSCH PRN IV PUSH 08/26/16 09:00 (Glucagon Inj) 1 mg UNSCH PRN OTHER 08/26/16 09:00 (Lexapro) 10 mg DAILY PO 08/27/16 09:00 09/16/16 10:57 (Lasix) 40 mg DAILY PO 08/27/16 09:00 09/16/16 10:57 (Remeron) 15 mg HS PO 08/26/16 21:00 09/15/16 21:25 (Desyrel) 100 mg HS PO 08/26/16 21:00 09/15/16 21:24 (Pepcid) 40 mg HS PO 08/26/16 21:00 09/15/16 21:25 ([place] 5-325 Mg) 1 tab Q4H PRN PO 08/27/16 12:15 09/16/16 04:05 (Cardizem) 60 mg Q6H PO 08/30/16 15:00 09/16/16 10:57 (Lopressor) 75 mg BID PO 08/31/16 21:00 09/16/16 10:57 (Eliquis) 5 mg BID PO 08/31/16 21:00 09/16/16 10:55 (Pill Splitter) 1 ea UNSCH PRN OTHER 08/31/16 10:30 (Prinivil) 10 mg DAILY PO 09/04/16 11:15 Hold 09/11/16 08:27 (Megace Liq) 400 mg DAILY PO 09/07/16 11:15 09/16/16 10:55 Vancomycin HCl 500 mg 500 mg QID PO 09/10/16 13:00 09/16/16 10:51 (Flagyl 500 Mg Inj) 100 ml @ 100 mls/hr Q8H IV 09/11/16 16:00 09/16/16 10:50 A/P Problem List: (1) C. difficile colitis ICD Code: A04.7 Status: Acute (2) Perihepatic abscess ICD Code: K65.0 Status: Acute (3) Rapid atrial fibrillation ICD Code: I48.91 Status: Resolved (4) UTI (urinary tract infection) ICD Code: N39.0 Status: Resolved (5) Cardiomyopathy ICD Code: I42.9 Status: Chronic (6) Hypokalemia ICD Code: E87.6 Status: Resolved (7) Chronic systolic heart failure ICD Code: I50.22 Status: Chronic (8) Diabetes mellitus, type 2 ICD Code: E11.9 Status: Chronic (9) Poor appetite ICD Code: R63.0 Status: Acute (10) Leukocytosis ICD Code: D72.829 Status: Acute Plan: Patient's white blood cell count initially trending up from 11.6-19.2. Chest x-ray obtained showed a small right pleural effusion increased airspace disease in the left lower lobe. Urinalysis negative. White blood cell trending slowly down for the past 2 days. Now 16 K. Continue to monitor CBC with differential. 09/16 wbc slightly elevated. Patient afebrile. continue to monitor cbc w diff. (11) Low urine output ICD Code: R34 Status: Acute Plan: I will check a bladder scan to rule out urinary retention. I will also start the patient on normal saline at 84 mL per hour. Continue to monitor strict I's and O's. 09/16 Dc Iv fluids due to pulmonary vascular congestion. (12) Acute systolic (congestive) heart failure ICD Code: I50.21 Status: Acute Plan: Patient had an episode of shortness of breath last night on 09/15/16. IV fluids discontinued and patient had a chest x-ray which showed cardiomegaly and findings of congestive heart failure. I will start the patient on Lasix 40 mg IV twice a day, continue supplemental oxygen, continue DuoNeb's. Assessment and Plan (1) C. difficile colitis Plan: Diarrhea still present and persistent. Positive for 027 strain Appreciate ID recommendations. Antibiotics as per infectious disease. Flagyl was discontinued on 09/04/16 and the patient was started on oral vancomycin 125 mg 4 times a day. Continue to monitor stool output. Continue rectal tube. 09/11 patient case was discussed with Dr. Peña. Patient's oral dose of vancomycin increased to 500 mg by mouth every 6 hours and IV Flagyl resumed as per ID. Leukocytosis worsening. Follow-up ID recommendations. 09/13 Leukocytosis improving. Patient still with large output of diarrhea. Continue PO Vancomycin and IV Flagyl. 09/15 Leukocytosis improving. Diarrhea in bag seems to be more formed. 09/16 Leukocytosis slightly worsened from 13.6 to 14.7. continue to monitor cbc. Continue vancomycin PO and IV flagyl. fu ID recommendations. (2) Perihepatic abscess Plan: Status post drainage with drain present in right upper quadrant. CT abdomen and pelvis as described above shows perihepatic drain without residual fluid around the drain. Masslike area of low density involving segment 6 of the liver adjacent to the drain. No discrete intrahepatic abscess currently seen. Approximately 2 cm pocket of fluid and air within the gallbladder fossa. Bilateral pleural effusions and associated atelectasis. 6.7 cm nonspecific low density mass involving the spleen. Tiny focus of air within the lumen of the urinary bladder. Gen. surgery consulted and following. 09/05 MRI of the abdomen ordered and described above. No discrete mass seen. Also no drainable collection seen. 09/06 perihepatic drain removed by GS. Patient on regular diet. 09/07 GS signed off. (3) Rapid atrial fibrillation Plan: Heart rate is rate controlled. TSH elevated at 5.2 however free T4 normal at 1.27 likely euthyroid sick syndrome. Continue apixaban Continue metoprolol and Cardizem. Cardiology consulted and following. (4) UTI (urinary tract infection) Plan: Status post treatment with IV antibiotics. Patient had been on IV Zosyn and IV Rocephin. 09/11 repeat urinalysis obtained on 09/10/16 negative. (5) Cardiomyopathy Plan: Cardiology consulted and following. Echocardiogram showed a moderately reduced systolic function. Estimated EF was in the range of 40-45% with diffuse hypokinesis. Left atrium was moderately dilated and right ventricle mildly dilated. Continue furosemide, beta shawn, I will add an PARKER inhibitor. (6) Hypokalemia Plan: Likely due to GI loss secondary to diarrhea. 09/09 Resolved. Continue to monitor bmp and replace as needed. 09/13 K 3.4 - replace orally and continue to monitor bmp. 09/15 hypokalemia resolved. (7) Chronic systolic heart failure Plan: Echocardiogram with EF of 40-45%. Bilateral pleural effusions found in CT scan. Continue furosemide, beta shawn, I will add PARKER inhibitor. (8) Diabetes mellitus, type 2 Plan: Insulin-dependent diabetes type 2. Patient has labile blood sugars with blood sugars in the 200's and then in the 120's. Continue SSI. (9) Poor appetite Plan: Diet consulted. Continue megace - better Dietitian also recommended a 2000 calorie ADA diet and Glucerna shakes TID. GI prophylaxis: On Pepcid. DVT prophylaxis: Continue SCDs and patient is on Apixaban. Discharge Planning Continue to monitor in the medical floor. Pending clinical improvement. Problem Qualifiers (1) UTI (urinary tract infection): (2) Cardiomyopathy: Qualified Code: I42.9 - Cardiomyopathy, unspecified type (3) Diabetes mellitus, type 2: Qualified Code: E11.8 - Type 2 diabetes mellitus with complication, with long- term current use of insulin (4) Leukocytosis: Qualified Code: D72.829 - Leukocytosis, unspecified type Amanuel Newman MD Sep 16, 2016 16:37
[2016-09-16] MEDS: FUROSEMIDE 40 MG/4 ML VIAL IV PUSH SCH (17:09)
--- NOTE | 2016-09-16 17:54 | HHI.PR ---
Addendum to Inpatient Note Addendum Reason: Additional Documentation Additional Information I was called to see patient because of respiratory distress. The patient deciding into the mid 80s. Rapid response team code was already activated. The rest response nurse is at bedside and I arrived to the room. The patient is on 100% nonrebreather mask, sleepy however answers questions and is oriented to time and place. The patient is in moderate respiratory distress, lungs show diminished breath sounds bilaterally, no crackles, rhonchi auscultated. There is no audible wheezing. Bowel sounds are present abdomen is soft, nontender nondistended. Patient has a rectal tube with capps diarrhea. There is no edema in bilateral lower extremities. Patient has acute hypoxemic respiratory failure possibly secondary to fluid overload given that chest x-ray obtained last night showed some features consistent with congestive heart failure. IV Lasix has been already been ordered 40 mg IV twice a day, will obtain a chest x-ray stat, ABG stat, and pseudomotor 125 mg IV once. The patient will be transferred to the intensive care unit. Depending on the outcome of the patient and results will consider consulting the seaming machine operator. Amanuel Newman MD Sep 16, 2016 17:54
[2016-09-16] MEDS ORDERED: methylPREDNISolone SOD SUCC 125 MG/2 ML VIAL IV PUSH ONE (18:00)
--- NOTE | 2016-09-16 18:34 | RADRPT ---
EXAM DATE/TIME: 09/16/2016 18:00 [facility] COMPARISON: CHEST SINGLE AP, September 15, 2016, 22:57. INDICATIONS : Respiratory disease MEDICAL HISTORY : Congestive heart failure. Hypertension. Diabetes mellitus type 2. Hepatic tumor. SURGICAL HISTORY : None. ENCOUNTER: Subsequent ACUITY: 2 weeks PAIN SCORE: Non-responsive. LOCATION: Bilateral chest FINDINGS: There is cardiomegaly with bilateral effusions, right greater than left and mild edema pattern with b asilar consolidation. CONCLUSION: 1. Congestive heart failure with probable slight increase in size of right pleural effusion since Sep il 15. Ken Bello MD on September 16, 2016 at 18:31 Board Certified Radiologist. This report was verified electronically.
--- NOTE | 2016-09-16 20:03 | PD.CONS ---
[facility] Service Critical Care Medicine Consult Requested By Dr. Zhao Reason for Consult Critical care management of respiratory failure, severe C diff Primary Care Physician Non-Staff History of Present Illness Date of admission: 08/26/16 Date of crit care medicine consultation 09/16/16 81-year-old male who has a complicated past medical history, originally admitted 08/26/16. History includes HTN, chronic systolic heart failure, depression. 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 He reportedly had gallstone in small intestine and underwent laparoscopic repair at [facility] 06/05/16. 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 Surgery was complicated by subsegmental liver infarct and development of perihepatic abscess that was drained percutaneously at the outside hospital. He then went to [facility] and then to [facility]. From [facility] he was admitted on 08/26/16 with SVT. He was evaluated by cardiology, Dr. Mathis, and has been on rate control with cardizem/metoprolol and started on eliquis. He was evaluated by general surgery who initially recommended continuation of drain. CT abdomen and pelvis on 09/03 demonstrated perihepatic drain in place without residual fluid around the drain. There was a mass noted but no intrahepatic abscess. There were certain circumferential wall thickening of the rectosigmoid. Ultimately drain was discontinued 09/06/16. He had multiple daily stools since admission. He tested positive for C diff on 09/01, Epid 027 positive. He was started on flagyl 500 po q8h. Symptoms continued to worsen the point of 10 loose BM's on 09/04. He was placed on vancomycin 250 qid on 09/09. and then transitioned to Flagyl 500 mg IV every 8 hours and vancomycin 500 qid on 09/10 under the care of Dr. Peña with Infectious Disease. Today he is transferred from floor to [facility] due to respiratory distress. He was on 100% NR prior to transfer and Dr. Zhao has ordered Bipap. He has received Lasix 40 mg IV, Duoneb x1, and Solumedrol 125 mg IV. CXR demonstrates moderate right pleural effusion, worsening. 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 chemotherapy, completed ~ 1year ago) Diabetes mellitus Depression Past Surgical History S/p partial small bowel resection (Jejunum) at [facility] April 2015 cholecystectomy and cholecystoduodenal fistula repair 06/05/16 Percutaneous drain 06/19, removed 09/16 Active Ordered Medications Current Medications Medications (Trade) Dose Ordered Sig/Cash Route Start Time Stop Time Status Last Admin (D50w (Vial) Inj) 25 ml UNSCH PRN IV PUSH 08/26/16 09:00 (Glucagon Inj) 1 mg UNSCH PRN OTHER 08/26/16 09:00 (Lexapro) 10 mg DAILY PO 08/27/16 09:00 09/16/16 10:57 (Remeron) 15 mg HS PO 08/26/16 21:00 09/15/16 21:25 (Desyrel) 100 mg HS PO 08/26/16 21:00 09/15/16 21:24 (Pepcid) 40 mg HS PO 08/26/16 21:00 09/15/16 21:25 ([place] 5-325 Mg) 1 tab Q4H PRN PO 08/27/16 12:15 09/16/16 17:09 (Cardizem) 60 mg Q6H PO 08/30/16 15:00 09/16/16 17:04 (Lopressor) 75 mg BID PO 08/31/16 21:00 09/16/16 10:57 (Eliquis) 5 mg BID PO 08/31/16 21:00 09/16/16 10:55 (Pill Splitter) 1 ea UNSCH PRN OTHER 08/31/16 10:30 (Prinivil) 10 mg DAILY PO 09/04/16 11:15 Hold 09/11/16 08:27 (Megace Liq) 400 mg DAILY PO 09/07/16 11:15 09/16/16 10:55 Vancomycin HCl 500 mg 500 mg QID PO 09/10/16 13:00 09/16/16 13:55 (Flagyl 500 Mg Inj) 100 ml @ 100 mls/hr Q8H IV 09/11/16 16:00 09/16/16 17:05 (Lasix Inj) 40 mg BID@09,18 IV PUSH 09/16/16 18:00 09/16/16 17:09 Family History Unable to obtain from patient due to clinical condition. Social History long-term resident states no h/o tobacco, etoh or drug abuse. Is able to ambulate at baseline without assistance, but he had not ambulated significantly at rehab per his due to symptoms of UTI. Physical Exam Vital Signs Vital Signs Date Time Temp Pulse Resp B/P Pulse Ox O2 Delivery O2 Flow Rate FiO2 09/16/16 16:00 97.3 93 22 145/80 84 09/16/16 12:00 97.1 76 18 132/69 96 09/16/16 08:00 98.2 90 24 138/69 92 09/16/16 05:23 93 Nasal Cannula 5.00 09/16/16 04:00 98.1 73 18 146/87 93 09/16/16 02:08 78 09/16/16 01:44 93 Nasal Cannula 4.00 09/16/16 00:40 95 Venturi Mask 6.00 09/16/16 00:00 98.2 76 20 140/71 93 09/15/16 23:42 92 Venturi Mask 6.00 09/15/16 22:27 90 Venturi Mask 6.00 50 Physical Exam Temp 98 Pulse 88, A. fib blood pressure 92/61 to 92% on BiPAP 10 over 5 with FiO2 80% GENERAL: Chronically ill-appearing male who is on BiPAP, confused. SKIN: Warm and dry, flaky. Abdominal wall cellulitis/abscess as per below. HEAD: Atraumatic. Normocephalic. EYES: Pupils equal and round, 3mm reactive bilaterally. No scleral icterus. No injection or drainage. ENT: Bipap mask in place. NECK: Trachea midline. No JVD . CARDIOVASCULAR: irregularly irregular rate 80s, no mrg. RESPIRATORY: Tachypneic on Bipap 10/5 with TV 550-650, no accessory muscle use. Diminished bibasilar. No rales or rhonchi. Bedside U/s demonstrates moderate bilateral pleural efffusions R>L. GASTROINTESTINAL: Abdomen with fullness RUQ. There is about 15 cm x10 cm area of erythema and warmth with surrounding pitting flank edema. There is about 2-3 cm area of fluctuance. : Tillman in place with light bon urine output Dignishield in place with soft brown output. MUSCULOSKELETAL: Extremities without clubbing, cyanosis. 1+ bipedal edema. NEUROLOGICAL: Awake and alert to voice, speaks a few sentences, oriented to self but not oriented to year or circumstance. No obvious cranial nerve deficits. Motor grossly within normal limits, moving all extremities. Laboratory Laboratory Tests Test 09/16/16 06:00 White Blood Count 14.7 Red Blood Count 3.53 Hemoglobin 10.7 Hematocrit 33.6 Mean Corpuscular Volume 95.4 Mean Corpuscular Hemoglobin 30.2 Mean Corpuscular Hemoglobin 31.7 Concent Red Cell Distribution Width 17.8 Platelet Count 332 Mean Platelet Volume 8.9 Neutrophils (%) (Auto) 88.4 Lymphocytes (%) (Auto) 4.2 Monocytes (%) (Auto) 6.7 Eosinophils (%) (Auto) 0.1 Basophils (%) (Auto) 0.6 Neutrophils # (Auto) 13.0 Lymphocytes # (Auto) 0.6 Monocytes # (Auto) 1.0 Eosinophils # (Auto) 0.0 Basophils # (Auto) 0.1 CBC Comment DIFF FINAL Differential Comment Sodium Level 140 Potassium Level 4.0 Chloride Level 103 Carbon Dioxide Level 31.8 Anion Gap 5 Blood Urea Nitrogen 14 Creatinine 0.65 Estimat Glomerular Filtration 118 Rate Random Glucose 142 Calcium Level 8.5 Total Bilirubin 0.3 Aspartate Amino Transf 7 (AST/SGOT) Alanine Aminotransferase 9 (ALT/SGPT) Alkaline Phosphatase 62 Total Protein 6.5 Albumin 2.1 Result Diagram: 09/16/16 0600 09/16/16 0600 Assessment and Plan Assessment and Plan NEURO: Acute encephalopathy secondary to hypercapnia and sepsis Agitated delirium Depression Precedex drip to facilitate compliance with Bipap/HFNC. Lexapro 10 mg by mouth daily RESP: Acute hypoxemic and hypercapnic respiratory failure Moderate/large Right pleural effusion His respiratory compromise appears secondary to large bilateral pleural effusions and compressive atelectasis in setting of hypoalbuminemia. Likely would improve with pigtail catheter placement or thoracentesis, however unable to perform currently as he has eliquis onboard. Will hold Eliquis and plan to perform in 48 hours. Initially tolerating Bipap but he does have delirium and now agitated and refusing.Precedex initiated. Use HFNC for now. Likely would benefit from the additional positive pressure of Bipap, so consider attempting again if he can be calmed with precedex. Has been diuresed with Lasix 40 mg IV x2. Avoid ongoing aggressive diuresis at this time as he is still having large volume stool losses. Duoneb q4 h CV: Chronic systolic heart failure Atrial fibrillation Hypertension A. fib is currently rate controlled, cardizem 60 mg by mouth every 6 hours. Can transition to a drip if unable to take po, but this has not been an issue so far. Metoprolol 75 mg by mouth twice a day Hold eliquis due to upcoming procedures. Last dose was 11 am on 09/16. Troponin negative. 2-D Echo08/27/16 ejection fraction 40-45%. Diffuse hypokinesis. RV mildly dilated. Moderate left atrial dilatation. Dr. Mathis signed off. GI: Chronic protein energy malnutrition Poor appetite Megace 400 g by mouth daily NPO while on Bipap. 1800 ADA diet when appropriate. NPO at midnight on evening for procedures. FEN/RENAL: Tillman is in place. Monitor intake and output. Monitor electrolytes. Replace electrolytes as indicated per ICU electrolyte replacement protocol ID: Severe C. difficile colitis, +Epid 027 Leukocytosis Abdominal wall abscess On vancomycin 500 4 times a day and Flagyl 500 mg IV every 8 hours for C. difficile. Now with abdominal wall abscess that will need I&D. Have consulted general surgery for I&D. Would like to avoid broad-spectrum antibiotics for this due to severe C. difficile colitis and mainstay of treatment is I and D. Vancomycin IV empiric for MRSA, followup abscess culture. Infectious disease following, Dr. Peña. CT abdomen pelvis8.9 x 3.7 cm air fluid collection right lateral abdominal wall , ( subcutaneous). 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 Flynn) Chronic anemia Monitor CBC ENDO: Diabetes mellitus Low-dose insulin sliding scale at bedside glucose AC/hs. PROPH: Pepcid 40 mg by mouth daily at bedtime for stress ulcer prophylaxis. Has been on eliquis for atrial fibrillation which will also afford DVT prophylaxis. Continue SCDs. Anticoagulation is on hold for thoracentesis/ abdominal wall abscess I&D. ACCESS: Peripheral IV providing adequate access at this time Discussed with Julia Sosa, general surgery. Assistance greatly appreciated. CCT 60 minutes exclusive of separately billable procedures. Veronica Bell MD Sep 16, 2016 20:03
[2016-09-16] MEDS: traZODone HCL 100 MG TAB PO SCH (21:00)
[2016-09-16] MEDS: MIRTAZAPINE 15 MG TAB PO SCH (21:00)
[2016-09-16] MEDS: FAMOTIDINE 20 MG TAB PO SCH (21:00)
[2016-09-16 21:29] LABS: BLOOD GAS BASE EXCESS 7.3 mmol/L (-2-2); BLOOD GAS CARBOXYHEMOGLOBIN 1.1 % (0-4); BLOOD GAS HCO3 33 mmol/L (22-26); BLOOD GAS METHEMOGLOBIN 0.3 % (0-2); BLOOD GAS O2 HGB SATURATION 91 % (90-100); BLOOD GAS OXYGEN CONTENT 14.5 Vol % (12.0-20.0); BLOOD GAS PCO2 62 mmHg (38-42); BLOOD GAS PO2 69 mmHg (61-120); BLOOD GAS TOTAL HGB 11.3 G/DL (12.0-16.0); TEMP CORR TO 98.6
[2016-09-16 21:30] LABS: CRITICAL VALUE YES; DRAW SITE RT RADIAL; FIO2 80 %; NUMBER OF ARTERIAL PUNCTURES 1; OXYGEN DEVICE BiPAP; STAT YES; ULNAR PULSE PRESENT; VENT SETTINGS IPAP12/EPAP5
[2016-09-16 22:22] LABS: CREATINE KINASE 18 U/L (39-308)
[2016-09-17] VITALS (18 sets, daily range): BP systolic 111–150; BP diastolic 63–96; PULSE 70–115; RESP 14–30; TEMP 97.9–99.2; O2SAT 90–96
[2016-09-17] MEDS: metroNIDAZOLE 500 MG INJ 100 ML IV SCH ×2 (01:12→08:00)
[2016-09-17] MEDS ORDERED: LIDOCAINE HCL 2% 100 MG/5 ML SYRINGE ONE (01:18)
[2016-09-17] MEDS ORDERED: EPINEPHrine HCL (1:10,000) 1 MG/10 ML SYRINGE ONE (01:18)
[2016-09-17] MEDS ORDERED: ATROPINE SULFATE 1 MG/10 ML SYRINGE ONE (01:19)
[2016-09-17] MEDS ORDERED: IOHEXOL 350 MG/ML 10 ML VIAL (for RAD DIAG) IV ONE (02:24)
--- NOTE | 2016-09-17 02:42 | RADRPT ---
EXAM DATE/TIME: 09/17/2016 02:18 [facility] COMPARISON: No previous studies available for comparison. INDICATIONS : Respiratory distress; pleural effusion. RADIATION DOSE: 8.31 CTDIvol (mGy) MEDICAL HISTORY : Hypertension. Congestive heart failure. Carcinoma, colon. Diabetes SURGICAL HISTORY : None. ENCOUNTER: Subsequent ACUITY: 1 week PAIN SCALE: 0/10 LOCATION: chest TECHNIQUE: Volumetric scanning of the chest was performed. Using automated exposure control and adjustment of t he mA and/or kV according to patient size, radiation dose was kept as low as reasonably achievable to obtain optimal diagnostic quality images. FINDINGS: LUNGS: There is no pneumothorax. Large areas of passive atelectasis both lung bases No concerning pulmonary nodule is visualized. PLEURAE: There is no pleural thickening but there area large bilateral pleural effusions. MEDIASTINUM: The heart and great vessels demonstrate no acute abnormality. There is no mediastinal or hilar lymph adenopathy. AXILLAE: Within normal limits. No lymphadenopathy. MUSCULOSKELETAL: Within normal limits for patient age. MISCELLANEOUS: The visualized upper abdominal organs demonstrate no acute abnormality. Stable large splenic cyst CONCLUSION: Bilateral larger pleural effusions right greater left with extensive areas of passive atelectasis all increased since 09/03/16 exam. Fluid collection anterior right abdominal wall defer to CT of the abdom en for complete characterization Mj Eason MD on September 17, 2016 at 2:38 Board Certified Radiologist. This report was verified electronically.
--- NOTE | 2016-09-17 02:46 | RADRPT ---
EXAM DATE/TIME: 09/17/2016 02:18 [place] COMPARISON: No previous studies available for comparison. INDICATIONS : Follow up liver abscess. IV CONTRAST: 96 cc Omnipaque 350 (iohexol) IV ORAL CONTRAST: No oral contrast ingested. RADIATION DOSE: 22.50 CTDIvol (mGy) MEDICAL HISTORY : Congestive heart failure. Hypertension. Carcinoma, colon.Diabetes SURGICAL HISTORY : None. ENCOUNTER: Subsequent ACUITY: 3 days PAIN SCALE: 3/10 LOCATION: abdomen TECHNIQUE: Volumetric scanning of the abdomen and pelvis was performed. Using automated exposure control and ad justment of the mA and/or kV according to patient size, radiation dose was kept as low as reasonably achievable to obtain optimal diagnostic quality images. FINDINGS: LOWER LUNGS: Bilateral pleural effusions right greater left with extensive areas of passive atelectasis increased since the third. LIVER: Homogeneous areas of subcortical scarring and hypodensity right lobe of liver, unchanged. SPLEEN: Normal size with a large hypodense lesion, likely benign. PANCREAS: Within normal limits. KIDNEYS: Normal in size and shape. There is no mass, stone or hydronephrosis. ADRENAL GLANDS: Within normal limits. VASCULAR: There is no aortic aneurysm. BOWEL/MESENTERY: The stomach, small bowel, and colon demonstrate no acute abnormality. There is no free intraperitone al air or fluid. Rectal tube ABDOMINAL WALL: Anteriorly on the right there is a air-fluid collection with extensive fluid in the right lateral sub cutaneous abdominal wall. The fluid collections in the area where there was a previous pleural drain. RETROPERITONEUM: There is no lymphadenopathy. BLADDER: No wall thickening or mass. REPRODUCTIVE: Within normal limits. INGUINAL: There is no lymphadenopathy or hernia. MUSCULOSKELETAL: Within normal limits for patient age. CONCLUSION: 8.9 x 3.7 cm fluid air collection in the anterior right abdominal wall along the site of the previous either pleural drain or intraperitoneal drain. Heterogeneous liver with a stable hypodense focal mas s in the dome posteriorly measuring 2.6 cm across. Worsening bilateral pleural effusions and bilatera l lower lung passive atelectasis clearly worsened on the previous study. Mj Eason MD on September 17, 2016 at 2:41 Board Certified Radiologist. This report was verified electronically.
[2016-09-17] MEDS: DILTIAZEM HCL 60 MG TAB PO SCH ×4 (04:07→20:34)
[2016-09-17 05:21] LABS: ALKALINE PHOSPHATASE 57 U/L (45-117); ALT (GPT) 9 U/L (12-78); TOTAL BILIRUBIN ADULT 0.3 MG/DL (0.2-1.0)
[2016-09-17 05:23] LABS: ANION GAP 8 MEQ/L (5-15); AST (GOT) 10 U/L (15-37); BICARBONATE 31.7 MEQ/L (21.0-32.0); BLOOD UREA NITROGEN 12 MG/DL (7-18); CHLORIDE 100 MEQ/L (98-107); GLOMERULAR FILTRATION RATE 98 ML/MIN (>89); POTASSIUM 4.3 MEQ/L (3.5-5.1); SODIUM (NA) 140 MEQ/L (136-145)
[2016-09-17 05:25] LABS: HEMATOCRIT 34.9 % (39.0-51.0); MEAN CELL VOLUME 95.8 FL (80.0-100.0); MEAN CORPUSCULAR HEMOGLOBIN 29.8 PG (27.0-34.0); MEAN CORPUSCULAR HGB CONC 31.1 % (32.0-36.0); PLATELET COUNT 317 TH/MM3 (150-450); RED BLOOD COUNT 3.64 MIL/MM3 (4.50-5.90); RED CELL DISTRIBUTION WIDTH 17.8 % (11.6-17.2); WHITE BLOOD COUNT 9.2 TH/MM3 (4.0-11.0)
[2016-09-17 05:27] LABS: HEMO FLAGS AUTO DIFF
[2016-09-17 05:29] LABS: BLOOD GAS BASE EXCESS 6.5 mmol/L (-2-2); BLOOD GAS CARBOXYHEMOGLOBIN 1.2 % (0-4); BLOOD GAS HCO3 33 mmol/L (22-26); BLOOD GAS METHEMOGLOBIN 0.9 % (0-2); BLOOD GAS O2 HGB SATURATION 88 % (90-100); BLOOD GAS OXYGEN CONTENT 14.3 Vol % (12.0-20.0); BLOOD GAS PCO2 76 mmHg (38-42); BLOOD GAS PO2 67 mmHg (61-120); BLOOD GAS TOTAL HGB 11.5 G/DL (12.0-16.0); TEMP CORR TO 98.6
[2016-09-17 05:31] LABS: DRAW SITE RT RADIAL; FIO2 100 %; LITER FLOW 15 L/M; NUMBER OF ARTERIAL PUNCTURES 1; STAT YES; ULNAR PULSE PRESENT
[2016-09-17 05:32] LABS: CRITICAL VALUE YES
[2016-09-17] MEDS: DEXMEDETOMIDINE INJ 200 MCG in SODIUM CHLORIDE 0.9% INJ 50 ML IV SCH ×3 (05:52→09:00)
[2016-09-17] MEDS: INSULIN ASPART SUPPLEMENTAL SCALE SQ SCH ×4 (07:00→21:08)
[2016-09-17 07:39] LABS: BANDS 6 % (0-6); METAMYELOCYTES 2 % (0-1); NEUTROPHIL # MANUAL DIFF 8.8 TH/MM3 (1.8-7.7); POLYS (SEG NEUTROPHILS) 88 % (16-70); WBC DIFF SAMPLE 100
[2016-09-17 07:40] LABS: PLATELET ESTIMATE SMEAR NORMAL (NORMAL); PLATELET MORPHOLOGY NORMAL (NORMAL); SCAN/DIFF FINAL DIFF MANUAL
[2016-09-17] MEDS ORDERED: Vancomycin Consult Pharmacy 1 EA OTHER SCH (08:00)
[2016-09-17] MEDS: VANCOMYCIN 500 MG VIAL (FOR ORAL USE ONLY) PO SCH ×4 (09:00→20:33)
[2016-09-17] MEDS: LACTOBACILLUS ACIDOPHILUS 1 GM PACKET PO SCH ×3 (09:00→17:12)
[2016-09-17] MEDS: MEGESTROL ACETATE SUSP 400 MG/10 ML CUP PO SCH (09:00)
[2016-09-17] MEDS: METOPROLOL TARTRATE 50 MG TAB PO SCH ×3 (09:00→20:34)
[2016-09-17] MEDS: FUROSEMIDE 40 MG/4 ML VIAL IV PUSH SCH (09:00)
[2016-09-17] MEDS: ESCITALOPRAM OXALATE 10 MG TAB PO SCH ×2 (09:00→09:01)
[2016-09-17 09:26] LABS: BLOOD GAS BASE EXCESS 10.5 mmol/L (-2-2); BLOOD GAS CARBOXYHEMOGLOBIN 1.2 % (0-4); BLOOD GAS HCO3 35 mmol/L (22-26); BLOOD GAS METHEMOGLOBIN 0.8 % (0-2); BLOOD GAS O2 HGB SATURATION 86 % (90-100); BLOOD GAS OXYGEN CONTENT 13.2 Vol % (12.0-20.0); BLOOD GAS PCO2 50 mmHg (38-42); BLOOD GAS PO2 54 mmHg (61-120); BLOOD GAS TOTAL HGB 10.9 G/DL (12.0-16.0); TEMP CORR TO 98.6
[2016-09-17 09:27] LABS: CRITICAL VALUE YES; DRAW SITE RT RADIAL; FIO2 70 %; LITER FLOW 30 L/M; NUMBER OF ARTERIAL PUNCTURES 1; OXYGEN DEVICE HI FLOW NC; STAT YES; ULNAR PULSE PRESENT
[2016-09-17] MEDS ORDERED: DEXT 5%-NACL 0.45% 1000 ML INJ 1,000 ML IV SCH (09:45)
--- NOTE | 2016-09-17 14:35 | HHI.IDPN ---
Subjective Subjective Remarks 81-year-old male who has a complicated past medical history, originally admitted 08/26/16. History includes HTN, chronic systolic heart failure, depression. 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 He reportedly had gallstone in small intestine and underwent laparoscopic repair at [facility] 06/05/16. 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 Surgery was complicated by subsegmental liver infarct and development of perihepatic abscess that was drained percutaneously at the outside hospital. Overnight events reviewed. Transferred to ICU. No fevers No rash Liquid stool 200 cc Antibiotics vanco po flagyl IV Vanco IV Lines Line sites with no e.o infection. Past Medical History reviewed Allergies: Coded Allergies: *MDRO Multi-Drug Resistant Organism (Verified Adverse Reaction, Unknown, ) MDR-Enterobacter Cloacae (urine)-08/26/16 Objective . Vital Signs Date Time Temp Pulse Resp B/P Pulse Ox O2 Delivery O2 Flow Rate FiO2 09/17/16 14:00 98 09/17/16 13:50 93 High Flow Nasal Cannula 25.00 70 09/17/16 12:00 97.9 73 14 115/63 95 09/17/16 12:00 73 09/17/16 10:00 115 09/17/16 08:00 99.2 73 16 150/96 91 09/17/16 08:00 93 High Flow Nasal Cannula 30.00 70 09/17/16 08:00 70 09/17/16 07:00 92 Nasal Cannula 60 09/17/16 06:00 92 09/17/16 06:00 90 High Flow Nasal Cannula 20.00 60 09/17/16 06:00 90 Nasal Cannula 60 09/17/16 04:48 94 60 09/17/16 04:00 98.7 92 14 128/74 92 09/17/16 04:00 92 09/17/16 02:05 94 100 09/17/16 02:00 88 09/17/16 01:17 94 60 09/17/16 00:00 96 09/17/16 00:00 98.4 96 30 139/77 92 09/16/16 22:00 91 Bi-Pap 60 09/16/16 22:00 94 09/16/16 21:00 93 Bi-Pap 80 09/16/16 20:00 98.0 84 30 155/75 92 09/16/16 20:00 80 09/16/16 20:00 92 Bi-Pap 100 09/16/16 19:30 93 100 09/16/16 19:00 91 Non-Rebreather 15.00 09/16/16 16:00 97.3 93 22 145/80 84 09/16/16 09/16/16 09/17/16 15:00 23:00 07:00 Intake Total 20 ml 206 ml Output Total 1550 ml 300 ml Balance -1530 ml -94 ml Intake Oral 20 ml 20 ml IV Total 0 ml 186 ml Output Urine Total 850 ml 300 ml Stool Total 700 ml 0 ml . Laboratory Tests Test 09/15/16 09/16/16 09/17/16 15:33 06:00 03:53 White Blood Count 13.6 TH/MM3 14.7 TH/MM3 9.2 TH/MM3 Red Blood Count 3.56 MIL/MM3 3.53 MIL/MM3 3.64 MIL/MM3 Hemoglobin 10.6 GM/DL 10.7 GM/DL 10.9 GM/DL Hematocrit 33.9 % 33.6 % 34.9 % Mean Corpuscular Volume 95.4 FL 95.4 FL 95.8 FL Mean Corpuscular Hemoglobin 29.8 PG 30.2 PG 29.8 PG Mean Corpuscular Hemoglobin 31.2 % 31.7 % 31.1 % Concent Red Cell Distribution Width 18.4 % 17.8 % 17.8 % Platelet Count 307 TH/MM3 332 TH/MM3 317 TH/MM3 Mean Platelet Volume 8.8 FL 8.9 FL 8.6 FL Neutrophils (%) (Auto) 86.8 % 88.4 % % Lymphocytes (%) (Auto) 4.4 % 4.2 % % Monocytes (%) (Auto) 8.2 % 6.7 % % Eosinophils (%) (Auto) 0.3 % 0.1 % % Basophils (%) (Auto) 0.3 % 0.6 % % Neutrophils # (Auto) 11.8 TH/MM3 13.0 TH/MM3 TH/MM3 Lymphocytes # (Auto) 0.6 TH/MM3 0.6 TH/MM3 TH/MM3 Monocytes # (Auto) 1.1 TH/MM3 1.0 TH/MM3 TH/MM3 Eosinophils # (Auto) 0.0 TH/MM3 0.0 TH/MM3 TH/MM3 Basophils # (Auto) 0.0 TH/MM3 0.1 TH/MM3 TH/MM3 CBC Comment DIFF FINAL DIFF FINAL AUTO DIFF Differential Comment FINAL DIFF MANUAL Differential Total Cells 100 Counted Neutrophils % (Manual) 88 % Band Neutrophils % 6 % Lymphocytes % 3 % Monocytes % 1 % Neutrophils # (Manual) 8.8 TH/MM3 Metamyelocytes 2 % Platelet Estimate NORMAL Platelet Morphology Comment NORMAL Laboratory Tests Test 09/15/16 09/16/16 09/16/16 09/17/16 15:33 06:00 21:36 03:53 Sodium Level 142 MEQ/L 140 MEQ/L 140 MEQ/L Potassium Level 4.3 MEQ/L 4.0 MEQ/L 4.3 MEQ/L Chloride Level 104 MEQ/L 103 MEQ/L 100 MEQ/L Carbon Dioxide Level 31.7 MEQ/L 31.8 MEQ/L 31.7 MEQ/L Anion Gap 6 MEQ/L 5 MEQ/L 8 MEQ/L Blood Urea Nitrogen 15 MG/DL 14 MG/DL 12 MG/DL Creatinine 0.73 MG/DL 0.65 MG/DL 0.76 MG/DL Estimat Glomerular Filtration 103 ML/MIN 118 ML/MIN 98 ML/MIN Rate Random Glucose 144 MG/DL 142 MG/DL 179 MG/DL Calcium Level 8.4 MG/DL 8.5 MG/DL 8.6 MG/DL Total Bilirubin 0.2 MG/DL 0.3 MG/DL 0.3 MG/DL Aspartate Amino Transf 6 U/L 7 U/L 10 U/L (AST/SGOT) Alanine Aminotransferase 10 U/L 9 U/L 9 U/L (ALT/SGPT) Alkaline Phosphatase 63 U/L 62 U/L 57 U/L Total Protein 6.4 GM/DL 6.5 GM/DL 6.4 GM/DL Albumin 2.0 GM/DL 2.1 GM/DL 1.9 GM/DL Total Creatine Kinase 18 U/L Troponin I LESS THAN 0.02 NG/ML B-Type Natriuretic Peptide 619 PG/ML Phosphorus Level 2.5 MG/DL Magnesium Level 2.0 MG/DL Imaging Last Impressions Chest X-Ray 09/10/16 0000 Signed Impressions: Service Date/Time: Saturday, September 10, 2016 09:11 - CONCLUSION: Small right effusion increased airspace disease in the left lower lobe identified. Mauricio Stanton MD Abdomen MRI 09/05/16 0000 Signed Impressions: Service Date/Time: Monday, September 05, 2016 08:47 - CONCLUSION: 1. No defined mass is seen within the liver. There is some subtle heterogeneous enhancement on the delayed imaging involving the posterior aspect of the right lobe of the liver and the gallbladder fossa. This is felt to be inflammatory in etiology. No definite drainable abscess collection is seen. Note is made of a drainage catheter in place adjacent to the right lobe of the liver. 2. 6.4 x 5.6 cm cystic abnormality within the spleen. This appears to be purely cystic by MR. 3. Bilateral pleural effusions small on the left and moderate in size on the right. There is considerable atelectasis of the right lung as well. Chris Dejesus MD Abdomen/Pelvis CT 09/03/16 0000 Signed Impressions: Service Date/Time: Saturday, September 03, 2016 22:09 - CONCLUSION: 1. Perihepatic drain without residual fluid around the drain. 2. Masslike area of low density involving segment 6 of the liver adjacent to the drain. I have no priors to compare. Differential diagnostic considerations would include a mass of both benign and malignant potential as well as an infectious process. No discrete intrahepatic abscess currently seen. 3. Circumferential wall thickening and stranding in the adjacent fat involving the rectosigmoid colon as detailed above. The appearance is more typical of an inflammatory or infectious process. 4. Approximate 2 cm pocket of fluid and air within the gallbladder fossa. Although this could relate to more focal ascitic fluid I cannot exclude a developing abscess. It is currently too small for percutaneous access. 5. Bilateral pleural effusions and associated atelectasis. 6. 6.7 cm nonspecific low density mass involving the spleen. 7. Tiny focus of air within the lumen of the urinary bladder. Although this could relate to recent instrumentation an infection with gas producing organisms can have a similar appearance. 8. Nonobstructing right renal stone. Moshe Goyal Jr., MD Physical Exam CONSTITUTIONAL/GENERAL: This is an obese elderlyshed patient, in no apparent distress. TUBES/LINES/DRAINS: SKIN: No jaundice, rashes, or lesions. Skin temperature appropriate. Not diaphoretic. EYES: Pupils equal and round and reactive. Extraocular motions intact. No scleral icterus. No injection or drainage. Fundi not examined. CARDIOVASCULAR: Irregular rate and rhythm without murmurs, gallops, or rubs. No JVD. Peripheral pulses symmetric. RESPIRATORY/CHEST: Symmetric, unlabored respirations. Clear to auscultation. Breath sounds equal bilaterally. No wheezes, rales, or rhonchi. GASTROINTESTINAL: Abdomen soft, minimally tender to palpation RLQ/LLQ, minimally distended. No hepato-splenomegaly, or palpable masses. No guarding. Bowel sounds present. GENITOURINARY: Without palpable bladder distension. Tillman catheter in place with clear yellow urine MUSCULOSKELETAL: Extremities without clubbing, cyanosis, or edema. NEUROLOGICAL: Awake and alert. Non focal Assessment & Plan Remarks C.diff , hypervirulent strain -worsening Persistent leukocytosis Perihepatic abscess sp biliary drain (removed) Recs: DC Flagyl IV Continue Oral vanco DC Vanco IV D.w : bilateral pleural effusions need to be drained. Right side would be a priority as there could be a diaphragmatic defect with connection to the abdominal fluid. D/w CCM: Walker on hold. He d.w General Surgery PA who will d.w ( he is out today) Not ready for DC Ongoing diarrhea could be from being on IV Vanco. Observe trend appears to be improving. No need for rechecking Cdiff PCR. to resume care in am. Pushpa Michelle MD Sep 17, 2016 14:35
[2016-09-17] MEDS ORDERED: VANCOMYCIN 1,500 MG/NS 500 ML IV SCH ×2 (15:00)
--- NOTE | 2016-09-17 15:55 | HHI.PR ---
Subjective Subjective Notes 09/17: Re-Consult for evaluation of RIGHT abdominal wall abscess Patient resting in bed in no acute distress Objective Vitals/I&O Vital Signs Date Time Temp Pulse Resp B/P Pulse Ox O2 Delivery O2 Flow Rate FiO2 09/17/16 14:00 98 09/17/16 13:50 93 High Flow Nasal Cannula 25.00 70 09/17/16 12:00 97.9 14 115/63 Labs Laboratory Tests Test 09/16/16 09/16/16 09/16/16 09/16/16 18:24 21:16 21:36 22:05 Blood Gas Puncture Site RT RADIAL RT RADIAL Blood Gas Patient Temperature 98.6 98.6 Blood Gas HCO3 33 33 Blood Gas Base Excess 6.5 7.3 Blood Gas Oxygen Saturation 88 91 Arterial Blood pH 7.27 7.35 Arterial Blood Partial 76 62 Pressure CO2 Arterial Blood Partial 67 69 Pressure O2 Arterial Blood Oxygen Content 14.3 14.5 Arterial Blood 1.2 1.1 Carboxyhemoglobin Arterial Blood Methemoglobin 0.9 0.3 Blood Gas Hemoglobin 11.5 11.3 Oxygen Delivery Device Non-Rebreathing BiPAP Mask Blood Gas Liter Flow 15 Blood Gas Inspired Oxygen 100 80 Blood Gas Ventilator Setting [id number]/[id number] Total Creatine Kinase 18 Troponin I LESS THAN 0.02 B-Type Natriuretic Peptide 619 Nasal Screen MRSA (PCR) NEGATIVE Test 09/17/16 09/17/16 03:53 09:16 White Blood Count 9.2 Red Blood Count 3.64 Hemoglobin 10.9 Hematocrit 34.9 Mean Corpuscular Volume 95.8 Mean Corpuscular Hemoglobin 29.8 Mean Corpuscular Hemoglobin 31.1 Concent Red Cell Distribution Width 17.8 Platelet Count 317 Mean Platelet Volume 8.6 Neutrophils (%) (Auto) Lymphocytes (%) (Auto) Monocytes (%) (Auto) Eosinophils (%) (Auto) Basophils (%) (Auto) Neutrophils # (Auto) Lymphocytes # (Auto) Monocytes # (Auto) Eosinophils # (Auto) Basophils # (Auto) CBC Comment AUTO DIFF Differential Total Cells 100 Counted Neutrophils % (Manual) 88 Band Neutrophils % 6 Lymphocytes % 3 Monocytes % 1 Neutrophils # (Manual) 8.8 Metamyelocytes 2 Differential Comment FINAL DIFF MANUAL Platelet Estimate NORMAL Platelet Morphology Comment NORMAL Sodium Level 140 Potassium Level 4.3 Chloride Level 100 Carbon Dioxide Level 31.7 Anion Gap 8 Blood Urea Nitrogen 12 Creatinine 0.76 Estimat Glomerular Filtration 98 Rate Random Glucose 179 Calcium Level 8.6 Phosphorus Level 2.5 Magnesium Level 2.0 Total Bilirubin 0.3 Aspartate Amino Transf 10 (AST/SGOT) Alanine Aminotransferase 9 (ALT/SGPT) Alkaline Phosphatase 57 Total Protein 6.4 Albumin 1.9 Blood Gas Puncture Site RT RADIAL Blood Gas Patient Temperature 98.6 Blood Gas HCO3 35 Blood Gas Base Excess 10.5 Blood Gas Oxygen Saturation 86 Arterial Blood pH 7.46 Arterial Blood Partial 50 Pressure CO2 Arterial Blood Partial 54 Pressure O2 Arterial Blood Oxygen Content 13.2 Arterial Blood 1.2 Carboxyhemoglobin Arterial Blood Methemoglobin 0.8 Blood Gas Hemoglobin 10.9 Oxygen Delivery Device HI FLOW NC Blood Gas Liter Flow 30 Blood Gas Ventilator Setting Blood Gas Inspired Oxygen 70 Cardiovascular: Regular Lungs: Clear Abdomen: Other (RUQ ---- palpable fluctulant fluid collection without drainage or break in skin ) Extremities: Other (generalized edema ) A/P Assessment and Plan 81 year old male with drain in place from perihepatic abscess; placed at OSH; now with abdominal wall abscess -CT a/p reviewed -Patient has been on Eliquis---now on hold since 1100 yesterday -Regular diet; NPO after MN -OR vs IR drainage tomorrow -Will discuss with Dr. Nguyen Attending Statement Abdominal exam stable, non-surgical, no cellulitis CT reviewed, agree with ID vs IR drainage The exam, history, and the medical decision-making described in the above note were completed with the assistance of the mid-level provider. I reviewed and agree with the findings presented. I attest that I had a [id number] encounter with the patient on the same day, and personally performed and documented my assessment and findings in the medical record. Carla Sosa Sep 17, 2016 15:55 Gaston Nguyen MD Sep 22, 2016 22:54
--- NOTE | 2016-09-17 17:26 | HHI.CCPN ---
Subjective Remarks/Hospital Course 09/16: 81-year-old male who has a complicated past medical history, originally admitted 08/26/16. History includes HTN, chronic systolic heart failure, depression. 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 He reportedly had gallstone in small intestine and underwent laparoscopic repair at [facility] 06/05/16. 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 Surgery was complicated by subsegmental liver infarct and development of perihepatic abscess that was drained percutaneously at the outside hospital. He then went to [facility] and then to [facility]. From [facility] he was admitted on 08/26/16 with SVT. He was evaluated by cardiology, Dr. Mathis, and has been on rate control with cardizem/metoprolol and started on eliquis. He was evaluated by general surgery who initially recommended continuation of drain. CT abdomen and pelvis on 09/03 demonstrated perihepatic drain in place without residual fluid around the drain. There was a mass noted but no intrahepatic abscess. There were certain circumferential wall thickening of the rectosigmoid. Ultimately drain was discontinued 09/06/16. He had multiple daily stools since admission. He tested positive for C diff on 09/01, Epid 027 positive. He was started on flagyl 500 po q8h. Symptoms continued to worsen the point of 10 loose BM's on 09/04. He was placed on vancomycin 250 qid on 09/09. and then transitioned to Flagyl 500 mg IV every 8 hours and vancomycin 500 qid on 09/10 under the care of Dr. Peña with Infectious Disease. Today he is transferred from floor to [facility] due to respiratory distress. He was on 100% NR prior to transfer and Dr. Zhao has ordered Bipap. He has received Lasix 40 mg IV, Duoneb x1, and Solumedrol 125 mg IV. CXR demonstrates moderate right pleural effusion, worsening. 09/17: Sedated with Precedex, on high flow nasal cannula, maintaining O2 sats. General surgery deciding further intervention for right sided anterior abdominal wall cellulitis/abscess. Scheduling for right sided thoracentesis with IR for tomorrow as patient will have been off Eliquis for 48 hours. Will eventually need left thoracentesis as well. Objective Vital Signs Date Time Temp Pulse Resp B/P Pulse Ox O2 Delivery O2 Flow Rate FiO2 09/17/16 16:25 95 High Flow Nasal Cannula 25.00 65 09/17/16 16:00 97.9 95 24 111/67 Intake and Output 09/16/16 09/16/16 09/17/16 08:00 16:00 00:00 Intake Total 120 ml 20 ml Output Total 1550 ml Balance 120 ml -1530 ml Result Diagram: 09/17/16 0353 09/17/16 0353 Other Results Laboratory Tests Test 09/16/16 09/16/16 09/17/16 18:24 21:16 09:16 Blood Gas Puncture Site RT RADIAL RT RADIAL RT RADIAL Blood Gas Patient Temperature 98.6 98.6 98.6 Blood Gas HCO3 33 mmol/L 33 mmol/L 35 mmol/L (22-26) (22-26) (22-26) Blood Gas Base Excess 6.5 mmol/L 7.3 mmol/L 10.5 mmol/L (-2-2) (-2-2) (-2-2) Blood Gas Oxygen Saturation 88 % (90-100) 91 % (90-100) 86 % (90-100) Arterial Blood pH 7.27 7.35 7.46 (7.380-7.420) (7.380-7.420) (7.380-7.420) Arterial Blood Partial 76 mmHg (38-42) 62 mmHg (38-42) 50 mmHg (38-42) Pressure CO2 Arterial Blood Partial 67 mmHg 69 mmHg 54 mmHg Pressure O2 (61-120) (61-120) (61-120) Arterial Blood Oxygen Content 14.3 Vol % 14.5 Vol % 13.2 Vol % (12.0-20.0) (12.0-20.0) (12.0-20.0) Arterial Blood 1.2 % (0-4) 1.1 % (0-4) 1.2 % (0-4) Carboxyhemoglobin Arterial Blood Methemoglobin 0.9 % (0-2) 0.3 % (0-2) 0.8 % (0-2) Blood Gas Hemoglobin 11.5 G/DL 11.3 G/DL 10.9 G/DL (12.0-16.0) (12.0-16.0) (12.0-16.0) Oxygen Delivery Device Non-Rebreathing BiPAP HI FLOW NC Mask Blood Gas Liter Flow 15 L/M 30 L/M Blood Gas Inspired Oxygen 100 % 80 % 70 % Blood Gas Ventilator Setting IPAP12/EPAP5 Imaging Last Impressions Chest CT 09/17/16 0000 Signed Impressions: Service Date/Time: Saturday, September 17, 2016 02:18 - CONCLUSION: Bilateral larger pleural effusions right greater left with extensive areas of passive atelectasis all increased since 09/03/16 exam. Fluid collection anterior right abdominal wall defer to CT of the abdomen for complete characterization Mj Eason MD Abdomen/Pelvis CT 09/17/16 0000 Signed Impressions: Service Date/Time: Saturday, September 17, 2016 02:18 - CONCLUSION: 8.9 x 3.7 cm fluid air collection in the anterior right abdominal wall along the site of the previous either pleural drain or intraperitoneal drain. Heterogeneous liver with a stable hypodense focal mass in the dome posteriorly measuring 2.6 cm across. Worsening bilateral pleural effusions and bilateral lower lung passive atelectasis clearly worsened on the previous study. Mj Eason MD Chest X-Ray 09/16/16 0000 Signed Impressions: Service Date/Time: Friday, September 16, 2016 18:00 - CONCLUSION: 1. Congestive heart failure with probable slight increase in size of right pleural effusion since September 15. Ken Bello MD Abdomen MRI 09/05/16 0000 Signed Impressions: Service Date/Time: Monday, September 05, 2016 08:47 - CONCLUSION: 1. No defined mass is seen within the liver. There is some subtle heterogeneous enhancement on the delayed imaging involving the posterior aspect of the right lobe of the liver and the gallbladder fossa. This is felt to be inflammatory in etiology. No definite drainable abscess collection is seen. Note is made of a drainage catheter in place adjacent to the right lobe of the liver. 2. 6.4 x 5.6 cm cystic abnormality within the spleen. This appears to be purely cystic by MR. 3. Bilateral pleural effusions small on the left and moderate in size on the right. There is considerable atelectasis of the right lung as well. Chris Dejesus MD Objective Remarks GENERAL: Chronically ill-appearing male who is on high flow O2/ intermittent BIPAP, confused. Currently on Precedex drip for agitation. SKIN: Warm and dry, flaky. Abdominal wall cellulitis/abscess as per below. HEAD: Atraumatic. Normocephalic. EYES: Pupils equal and round, 3mm reactive bilaterally. No scleral icterus. No injection or drainage. ENT: Bipap mask in place. NECK: Trachea midline. No JVD . CARDIOVASCULAR: irregularly irregular rate 80s, no mrg. RESPIRATORY: Earlier on Bipap 10/5, currently on high flow nasal cannula, no accessory muscle use. Diminished bibasilar. No rales or rhonchi. GASTROINTESTINAL: Abdomen with fullness RUQ. There is about 15 cm x10 cm area of erythema and warmth with surrounding pitting flank edema. There is about 2-3 cm area of fluctuance. : Tillman in place with light bon urine output Dignishield in place with soft brown output. MUSCULOSKELETAL: Extremities without clubbing, cyanosis. 1+ bipedal edema. NEUROLOGICAL: Awake and alert to voice, speaks a few sentences, oriented to self but not oriented to year or circumstance. No obvious cranial nerve deficits. Motor grossly within normal limits, moving all extremities. Procedures none A/P Assessment and Plan NEURO: Acute encephalopathy secondary to hypercapnia and sepsis Agitated delirium Depression Precedex drip to facilitate compliance with Bipap/HFNC. Lexapro 10 mg by mouth daily RESP: Acute hypoxemic and hypercapnic respiratory failure Moderate/large Right pleural effusion His respiratory compromise appears secondary to large bilateral pleural effusions and compressive atelectasis in setting of hypoalbuminemia. Likely would improve with pigtail catheter placement or thoracentesis, however unable to perform currently as he has eliquis on board. Holding Eliquis and plan to perform in 48 hours on 09/18. Initially tolerating Bipap but he does have delirium and now agitated and refusing.Precedex initiated. Use HFNC for now. Likely would benefit from the additional positive pressure of Bipap, so consider attempting again if he can be calmed with precedex. Has been diuresed with Lasix 40 mg IV x2. Avoid ongoing aggressive diuresis at this time as he is still having large volume stool losses. Duoneb q4 h We'll schedule for ultrasound guided right thoracentesis with interventional radiology for 09/18, eventually will need left-sided thoracentesis as well. CV: Chronic systolic heart failure Atrial fibrillation Hypertension A. fib is currently rate controlled, cardizem 60 mg by mouth every 6 hours. Can transition to a drip if unable to take po, but this has not been an issue so far. Metoprolol 75 mg by mouth twice a day Hold eliquis due to upcoming procedures. Last dose was 11 am on 09/16. Troponin negative. 2-D Echo08/27/16 ejection fraction 40-45%. Diffuse hypokinesis. RV mildly dilated. Moderate left atrial dilatation. Dr. Mathis signed off. GI: Chronic protein energy malnutrition Poor appetite Megace 400 g by mouth daily NPO while on Bipap. 1800 ADA diet when appropriate. NPO at midnight on evening for procedures. FEN/RENAL: Tillman is in place. Monitor intake and output. Monitor electrolytes. Replace electrolytes as indicated per ICU electrolyte replacement protocol ID: Severe C. difficile colitis, +Epid 027 Leukocytosis Abdominal wall abscess On vancomycin 500 4 times a day and Flagyl 500 mg IV every 8 hours for C. difficile. Now with abdominal wall abscess that will need I&D. Have consulted general surgery for I&D. Would like to avoid broad-spectrum antibiotics for this due to severe C. difficile colitis and mainstay of treatment is I and D. Vancomycin IV empiric for MRSA, followup abscess culture. Infectious disease following, Dr. Peña. CT abdomen pelvis8.9 x 3.7 cm air fluid collection right lateral abdominal wall , ( subcutaneous) - Gen surgery following and deciding drainage for source control. 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 Flynn) Chronic anemia Monitor CBC ENDO: Diabetes mellitus Low-dose insulin sliding scale at bedside glucose AC/hs. PROPH: Pepcid 40 mg by mouth daily at bedtime for stress ulcer prophylaxis. Has been on eliquis for atrial fibrillation which will also afford DVT prophylaxis. Continue SCDs. Anticoagulation is on hold for thoracentesis/ abdominal wall abscess I&D. ACCESS: Peripheral IV providing adequate access at this time Discussed with Julia Sosa, general surgery. Assistance greatly appreciated. CCT 30 minutes exclusive of separately billable procedures. Johnathan Michelle MD Sep 17, 2016 17:26
[2016-09-17] MEDS: FAMOTIDINE 20 MG TAB PO SCH (20:33)
[2016-09-17] MEDS: MIRTAZAPINE 15 MG TAB PO SCH (20:35)
[2016-09-17] MEDS: traZODone HCL 100 MG TAB PO SCH (20:35)
[2016-09-18] VITALS (14 sets, daily range): BP systolic 114–154; BP diastolic 68–81; PULSE 78–98; RESP 18–26; TEMP 98.1–98.4; O2SAT 91–96
[2016-09-18] MEDS: DILTIAZEM HCL 60 MG TAB PO SCH ×4 (02:16→20:19)
[2016-09-18 04:40] LABS: APTT (PATIENT) 22.9 SEC (24.3-30.1); INTERNATIONAL NORMALIZED RATIO 1.1 RATIO; PROTHROMBIN TIME - PATIENT 12.3 SEC (9.8-11.6)
[2016-09-18] MEDS: INSULIN ASPART SUPPLEMENTAL SCALE SQ SCH ×4 (06:33→21:51)
[2016-09-18] MEDS: LACTOBACILLUS ACIDOPHILUS 1 GM PACKET PO SCH ×3 (07:37→17:47)
[2016-09-18] MEDS: MEGESTROL ACETATE SUSP 400 MG/10 ML CUP PO SCH (07:38)
[2016-09-18] MEDS: METOPROLOL TARTRATE 50 MG TAB PO SCH ×2 (07:56→20:19)
[2016-09-18] MEDS: VANCOMYCIN 500 MG VIAL (FOR ORAL USE ONLY) PO SCH ×4 (07:57→20:19)
[2016-09-18] MEDS: ESCITALOPRAM OXALATE 10 MG TAB PO SCH (07:57)
--- NOTE | 2016-09-18 15:00 | HHI.IDPN ---
Subjective Subjective Remarks afebrile on BIPAP small amount of pasty sttol awaiting for R side thoraccenthesis today Antibiotics vanco po Lines Line sites with no e.o infection. 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 He reportedly had gallstone in small intestine and underwent laparoscopic repair at [facility] 06/05/16. 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 Surgery was complicated by subsegmental liver infarct and development of perihepatic abscess that was drained percutaneously at the outside hospital. Allergies: Coded Allergies: *MDRO Multi-Drug Resistant Organism (Verified Adverse Reaction, Unknown, ) MDR-Enterobacter Cloacae (urine)-08/26/16 Objective . Vital Signs Date Time Temp Pulse Resp B/P Pulse Ox O2 Delivery O2 Flow Rate FiO2 09/18/16 14:00 78 09/18/16 12:00 86 09/18/16 12:00 98.1 86 26 127/77 93 09/18/16 10:29 95 55 09/18/16 10:00 87 09/18/16 08:00 98 09/18/16 08:00 98.3 98 21 116/81 91 09/18/16 08:00 91 Nasal Cannula 60 09/18/16 07:15 93 High Flow Nasal Cannula 20.00 60 09/18/16 06:00 94 09/18/16 04:00 98.4 85 21 114/73 92 09/18/16 04:00 85 09/18/16 02:00 80 09/18/16 00:00 98.2 85 22 154/72 95 09/18/16 00:00 85 09/17/16 22:00 76 09/17/16 20:06 96 High Flow Nasal Cannula 20.00 60 09/17/16 20:00 85 09/17/16 20:00 98.0 85 24 124/80 95 09/17/16 19:00 96 Nasal Cannula 60 09/17/16 18:00 86 09/17/16 16:25 95 High Flow Nasal Cannula 25.00 65 09/17/16 16:00 97.9 95 24 111/67 91 09/17/16 16:00 95 09/17/16 09/17/16 09/18/16 15:00 23:00 07:00 Intake Total 400 ml 100 ml 0 ml Output Total 1400 ml 200 ml 300 ml Balance -1000 ml -100 ml -300 ml Intake Oral 240 ml 100 ml 0 ml IV Total 160 ml 0 ml 0 ml Output Urine Total 900 ml 200 ml 200 ml Stool Total 500 ml 0 ml 100 ml . Laboratory Tests Test 09/17/16 03:53 White Blood Count 9.2 TH/MM3 Red Blood Count 3.64 MIL/MM3 Hemoglobin 10.9 GM/DL Hematocrit 34.9 % Mean Corpuscular Volume 95.8 FL Mean Corpuscular Hemoglobin 29.8 PG Mean Corpuscular Hemoglobin 31.1 % Concent Red Cell Distribution Width 17.8 % Platelet Count 317 TH/MM3 Mean Platelet Volume 8.6 FL Neutrophils (%) (Auto) % Lymphocytes (%) (Auto) % Monocytes (%) (Auto) % Eosinophils (%) (Auto) % Basophils (%) (Auto) % Neutrophils # (Auto) TH/MM3 Lymphocytes # (Auto) TH/MM3 Monocytes # (Auto) TH/MM3 Eosinophils # (Auto) TH/MM3 Basophils # (Auto) TH/MM3 CBC Comment AUTO DIFF Differential Total Cells 100 Counted Neutrophils % (Manual) 88 % Band Neutrophils % 6 % Lymphocytes % 3 % Monocytes % 1 % Neutrophils # (Manual) 8.8 TH/MM3 Metamyelocytes 2 % Differential Comment FINAL DIFF MANUAL Platelet Estimate NORMAL Platelet Morphology Comment NORMAL Laboratory Tests Test 09/16/16 09/17/16 21:36 03:53 Total Creatine Kinase 18 U/L Troponin I LESS THAN 0.02 NG/ML B-Type Natriuretic Peptide 619 PG/ML Sodium Level 140 MEQ/L Potassium Level 4.3 MEQ/L Chloride Level 100 MEQ/L Carbon Dioxide Level 31.7 MEQ/L Anion Gap 8 MEQ/L Blood Urea Nitrogen 12 MG/DL Creatinine 0.76 MG/DL Estimat Glomerular Filtration 98 ML/MIN Rate Random Glucose 179 MG/DL Calcium Level 8.6 MG/DL Phosphorus Level 2.5 MG/DL Magnesium Level 2.0 MG/DL Total Bilirubin 0.3 MG/DL Aspartate Amino Transf 10 U/L (AST/SGOT) Alanine Aminotransferase 9 U/L (ALT/SGPT) Alkaline Phosphatase 57 U/L Total Protein 6.4 GM/DL Albumin 1.9 GM/DL Imaging Last Impressions Chest CT 09/17/16 0000 Signed Impressions: Service Date/Time: Saturday, September 17, 2016 02:18 - CONCLUSION: Bilateral larger pleural effusions right greater left with extensive areas of passive atelectasis all increased since 09/03/16 exam. Fluid collection anterior right abdominal wall defer to CT of the abdomen for complete characterization Mj Eason MD Abdomen/Pelvis CT 09/17/16 0000 Signed Impressions: Service Date/Time: Saturday, September 17, 2016 02:18 - CONCLUSION: 8.9 x 3.7 cm fluid air collection in the anterior right abdominal wall along the site of the previous either pleural drain or intraperitoneal drain. Heterogeneous liver with a stable hypodense focal mass in the dome posteriorly measuring 2.6 cm across. Worsening bilateral pleural effusions and bilateral lower lung passive atelectasis clearly worsened on the previous study. Mj Eason MD Chest X-Ray 09/16/16 0000 Signed Impressions: Service Date/Time: Friday, September 16, 2016 18:00 - CONCLUSION: 1. Congestive heart failure with probable slight increase in size of right pleural effusion since September 15. Ken Bello MD Abdomen MRI 09/05/16 0000 Signed Impressions: Service Date/Time: Monday, September 05, 2016 08:47 - CONCLUSION: 1. No defined mass is seen within the liver. There is some subtle heterogeneous enhancement on the delayed imaging involving the posterior aspect of the right lobe of the liver and the gallbladder fossa. This is felt to be inflammatory in etiology. No definite drainable abscess collection is seen. Note is made of a drainage catheter in place adjacent to the right lobe of the liver. 2. 6.4 x 5.6 cm cystic abnormality within the spleen. This appears to be purely cystic by MR. 3. Bilateral pleural effusions small on the left and moderate in size on the right. There is considerable atelectasis of the right lung as well. Chris Dejesus MD Physical Exam CONSTITUTIONAL/GENERAL: This is an obese elderly patient, in no apparent distress. TUBES/LINES/DRAINS: SKIN: No jaundice, rashes, or lesions. Skin temperature appropriate. Not diaphoretic. EYES: Pupils equal and round and reactive. Extraocular motions intact. No scleral icterus. No injection or drainage. Fundi not examined. CARDIOVASCULAR: Irregular rate and rhythm without murmurs, gallops, or rubs. No JVD. Peripheral pulses symmetric. RESPIRATORY/CHEST: Symmetric, unlabored respirations. Clear to auscultation. Breath sounds equal bilaterally. No wheezes, rales, or rhonchi. GASTROINTESTINAL: Abdomen soft, not tender to palpation minimally distended. No hepato-splenomegaly, or palpable masses. No guarding. Bowel sounds present. GENITOURINARY: Without palpable bladder distension. Tillman catheter in place with clear yellow urine MUSCULOSKELETAL: Extremities without clubbing, cyanosis, or edema. NEUROLOGICAL: Awake and alert. 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 Surgery was complicated by subsegmental liver infarct and development of perihepatic abscess that was drained percutaneously at the outside hospital. Perihepatic abscess sp biliary drain (removed) Newly develkopped large RUQ fluid collection and bl pleural effusions after biliary drain was removed - awaiting Recs: Continue Oral vanco will fu pt's R pleural effusion clx for further abx rec's Madelaine Ku RN, MD Sep 18, 2016 15:00
--- NOTE | 2016-09-18 16:36 | RADRPT ---
EXAM DATE/TIME: 09/18/2016 16:25 [place] COMPARISON: CT THORAX W/O CONTRAST, September 17, 2016, 2:18. INDICATIONS : Post thoracentesis. MEDICAL HISTORY : None. SURGICAL HISTORY : None. ENCOUNTER: Subsequent ACUITY: 1 day PAIN SCORE: Non-responsive. LOCATION: Right chest FINDINGS: There is no evidence of pneumothorax status post right thoracentesis. Perihilar and bibasilar infiltr ates are again noted. Small left pleural effusion is unchanged. The heart is enlarged. CONCLUSION: No evidence of pneumothorax status post right thoracentesis. Perihilar and bibasilar infiltrates are again noted. Small left pleural effusion is unchanged. The heart is enlarged. Eidn Childress MD on September 18, 2016 at 16:33 Board Certified Radiologist. This report was verified electronically.
--- NOTE | 2016-09-18 16:55 | RADRPT ---
EXAM DATE/TIME: 09/18/2016 15:36 INDICATIONS : Right pleural effusion. DEVICE(S): 1.) 18 gauge Ivy blunt needle 2.) 6 Fr [id number] FLUID: Total volume of 1150 cc of clear, yellow fluid was removed. Fluid was sent for laboratory ordered studies. MEDICAL HISTORY : Congestive heart failure. Diabetes mellitus type 2. Hypertension. C-diff. SURGICAL HISTORY : None. ENCOUNTER: Initial ACUITY: 1 day PAIN SCORE: 0/10 LOCATION: Right chest PROCEDURE: 1. CT guided right thoracentesis. 2. Conscious sedation with continuous EKG and oximetry monitoring. 3. EKG and oximetry remained stable throughout the procedure. The site was prepped in sterile fashion. Full sterile technique was used, including cap, mask, steri le gloves and gown and a large sterile sheet. Hand hygiene and 2% chlorhexidine and/or betadine/alco hol prep was utilized per protocol for cutaneous antisepsis. The skin and subcutaneous tissues were infiltrated with local anesthetic solution. Using automated exposure control and adjustment of the mA and/or kV according to patient size, radiation dose was kept as low as reasonably achievable to obta in optimal diagnostic quality images. With the patient supine on the CT table, production staff worker images were obtained through the chest demonstrating t he right sided pleural effusion. Dermatotomy was made and the prescribed catheter was advanced into the pleural fluid. The pleural fluid as above was removed from the hemithorax. Post procedural scan show reduction in the amount of fluid with no evidence of pneumothorax. The patient tolerated the procedure well and there were no complications. EKG and oximetry remained s table throughout the procedure. The patient was sent to recovery in stable condition. CONCLUSION: Uncomplicated CT-guided right thoracentesis. Edin Childress MD on September 18, 2016 at 16:53 Board Certified Radiologist. This report was verified electronically.
[2016-09-18] MEDS ORDERED: FUROSEMIDE 40 MG/4 ML VIAL IV PUSH ONE (17:00)
--- NOTE | 2016-09-18 17:03 | HHI.CCPN ---
Subjective Remarks/Hospital Course 09/16: 81-year-old male who has a complicated past medical history, originally admitted 08/26/16. History includes HTN, chronic systolic heart failure, depression. 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 He reportedly had gallstone in small intestine and underwent laparoscopic repair at [facility] 06/05/16. 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 Surgery was complicated by subsegmental liver infarct and development of perihepatic abscess that was drained percutaneously at the outside hospital. He then went to [facility] and then to [facility]. From [facility] he was admitted on 08/26/16 with SVT. He was evaluated by cardiology, Dr. Mathis, and has been on rate control with cardizem/metoprolol and started on eliquis. He was evaluated by general surgery who initially recommended continuation of drain. CT abdomen and pelvis on 09/03 demonstrated perihepatic drain in place without residual fluid around the drain. There was a mass noted but no intrahepatic abscess. There were certain circumferential wall thickening of the rectosigmoid. Ultimately drain was discontinued 09/06/16. He had multiple daily stools since admission. He tested positive for C diff on 09/01, Epid 027 positive. He was started on flagyl 500 po q8h. Symptoms continued to worsen the point of 10 loose BM's on 09/04. He was placed on vancomycin 250 qid on 09/09. and then transitioned to Flagyl 500 mg IV every 8 hours and vancomycin 500 qid on 09/10 under the care of Dr. Peña with Infectious Disease. Today he is transferred from floor to [facility] due to respiratory distress. He was on 100% NR prior to transfer and Dr. Zhao has ordered Bipap. He has received Lasix 40 mg IV, Duoneb x1, and Solumedrol 125 mg IV. CXR demonstrates moderate right pleural effusion, worsening. 09/17: Sedated with Precedex, on high flow nasal cannula, maintaining O2 sats. General surgery deciding further intervention for right sided anterior abdominal wall cellulitis/abscess. Scheduling for right sided thoracentesis with IR for tomorrow as patient will have been off Eliquis for 48 hours. Will eventually need left thoracentesis as well. 09/18: clinically improving today. off precedex. still on 60% high flow NC. going to IR for right thoracentesis today. Objective Vital Signs Date Time Temp Pulse Resp B/P Pulse Ox O2 Delivery O2 Flow Rate FiO2 09/18/16 14:00 78 09/18/16 12:00 98.1 26 127/77 93 09/18/16 10:29 55 09/18/16 08:00 Nasal Cannula 09/18/16 07:15 20.00 Intake and Output 09/17/16 09/17/16 09/18/16 08:00 16:00 00:00 Intake Total 206 ml 400 ml 100 ml Output Total 300 ml 1400 ml 200 ml Balance -94 ml -1000 ml -100 ml Result Diagram: 09/17/16 0353 09/17/16 0353 Imaging Last Impressions Chest CT 09/17/16 0000 Signed Impressions: Service Date/Time: Saturday, September 17, 2016 02:18 - CONCLUSION: Bilateral larger pleural effusions right greater left with extensive areas of passive atelectasis all increased since 09/03/16 exam. Fluid collection anterior right abdominal wall defer to CT of the abdomen for complete characterization Mj Eason MD Abdomen/Pelvis CT 09/17/16 0000 Signed Impressions: Service Date/Time: Saturday, September 17, 2016 02:18 - CONCLUSION: 8.9 x 3.7 cm fluid air collection in the anterior right abdominal wall along the site of the previous either pleural drain or intraperitoneal drain. Heterogeneous liver with a stable hypodense focal mass in the dome posteriorly measuring 2.6 cm across. Worsening bilateral pleural effusions and bilateral lower lung passive atelectasis clearly worsened on the previous study. Mj Eason MD Chest X-Ray 09/16/16 0000 Signed Impressions: Service Date/Time: Friday, September 16, 2016 18:00 - CONCLUSION: 1. Congestive heart failure with probable slight increase in size of right pleural effusion since September 15. Ken Bello MD Abdomen MRI 09/05/16 0000 Signed Impressions: Service Date/Time: Monday, September 05, 2016 08:47 - CONCLUSION: 1. No defined mass is seen within the liver. There is some subtle heterogeneous enhancement on the delayed imaging involving the posterior aspect of the right lobe of the liver and the gallbladder fossa. This is felt to be inflammatory in etiology. No definite drainable abscess collection is seen. Note is made of a drainage catheter in place adjacent to the right lobe of the liver. 2. 6.4 x 5.6 cm cystic abnormality within the spleen. This appears to be purely cystic by MR. 3. Bilateral pleural effusions small on the left and moderate in size on the right. There is considerable atelectasis of the right lung as well. Chris Dejesus MD Objective Remarks GENERAL: Chronically ill-appearing male who is on high flow O2/ intermittent BIPAP, SKIN: Warm and dry, flaky. Abdominal wall cellulitis/abscess as per below. HEAD: Atraumatic. Normocephalic. EYES: Pupils equal and round, 3mm reactive bilaterally. No scleral icterus. No injection or drainage. ENT: Bipap mask in place. NECK: Trachea midline. No JVD . CARDIOVASCULAR: irregularly irregular rate 80s, no mrg. RESPIRATORY:Currently on high flow nasal cannula, fio2 60%. no accessory muscle use. Diminished bibasilar. No rales or rhonchi. GASTROINTESTINAL: Abdomen with fullness RUQ. There is about 15 cm x10 cm area of erythema and warmth with surrounding pitting flank edema. There is about 2-3 cm area of fluctuance. : Tillman in place with light bon urine output Dignishield in place with soft brown output. MUSCULOSKELETAL: Extremities without clubbing, cyanosis. 1+ bipedal edema. NEUROLOGICAL: awake, alert, talking on cell phone. fc x 4. Procedures none A/P Assessment and Plan NEURO: Acute encephalopathy secondary to hypercapnia and sepsis- improved. Agitated delirium- improved. Depression d/c precedex drip Lexapro 10 mg by mouth daily RESP: Acute hypoxemic and hypercapnic respiratory failure- resolving. Moderate/large Right pleural effusion His respiratory compromise appears secondary to large bilateral pleural effusions and compressive atelectasis in setting of hypoalbuminemia. Likely would improve with pigtail catheter placement or thoracentesis Has been diuresed with Lasix 40 mg IV x2. Avoid ongoing aggressive diuresis at this time as he is still having large volume stool losses. Duoneb q4 h We'll schedule for ultrasound guided right thoracentesis with interventional radiology for today, eventually will need left-sided thoracentesis as well. CV: Chronic systolic heart failure Atrial fibrillation Hypertension A. fib is currently rate controlled, cardizem 60 mg by mouth every 6 hours. Metoprolol 75 mg by mouth twice a day Hold eliquis due to upcoming procedures. Last dose was 11 am on 09/16. Troponin negative. 2-D Echo08/27/16 ejection fraction 40-45%. Diffuse hypokinesis. RV mildly dilated. Moderate left atrial dilatation. Dr. Mathis signed off. GI: Chronic protein energy malnutrition Poor appetite Megace 400 g by mouth daily restart 1800 ADA diet when appropriate. FEN/RENAL: Tillman is in place. Monitor intake and output. Monitor electrolytes. Replace electrolytes as indicated per ICU electrolyte replacement protocol ID: Severe C. difficile colitis, +Epid 027 Leukocytosis Abdominal wall abscess On vancomycin 500 4 times a day and Flagyl 500 mg IV every 8 hours for C. difficile. Now with abdominal wall abscess that will need I&D. Have consulted general surgery for I&D. Would like to avoid broad-spectrum antibiotics for this due to severe C. difficile colitis and mainstay of treatment is I and D. Vancomycin IV empiric for MRSA, followup abscess culture. Infectious disease following, Dr. Peña. CT abdomen pelvis8.9 x 3.7 cm air fluid collection right lateral abdominal wall , ( subcutaneous) - Gen surgery following and deciding drainage for source control. 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 Flynn) Chronic anemia Monitor CBC ENDO: Diabetes mellitus Low-dose insulin sliding scale at bedside glucose AC/hs. PROPH: Pepcid 40 mg by mouth daily at bedtime for stress ulcer prophylaxis. Has been on eliquis for atrial fibrillation which will also afford DVT prophylaxis. Continue SCDs. Anticoagulation is on hold for thoracentesis/ abdominal wall abscess I&D. ACCESS: Peripheral IV providing adequate access at this time Discussed with Julia Sosa, general surgery. Assistance greatly appreciated. Chalnio Pizano MD Sep 18, 2016 17:03
[2016-09-18 17:10] LABS: TOTAL PROTEIN,PLEURAL FLUID 2.3 GM/DL
[2016-09-18] MEDS: traZODone HCL 100 MG TAB PO SCH (20:19)
[2016-09-18] MEDS: MIRTAZAPINE 15 MG TAB PO SCH (20:19)
[2016-09-18] MEDS: FAMOTIDINE 20 MG TAB PO SCH (20:19)
[2016-09-18 20:52] LABS: PLEURAL FLUID LYMPHS 69 %
[2016-09-19] VITALS (15 sets, daily range): BP systolic 90–125; BP diastolic 56–76; PULSE 63–83; RESP 15–19; TEMP 97.4–99; O2SAT 90–96
[2016-09-19] MEDS: DILTIAZEM HCL 60 MG TAB PO SCH ×4 (02:28→21:00)
[2016-09-19 04:40] LABS: HEMATOCRIT 34.3 % (39.0-51.0); MEAN CELL VOLUME 92.7 FL (80.0-100.0); MEAN CORPUSCULAR HEMOGLOBIN 30.9 PG (27.0-34.0); MEAN CORPUSCULAR HGB CONC 33.4 % (32.0-36.0); PLATELET COUNT 386 TH/MM3 (150-450); RED CELL DISTRIBUTION WIDTH 18.1 % (11.6-17.2); REVIEW FLAG FINAL; WHITE BLOOD COUNT 10.7 TH/MM3 (4.0-11.0)
[2016-09-19 05:05] LABS: BICARBONATE 37.1 MEQ/L (21.0-32.0); POTASSIUM 3.6 MEQ/L (3.5-5.1)
[2016-09-19] MEDS: INSULIN ASPART SUPPLEMENTAL SCALE SQ SCH ×4 (06:12→21:00)
[2016-09-19] MEDS: LACTOBACILLUS ACIDOPHILUS 1 GM PACKET PO SCH ×3 (09:00→17:23)
[2016-09-19] MEDS: VANCOMYCIN 500 MG VIAL (FOR ORAL USE ONLY) PO SCH ×4 (09:14→21:17)
[2016-09-19] MEDS: MEGESTROL ACETATE SUSP 400 MG/10 ML CUP PO SCH (09:14)
[2016-09-19] MEDS: METOPROLOL TARTRATE 50 MG TAB PO SCH ×2 (09:15→21:00)
[2016-09-19] MEDS: ESCITALOPRAM OXALATE 10 MG TAB PO SCH (09:15)
--- NOTE | 2016-09-19 13:29 | HHI.CCPN ---
Subjective Remarks/Hospital Course 09/16: 81-year-old male who has a complicated past medical history, originally admitted 08/26/16. History includes HTN, chronic systolic heart failure, depression. 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 He reportedly had gallstone in small intestine and underwent laparoscopic repair at [facility] 06/05/16. 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 Surgery was complicated by subsegmental liver infarct and development of perihepatic abscess that was drained percutaneously at the outside hospital. He then went to [facility] and then to [facility]. From [facility] he was admitted on 08/26/16 with SVT. He was evaluated by cardiology, Dr. Mathis, and has been on rate control with cardizem/metoprolol and started on eliquis. He was evaluated by general surgery who initially recommended continuation of drain. CT abdomen and pelvis on 09/03 demonstrated perihepatic drain in place without residual fluid around the drain. There was a mass noted but no intrahepatic abscess. There were certain circumferential wall thickening of the rectosigmoid. Ultimately drain was discontinued 09/06/16. He had multiple daily stools since admission. He tested positive for C diff on 09/01, Epid 027 positive. He was started on flagyl 500 po q8h. Symptoms continued to worsen the point of 10 loose BM's on 09/04. He was placed on vancomycin 250 qid on 09/09. and then transitioned to Flagyl 500 mg IV every 8 hours and vancomycin 500 qid on 09/10 under the care of Dr. Peña with Infectious Disease. Today he is transferred from floor to [facility] due to respiratory distress. He was on 100% NR prior to transfer and Dr. Zhao has ordered Bipap. He has received Lasix 40 mg IV, Duoneb x1, and Solumedrol 125 mg IV. CXR demonstrates moderate right pleural effusion, worsening. 09/17: Sedated with Precedex, on high flow nasal cannula, maintaining O2 sats. General surgery deciding further intervention for right sided anterior abdominal wall cellulitis/abscess. Scheduling for right sided thoracentesis with IR for tomorrow as patient will have been off Eliquis for 48 hours. Will eventually need left thoracentesis as well. 09/18: clinically improving today. off precedex. still on 60% high flow NC. going to IR for right thoracentesis today. 09/19: clinically improving. on 4L NC. 1500 mL drained from right chest. Objective Vital Signs Date Time Temp Pulse Resp B/P Pulse Ox O2 Delivery O2 Flow Rate FiO2 09/19/16 12:20 95 Nasal Cannula 4.00 09/19/16 12:00 98.2 74 15 90/58 09/19/16 08:00 60 Intake and Output 09/18/16 09/18/16 09/19/16 08:00 16:00 00:00 Intake Total 0 ml 0 ml 480 ml Output Total 300 ml 250 ml 3525 ml Balance -300 ml -250 ml -3045 ml Result Diagram: 09/19/16 0415 09/19/16 0415 Imaging Last Impressions Chest CT 09/17/16 0000 Signed Impressions: Service Date/Time: Saturday, September 17, 2016 02:18 - CONCLUSION: Bilateral larger pleural effusions right greater left with extensive areas of passive atelectasis all increased since 09/03/16 exam. Fluid collection anterior right abdominal wall defer to CT of the abdomen for complete characterization Mj Eason MD Abdomen/Pelvis CT 09/17/16 0000 Signed Impressions: Service Date/Time: Saturday, September 17, 2016 02:18 - CONCLUSION: 8.9 x 3.7 cm fluid air collection in the anterior right abdominal wall along the site of the previous either pleural drain or intraperitoneal drain. Heterogeneous liver with a stable hypodense focal mass in the dome posteriorly measuring 2.6 cm across. Worsening bilateral pleural effusions and bilateral lower lung passive atelectasis clearly worsened on the previous study. Mj Eason MD Chest X-Ray 09/16/16 0000 Signed Impressions: Service Date/Time: Friday, September 16, 2016 18:00 - CONCLUSION: 1. Congestive heart failure with probable slight increase in size of right pleural effusion since September 15. Ken Bello MD Abdomen MRI 09/05/16 0000 Signed Impressions: Service Date/Time: Monday, September 05, 2016 08:47 - CONCLUSION: 1. No defined mass is seen within the liver. There is some subtle heterogeneous enhancement on the delayed imaging involving the posterior aspect of the right lobe of the liver and the gallbladder fossa. This is felt to be inflammatory in etiology. No definite drainable abscess collection is seen. Note is made of a drainage catheter in place adjacent to the right lobe of the liver. 2. 6.4 x 5.6 cm cystic abnormality within the spleen. This appears to be purely cystic by MR. 3. Bilateral pleural effusions small on the left and moderate in size on the right. There is considerable atelectasis of the right lung as well. Chris Dejesus MD Objective Remarks GENERAL: Chronically ill-appearing male who is on NC o2. SKIN: Warm and dry, flaky. Abdominal wall cellulitis/abscess as per below. HEAD: Atraumatic. Normocephalic. EYES: Pupils equal and round, 3mm reactive bilaterally. No scleral icterus. No injection or drainage. ENT: Bipap mask in place. NECK: Trachea midline. No JVD . CARDIOVASCULAR: irregularly irregular rate 80s, no mrg. RESPIRATORY:on 4L o2 by NC. no accessory muscle use. Diminished bibasilar. No rales or rhonchi. GASTROINTESTINAL: Abdomen with fullness RUQ. There is about 15 cm x10 cm area of erythema and warmth with surrounding pitting flank edema. There is about 2-3 cm area of fluctuance. : Tillman in place with light bon urine output Dignishield in place with soft brown output. MUSCULOSKELETAL: Extremities without clubbing, cyanosis. 1+ bipedal edema. NEUROLOGICAL: awake, alert, resting in bed. fc x 4. Procedures none A/P Assessment and Plan NEURO: Acute encephalopathy secondary to hypercapnia and sepsis- resolved. Agitated delirium- resolved. Depression Lexapro 10 mg by mouth daily RESP: Acute hypoxemic and hypercapnic respiratory failure- resolving. Moderate/large Right pleural effusion His respiratory compromise appears secondary to large bilateral pleural effusions and compressive atelectasis in setting of hypoalbuminemia. Has been diuresed with Lasix 40 mg IV x2. Avoid ongoing aggressive diuresis at this time as he is still having large volume stool losses. Duoneb q4 h s/p right thoracentesis by IR 09/18 with 1500cc drained. I do not think risk/benefit is in favor of conservative management of the left pleural effusion at this time given that he is clinically improving from a pulmonary standpoint. CV: Chronic systolic heart failure Atrial fibrillation Hypertension A. fib is currently rate controlled, cardizem 60 mg by mouth every 6 hours. Metoprolol 75 mg by mouth twice a day Hold eliquis due to upcoming procedures. Last dose was 11 am on 09/16. Troponin negative. 2-D Echo08/27/16 ejection fraction 40-45%. Diffuse hypokinesis. RV mildly dilated. Moderate left atrial dilatation. Dr. Mathis signed off. GI: Chronic protein energy malnutrition Poor appetite Megace 400 g by mouth daily 1800 ADA diet when appropriate. FEN/RENAL: Tillman is in place. Monitor intake and output. Monitor electrolytes. Replace electrolytes as indicated per ICU electrolyte replacement protocol ID: Severe C. difficile colitis, +Epid 027 Leukocytosis Abdominal wall abscess On vancomycin 500 4 times a day and Flagyl 500 mg IV every 8 hours for C. difficile. Now with abdominal wall abscess that will need I&D. Have consulted general surgery for I&D. Would like to avoid broad-spectrum antibiotics for this due to severe C. difficile colitis and mainstay of treatment is I and D. Vancomycin IV empiric for MRSA, followup abscess culture. Infectious disease following, Dr. Peña. CT abdomen pelvis8.9 x 3.7 cm air fluid collection right lateral abdominal wall , ( subcutaneous) - Gen surgery following and deciding drainage for source control. will again talk with Dr. Johnson today. 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 Flynn) Chronic anemia Monitor CBC ENDO: Diabetes mellitus Low-dose insulin sliding scale at bedside glucose AC/hs. PROPH: Pepcid 40 mg by mouth daily at bedtime for stress ulcer prophylaxis. Has been on eliquis for atrial fibrillation which will also afford DVT prophylaxis. Continue SCDs. Anticoagulation is on hold for thoracentesis/ abdominal wall abscess I&D. ACCESS: Peripheral IV providing adequate access at this time Chalino Pizano MD Sep 19, 2016 13:29 appreciated. Chalino Pizano MD Sep 19, 2016 13:29
--- NOTE | 2016-09-19 15:11 | RADRPT ---
EXAM DATE/TIME: 09/19/2016 13:30 [place] COMPARISON: CHEST SINGLE AP, September 16, 2016, 18:00. INDICATIONS : Effusion. MEDICAL HISTORY : Hypertension. SURGICAL HISTORY : Cholecystectomy. ENCOUNTER: Subsequent ACUITY: 3 weeks PAIN SCORE: 0/10 LOCATION: chest FINDINGS: A single view of the chest demonstrates bibasilar effusions. These are stable in the left with some i nterval improvement on the right. Concomitant regional atelectatic changes above the hemidiaphragms. Minimal interstitial prominence. Heart size is borderline. Osseous structures are intact with some de generative spurring of the dorsal spine. CONCLUSION: 1. Interval improvement of the right-sided effusion with a persistent and stable left-sided effusion. 2. No pneumothorax 3. Bibasilar atelectatic changes. Mild interstitial prominence suggesting some degree of volume overl oad or vascular congestion. Reddy Goncalves MD on September 19, 2016 at 15:05 Board Certified Radiologist. This report was verified electronically.
[2016-09-19] MEDS ORDERED: LIDOCAINE 1%/EPINEPHrine 1:100,000 SOLN 20 ML VIAL INFIL ONE (15:15)
[2016-09-19] MEDS: HEPARIN SODIUM - SQ 10,000 UNITS/ML VIAL SQ SCH ×2 (15:59→21:18)
[2016-09-19] MEDS ORDERED: PHARMACY ORDERED LAB ONE (20:45)
[2016-09-19] MEDS: MIRTAZAPINE 15 MG TAB PO SCH (21:18)
[2016-09-19] MEDS: FAMOTIDINE 20 MG TAB PO SCH (21:18)
[2016-09-19] MEDS: traZODone HCL 100 MG TAB PO SCH (21:18)
--- NOTE | 2016-09-19 23:52 | HHI.IDPN ---
Subjective Subjective Remarks delayed entry - seen arounf 4 pm today afebrile breathing muvch better following thoracocenthesi s- On NC O2 denies abd pain stool down to 100-150 Antibiotics vanco po Lines Line sites with no e.o infection. 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 He reportedly had gallstone in small intestine and underwent laparoscopic repair at [facility] 06/05/16. 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 Surgery was complicated by subsegmental liver infarct and development of perihepatic abscess that was drained percutaneously at the outside hospital. Allergies: Coded Allergies: *MDRO Multi-Drug Resistant Organism (Verified Adverse Reaction, Unknown, ) MDR-Enterobacter Cloacae (urine)-08/26/16 Objective . Vital Signs Date Time Temp Pulse Resp B/P Pulse Ox O2 Delivery O2 Flow Rate FiO2 09/19/16 22:00 76 09/19/16 21:02 94 Nasal Cannula 4.00 09/19/16 20:00 97.8 83 17 99/56 92 09/19/16 20:00 83 09/19/16 19:00 95 Nasal Cannula 4.00 09/19/16 18:00 78 09/19/16 16:00 78 09/19/16 16:00 98.1 78 19 104/58 92 09/19/16 14:00 71 09/19/16 12:20 95 Nasal Cannula 4.00 09/19/16 12:00 98.2 74 15 90/58 96 09/19/16 12:00 74 09/19/16 10:00 63 09/19/16 08:00 97.4 78 16 125/64 92 09/19/16 08:00 78 09/19/16 08:00 92 Nasal Cannula 60 09/19/16 07:52 94 High Flow Nasal Cannula 20.00 55 09/19/16 06:00 82 09/19/16 04:00 74 09/19/16 04:00 99.0 74 17 117/67 90 09/19/16 02:00 73 09/19/16 00:00 98.2 74 16 123/76 96 09/19/16 00:00 74 09/18/16 09/18/16 09/19/16 15:00 23:00 07:00 Intake Total 0 ml 480 ml 20 ml Output Total 250 ml 3525 ml 650 ml Balance -250 ml -3045 ml -630 ml Intake Oral 0 ml 480 ml 20 ml IV Total 0 ml 0 ml 0 ml Output Urine Total 250 ml 2375 ml 550 ml Stool Total 0 ml 0 ml 100 ml Drainage Total 1150 ml . Laboratory Tests Test 09/19/16 04:15 White Blood Count 10.7 TH/MM3 Red Blood Count 3.70 MIL/MM3 Hemoglobin 11.5 GM/DL Hematocrit 34.3 % Mean Corpuscular Volume 92.7 FL Mean Corpuscular Hemoglobin 30.9 PG Mean Corpuscular Hemoglobin 33.4 % Concent Red Cell Distribution Width 18.1 % Platelet Count 386 TH/MM3 Mean Platelet Volume 8.3 FL Laboratory Tests Test 09/19/16 04:15 Sodium Level 140 MEQ/L Potassium Level 3.6 MEQ/L Chloride Level 98 MEQ/L Carbon Dioxide Level 37.1 MEQ/L Anion Gap 5 MEQ/L Blood Urea Nitrogen 23 MG/DL Creatinine 0.82 MG/DL Estimat Glomerular Filtration 90 ML/MIN Rate Random Glucose 150 MG/DL Calcium Level 8.4 MG/DL Microbiology Date/Time Procedure Status Source Growth 09/18/16 16:00 Gram Stain - Final Resulted Fluid Pleural Fluid 09/18/16 16:00 Body Fluid Culture - Preliminary Resulted Fluid Pleural Fluid NO GROWTH IN 24 HOURS. 09/18/16 16:00 Acid Fast Stain Received Fluid Pleural Fluid Pending 09/18/16 16:00 Mycobacterial Culture Received Fluid Pleural Fluid Pending 09/18/16 16:00 Fungal Smear - Final Resulted Fluid Pleural Fluid NO FUNGAL ELEMENTS SEEN. 09/18/16 16:00 Fungal Culture Resulted Fluid Pleural Fluid Pending Imaging Last Impressions Chest X-Ray 09/19/16 0000 Signed Impressions: Service Date/Time: Monday, September 19, 2016 13:30 - CONCLUSION: 1. Interval improvement of the right-sided effusion with a persistent and stable left- sided effusion. 2. No pneumothorax 3. Bibasilar atelectatic changes. Mild interstitial prominence suggesting some degree of volume overload or vascular congestion. Reddy Goncalves MD Thoracentesis 09/18/16 0000 Signed Impressions: Service Date/Time: Sunday, September 18, 2016 15:36 - CONCLUSION: Uncomplicated CT-guided right thoracentesis. Edin Childress MD Chest CT 4/17/17 0000 Signed Impressions: Service Date/Time: Saturday, September 17, 2016 02:18 - CONCLUSION: Bilateral larger pleural effusions right greater left with extensive areas of passive atelectasis all increased since 09/03/16 exam. Fluid collection anterior right abdominal wall defer to CT of the abdomen for complete characterization Mj Eason MD Abdomen/Pelvis CT 09/17/16 0000 Signed Impressions: Service Date/Time: Saturday, September 17, 2016 02:18 - CONCLUSION: 8.9 x 3.7 cm fluid air collection in the anterior right abdominal wall along the site of the previous either pleural drain or intraperitoneal drain. Heterogeneous liver with a stable hypodense focal mass in the dome posteriorly measuring 2.6 cm across. Worsening bilateral pleural effusions and bilateral lower lung passive atelectasis clearly worsened on the previous study. Mj Eason MD Abdomen MRI 09/05/16 0000 Signed Impressions: Service Date/Time: Monday, September 05, 2016 08:47 - CONCLUSION: 1. No defined mass is seen within the liver. There is some subtle heterogeneous enhancement on the delayed imaging involving the posterior aspect of the right lobe of the liver and the gallbladder fossa. This is felt to be inflammatory in etiology. No definite drainable abscess collection is seen. Note is made of a drainage catheter in place adjacent to the right lobe of the liver. 2. 6.4 x 5.6 cm cystic abnormality within the spleen. This appears to be purely cystic by MR. 3. Bilateral pleural effusions small on the left and moderate in size on the right. There is considerable atelectasis of the right lung as well. Chris Dejesus MD Physical Exam CONSTITUTIONAL/GENERAL: This is an obese elderly patient, in no apparent distress. TUBES/LINES/DRAINS: SKIN: No jaundice, rashes, or lesions. Skin temperature appropriate. Not diaphoretic. EYES: Pupils equal and round and reactive. Extraocular motions intact. No scleral icterus. No injection or drainage. Fundi not examined. CARDIOVASCULAR: Irregular rate and rhythm without murmurs, gallops, or rubs. No JVD. Peripheral pulses symmetric. RESPIRATORY/CHEST: Symmetric, unlabored respirations. Clear to auscultation. Breath sounds equal bilaterally. No wheezes, rales, or rhonchi. GASTROINTESTINAL: Abdomen soft, not tender to palpation minimally distended. No hepato-splenomegaly, or palpable masses. No guarding. Bowel sounds present. GENITOURINARY: Without palpable bladder distension. Tillman catheter in place with clear yellow urine MUSCULOSKELETAL: Extremities without clubbing, cyanosis, or edema. NEUROLOGICAL: Awake and alert. 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 Surgery was complicated by subsegmental liver infarct and development of perihepatic abscess that was drained percutaneously at the outside hospital. Perihepatic abscess sp biliary drain (removed) Newly develkopped large RUQ fluid collection and bl pleural effusions after biliary drain was removed - clx negative so far Recs: Continue Oral vanco will fu pt's R pleural effusion clx for further abx rec's will need clx on intraabd fluid collection Madelaine Peña MD Sep 19, 2016 23:52
[2016-09-20] VITALS (14 sets, daily range): BP systolic 103–137; BP diastolic 56–83; PULSE 66–93; RESP 14–22; TEMP 98–98.8; O2SAT 93–97
[2016-09-20] MEDS: DILTIAZEM HCL 60 MG TAB PO SCH ×4 (03:05→20:42)
[2016-09-20 04:50] LABS: HEMATOCRIT 38.3 % (39.0-51.0); MEAN CELL VOLUME 93.3 FL (80.0-100.0); MEAN CORPUSCULAR HEMOGLOBIN 30.8 PG (27.0-34.0); PLATELET COUNT 320 TH/MM3 (150-450); RED BLOOD COUNT 4.11 MIL/MM3 (4.50-5.90); RED CELL DISTRIBUTION WIDTH 18.4 % (11.6-17.2); REVIEW FLAG FINAL; WHITE BLOOD COUNT 10.2 TH/MM3 (4.0-11.0)
[2016-09-20 04:58] LABS: POTASSIUM 3.7 MEQ/L (3.5-5.1)
[2016-09-20] MEDS: HEPARIN SODIUM - SQ 10,000 UNITS/ML VIAL SQ SCH ×3 (06:34→20:42)
[2016-09-20] MEDS: INSULIN ASPART SUPPLEMENTAL SCALE SQ SCH ×4 (06:51→21:02)
[2016-09-20] MEDS: METOPROLOL TARTRATE 50 MG TAB PO SCH ×2 (08:46→20:34)
[2016-09-20] MEDS: ESCITALOPRAM OXALATE 10 MG TAB PO SCH (08:46)
[2016-09-20] MEDS: VANCOMYCIN 500 MG VIAL (FOR ORAL USE ONLY) PO SCH ×4 (08:46→20:42)
[2016-09-20] MEDS: MEGESTROL ACETATE SUSP 400 MG/10 ML CUP PO SCH (08:46)
[2016-09-20] MEDS: LACTOBACILLUS ACIDOPHILUS 1 GM PACKET PO SCH ×3 (08:46→17:18)
--- NOTE | 2016-09-20 10:27 | HHI.PR ---
Subjective Remarks Still having a lot of liquid stool from rectal tube. No fevers. Reports he is feeling ok except for fatigue. Objective Vitals Vital Signs Date Time Temp Pulse Resp B/P Pulse Ox O2 Delivery O2 Flow Rate FiO2 09/20/16 10:00 79 09/20/16 08:00 98.1 88 22 116/83 95 09/20/16 08:00 80 09/20/16 07:40 93 Nasal Cannula 4.00 09/20/16 07:00 94 Nasal Cannula 4.00 09/20/16 06:00 86 09/20/16 04:00 93 09/20/16 04:00 98.0 93 21 129/71 93 09/20/16 02:00 84 09/20/16 00:00 98.0 76 14 137/76 97 09/20/16 00:00 76 09/19/16 22:00 76 09/19/16 21:02 94 Nasal Cannula 4.00 09/19/16 20:00 97.8 83 17 99/56 92 09/19/16 20:00 83 09/19/16 19:00 95 Nasal Cannula 4.00 09/19/16 18:00 78 09/19/16 16:00 78 09/19/16 16:00 98.1 78 19 104/58 92 09/19/16 14:00 71 09/19/16 12:20 95 Nasal Cannula 4.00 09/19/16 12:00 98.2 74 15 90/58 96 09/19/16 12:00 74 I/O 09/19/16 09/19/16 09/19/16 09/20/16 09/20/16 09/20/16 07:00 15:00 23:00 07:00 15:00 23:00 Intake Total 20 ml 400 ml 60 ml 60 ml Output Total 650 ml 500 ml 600 ml 900 ml Balance -630 ml -100 ml -540 ml -840 ml Intake Oral 20 ml 400 ml 60 ml 60 ml IV Total 0 ml Output Urine Total 550 ml 450 ml 500 ml 800 ml Stool Total 100 ml 50 ml 100 ml 100 ml Result Diagram: 09/20/16 0418 09/20/16 0418 Imaging Last Impressions Chest X-Ray 09/19/16 0000 Signed Impressions: Service Date/Time: Monday, September 19, 2016 13:30 - CONCLUSION: 1. Interval improvement of the right-sided effusion with a persistent and stable left- sided effusion. 2. No pneumothorax 3. Bibasilar atelectatic changes. Mild interstitial prominence suggesting some degree of volume overload or vascular congestion. Reddy Goncalves MD Thoracentesis 09/18/16 0000 Signed Impressions: Service Date/Time: Sunday, September 18, 2016 15:36 - CONCLUSION: Uncomplicated CT-guided right thoracentesis. Edin Childress MD Chest CT 09/17/16 0000 Signed Impressions: Service Date/Time: Saturday, September 17, 2016 02:18 - CONCLUSION: Bilateral larger pleural effusions right greater left with extensive areas of passive atelectasis all increased since 09/03/16 exam. Fluid collection anterior right abdominal wall defer to CT of the abdomen for complete characterization Mj Eason MD Abdomen/Pelvis CT 09/17/16 0000 Signed Impressions: Service Date/Time: Saturday, September 17, 2016 02:18 - CONCLUSION: 8.9 x 3.7 cm fluid air collection in the anterior right abdominal wall along the site of the previous either pleural drain or intraperitoneal drain. Heterogeneous liver with a stable hypodense focal mass in the dome posteriorly measuring 2.6 cm across. Worsening bilateral pleural effusions and bilateral lower lung passive atelectasis clearly worsened on the previous study. Mj Eason MD Abdomen MRI 09/05/16 0000 Signed Impressions: Service Date/Time: Monday, September 05, 2016 08:47 - CONCLUSION: 1. No defined mass is seen within the liver. There is some subtle heterogeneous enhancement on the delayed imaging involving the posterior aspect of the right lobe of the liver and the gallbladder fossa. This is felt to be inflammatory in etiology. No definite drainable abscess collection is seen. Note is made of a drainage catheter in place adjacent to the right lobe of the liver. 2. 6.4 x 5.6 cm cystic abnormality within the spleen. This appears to be purely cystic by MR. 3. Bilateral pleural effusions small on the left and moderate in size on the right. There is considerable atelectasis of the right lung as well. Chris Dejesus MD Objective Remarks GENERAL: Elderly male in no acute distress. CARDIOVASCULAR: Normal rate and regular rhythm without murmurs, gallops, or rubs. RESPIRATORY: Air movement is fair. Diminished breath sounds at the bases bilaterally. GASTROINTESTINAL: Abdomen soft, non-tender, non-distended. Right upper quadrant dressing is clean and dry. MUSCULOSKELETAL: Extremities without cyanosis, or edema. NEURO: Alert & Oriented x4 to person, place, time, situation. Moves all ext x4 PSYCH: Appropriate mood and affect. Procedures none A/P Problem List: (1) C. difficile colitis ICD Code: A04.7 Status: Acute (2) Perihepatic abscess ICD Code: K65.0 Status: Acute (3) Rapid atrial fibrillation ICD Code: I48.91 Status: Resolved (4) UTI (urinary tract infection) ICD Code: N39.0 Status: Resolved (5) Cardiomyopathy ICD Code: I42.9 Status: Chronic (6) Hypokalemia ICD Code: E87.6 Status: Resolved (7) Chronic systolic heart failure ICD Code: I50.22 Status: Chronic (8) Diabetes mellitus, type 2 ICD Code: E11.9 Status: Chronic (9) Poor appetite ICD Code: R63.0 Status: Acute (10) Leukocytosis ICD Code: D72.829 Status: Acute (11) Low urine output ICD Code: R34 Status: Acute (12) Acute systolic (congestive) heart failure ICD Code: I50.21 Status: Acute Assessment and Plan 81-year-old male with respiratory failure, highly virulent C. difficile colitis , abdominal wall abscess. Treatment course detailed below: Acute hypoxemic and hypercapnic respiratory failure- resolving. Moderate/large Right pleural effusion His respiratory compromise appears secondary to large bilateral pleural effusions and compressive atelectasis in setting of hypoalbuminemia. Has been diuresed with Lasix 40 mg IV x2. Avoid ongoing aggressive diuresis at this time as he is still having large volume stool losses. Duoneb q4 h s/p right thoracentesis by IR 09/18 with 1500cc drained. - Respiratory status improving. Stable on nasal cannula. Chronic systolic heart failure Atrial fibrillation Hypertension A. fib is currently rate controlled, cardizem 60 mg by mouth every 6 hours. Metoprolol 75 mg by mouth twice a day Eliquis held due to procedures. Plan to resume in a couple of days. Troponin negative. 2-D Echo08/27/16 ejection fraction 40-45%. Diffuse hypokinesis. RV mildly dilated. Moderate left atrial dilatation. Dr. Mathis signed off. Chronic protein energy malnutrition Poor appetite Megace 400 g by mouth daily 1800 ADA diet when appropriate. Severe C. difficile colitis, +Epid 027 On vancomycin 500 4 times a day and Flagyl 500 mg IV every 8 hours for C. difficile. ID following Abdominal wall abscess. CT abdomen pelvis8.9 x 3.7 cm air fluid collection right lateral abdominal wall, ( subcutaneous) General surgery consulted for I&D. followup abscess culture. Infectious disease following, Dr. Peña. Diabetes mellitus Low-dose insulin sliding scale at bedside glucose AC/hs. PROPH: Pepcid 40 mg by mouth daily at bedtime for stress ulcer prophylaxis. Heparin for DVT prophylaxis. Discharge Planning Patient is stable to transfer to floor today. Problem Qualifiers (1) UTI (urinary tract infection): (2) Cardiomyopathy: Qualified Code: I42.9 - Cardiomyopathy, unspecified type (3) Diabetes mellitus, type 2: Qualified Code: E11.8 - Type 2 diabetes mellitus with complication, with long- term current use of insulin (4) Leukocytosis: Qualified Code: D72.829 - Leukocytosis, unspecified type Varinder London MD Sep 20, 2016 10:27
[2016-09-20] MEDS: FAMOTIDINE 20 MG TAB PO SCH (20:41)
[2016-09-20] MEDS: MIRTAZAPINE 15 MG TAB PO SCH (20:42)
[2016-09-20] MEDS: traZODone HCL 100 MG TAB PO SCH (20:42)
--- NOTE | 2016-09-20 22:41 | HHI.IDPN ---
Subjective Subjective Remarks delayed entry - seen arounf 12 pm today afebrile feels " ggreat" Dw Dr Nguyen - pt had bedside drainage o f abscess per Dr Nguyen - thick pus in larege amount was encounted Antibiotics vanco po Lines Line sites with no e.o infection. 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 He reportedly had gallstone in small intestine and underwent laparoscopic repair at [facility] 06/05/16. 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 Surgery was complicated by subsegmental liver infarct and development of perihepatic abscess that was drained percutaneously at the outside hospital. Allergies: Coded Allergies: *MDRO Multi-Drug Resistant Organism (Verified Adverse Reaction, Unknown, ) MDR-Enterobacter Cloacae (urine)-08/26/16 Objective . Vital Signs Date Time Temp Pulse Resp B/P Pulse Ox O2 Delivery O2 Flow Rate FiO2 09/20/16 22:00 82 09/20/16 20:23 95 Nasal Cannula 4.00 09/20/16 20:00 98.8 86 22 103/57 95 09/20/16 20:00 86 09/20/16 19:00 95 Nasal Cannula 4.00 09/20/16 18:00 90 09/20/16 16:00 77 09/20/16 16:00 98.0 77 22 104/70 95 09/20/16 14:00 66 09/20/16 12:00 98.6 78 18 108/56 94 09/20/16 12:00 78 09/20/16 10:00 79 09/20/16 08:00 98.1 88 22 116/83 95 09/20/16 08:00 80 09/20/16 07:40 93 Nasal Cannula 4.00 09/20/16 07:00 94 Nasal Cannula 4.00 09/20/16 06:00 86 09/20/16 04:00 93 09/20/16 04:00 98.0 93 21 129/71 93 09/20/16 02:00 84 09/20/16 00:00 98.0 76 14 137/76 97 09/20/16 00:00 76 09/19/16 09/19/16 09/20/16 15:00 23:00 07:00 Intake Total 400 ml 60 ml 60 ml Output Total 500 ml 600 ml 900 ml Balance -100 ml -540 ml -840 ml Intake Oral 400 ml 60 ml 60 ml Output Urine Total 450 ml 500 ml 800 ml Stool Total 50 ml 100 ml 100 ml . Laboratory Tests Test 09/19/16 09/20/16 04:15 04:18 White Blood Count 10.7 TH/MM3 10.2 TH/MM3 Red Blood Count 3.70 MIL/MM3 4.11 MIL/MM3 Hemoglobin 11.5 GM/DL 12.7 GM/DL Hematocrit 34.3 % 38.3 % Mean Corpuscular Volume 92.7 FL 93.3 FL Mean Corpuscular Hemoglobin 30.9 PG 30.8 PG Mean Corpuscular Hemoglobin 33.4 % 33.0 % Concent Red Cell Distribution Width 18.1 % 18.4 % Platelet Count 386 TH/MM3 320 TH/MM3 Mean Platelet Volume 8.3 FL 9.1 FL Laboratory Tests Test 09/19/16 09/20/16 04:15 04:18 Sodium Level 140 MEQ/L 139 MEQ/L Potassium Level 3.6 MEQ/L 3.7 MEQ/L Chloride Level 98 MEQ/L 100 MEQ/L Carbon Dioxide Level 37.1 MEQ/L 33.0 MEQ/L Anion Gap 5 MEQ/L 6 MEQ/L Blood Urea Nitrogen 23 MG/DL 20 MG/DL Creatinine 0.82 MG/DL 0.90 MG/DL Estimat Glomerular Filtration 90 ML/MIN 81 ML/MIN Rate Random Glucose 150 MG/DL 149 MG/DL Calcium Level 8.4 MG/DL 8.6 MG/DL Microbiology Date/Time Procedure Status Source Growth 09/18/16 16:00 Gram Stain - Final Resulted Fluid Pleural Fluid 09/18/16 16:00 Body Fluid Culture - Preliminary Resulted Fluid Pleural Fluid NO GROWTH IN 48 HOURS. 09/18/16 16:00 Acid Fast Stain - Final Resulted Fluid Pleural Fluid NO ACID FAST BACILLI SEEN 09/18/16 16:00 Mycobacterial Culture Resulted Fluid Pleural Fluid Pending 09/18/16 16:00 Fungal Smear - Final Resulted Fluid Pleural Fluid NO FUNGAL ELEMENTS SEEN. 09/18/16 16:00 Fungal Culture Resulted Fluid Pleural Fluid Pending Imaging Last Impressions Chest X-Ray 09/19/16 0000 Signed Impressions: Service Date/Time: Monday, September 19, 2016 13:30 - CONCLUSION: 1. Interval improvement of the right-sided effusion with a persistent and stable left- sided effusion. 2. No pneumothorax 3. Bibasilar atelectatic changes. Mild interstitial prominence suggesting some degree of volume overload or vascular congestion. Reddy Goncalves MD Thoracentesis 09/18/16 0000 Signed Impressions: Service Date/Time: Sunday, September 18, 2016 15:36 - CONCLUSION: Uncomplicated CT-guided right thoracentesis. Edin Childress MD Chest CT 09/17/16 0000 Signed Impressions: Service Date/Time: Saturday, September 17, 2016 02:18 - CONCLUSION: Bilateral larger pleural effusions right greater left with extensive areas of passive atelectasis all increased since 09/03/16 exam. Fluid collection anterior right abdominal wall defer to CT of the abdomen for complete characterization Mj Eason MD Abdomen/Pelvis CT 09/17/16 0000 Signed Impressions: Service Date/Time: Saturday, September 17, 2016 02:18 - CONCLUSION: 8.9 x 3.7 cm fluid air collection in the anterior right abdominal wall along the site of the previous either pleural drain or intraperitoneal drain. Heterogeneous liver with a stable hypodense focal mass in the dome posteriorly measuring 2.6 cm across. Worsening bilateral pleural effusions and bilateral lower lung passive atelectasis clearly worsened on the previous study. Mj Eason MD Abdomen MRI 09/05/16 0000 Signed Impressions: Service Date/Time: Monday, September 05, 2016 08:47 - CONCLUSION: 1. No defined mass is seen within the liver. There is some subtle heterogeneous enhancement on the delayed imaging involving the posterior aspect of the right lobe of the liver and the gallbladder fossa. This is felt to be inflammatory in etiology. No definite drainable abscess collection is seen. Note is made of a drainage catheter in place adjacent to the right lobe of the liver. 2. 6.4 x 5.6 cm cystic abnormality within the spleen. This appears to be purely cystic by MR. 3. Bilateral pleural effusions small on the left and moderate in size on the right. There is considerable atelectasis of the right lung as well. Chris Dejesus MD Physical Exam CONSTITUTIONAL/GENERAL: This is an obese elderly patient, in no apparent distress. TUBES/LINES/DRAINS: SKIN: No jaundice, rashes, or lesions. Skin temperature appropriate. Not diaphoretic. EYES: Pupils equal and round and reactive. Extraocular motions intact. No scleral icterus. No injection or drainage. Fundi not examined. CARDIOVASCULAR: Irregular rate and rhythm without murmurs, gallops, or rubs. No JVD. Peripheral pulses symmetric. RESPIRATORY/CHEST: Symmetric, unlabored respirations. Clear to auscultation. Breath sounds equal bilaterally. No wheezes, rales, or rhonchi. GASTROINTESTINAL: Abdomen soft, not tender to palpation minimally distended. No hepato-splenomegaly, or palpable masses. No guarding. Bowel sounds present. GENITOURINARY: Without palpable bladder distension. Tillman catheter in place with clear yellow urine MUSCULOSKELETAL: Extremities without clubbing, cyanosis, or edema. NEUROLOGICAL: Awake and alert. 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 Surgery was complicated by subsegmental liver infarct and development of perihepatic abscess that was drained percutaneously at the outside hospital. Perihepatic abscess sp biliary drain (removed) Newly develkopped large RUQ fluid collection and bl pleural effusions after biliary drain was removed - clx negative for R pleural fluid - clx not done for intraabd collcetion, but cytology is P Recs: Continue Oral vanco will need clx on intraabd fluid collection for further rec's repeat CT to assess collection Madelaine Peña MD Sep 20, 2016 22:41
[2016-09-21] VITALS (12 sets, daily range): BP systolic 93–148; BP diastolic 53–84; PULSE 75–105; RESP 15–18; TEMP 97.6–99; O2SAT 95–96
[2016-09-21] MEDS: DILTIAZEM HCL 60 MG TAB PO SCH ×4 (03:23→23:11)
[2016-09-21 04:37] LABS: HEMATOCRIT 36.5 % (39.0-51.0); MEAN CELL VOLUME 93.1 FL (80.0-100.0); MEAN CORPUSCULAR HEMOGLOBIN 30.5 PG (27.0-34.0); MEAN CORPUSCULAR HGB CONC 32.8 % (32.0-36.0); PLATELET COUNT 270 TH/MM3 (150-450); RED BLOOD COUNT 3.92 MIL/MM3 (4.50-5.90); RED CELL DISTRIBUTION WIDTH 17.4 % (11.6-17.2); REVIEW FLAG FINAL; WHITE BLOOD COUNT 9.8 TH/MM3 (4.0-11.0)
[2016-09-21 04:58] LABS: BICARBONATE 34.1 MEQ/L (21.0-32.0); POTASSIUM 4.1 MEQ/L (3.5-5.1)
[2016-09-21] MEDS: HEPARIN SODIUM - SQ 10,000 UNITS/ML VIAL SQ SCH ×3 (05:42→23:10)
[2016-09-21] MEDS: INSULIN ASPART SUPPLEMENTAL SCALE SQ SCH ×4 (07:00→21:00)
[2016-09-21] MEDS: METOPROLOL TARTRATE 50 MG TAB PO SCH ×3 (08:24→23:10)
[2016-09-21] MEDS: ESCITALOPRAM OXALATE 10 MG TAB PO SCH (08:24)
[2016-09-21] MEDS: LACTOBACILLUS ACIDOPHILUS 1 GM PACKET PO SCH ×3 (08:24→18:16)
[2016-09-21] MEDS: MEGESTROL ACETATE SUSP 400 MG/10 ML CUP PO SCH (08:24)
[2016-09-21] MEDS: VANCOMYCIN 500 MG VIAL (FOR ORAL USE ONLY) PO SCH ×4 (08:24→23:11)
[2016-09-21] MEDS ORDERED: DIATRIZOATE MEGLUM/DIATRIZOATE SOD 9 ML CUP PO ONE (13:49)
--- NOTE | 2016-09-21 14:59 | HHI.PR ---
Subjective Remarks green promotions specialist Notes: 09/16: 81-year-old male who has a complicated past medical history, originally admitted 08/26/16. History includes HTN, chronic systolic heart failure, depression. 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 He reportedly had gallstone in small intestine and underwent laparoscopic repair at [facility] 06/05/16. 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 Surgery was complicated by subsegmental liver infarct and development of perihepatic abscess that was drained percutaneously at the outside hospital. He then went to [facility] and then to [facility]. From [facility] he was admitted on 08/26/16 with SVT. He was evaluated by cardiology, Dr. Mathis, and has been on rate control with cardizem/metoprolol and started on eliquis. He was evaluated by general surgery who initially recommended continuation of drain. CT abdomen and pelvis on 09/03 demonstrated perihepatic drain in place without residual fluid around the drain. There was a mass noted but no intrahepatic abscess. There were certain circumferential wall thickening of the rectosigmoid. Ultimately drain was discontinued 09/06/16. He had multiple daily stools since admission. He tested positive for C diff on 09/01, Epid 027 positive. He was started on flagyl 500 po q8h. Symptoms continued to worsen the point of 10 loose BM's on 09/04. He was placed on vancomycin 250 qid on 09/09. and then transitioned to Flagyl 500 mg IV every 8 hours and vancomycin 500 qid on 09/10 under the care of Dr. Peña with Infectious Disease. Today he is transferred from floor to [facility] due to respiratory distress. He was on 100% NR prior to transfer and Dr. Zhao has ordered Bipap. He has received Lasix 40 mg IV, Duoneb x1, and Solumedrol 125 mg IV. CXR demonstrates moderate right pleural effusion, worsening. 09/17: Sedated with Precedex, on high flow nasal cannula, maintaining O2 sats. General surgery deciding further intervention for right sided anterior abdominal wall cellulitis/abscess. Scheduling for right sided thoracentesis with IR for tomorrow as patient will have been off Eliquis for 48 hours. Will eventually need left thoracentesis as well. 09/18: clinically improving today. off precedex. still on 60% high flow NC. going to IR for right thoracentesis today. 09/19: clinically improving. on 4L NC. 1500 mL drained from right chest. Hospitalist Notes: 09/21: Seen in his bedroom, discussed with nurse, stable continue Vancomycin for C Diff, discussed with floor charge nurse to start contact precautions was just moved to this fourth floor from ICU, no complaint by patient. No bowel movements today. Objective Vital Signs Date Time Temp Pulse Resp B/P Pulse Ox O2 Delivery O2 Flow Rate FiO2 09/21/16 14:00 93 09/21/16 12:00 88 09/21/16 12:00 98.1 88 15 93/57 95 09/21/16 10:00 93 09/21/16 09:11 96 Nasal Cannula 4.00 09/21/16 08:00 98.2 75 15 138/72 96 09/21/16 08:00 75 09/21/16 07:00 94 Nasal Cannula 4.00 09/21/16 06:00 76 09/21/16 04:00 98.0 82 17 93/53 95 09/21/16 04:00 82 09/21/16 02:00 81 09/21/16 00:00 78 09/21/16 00:00 98.5 78 18 118/74 95 09/20/16 22:00 82 09/20/16 20:23 95 Nasal Cannula 4.00 09/20/16 20:00 98.8 86 22 103/57 95 09/20/16 20:00 86 09/20/16 19:00 95 Nasal Cannula 4.00 09/20/16 18:00 90 09/20/16 16:00 77 09/20/16 16:00 98.0 77 22 104/70 95 I/O 09/20/16 09/20/16 09/20/16 09/21/16 09/21/16 09/21/16 07:00 15:00 23:00 07:00 15:00 23:00 Intake Total 60 ml 720 ml 60 ml 120 ml 240 ml Output Total 900 ml 400 ml 415 ml 560 ml 815 ml Balance -840 ml 320 ml -355 ml -440 ml -575 ml Intake Oral 60 ml 720 ml 60 ml 120 ml 240 ml Output Urine Total 800 ml 350 ml 350 ml 500 ml 700 ml Stool Total 100 ml 50 ml 50 ml 50 ml 100 ml Drainage Total 15 ml 10 ml 15 ml Result Diagram: 09/21/16 0405 09/21/16 0405 Imaging Last Impressions Chest X-Ray 09/19/16 0000 Signed Impressions: Service Date/Time: Monday, September 19, 2016 13:30 - CONCLUSION: 1. Interval improvement of the right-sided effusion with a persistent and stable left- sided effusion. 2. No pneumothorax 3. Bibasilar atelectatic changes. Mild interstitial prominence suggesting some degree of volume overload or vascular congestion. Reddy Goncalves MD Thoracentesis 09/18/16 0000 Signed Impressions: Service Date/Time: Sunday, September 18, 2016 15:36 - CONCLUSION: Uncomplicated CT-guided right thoracentesis. Edin Childress MD Chest CT 09/17/16 0000 Signed Impressions: Service Date/Time: Saturday, September 17, 2016 02:18 - CONCLUSION: Bilateral larger pleural effusions right greater left with extensive areas of passive atelectasis all increased since 09/03/16 exam. Fluid collection anterior right abdominal wall defer to CT of the abdomen for complete characterization Mj Eason MD Abdomen/Pelvis CT 09/17/16 0000 Signed Impressions: Service Date/Time: Saturday, September 17, 2016 02:18 - CONCLUSION: 8.9 x 3.7 cm fluid air collection in the anterior right abdominal wall along the site of the previous either pleural drain or intraperitoneal drain. Heterogeneous liver with a stable hypodense focal mass in the dome posteriorly measuring 2.6 cm across. Worsening bilateral pleural effusions and bilateral lower lung passive atelectasis clearly worsened on the previous study. Mj Eason MD Abdomen MRI 09/05/16 0000 Signed Impressions: Service Date/Time: Monday, September 05, 2016 08:47 - CONCLUSION: 1. No defined mass is seen within the liver. There is some subtle heterogeneous enhancement on the delayed imaging involving the posterior aspect of the right lobe of the liver and the gallbladder fossa. This is felt to be inflammatory in etiology. No definite drainable abscess collection is seen. Note is made of a drainage catheter in place adjacent to the right lobe of the liver. 2. 6.4 x 5.6 cm cystic abnormality within the spleen. This appears to be purely cystic by MR. 3. Bilateral pleural effusions small on the left and moderate in size on the right. There is considerable atelectasis of the right lung as well. Chris Dejesus MD Procedures No procedures performed. Other Results Laboratory Tests Test 09/16/16 09/17/16 09/17/16 09/18/16 22:05 03:53 09:16 03:14 Nasal Screen MRSA (PCR) NEGATIVE Neutrophils (%) (Auto) % Lymphocytes (%) (Auto) % Monocytes (%) (Auto) % Eosinophils (%) (Auto) % Basophils (%) (Auto) % Neutrophils # (Auto) TH/MM3 Lymphocytes # (Auto) TH/MM3 Monocytes # (Auto) TH/MM3 Eosinophils # (Auto) TH/MM3 Basophils # (Auto) TH/MM3 CBC Comment AUTO DIFF Differential Total Cells 100 Counted Neutrophils % (Manual) 88 % Band Neutrophils % 6 % Lymphocytes % 3 % Monocytes % 1 % Neutrophils # (Manual) 8.8 TH/MM3 Metamyelocytes 2 % Differential Comment FINAL DIFF MANUAL Platelet Estimate NORMAL Platelet Morphology Comment NORMAL Phosphorus Level 2.5 MG/DL Magnesium Level 2.0 MG/DL Total Bilirubin 0.3 MG/DL Aspartate Amino Transf 10 U/L (AST/SGOT) Alanine Aminotransferase 9 U/L (ALT/SGPT) Alkaline Phosphatase 57 U/L Total Protein 6.4 GM/DL Albumin 1.9 GM/DL Blood Gas Puncture Site RT RADIAL Blood Gas Patient Temperature 98.6 Blood Gas HCO3 35 mmol/L Blood Gas Base Excess 10.5 mmol/L Blood Gas Oxygen Saturation 86 % Arterial Blood pH 7.46 Arterial Blood Partial 50 mmHg Pressure CO2 Arterial Blood Partial 54 mmHg Pressure O2 Arterial Blood Oxygen Content 13.2 Vol % Arterial Blood 1.2 % Carboxyhemoglobin Arterial Blood Methemoglobin 0.8 % Blood Gas Hemoglobin 10.9 G/DL Oxygen Delivery Device HI FLOW NC Blood Gas Liter Flow 30 L/M Blood Gas Ventilator Setting Blood Gas Inspired Oxygen 70 % Prothrombin Time 12.3 SEC Prothromb Time International 1.1 RATIO Ratio Activated Partial 22.9 SEC Thromboplast Time Test 09/18/16 09/21/16 16:00 04:05 Pleural Fluid pH 8.0 Pleural Fluid WBC 344 /MM3 Pleural Fluid RBC 503 /MM3 Pleural Fluid Neutrophils 31 % Pleural Fluid Lymphocytes 69 % Pleural Fluid Total Protein 2.3 GM/DL Pleural Fluid LDH 53 U/L Pleural Fluid Glucose 144 MG/DL Pleural Fluid Amylase 12 U/L White Blood Count 9.8 TH/MM3 Red Blood Count 3.92 MIL/MM3 Hemoglobin 12.0 GM/DL Hematocrit 36.5 % Mean Corpuscular Volume 93.1 FL Mean Corpuscular Hemoglobin 30.5 PG Mean Corpuscular Hemoglobin 32.8 % Concent Red Cell Distribution Width 17.4 % Platelet Count 270 TH/MM3 Mean Platelet Volume 8.8 FL Sodium Level 137 MEQ/L Potassium Level 4.1 MEQ/L Chloride Level 99 MEQ/L Carbon Dioxide Level 34.1 MEQ/L Anion Gap 4 MEQ/L Blood Urea Nitrogen 17 MG/DL Creatinine 0.83 MG/DL Estimat Glomerular Filtration 89 ML/MIN Rate Random Glucose 140 MG/DL Calcium Level 8.3 MG/DL Objective Remarks GENERAL: Elderly male in no acute distress. CARDIOVASCULAR: Normal rate and regular rhythm without murmurs, gallops, or rubs. RESPIRATORY: Air movement is fair. Diminished breath sounds at the bases bilaterally. GASTROINTESTINAL: Abdomen soft, non-tender, non-distended. Right upper quadrant dressing is clean and dry. MUSCULOSKELETAL: Extremities without cyanosis, or edema. NEURO: Alert & Oriented x4 to person, place, time, situation. Moves all ext x4 PSYCH: Appropriate mood and affect. Medications and IVs Current Medications Medications (Trade) Dose Ordered Sig/Cash Route Start Time Stop Time Status Last Admin (D50w (Vial) Inj) 25 ml UNSCH PRN IV PUSH 08/26/16 09:00 (Lexapro) 10 mg DAILY PO 08/27/16 09:00 09/21/16 08:24 (Remeron) 15 mg HS PO 08/26/16 21:00 09/20/16 20:42 (Desyrel) 100 mg HS PO 08/26/16 21:00 09/20/16 20:42 (Pepcid) 40 mg HS PO 08/26/16 21:00 09/20/16 20:41 (Paxton 5-325 Mg) 1 tab Q4H PRN PO 08/27/16 12:15 09/16/16 17:09 (Cardizem) 60 mg Q6H PO 08/30/16 15:00 09/21/16 08:24 (Lopressor) 75 mg BID PO 08/31/16 21:00 09/20/16 08:46 (Eliquis) 5 mg BID PO 08/31/16 21:00 Hold 09/16/16 10:55 (Pill Splitter) 1 ea UNSCH PRN OTHER 08/31/16 10:30 (Prinivil) 10 mg DAILY PO 09/04/16 11:15 Hold 09/11/16 08:27 (Megace Liq) 400 mg DAILY PO 09/07/16 11:15 09/21/16 08:24 (VANCOMYCIN for oral use only) 500 mg QID PO 09/10/16 13:00 09/21/16 12:21 (Lasix Inj) 40 mg BID@09,18 IV PUSH 09/16/16 18:00 Hold 09/17/16 09:00 Lactobacillus Acidophilus 1 gm 1 gm TID PO 09/17/16 09:00 09/21/16 12:21 (D5W-1/2 NS 1000 ml Inj) 1,000 ml @ 42 mls/hr [id number] IV 09/17/16 09:45 Hold (Heparin Inj) 5,000 units Q8HR SQ 09/19/16 15:00 09/21/16 14:31 A/P Assessment and Plan (1) C. difficile colitis ICD Code: A04.7 Status: Acute (2) Perihepatic abscess ICD Code: K65.0 Status: Acute (3) Rapid atrial fibrillation ICD Code: I48.91 Status: Resolved (4) UTI (urinary tract infection) ICD Code: N39.0 Status: Resolved (5) Cardiomyopathy ICD Code: I42.9 Status: Chronic (6) Hypokalemia ICD Code: E87.6 Status: Resolved (7) Chronic systolic heart failure ICD Code: I50.22 Status: Chronic (8) Diabetes mellitus, type 2 ICD Code: E11.9 Status: Chronic (9) Poor appetite ICD Code: R63.0 Status: Acute (10) Leukocytosis ICD Code: D72.829 Status: Acute (11) Low urine output ICD Code: R34 Status: Acute (12) Acute systolic (congestive) heart failure ICD Code: I50.21 Status: Acute 1. Respiratory Failure Acute Hypoxemic and Hypercapnic respiratory Failure Resolving. Moderate Large Right pleural effusion Has been diuresed with Lasix 40 mg IV twice a day. Bronchodilator, Mucolytic and Incentive spirometry status post Right Thoracentesis by IR 09/18 with 1500 cc drained. 2. High Virulent C difficile Colitis, On vancomycin by mouth. 3. Abdominal Wall abscess, CT abdomen and pelvis 8.9 x 3.7 cm air fluid collection right lateral abdominal wall, General Surgery consulted recommended to continue tube for drainage. 4. Chronic Systolic Heart failure 5. Atrial Fibrillation on Cardizem, Metoprolol, Eliquis held due to procedures, echocardiogram 08/27/16 EF 40-45%, Diffuse Hypokinesis, Cardiology signed off the case. 6. Hypertension controlled. 7. chronic Protein energy malnutrition, Poor appetite, Megace 400 mg daily. Dietitian following. 8. DM II low dose Insulin sliding scale PROPH: Pepcid 40 mg by mouth daily at bedtime for stress ulcer prophylaxis. Heparin for DVT prophylaxis. Discharge Planning Not yet cleared for discharge by Specialists. Gio Dominguez MD Sep 21, 2016 14:59
--- NOTE | 2016-09-21 22:24 | RADRPT ---
EXAM DATE/TIME: 09/21/2016 22:01 [place] COMPARISON: CT ABDOMEN & PELVIS W CONTRAST, September 17, 2016, 2:18. INDICATIONS : Abdominal pain. Evaluate abscess. ORAL CONTRAST: Prescribed oral contrast ingested. RADIATION DOSE: 15.41 CTDIvol (mGy) MEDICAL HISTORY : Hypertension. Congestive heart failure. Diabetes mellitus type 2.Colon cancer. SURGICAL HISTORY : None. ENCOUNTER: Subsequent ACUITY: 1 week PAIN SCALE: 5/10 LOCATION: abdomen TECHNIQUE: Volumetric scanning of the abdomen and pelvis was performed. Using automated exposure control and ad justment of the mA and/or kV according to patient size, radiation dose was kept as low as reasonably achievable to obtain optimal diagnostic quality images. FINDINGS: LOWER LUNGS: Bibasilar consolidation and small pleural effusions greater on the right. LIVER: There is low density/heterogeneity along the posterior aspect of the right lobe. Minimal musa-hepatic fluid anteriorly and laterally. There is no dilation of the biliary tree. Gallbladder not visualize d. SPLEEN: Large low-density lesion measures 5.2 x 6.5 cm, unchanged. PANCREAS: Within normal limits. KIDNEYS: Normal in size and shape. There is no mass, stone, or hydronephrosis. Nonobstructing calculi along t he right lower pole again seen. ADRENAL GLANDS: Within normal limits. VASCULAR: There is no aortic aneurysm. BOWEL/MESENTERY: Diverticulosis of the colon again seen. Rectal tube noted. There is no free intraperitoneal air. Pos t surgical changes with anastomotic sutures in the right abdomen. ABDOMINAL WALL: Minimal hernia along the right upper lateral abdominal wall. RETROPERITONEUM: There is no lymphadenopathy. BLADDER: No wall thickening or mass. REPRODUCTIVE: Within normal limits. INGUINAL: There is no lymphadenopathy or hernia. MUSCULOSKELETAL: Abscess along the right upper lateral abdominal wall has been surgically removed. Minimal residual tr ack extends to the skin by no organized fluid collections. CONCLUSION: 1. Abscess along the right upper lateral abdominal wall has been evacuated. No residual fluid collect ion. 2. Diverticulosis without diverticulitis. 3. Bibasilar consolidation and small bilateral pleural effusions. 4. Heterogeneity/area of decreased attenuation again seen within the posterior right lobe of the live r. 5. Large splenic low-density stable. Jeancarlos Crandall MD on September 21, 2016 at 22:15 Board Certified Radiologist. This report was verified electronically.
[2016-09-21] MEDS: FAMOTIDINE 20 MG TAB PO SCH (23:10)
[2016-09-21] MEDS: MIRTAZAPINE 15 MG TAB PO SCH (23:10)
[2016-09-21] MEDS: traZODone HCL 100 MG TAB PO SCH (23:10)
[2016-09-22] VITALS (8 sets, daily range): BP systolic 104–144; BP diastolic 54–97; PULSE 70–106; RESP 16–19; TEMP 97.5–98.7; O2SAT 92–96
[2016-09-22] MEDS: DILTIAZEM HCL 60 MG TAB PO SCH ×4 (04:03→21:03)
[2016-09-22] MEDS: ACETAMINOPHEN/HYDROcodone 325 MG/5 MG TAB PO PRN (04:29)
[2016-09-22] MEDS: HEPARIN SODIUM - SQ 10,000 UNITS/ML VIAL SQ SCH ×3 (05:59→21:05)
[2016-09-22] MEDS: INSULIN ASPART SUPPLEMENTAL SCALE SQ SCH ×4 (05:59→21:10)
[2016-09-22 07:28] LABS: MEAN CELL VOLUME 92.2 FL (80.0-100.0); MEAN CORPUSCULAR HEMOGLOBIN 31.1 PG (27.0-34.0); MEAN CORPUSCULAR HGB CONC 33.7 % (32.0-36.0); PLATELET COUNT 312 TH/MM3 (150-450); RED BLOOD COUNT 3.69 MIL/MM3 (4.50-5.90); REVIEW FLAG FINAL; WHITE BLOOD COUNT 7.5 TH/MM3 (4.0-11.0)
[2016-09-22 08:09] LABS: BICARBONATE 36.5 MEQ/L (21.0-32.0); POTASSIUM 4.2 MEQ/L (3.5-5.1)
[2016-09-22] MEDS: VANCOMYCIN 500 MG VIAL (FOR ORAL USE ONLY) PO SCH ×4 (09:01→21:06)
[2016-09-22] MEDS: LACTOBACILLUS ACIDOPHILUS 1 GM PACKET PO SCH ×3 (09:01→17:41)
[2016-09-22] MEDS: ESCITALOPRAM OXALATE 10 MG TAB PO SCH (09:01)
[2016-09-22] MEDS: MEGESTROL ACETATE SUSP 400 MG/10 ML CUP PO SCH (09:01)
[2016-09-22] MEDS: METOPROLOL TARTRATE 50 MG TAB PO SCH ×2 (09:02→21:03)
--- NOTE | 2016-09-22 09:06 | HHI.PR ---
Subjective Remarks executive relations specialist Notes: 09/16: 81-year-old male who has a complicated past medical history, originally admitted 08/26/16. History includes HTN, chronic systolic heart failure, depression. 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 He reportedly had gallstone in small intestine and underwent laparoscopic repair at [facility] 06/05/16. 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 Surgery was complicated by subsegmental liver infarct and development of perihepatic abscess that was drained percutaneously at the outside hospital. He then went to [facility] and then to [facility]. From [facility] he was admitted on 08/26/16 with SVT. He was evaluated by cardiology, Dr. Mathis, and has been on rate control with cardizem/metoprolol and started on eliquis. He was evaluated by general surgery who initially recommended continuation of drain. CT abdomen and pelvis on 09/03 demonstrated perihepatic drain in place without residual fluid around the drain. There was a mass noted but no intrahepatic abscess. There were certain circumferential wall thickening of the rectosigmoid. Ultimately drain was discontinued 09/06/16. He had multiple daily stools since admission. He tested positive for C diff on 09/01, Epid 027 positive. He was started on flagyl 500 po q8h. Symptoms continued to worsen the point of 10 loose BM's on 09/04. He was placed on vancomycin 250 qid on 09/09. and then transitioned to Flagyl 500 mg IV every 8 hours and vancomycin 500 qid on 09/10 under the care of Dr. Peña with Infectious Disease. Today he is transferred from floor to [facility] due to respiratory distress. He was on 100% NR prior to transfer and Dr. Zhao has ordered Bipap. He has received Lasix 40 mg IV, Duoneb x1, and Solumedrol 125 mg IV. CXR demonstrates moderate right pleural effusion, worsening. 09/17: Sedated with Precedex, on high flow nasal cannula, maintaining O2 sats. General surgery deciding further intervention for right sided anterior abdominal wall cellulitis/abscess. Scheduling for right sided thoracentesis with IR for tomorrow as patient will have been off Eliquis for 48 hours. Will eventually need left thoracentesis as well. 09/18: clinically improving today. off precedex. still on 60% high flow NC. going to IR for right thoracentesis today. 09/19: clinically improving. on 4L NC. 1500 mL drained from right chest. Hospitalist Notes: 09/21: Seen in his bedroom, discussed with nurse, stable continue Vancomycin for C Diff, discussed with floor charge nurse to start contact precautions was just moved to this fourth floor from ICU, no complaint by patient. No bowel movements today. 09/22: Stable discussed with patient and nurse Miss Caro, no Nausea, vomit and improving diarrhea, continue Vancomycin by Mouth improving condition will come back Next Saturday to [facility] if okay with ID specialist. Objective Vital Signs Date Time Temp Pulse Resp B/P Pulse Ox O2 Delivery O2 Flow Rate FiO2 09/22/16 04:00 98.5 76 18 104/62 95 09/22/16 00:00 98.7 93 18 144/97 95 09/21/16 20:00 105 09/21/16 20:00 97.9 100 18 148/84 95 09/21/16 20:00 Nasal Cannula 4.00 09/21/16 19:47 81 09/21/16 16:00 Nasal Cannula 4.00 09/21/16 14:45 97.6 85 16 121/59 96 09/21/16 14:00 93 09/21/16 12:00 88 09/21/16 12:00 98.1 88 15 93/57 95 09/21/16 10:00 93 09/21/16 09:11 96 Nasal Cannula 4.00 I/O 09/21/16 09/21/16 09/21/16 09/22/16 09/22/16 09/22/16 07:00 15:00 23:00 07:00 15:00 23:00 Intake Total 120 ml 240 ml 240 ml 240 ml Output Total 560 ml 815 ml 1050 ml 1400 ml Balance -440 ml -575 ml -810 ml -1160 ml Intake Oral 120 ml 240 ml 240 ml 240 ml Output Urine Total 500 ml 700 ml 550 ml 1200 ml Stool Total 50 ml 100 ml 500 ml 100 ml Drainage Total 10 ml 15 ml 100 ml Result Diagram: 09/22/16 0610 09/22/16 0610 Imaging Last Impressions Abdomen/Pelvis CT 09/21/16 0000 Signed Impressions: Service Date/Time: Wednesday, September 21, 2016 22:01 - CONCLUSION: 1. Abscess along the right upper lateral abdominal wall has been evacuated. No residual fluid collection. 2. Diverticulosis without diverticulitis. 3. Bibasilar consolidation and small bilateral pleural effusions. 4. Heterogeneity/area of decreased attenuation again seen within the posterior right lobe of the liver. 5. Large splenic low-density stable. Jeancarlos Crandall MD Chest X-Ray 09/19/16 0000 Signed Impressions: Service Date/Time: Monday, September 19, 2016 13:30 - CONCLUSION: 1. Interval improvement of the right-sided effusion with a persistent and stable left- sided effusion. 2. No pneumothorax 3. Bibasilar atelectatic changes. Mild interstitial prominence suggesting some degree of volume overload or vascular congestion. Reddy Goncalves MD Thoracentesis 09/18/16 0000 Signed Impressions: Service Date/Time: Sunday, September 18, 2016 15:36 - CONCLUSION: Uncomplicated CT-guided right thoracentesis. Edin Childress MD Chest CT 09/17/16 0000 Signed Impressions: Service Date/Time: Saturday, September 17, 2016 02:18 - CONCLUSION: Bilateral larger pleural effusions right greater left with extensive areas of passive atelectasis all increased since 09/03/16 exam. Fluid collection anterior right abdominal wall defer to CT of the abdomen for complete characterization Mj Eason MD Abdomen MRI 09/05/16 0000 Signed Impressions: Service Date/Time: Monday, September 05, 2016 08:47 - CONCLUSION: 1. No defined mass is seen within the liver. There is some subtle heterogeneous enhancement on the delayed imaging involving the posterior aspect of the right lobe of the liver and the gallbladder fossa. This is felt to be inflammatory in etiology. No definite drainable abscess collection is seen. Note is made of a drainage catheter in place adjacent to the right lobe of the liver. 2. 6.4 x 5.6 cm cystic abnormality within the spleen. This appears to be purely cystic by MR. 3. Bilateral pleural effusions small on the left and moderate in size on the right. There is considerable atelectasis of the right lung as well. Chris Dejesus MD Procedures No procedures performed. Other Results Laboratory Tests Test 09/18/16 09/18/16 09/22/16 03:14 16:00 06:10 Prothrombin Time 12.3 SEC Prothromb Time International 1.1 RATIO Ratio Activated Partial 22.9 SEC Thromboplast Time Pleural Fluid pH 8.0 Pleural Fluid WBC 344 /MM3 Pleural Fluid RBC 503 /MM3 Pleural Fluid Neutrophils 31 % Pleural Fluid Lymphocytes 69 % Pleural Fluid Total Protein 2.3 GM/DL Pleural Fluid LDH 53 U/L Pleural Fluid Glucose 144 MG/DL Pleural Fluid Amylase 12 U/L White Blood Count 7.5 TH/MM3 Red Blood Count 3.69 MIL/MM3 Hemoglobin 11.5 GM/DL Hematocrit 34.0 % Mean Corpuscular Volume 92.2 FL Mean Corpuscular Hemoglobin 31.1 PG Mean Corpuscular Hemoglobin 33.7 % Concent Red Cell Distribution Width 18.0 % Platelet Count 312 TH/MM3 Mean Platelet Volume 8.6 FL Sodium Level 141 MEQ/L Potassium Level 4.2 MEQ/L Chloride Level 99 MEQ/L Carbon Dioxide Level 36.5 MEQ/L Anion Gap 6 MEQ/L Blood Urea Nitrogen 18 MG/DL Creatinine 0.98 MG/DL Estimat Glomerular Filtration 73 ML/MIN Rate Random Glucose 179 MG/DL Calcium Level 8.4 MG/DL Objective Remarks GENERAL: Elderly male in no acute distress. CARDIOVASCULAR: Normal rate and regular rhythm without murmurs, gallops, or rubs. RESPIRATORY: Air movement is fair. Diminished breath sounds at the bases bilaterally. GASTROINTESTINAL: Abdomen soft, non-tender, non-distended. Right upper quadrant dressing is clean and dry. MUSCULOSKELETAL: Extremities without cyanosis, or edema. NEURO: Alert & Oriented x4 to person, place, time, situation. Moves all ext x4 PSYCH: Appropriate mood and affect. Medications and IVs Current Medications Medications (Trade) Dose Ordered Sig/Cash Route Start Time Stop Time Status Last Admin (D50w (Vial) Inj) 25 ml UNSCH PRN IV PUSH 08/26/16 09:00 (Lexapro) 10 mg DAILY PO 08/27/16 09:00 09/21/16 08:24 (Remeron) 15 mg HS PO 08/26/16 21:00 09/21/16 23:10 (Desyrel) 100 mg HS PO 08/26/16 21:00 09/21/16 23:10 (Pepcid) 40 mg HS PO 08/26/16 21:00 09/21/16 23:10 ([place] 5-325 Mg) 1 tab Q4H PRN PO 08/27/16 12:15 09/22/16 04:29 (Cardizem) 60 mg Q6H PO 08/30/16 15:00 09/22/16 04:03 (Lopressor) 75 mg BID PO 08/31/16 21:00 09/21/16 23:10 (Eliquis) 5 mg BID PO 08/31/16 21:00 Hold 09/16/16 10:55 (Pill Splitter) 1 ea UNSCH PRN OTHER 08/31/16 10:30 (Prinivil) 10 mg DAILY PO 09/04/16 11:15 Hold 09/11/16 08:27 (Megace Liq) 400 mg DAILY PO 09/07/16 11:15 09/21/16 08:24 (VANCOMYCIN for oral use only) 500 mg QID PO 09/10/16 13:00 09/21/16 23:11 (Lasix Inj) 40 mg BID@09,18 IV PUSH 09/16/16 18:00 Hold 09/17/16 09:00 Lactobacillus Acidophilus 1 gm 1 gm TID PO 09/17/16 09:00 09/21/16 18:16 (D5W-1/2 NS 1000 ml Inj) 1,000 ml @ 42 mls/hr [id number] IV 09/17/16 09:45 Hold (Heparin Inj) 5,000 units Q8HR SQ 09/19/16 15:00 09/22/16 05:59 A/P Assessment and Plan (1) C. difficile colitis ICD Code: A04.7 Status: Acute (2) Perihepatic abscess ICD Code: K65.0 Status: Acute (3) Rapid atrial fibrillation ICD Code: I48.91 Status: Resolved (4) UTI (urinary tract infection) ICD Code: N39.0 Status: Resolved (5) Cardiomyopathy ICD Code: I42.9 Status: Chronic (6) Hypokalemia ICD Code: E87.6 Status: Resolved (7) Chronic systolic heart failure ICD Code: I50.22 Status: Chronic (8) Diabetes mellitus, type 2 ICD Code: E11.9 Status: Chronic (9) Poor appetite ICD Code: R63.0 Status: Acute (10) Leukocytosis ICD Code: D72.829 Status: Acute (11) Low urine output ICD Code: R34 Status: Acute (12) Acute systolic (congestive) heart failure ICD Code: I50.21 Status: Acute 1. Respiratory Failure Acute Hypoxemic and Hypercapnic respiratory Failure Resolving. Moderate Large Right pleural effusion Has been diuresed with Lasix 40 mg IV twice a day. Bronchodilator, Mucolytic and Incentive spirometry status post Right Thoracentesis by IR 09/18 with 1500 cc drained. 2. High Virulent C difficile Colitis, On vancomycin by mouth. 3. Abdominal Wall abscess, CT abdomen and pelvis 8.9 x 3.7 cm air fluid collection right lateral abdominal wall, General Surgery consulted recommended to continue tube for drainage. as per ID specialist recommended new CT abdomen if improving will discharge Home, new CT abdomen and Pelvis. Abscess along the right upper lateral abdominal wall has been evacuated, No residual fluid collection 4. Chronic Systolic Heart failure 5. Atrial Fibrillation on Cardizem, Metoprolol, Eliquis held due to procedures, echocardiogram 08/27/16 EF 40-45%, Diffuse Hypokinesis, Cardiology signed off the case. 6. Hypertension controlled. 7. chronic Protein energy malnutrition, Poor appetite, Megace 400 mg daily. Dietitian following. 8. DM II low dose Insulin sliding scale PROPH: Pepcid 40 mg by mouth daily at bedtime for stress ulcer prophylaxis. Heparin for DVT prophylaxis. Discharge Planning Awaiting final by ID specialist on 09/24/16 for discharge to [facility]. Gio Dominguez MD Sep 22, 2016 09:06 PROPH: Pepcid 40 mg by mouth daily at bedtime for stress ulcer prophylaxis. Heparin for DVT prophylaxis. Discharge Planning Not yet cleared for discharge by Specialists. Gio Dominguez MD Sep 22, 2016 09:06
[2016-09-22] MEDS: INSULIN DETEMIR 100 UNITS/ML VIAL SQ SCH (10:57)
[2016-09-22] MEDS: MIRTAZAPINE 15 MG TAB PO SCH (21:02)
[2016-09-22] MEDS: traZODone HCL 100 MG TAB PO SCH (21:02)
[2016-09-22] MEDS: FAMOTIDINE 20 MG TAB PO SCH (21:02)
[2016-09-23] VITALS (9 sets, daily range): BP systolic 97–143; BP diastolic 55–77; PULSE 62–88; RESP 16–20; TEMP 97.8–98.3; O2SAT 93–95
[2016-09-23] MEDS: DILTIAZEM HCL 60 MG TAB PO SCH ×4 (02:58→21:34)
[2016-09-23] MEDS: HEPARIN SODIUM - SQ 10,000 UNITS/ML VIAL SQ SCH ×3 (06:11→21:46)
[2016-09-23] MEDS: INSULIN ASPART SUPPLEMENTAL SCALE SQ SCH ×4 (06:12→21:36)
[2016-09-23 06:15] LABS: HEMATOCRIT 33.1 % (39.0-51.0); MEAN CELL VOLUME 91.9 FL (80.0-100.0); MEAN CORPUSCULAR HEMOGLOBIN 30.8 PG (27.0-34.0); MEAN CORPUSCULAR HGB CONC 33.5 % (32.0-36.0); PLATELET COUNT 306 TH/MM3 (150-450); RED CELL DISTRIBUTION WIDTH 17.9 % (11.6-17.2); REVIEW FLAG FINAL; WHITE BLOOD COUNT 10.7 TH/MM3 (4.0-11.0)
[2016-09-23 07:05] LABS: BICARBONATE 33.9 MEQ/L (21.0-32.0)
[2016-09-23 07:22] LABS: POTASSIUM 4.7 MEQ/L (3.5-5.1)
[2016-09-23] MEDS: MEGESTROL ACETATE SUSP 400 MG/10 ML CUP PO SCH (08:37)
[2016-09-23] MEDS: ESCITALOPRAM OXALATE 10 MG TAB PO SCH (08:39)
[2016-09-23] MEDS: METOPROLOL TARTRATE 50 MG TAB PO SCH ×2 (08:39→21:35)
[2016-09-23] MEDS: LACTOBACILLUS ACIDOPHILUS 1 GM PACKET PO SCH ×3 (08:40→18:17)
[2016-09-23] MEDS: VANCOMYCIN 500 MG VIAL (FOR ORAL USE ONLY) PO SCH ×4 (08:42→21:34)
[2016-09-23] MEDS: INSULIN DETEMIR 100 UNITS/ML VIAL SQ SCH (08:45)
--- NOTE | 2016-09-23 15:34 | HHI.PR ---
Subjective Remarks validation specialist Notes: 09/16: 81-year-old male who has a complicated past medical history, originally admitted 08/26/16. History includes HTN, chronic systolic heart failure, depression. 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 He reportedly had gallstone in small intestine and underwent laparoscopic repair at [facility] 06/05/16. 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 Surgery was complicated by subsegmental liver infarct and development of perihepatic abscess that was drained percutaneously at the outside hospital. He then went to [facility] and then to [facility]. From [facility] he was admitted on 08/26/16 with SVT. He was evaluated by cardiology, Dr. Mathis, and has been on rate control with cardizem/metoprolol and started on eliquis. He was evaluated by general surgery who initially recommended continuation of drain. CT abdomen and pelvis on 09/03 demonstrated perihepatic drain in place without residual fluid around the drain. There was a mass noted but no intrahepatic abscess. There were certain circumferential wall thickening of the rectosigmoid. Ultimately drain was discontinued 09/06/16. He had multiple daily stools since admission. He tested positive for C diff on 09/01, Epid 027 positive. He was started on flagyl 500 po q8h. Symptoms continued to worsen the point of 10 loose BM's on 09/04. He was placed on vancomycin 250 qid on 09/09. and then transitioned to Flagyl 500 mg IV every 8 hours and vancomycin 500 qid on 09/10 under the care of Dr. Peña with Infectious Disease. Today he is transferred from floor to [facility] due to respiratory distress. He was on 100% NR prior to transfer and Dr. Zhao has ordered Bipap. He has received Lasix 40 mg IV, Duoneb x1, and Solumedrol 125 mg IV. CXR demonstrates moderate right pleural effusion, worsening. 09/17: Sedated with Precedex, on high flow nasal cannula, maintaining O2 sats. General surgery deciding further intervention for right sided anterior abdominal wall cellulitis/abscess. Scheduling for right sided thoracentesis with IR for tomorrow as patient will have been off Eliquis for 48 hours. Will eventually need left thoracentesis as well. 09/18: clinically improving today. off precedex. still on 60% high flow NC. going to IR for right thoracentesis today. 09/19: clinically improving. on 4L NC. 1500 mL drained from right chest. Hospitalist Notes: 09/21: Seen in his bedroom, discussed with nurse, stable continue Vancomycin for C Diff, discussed with floor charge nurse to start contact precautions was just moved to this fourth floor from ICU, no complaint by patient. No bowel movements today. 09/22: Stable discussed with patient continue Vancomycin by Mouth improving condition 09/23: Improving condition no more loose stools removed Rectal tube and Tillman Catheter, no nausea, vomit or diarrhea, will come back Next Saturday to [facility] if okay with ID specialist. Objective Vital Signs Date Time Temp Pulse Resp B/P Pulse Ox O2 Delivery O2 Flow Rate FiO2 09/23/16 12:00 98.3 71 16 114/64 93 09/23/16 09:49 95 Nasal Cannula 4.00 09/23/16 08:01 67 09/23/16 08:00 98.1 88 16 108/55 95 09/23/16 06:15 62 124/64 09/23/16 04:00 98.2 68 18 97/58 95 09/23/16 00:13 98.1 88 18 143/77 93 09/22/16 22:10 96 Nasal Cannula 4.00 09/22/16 21:17 Nasal Cannula 4.00 09/22/16 20:10 88 09/22/16 20:00 97.8 106 16 115/58 92 09/22/16 16:00 97.5 76 18 126/74 96 I/O 09/22/16 09/22/16 09/22/16 09/23/16 09/23/16 09/23/16 07:00 15:00 23:00 07:00 15:00 23:00 Intake Total 240 ml 362 ml 240 ml Output Total 1400 ml 350 ml 100 ml 500 ml 400 ml Balance -1160 ml 12 ml -100 ml -500 ml -160 ml Intake Oral 240 ml 360 ml 240 ml IV Total 2 ml Output Urine Total 1200 ml 350 ml 100 ml 500 ml 400 ml Stool Total 100 ml Drainage Total 100 ml # Bowel Movements 1 0 0 1 Result Diagram: 09/23/16 0542 09/23/16 0552 Imaging Last Impressions Abdomen/Pelvis CT 09/21/16 0000 Signed Impressions: Service Date/Time: Wednesday, September 21, 2016 22:01 - CONCLUSION: 1. Abscess along the right upper lateral abdominal wall has been evacuated. No residual fluid collection. 2. Diverticulosis without diverticulitis. 3. Bibasilar consolidation and small bilateral pleural effusions. 4. Heterogeneity/area of decreased attenuation again seen within the posterior right lobe of the liver. 5. Large splenic low-density stable. Jeancarlos Crandall MD Chest X-Ray 09/19/16 0000 Signed Impressions: Service Date/Time: Monday, September 19, 2016 13:30 - CONCLUSION: 1. Interval improvement of the right-sided effusion with a persistent and stable left- sided effusion. 2. No pneumothorax 3. Bibasilar atelectatic changes. Mild interstitial prominence suggesting some degree of volume overload or vascular congestion. Reddy Goncalves MD Thoracentesis 09/18/16 0000 Signed Impressions: Service Date/Time: Sunday, September 18, 2016 15:36 - CONCLUSION: Uncomplicated CT-guided right thoracentesis. Edin Childress MD Chest CT 09/17/16 0000 Signed Impressions: Service Date/Time: Saturday, September 17, 2016 02:18 - CONCLUSION: Bilateral larger pleural effusions right greater left with extensive areas of passive atelectasis all increased since 09/03/16 exam. Fluid collection anterior right abdominal wall defer to CT of the abdomen for complete characterization Mj Eason MD Abdomen MRI 09/05/16 0000 Signed Impressions: Service Date/Time: Monday, September 05, 2016 08:47 - CONCLUSION: 1. No defined mass is seen within the liver. There is some subtle heterogeneous enhancement on the delayed imaging involving the posterior aspect of the right lobe of the liver and the gallbladder fossa. This is felt to be inflammatory in etiology. No definite drainable abscess collection is seen. Note is made of a drainage catheter in place adjacent to the right lobe of the liver. 2. 6.4 x 5.6 cm cystic abnormality within the spleen. This appears to be purely cystic by MR. 3. Bilateral pleural effusions small on the left and moderate in size on the right. There is considerable atelectasis of the right lung as well. Chris Dejesus MD Procedures No procedures performed. Other Results Laboratory Tests Test 09/23/16 09/23/16 05:42 05:52 White Blood Count 10.7 TH/MM3 Red Blood Count 3.60 MIL/MM3 Hemoglobin 11.1 GM/DL Hematocrit 33.1 % Mean Corpuscular Volume 91.9 FL Mean Corpuscular Hemoglobin 30.8 PG Mean Corpuscular Hemoglobin 33.5 % Concent Red Cell Distribution Width 17.9 % Platelet Count 306 TH/MM3 Mean Platelet Volume 8.8 FL Sodium Level 139 MEQ/L Potassium Level 4.7 MEQ/L Chloride Level 99 MEQ/L Carbon Dioxide Level 33.9 MEQ/L Anion Gap 6 MEQ/L Blood Urea Nitrogen 22 MG/DL Creatinine 0.99 MG/DL Estimat Glomerular Filtration 72 ML/MIN Rate Random Glucose 201 MG/DL Calcium Level 8.1 MG/DL Objective Remarks GENERAL: Elderly male in no acute distress. CARDIOVASCULAR: Normal rate and regular rhythm without murmurs, gallops, or rubs. RESPIRATORY: Air movement is fair. Diminished breath sounds at the bases bilaterally. GASTROINTESTINAL: Abdomen soft, non-tender, non-distended. Right upper quadrant dressing is clean and dry. MUSCULOSKELETAL: Extremities without cyanosis, or edema. NEURO: Alert & Oriented x4 to person, place, time, situation. Moves all ext x4 PSYCH: Appropriate mood and affect. Medications and IVs Current Medications Medications (Trade) Dose Ordered Sig/Cash Route Start Time Stop Time Status Last Admin (D50w (Vial) Inj) 25 ml UNSCH PRN IV PUSH 08/26/16 09:00 (Lexapro) 10 mg DAILY PO 08/27/16 09:00 09/23/16 08:39 (Remeron) 15 mg HS PO 08/26/16 21:00 09/22/16 21:02 (Desyrel) 100 mg HS PO 08/26/16 21:00 09/22/16 21:02 (Pepcid) 40 mg HS PO 08/26/16 21:00 09/22/16 21:02 ([place] 5-325 Mg) 1 tab Q4H PRN PO 08/27/16 12:15 09/22/16 04:29 (Cardizem) 60 mg Q6H PO 08/30/16 15:00 09/23/16 08:39 (Lopressor) 75 mg BID PO 08/31/16 21:00 09/23/16 08:39 (Eliquis) 5 mg BID PO 08/31/16 21:00 Hold 09/16/16 10:55 (Pill Splitter) 1 ea UNSCH PRN OTHER 08/31/16 10:30 (Prinivil) 10 mg DAILY PO 09/04/16 11:15 Hold 09/11/16 08:27 (Megace Liq) 400 mg DAILY PO 09/07/16 11:15 09/23/16 08:37 (VANCOMYCIN for oral use only) 500 mg QID PO 09/10/16 13:00 09/23/16 13:26 (Lasix Inj) 40 mg BID@09,18 IV PUSH 09/16/16 18:00 Hold 09/17/16 09:00 Lactobacillus Acidophilus 1 gm 1 gm TID PO 09/17/16 09:00 09/23/16 13:27 (D5W-1/2 NS 1000 ml Inj) 1,000 ml @ 42 mls/hr [id number] IV 09/17/16 09:45 Hold (Heparin Inj) 5,000 units Q8HR SQ 09/19/16 15:00 09/23/16 13:27 (Levemir Inj) 10 units DAILY SQ 09/22/16 10:00 09/23/16 08:45 A/P Assessment and Plan (1) C. difficile colitis ICD Code: A04.7 Status: Acute (2) Perihepatic abscess ICD Code: K65.0 Status: Acute (3) Rapid atrial fibrillation ICD Code: I48.91 Status: Resolved (4) UTI (urinary tract infection) ICD Code: N39.0 Status: Resolved (5) Cardiomyopathy ICD Code: I42.9 Status: Chronic (6) Hypokalemia ICD Code: E87.6 Status: Resolved (7) Chronic systolic heart failure ICD Code: I50.22 Status: Chronic (8) Diabetes mellitus, type 2 ICD Code: E11.9 Status: Chronic (9) Poor appetite ICD Code: R63.0 Status: Acute (10) Leukocytosis ICD Code: D72.829 Status: Acute (11) Low urine output ICD Code: R34 Status: Acute (12) Acute systolic (congestive) heart failure ICD Code: I50.21 Status: Acute 1. Respiratory Failure Acute Hypoxemic and Hypercapnic respiratory Failure Resolving. Moderate Large Right pleural effusion Has been diuresed with Lasix 40 mg IV twice a day. Bronchodilator, Mucolytic and Incentive spirometry status post Right Thoracentesis by IR 09/18 with 1500 cc drained. 2. High Virulent C difficile Colitis, On vancomycin by mouth. 3. Abdominal Wall abscess, CT abdomen and pelvis 8.9 x 3.7 cm air fluid collection right lateral abdominal wall, General Surgery consulted recommended to continue tube for drainage. as per ID specialist recommended new CT abdomen if improving will discharge Home, new CT abdomen and Pelvis. Abscess along the right upper lateral abdominal wall has been evacuated, No residual fluid collection 4. Chronic Systolic Heart failure 5. Atrial Fibrillation on Cardizem, Metoprolol, Eliquis held due to procedures, echocardiogram 08/27/16 EF 40-45%, Diffuse Hypokinesis, Cardiology signed off the case. 6. Hypertension controlled. 7. chronic Protein energy malnutrition, Poor appetite, Megace 400 mg daily. Dietitian following. 8. DM II low dose Insulin sliding scale Remove Tillman cath and Rectal Tube PROPH: Pepcid 40 mg by mouth daily at bedtime for stress ulcer prophylaxis. Heparin for DVT prophylaxis. Discharge Planning Awaiting final by ID specialist on 09/24/16 for discharge to [facility]. Gio Dominguez MD Sep 23, 2016 15:34
[2016-09-23] MEDS: MIRTAZAPINE 15 MG TAB PO SCH (21:34)
[2016-09-23] MEDS: traZODone HCL 100 MG TAB PO SCH (21:34)
[2016-09-23] MEDS: FAMOTIDINE 20 MG TAB PO SCH (21:34)
[2016-09-24] VITALS: BP 116/70; PULSE 64; RESP 20; TEMP 98; O2SAT 97
[2016-09-24] MEDS: DILTIAZEM HCL 60 MG TAB PO SCH ×2 (02:18→10:00)
[2016-09-24 04:00] VITALS: BP 132/66; PULSE 65; RESP 22; TEMP 98; O2SAT 94
[2016-09-24] MEDS: INSULIN ASPART SUPPLEMENTAL SCALE SQ SCH ×2 (05:23→10:06)
[2016-09-24] MEDS: HEPARIN SODIUM - SQ 10,000 UNITS/ML VIAL SQ SCH (05:24)
[2016-09-24 07:43] LABS: HEMATOCRIT 36.1 % (39.0-51.0); MEAN CELL VOLUME 92.6 FL (80.0-100.0); MEAN CORPUSCULAR HEMOGLOBIN 30.3 PG (27.0-34.0); MEAN CORPUSCULAR HGB CONC 32.7 % (32.0-36.0); PLATELET COUNT 302 TH/MM3 (150-450); RED CELL DISTRIBUTION WIDTH 18.2 % (11.6-17.2); REVIEW FLAG FINAL
[2016-09-24 08:00] VITALS: PULSE 84
[2016-09-24 08:03] LABS: BICARBONATE 30.1 MEQ/L (21.0-32.0); POTASSIUM 4.8 MEQ/L (3.5-5.1)
[2016-09-24 08:30] VITALS: BP 156/75; PULSE 87; RESP 18; TEMP 98.4; O2SAT 94
[2016-09-24] MEDS: MEGESTROL ACETATE SUSP 400 MG/10 ML CUP PO SCH (10:00)
[2016-09-24] MEDS: METOPROLOL TARTRATE 50 MG TAB PO SCH (10:00)
[2016-09-24] MEDS: LACTOBACILLUS ACIDOPHILUS 1 GM PACKET PO SCH (10:00)
[2016-09-24] MEDS: ESCITALOPRAM OXALATE 10 MG TAB PO SCH (10:00)
[2016-09-24] MEDS: INSULIN DETEMIR 100 UNITS/ML VIAL SQ SCH (10:01)
[2016-09-24] MEDS: VANCOMYCIN 500 MG VIAL (FOR ORAL USE ONLY) PO SCH (10:01)
--- NOTE | 2016-09-24 10:44 | MP ---
cc: BELIA TAPIA DATE OF SURGERY: 09/19/2016 PREOPERATIVE DIAGNOSIS Right chest wall subcutaneous abscess. POSTOPERATIVE DIAGNOSIS Right chest wall subcutaneous abscess. PROCEDURE Incision and drainage of right chest wall abscess. ATTENDING SURGEON Dr. Tapia. POOLROOM TABLE ATTENDANT floor nurse. ANESTHESIA Local anesthetic, 1% lidocaine with epinephrine. COMPLICATIONS None. BLOOD LOSS Less than 10 ccs. FINDINGS Approximately between 50-100ml of mature purulent material in a well-defined abscess cavity, does not appear to communicate with underlying abdominal cavity and is contained to the subcutaneous tissue. No obvious foreign body or source, no overlying cellulitis. INDICATIONS FOR PROCEDURE The patient is a 81-year-old male with multiple medical comorbidities, admitted to the hospital with multiple acute diagnoses including sepsis. The patient underwent imaging with CT scan which did reveal subcutaneous abscess which was concerning for one possible etiology of his sepsis. General surgery was following the patient intermittently for a previous issue and was re-consulted to assist video game designer and for drainage procedure. Risks, benefits, alternatives were discussed with the patient and family and informed consent was obtained by the nurse from the patient's family for incision and drainage of subcutaneous abscess. PROCEDURE The area over the abscess was palpable on the right chest wall with no cellulitis, there was no drainage. We prepped this with alcohol and anesthetized an area of skin approximately 2-3 cm in length with lidocaine anesthetic. We then made an incision with a 15 blade scalpel over this area approximately 3 cm and then spread down gently into the abscess cavity. Once we had broke into the abscess cavity we were greeted with some pus under a small amount of pressure. This was suctioned out and expressed. We used a sterile hemostat to evaluate the cavity. There was no obvious connection seen to any deeper tissues and this appeared to be just a subcutaneous mature abscess. This again was irrigated until all purulence was removed from the cavity and this was packed with iodoform gauze. Sterile dressing was applied. The patient tolerated the procedure well with no apparent complications. Belia Tapia MD AWG/TLL /11:51 AM /10:27 AM [facility]
[2016-09-24] MEDS ORDERED: NORC5TAB PO (12:25)
--- NOTE | 2016-09-24 12:34 | HHI.IDPN ---
Subjective Subjective Remarks doing good; deies SOB no abdominal pain BMs 1-4 /day afebrile getting ready for dc per Dr Nguyen - thick old appearing organised pus in large amount was encounted; cavity not communicated with anywhere else. Antibiotics vanco po Lines Line sites with no e.o infection. 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 He reportedly had gallstone in small intestine and underwent laparoscopic repair at [facility] 06/05/16. 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 Surgery was complicated by subsegmental liver infarct and development of perihepatic abscess that was drained percutaneously at the outside hospital. Allergies: Coded Allergies: *MDRO Multi-Drug Resistant Organism (Verified Adverse Reaction, Unknown, ) MDR-Enterobacter Cloacae (urine)-08/26/16 Objective . Vital Signs Date Time Temp Pulse Resp B/P Pulse Ox O2 Delivery O2 Flow Rate FiO2 09/24/16 08:30 98.4 87 18 156/75 94 09/24/16 08:00 Nasal Cannula 4.00 09/24/16 08:00 84 09/24/16 04:00 98.0 65 22 132/66 94 09/24/16 00:00 98.0 64 20 116/70 97 09/23/16 21:45 Nasal Cannula 4.00 09/23/16 21:30 Nasal Cannula 3.00 09/23/16 20:00 72 09/23/16 20:00 98.0 73 20 101/59 93 09/23/16 16:00 97.8 76 17 132/71 94 09/23/16 09/23/16 09/24/16 15:00 23:00 07:00 Intake Total 242 ml 340 ml Output Total 400 ml Balance -158 ml 340 ml Intake Oral 240 ml 340 ml IV Total 2 ml Output Urine Total 400 ml # Voids 6 # Bowel Movements 1 3 . Laboratory Tests Test 09/23/16 09/24/16 05:42 05:40 White Blood Count 10.7 TH/MM3 11.0 TH/MM3 Red Blood Count 3.60 MIL/MM3 3.90 MIL/MM3 Hemoglobin 11.1 GM/DL 11.8 GM/DL Hematocrit 33.1 % 36.1 % Mean Corpuscular Volume 91.9 FL 92.6 FL Mean Corpuscular Hemoglobin 30.8 PG 30.3 PG Mean Corpuscular Hemoglobin 33.5 % 32.7 % Concent Red Cell Distribution Width 17.9 % 18.2 % Platelet Count 306 TH/MM3 302 TH/MM3 Mean Platelet Volume 8.8 FL 9.0 FL Laboratory Tests Test 09/23/16 09/24/16 05:52 05:40 Sodium Level 139 MEQ/L 138 MEQ/L Potassium Level 4.7 MEQ/L 4.8 MEQ/L Chloride Level 99 MEQ/L 101 MEQ/L Carbon Dioxide Level 33.9 MEQ/L 30.1 MEQ/L Anion Gap 6 MEQ/L 7 MEQ/L Blood Urea Nitrogen 22 MG/DL 21 MG/DL Creatinine 0.99 MG/DL 0.84 MG/DL Estimat Glomerular Filtration 72 ML/MIN 87 ML/MIN Rate Random Glucose 201 MG/DL 99 MG/DL Calcium Level 8.1 MG/DL 8.5 MG/DL Imaging Last Impressions Abdomen/Pelvis CT 09/21/16 0000 Signed Impressions: Service Date/Time: Wednesday, September 21, 2016 22:01 - CONCLUSION: 1. Abscess along the right upper lateral abdominal wall has been evacuated. No residual fluid collection. 2. Diverticulosis without diverticulitis. 3. Bibasilar consolidation and small bilateral pleural effusions. 4. Heterogeneity/area of decreased attenuation again seen within the posterior right lobe of the liver. 5. Large splenic low-density stable. Jeancarlos Crandall MD Chest X-Ray 09/19/16 0000 Signed Impressions: Service Date/Time: Monday, September 19, 2016 13:30 - CONCLUSION: 1. Interval improvement of the right-sided effusion with a persistent and stable left- sided effusion. 2. No pneumothorax 3. Bibasilar atelectatic changes. Mild interstitial prominence suggesting some degree of volume overload or vascular congestion. Reddy Goncalves MD Thoracentesis 09/18/16 0000 Signed Impressions: Service Date/Time: Sunday, September 18, 2016 15:36 - CONCLUSION: Uncomplicated CT-guided right thoracentesis. Edin Childress MD Chest CT 09/17/16 0000 Signed Impressions: Service Date/Time: Saturday, September 17, 2016 02:18 - CONCLUSION: Bilateral larger pleural effusions right greater left with extensive areas of passive atelectasis all increased since 09/03/16 exam. Fluid collection anterior right abdominal wall defer to CT of the abdomen for complete characterization Mj Eason MD Abdomen MRI 09/05/16 0000 Signed Impressions: Service Date/Time: Monday, September 05, 2016 08:47 - CONCLUSION: 1. No defined mass is seen within the liver. There is some subtle heterogeneous enhancement on the delayed imaging involving the posterior aspect of the right lobe of the liver and the gallbladder fossa. This is felt to be inflammatory in etiology. No definite drainable abscess collection is seen. Note is made of a drainage catheter in place adjacent to the right lobe of the liver. 2. 6.4 x 5.6 cm cystic abnormality within the spleen. This appears to be purely cystic by MR. 3. Bilateral pleural effusions small on the left and moderate in size on the right. There is considerable atelectasis of the right lung as well. Chris Dejesus MD Physical Exam CONSTITUTIONAL/GENERAL: This is an obese elderly patient, in no apparent distress. TUBES/LINES/DRAINS: SKIN: No jaundice, rashes, or lesions. RESPIRATORY/CHEST: unlabored respirations. NEUROLOGICAL: Awake and alert. Non focal. 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 Perihepatic abscess sp biliary drain (removed); drained at b/s by dr Nguyen - repeat CT A/P w/o residual fluid bl pleural effusions after biliary drain was removed - clx negative for R pleural fluid; cw transudate dc Oral vanco will need to be retreated with oral vanco if develops diarrhea again(relapse in 25% of pts) OK to dc to rehab dw Shweta Bass case mngr Madelaine Peña MD Sep 24, 2016 12:34
== END 2016-09-24 12:36 | DRG 308 ==
LOC: NEPC 05:18 → NEDA 09:03 → N04B 10:33 → N03B 09-16 19:14 → N04B 09-21 14:37
PROVIDERS: ADMIT Hospitalist; ATTEND Hospitalist
PROC: 5A09457 Assistance with Respiratory Ventilation, 24-96 Consecutive Hours, Continuous Positive Airway Pressure (ICD-10-PCS; principal; 2016-09-16)
PROC: 0W993ZX Drainage of Right Pleural Cavity, Percutaneous Approach, Diagnostic (ICD-10-PCS; 2016-09-18)
PROC: 0J963ZZ Drainage of Chest Subcutaneous Tissue and Fascia, Percutaneous Approach (ICD-10-PCS; 2016-09-19)
DX: I48.91 Unspecified atrial fibrillation (principal); A41.4 Sepsis due to anaerobes; K75.0 Abscess of liver; G93.40 Encephalopathy, unspecified; I50.23 Acute on chronic systolic (congestive) heart failure; J96.01 Acute respiratory failure with hypoxia; J96.02 Acute respiratory failure with hypercapnia; A04.7 Enterocolitis due to Clostridium difficile; I11.0 Hypertensive heart disease with heart failure; E46 Unspecified protein-calorie malnutrition; N39.0 Urinary tract infection, site not specified; J98.11 Atelectasis; L02.211 Cutaneous abscess of abdominal wall; L03.311 Cellulitis of abdominal wall; L02.213 Cutaneous abscess of chest wall; E11.9 Type 2 diabetes mellitus without complications; E88.09 Other disorders of plasma-protein metabolism, not elsewhere classified; F32.9 Major depressive disorder, single episode, unspecified; D64.9 Anemia, unspecified; I47.1 Supraventricular tachycardia; I48.92 Unspecified atrial flutter; I42.9 Cardiomyopathy, unspecified; E07.81 Sick-euthyroid syndrome; B96.89 Other specified bacterial agents as the cause of diseases classified elsewhere; E87.6 Hypokalemia; Z79.4 Long term (current) use of insulin; Z85.068 Personal history of other malignant neoplasm of small intestine; Z92.21 Personal history of antineoplastic chemotherapy; Z90.49 Acquired absence of other specified parts of digestive tract
CPT/HCPCS: 32555; 36600; 71010; 71250; 74176; 74177; 74183; 76937; 80048; 80053; 81001; 82150; 82550; 82805; 82945; 82948; 83036; 83605; 83615; 83735; 83880; 83986; 84100; 84132; 84157; 84439; 84443; 84484; 85007; 85025; 85027; 85610; 85730; 87015; 87040; 87070; 87077; 87086; 87102; 87116; 87186; 87205; 87206; 87493; 87641; 88112; 88305; 89051; 93005; 93306; 94002; 94003; 94150; 94640; 94664; 94667; 94668; 96365; 96375; A9579; C1729; J0171; J0461; J0696; J1120; J1644; J1815; J1940; J2543; J2930; J3480; J7030; J7050; Q9963; Q9967